=== PATIENT | female | born 1930 | race Caucasian/White ===

== ENCOUNTER → 2016-06-13 | Outpatient (CLI) | payer BC ==
[~2016-06-13] MED LIST: ABL10 PO; ACET-1311 PO; ALBUAER2 INH; ANSHCCR PR; ASCO10003 PO; ASCO500T16 PO; ASCO500T3 PO; ASPCH81X PO; ASPI81TA28 PO; BROM0.07 OPR; CALC600T9 PO; CLX/20 PO; CONJ0.453 PO; DARI15TA PO; DARI7.5T PO; DICL1GEL12 EXT; DICL1GEL28 TOP; DOCU100C PO; DOCU100C31 PO; DOXY-300 PO; DOXY100C2 PO; DOXY100C76 PO; FLUV100T12 PO; FLUV50TA2 PO; HYDR-389 PO; HYDR1CAP85 PO; HYDR25CA PO; LCTX PO; LEVO-17 PO; LEVO-366 PO; METO25TA3 PO; METO50TA7 PO; MULT-506 PO; ONDA4TAB65 PO; POLYSOL OPB; PRED1SUS17 OPR; PRED20TA2 PO; RISP0.258 PO; RISP0.5T10 PO; SENN-61 PO; SENN-65 PO; SERT-234 PO; SPRIN INH; TRAM-10 PO; TRMCR130WC TOP; TYLOTC500 PO; VNTHFA/IN INH
[2016-06-13 12:58] LABS: BASO % 0.4 %; BASO ABS # 0.01 K/uL (0-0.2); COMPLETE YES; EOS % 1.8 %; LYMPH % 40.9 %; LYMPH ABS # 1.14 K/uL (1.2-3.4); MEAN CELL VOLUME 92.5 fL (80-100); MEAN CORPUSCULAR HEMOGLOBIN 30.4 pg (25-34); MEAN CORPUSCULAR HGB CONC 32.9 g/dl (32-36); MEAN PLATELET VOLUME 10.6 fL (7.4-10.4); NEUT % 37.9 %; PLATELET COUNT 185 K/uL (130-400); RED BLOOD COUNT 4.11 M/uL (4.2-5.4); WHITE BLOOD COUNT 2.79 K/uL (4.8-10.8)
== END | disposition home or self-care (01) ==
LOC: C.LABSALHI 12:45
PROVIDERS: ATTEND Nurse Practitioner Family
DX: D70.9 Neutropenia, unspecified (principal)

== ENCOUNTER → 2016-07-16 | Day surgery (SDC) | payer BC ==
[2016-07-15 07:34] VITALS: Ht 160 cm; Wt 55.5 kg
[~2016-07-16] VITALS: Ht 160 cm; Wt 55.5 kg
[~2016-07-16] MED LIST changes: +500ML BSS 0.3ML EPI 1:1000PF IRRIG ONE; +ACETAMINOPHEN 325 MG TAB PO PRN; -ALBUAER2 INH; +AMVISC PLUS 0.8ML SYRINGE INT OCU ONE; -ASCO10003 PO; -ASPI81TA28 PO; +BSS FLUSH ONE; -DICL1GEL28 TOP; +EpINEphrine INJ 1MG/ML AMP 1 MG/ML AMP ONE; +LACTATED RINGER'S 1000ML 500 ML IV SCH; -LCTX PO; +LIDOCAINE 3.5% OPH GEL PER APPLICATION CHARGE ONE; +LIDOCAINE HCL 1% MPF 2 ML VIAL ONE; +MIDAZOLAM HCL 1 MG/ML 2ML VIAL ONE; +OCUCOAT 1 ML SOLN IO ONE; +PHENYLEPHRINE HCL 10% OP SOLN PER DROP CHARGE OPR SCH; +POVIDONE-IODINE OP SOLN 30 ML BTL ONE; +PROPARACAINE 0.5% OP SOLN PER DROP CHARGE OPR SCH; +TOBRAMYCIN/DEXAMETHASONE OPH OINT PER APPLN CHARGE ONE; -TRAM-10 PO
--- NOTE | 2016-07-16 08:18 | History & Physical Bridge - SC ---
H&P Re-Evaluation Bridge Note: I have examined the patient, reviewed the History & Physical and in the interval since the performance of the History & Physical I have noted the following changes of clinical significance: No changes noted
[2016-07-16] MEDS: PHENYLEPHRINE HCL 2.5% OP SOLN PER DROP CHARGE OPR SCH ×2 (08:21→08:26)
[2016-07-16] MEDS: TROPICAMIDE 1% OP SOLN PER DROP CHARGE OPR SCH ×2 (08:22→08:27)
[2016-07-16] MEDS: CYCLOPENTOLATE HCL 1% OP SOLN PER DROP CHARGE OPR SCH ×2 (08:23→08:28)
[2016-07-16] MEDS: KETOROLAC 0.5% OP SOLN PER DROP CHARGE OPR SCH ×2 (08:24→08:29)
[2016-07-16] MEDS: GATIFLOXACIN OP SOLN PER DROP CHARGE OPR SCH ×2 (08:25→08:35)
--- NOTE | 2016-07-16 09:02 | Discharge Instructions-SurgCtr ---
Discharge Instructions Visit Reason for Visit: Cataract Right Eye Discharge Discharge Diagnosis / Problem: cataract Discharge Goals Goal(s): Improve function Activity Recommendations Activity Limitations: per Instructions/Follow-up section Anesthesia . Post Anesthesia Instructions: If you have had General Anesthesia or IV Sedation: * Do not drive today. * Resume driving when surgeon permits. * Do not make important decisions or sign legal documents today. * Call surgeon for: 1. Temperature elevations greater than 101 degrees F. 2. Uncontrollable pain. 3. Excessive bleeding. 4. Persistent nausea and vomiting. 5. Medication intolerance (nausea, vomiting or rash). * For nausea and vomiting use only clear liquids such as: tea, soda, bouillon until nausea subsides, then gradually increase diet as tolerated. * If you have any concerns or questions, call your surgeon's office. If physician is unavailable and it is an emergency, call 911 or go to the nearest emergency room. . Instructions / Follow-Up Instructions / Follow-Up ACTIVITY RECOMMENDATIONS: * No strenuous lifting, jogging or running for 4 days * No swimming or yard work for 1 week. * Limited bending is permitted, such as putting on shoes. RETURN TO SCHOOL/WORK: No work until seen by physician in office. MEDICATIONS: Resume previous medications unless instructed otherwise by your surgeon. This includes eye drops for glaucoma. Zymaxid/Gatifloxacin (south cap) - one drop every 2 hours until bedtime Nevanac/Ilevro/Prolensa/Ketorolac (pryor cap) - one drop every 4 hours until bedtime Prednisolone (white/pink cap, SHAKE WELL) - one drop every 2 hours until bedtime Starting tomorrow - all 3 drops every 4 hours until seen in the office Optive drops - as needed for discomfort SPECIAL CARE INSTRUCTIONS: * Wear eyeshield when sleeping, for four nights. * You may wear your own glasses or sunglasses while awake. * You may read or watch TV * You may shower and wash your face, but be gentle around the eye and pat dry. * Blurry vision and mild irritation are normal. * Call office if pain is more severe or vision becomes dark at . FOLLOW UP VISIT: Follow-up with Dr Banuelos tomorrow. Diet Recommendations Home Diet: resume previous diet Procedures Procedures Performed: Right Cataract Phacoemulsification With Intraocular Lens Implant Pending Studies Studies pending at discharge: no Medical Emergencies . Who to Call and When: Medical Emergencies: If at any time you feel your situation is an emergency, please call 911 immediately. . Non-Emergent Contact Non-Emergency issues call your: Software Quality Assurance Specialist . . "Provider Documentation" section prepared by Khanh Banuelos.
--- NOTE | 2016-07-16 09:02 | [facility] Operative Report ---
Operative Report 1. PREOPERATIVE DIAGNOSIS: Cataract of the right eye. 2. POSTOPERATIVE DIAGNOSIS: Same. 3. PROCEDURE: Phacoemulsification with intraocular lens implantation of the right eye. SURGEON: Dr. Khanh Banuelos. ANESTHESIA: Topical Lidocaine gel, 1% Non- Preserved intracameral Lidocaine, and monitored intravenous sedation. INDICATIONS FOR THE PROCEDURE: The patient is a 86 - year-old female with a history of cataract of the right eye causing significant visual impairment. The details of the proposed procedure were explained to the patient who asked appropriate questions and following discussion of all risks, benefits and alternatives agreed to have the procedure done. 4. OPERATION AND FINDINGS: DESCRIPTION OF PROCEDURE: After informed consent was obtained, the patient was brought to the Operating Room at the [facility]. The patient was placed in a supine position and then the right eye was prepped and draped in the usual sterile fashion for intraocular surgery. A drop of topical Lidocaine gel was placed in the operative eye. A wire lid speculum was then placed in the fornices. A corneal paracentesis was then created temporally. The Non-Preserved Lidocaine was then instilled into the anterior chamber. The anterior chamber was then pressurized with viscoelastic. A 2.0 mm clear corneal incision was then created temporally. A cystotome was inserted into the anterior chamber and used to create a tear in the anterior lens capsule. This capsular tear was then used to create a small flap and the flap was dragged in a counterclockwise direction in order to create a continuous curvilinear capsulorrhexis. Hydrodissection was accomplished with balanced salt solution. Phacoemulsification of the lens nucleus was then performed in a standard [id number] technique. The phaco time was 33 seconds with an average power of 13 %. The remaining cortical material was removed using irrigation aspiration. The capsular bag was then filled with viscoelastic. A [employer] Lomb MI60L +20.5 diopters lens was then loaded into the injector and injected into the capsular bag. The remaining viscoelastic was removed with the irrigation aspiration handpiece. The wound was hydrated and then checked and found to be watertight. The intraocular pressure was checked and found to be adequate. The wire lid speculum was removed and the patient's face was cleaned and dried. TobraDex ointment was placed in the inferior fornix. The patient was discharged to the Recovery Room having tolerated the procedure well. There were no complications. The patient will be seen tomorrow in the office for follow-up. I attest to the content of the Intraoperative Record and any orders documented therein. Any exceptions are noted below.
--- NOTE | 2016-07-16 09:30 | Anesthesia Progress Nt - [facility] ---
Anesthesia Post Op Note Date & Time Jul 16, 2016 at 09:30 Vital Signs Pain Intensity: 0 Vital Signs Past 12 Hours Date Time Temp Pulse Resp B/P Pulse Ox O2 Delivery O2 Flow Rate FiO2 07/16/16 09:01 36.2 55 16 164/67 98 Room Air 07/16/16 08:23 36.4 60 16 172/69 96 Room Air Notes Mental Status: alert / awake / arousable, participated in evaluation Pt Amnestic to Procedure: No Nausea / Vomiting: adequately controlled Pain: adequately controlled Airway Patency, RR, SpO2: stable & adequate BP & HR: stable & adequate Hydration State: stable & adequate Anesthetic Complications: no major complications apparent Recall as expected.
[2016-07-16 09:34] VITALS: BP 176/63; PULSE 50; O2SAT 96
== END | disposition home or self-care (01) ==
LOC: X.SURG 07:49
PROVIDERS: ATTEND Ophthalmology
DX: H26.9 Unspecified cataract (principal); I10 Essential (primary) hypertension

== ENCOUNTER 2016-07-28 09:51 | Inpatient (IN) | payer OTHER, BC ==
[~2016-07-28] VITALS: Ht 160 cm; Wt 65.1 kg
[~2016-07-28 09:51] MED LIST changes: -500ML BSS 0.3ML EPI 1:1000PF IRRIG ONE; -ABL10 PO; -ACET-1311 PO; -ACETAMINOPHEN 325 MG TAB PO PRN; -AMVISC PLUS 0.8ML SYRINGE INT OCU ONE; -ANSHCCR PR; -ASCO500T16 PO; -BROM0.07 OPR; -BSS FLUSH ONE; -CLX/20 PO; -DARI15TA PO; -DOCU100C31 PO; -DOXY-300 PO; -DOXY100C2 PO; -EpINEphrine INJ 1MG/ML AMP 1 MG/ML AMP ONE; -FLUV100T12 PO; -FLUV50TA2 PO; -HYDR-389 PO; -HYDR1CAP85 PO; -HYDR25CA PO; -LACTATED RINGER'S 1000ML 500 ML IV SCH; -LEVO-17 PO; -LEVO-366 PO; -LIDOCAINE 3.5% OPH GEL PER APPLICATION CHARGE ONE; -LIDOCAINE HCL 1% MPF 2 ML VIAL ONE; -MIDAZOLAM HCL 1 MG/ML 2ML VIAL ONE; -OCUCOAT 1 ML SOLN IO ONE; -PHENYLEPHRINE HCL 10% OP SOLN PER DROP CHARGE OPR SCH; -POLYSOL OPB; -POVIDONE-IODINE OP SOLN 30 ML BTL ONE; -PRED1SUS17 OPR; -PRED20TA2 PO; -PROPARACAINE 0.5% OP SOLN PER DROP CHARGE OPR SCH; -RISP0.258 PO; -RISP0.5T10 PO; -SENN-65 PO; -SPRIN INH; -TOBRAMYCIN/DEXAMETHASONE OPH OINT PER APPLN CHARGE ONE; -TRMCR130WC TOP
[2016-07-28] MEDS ORDERED: SODIUM CHLORIDE 0.9% 500ML 500 ML IV STA (10:09)
--- NOTE | 2016-07-28 10:12 | EMERGENCY ROOM VISIT NOTE ---
History Report prepared by Tobi: Maria Esther Fox Under the Supervision of: Dr. Toro Diop M.D. First contact with patient: 10:03 Chief Complaint: ILLNESS Stated Complaint: ILLNESS History of Present Illness The patient is an 86 year old female who presents to the Emergency Room with complaints of persistent flu like symptoms. She was brought to the ED via AMS from [facility] where she resides. She complains of a cough, nausea, dry heaves, chills and shortness of breath. She vomited a small amount of bile upon arrival to the ED. She also reports her urine has been very dark in color recently. The patient denies any chest pain or swelling in her legs. 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 A total of 10 systems reviewed and were otherwise negative. 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 (7) UTI (urinary tract infection) Surgical Problems: (1) Status post arthroscopic knee surgery (2) Status post tubal ligation Family History Asthma FAM HX-ISCHEM HEART DIS MOTHER Social History Smoking Status: Unknown if Ever Smoked Drug Use: none Marital Status: Housing Status: lives alone Occupation Status: retired Current/Historical Medications Scheduled Acetaminophen (Tylenol), 1,000 MG PO BID Ascorbic Acid (Vitamin C), 2 TAB PO QAM Aspirin (Aspirin Chewable), 81 MG PO BID Calcium Carbonate-Vitamin D (Calcium + D), 1 TAB PO QAM Darifenacin Hydrobromide (Enablex), 7.5 MG PO QPM Doxycycline Monohydrate (Monodox), 100 MG PO QAM Estrog Conj/Medryoxyprog Acet (Prempro 0.45MG/1.5MG), 1 TAB PO Q2D Metoprolol Succ (Toprol Xl) (Toprol-Xl), 25 MG PO QAM Metoprolol Succ (Toprol Xl) (Toprol-Xl), 50 MG PO QAM Multivitamin (Multivitamin), 1 TAB PO QAM Senna (Senokot), 1 TAB PO DAILY AT NOON Sertraline (Zoloft), 100 MG PO QPM Scheduled PRN Albuterol Hfa (Ventolin Hfa), 2-4 PUFFS INH Q6H PRN for Shortness of Breath Diclofenac Sodium (Topical) (Voltaren 1% Top Gel), APPLN EXT DIRECTED PRN for Pain Docusate Sodium (Stool Softener), 1 CAP PO BID PRN for Constipation Ondansetron Hcl (Zofran), 4 MG PO PRN PRN for Nausea Allergies Coded Allergies: Penicillins (Verified Allergy, Intermediate, HIVES, 07/16/16) TOLERATED CEFEPIME 2014 Sulfamethoxazole w/Trimethoprim (Verified Allergy, Intermediate, HIVES, ) Tetanus Toxoid (Verified Allergy, Intermediate, RASH, 07/16/16) Latex1 -Allergic Contact Dermititis (Verified Allergy, Mild, RASH, 07/16/16 ) Codeine (Verified Adverse Reaction, Intermediate, HEADACHES, 07/16/16) Morphine and Related (Verified Adverse Reaction, Mild, SEVERE HEADACHES, ) Severe Headaches Physical Exam Vital Signs Date Time Temp Pulse Resp B/P Pulse Ox O2 Delivery O2 Flow Rate FiO2 07/28/16 11:28 79 22 169/72 97 Nasal Cannula 2.0 07/28/16 10:28 38.5 07/28/16 10:27 38.5 07/28/16 09:59 36.9 85 22 176/76 96 Nasal Cannula 2.0 07/28/16 09:59 90 07/28/16 09:58 95 Nasal Cannula 2.0 07/28/16 09:58 86 Room Air Physical Exam GENERAL: Patient is elderly and unwell appearing. She appears to be in minimal distress and is warm to touch. HEENT: No acute trauma, normocephalic atraumatic, mucous membranes moist, no nasal congestion, no scleral icterus. NECK: No stridor, no adenopathy, no meningismus, trachea is midline. LUNGS: No dyspnea. Junky breath sounds bilaterally. No wheeze, no rhonchi. HEART: Regular rate and rhythm. No murmurs, rubs, gallops appreciated. ABDOMEN: Soft, nontender, bowel sounds positive, no masses appreciated, no peritonitis. BACK: No midline tenderness, no CVA tenderness EXTREMITIES: Normal motion all extremities, no cyanosis, no edema. NEUROLOGIC: Alert and oriented, no acute motor or sensory deficits, no focal weakness, cranial nerves grossly intact. SKIN: No rash, no jaundice, no diaphoresis. Medical Decision & Procedures ER Provider Diagnostic Interpretation: This X-Ray was reviewed and interpreted by myself and the radiologist. CHEST ONE VIEW PORTABLE IMPRESSION: No acute process. Electronically signed by: Madi Guy M.D. 07/28/2016 10:50 AM Laboratory Results 07/28/16 10:00 Red Blood Count 4.27, Mean Corpuscular Volume 92.7, Mean Corpuscular Hemoglobin 31.4, Mean Corpuscular Hemoglobin Concent 33.8, Mean Platelet Volume 10.8, Neutrophils (%) (Auto) 68.5, Lymphocytes (%) (Auto) 14.3, Monocytes (%) (Auto) 16.4, Eosinophils (%) (Auto) 0.4, Basophils (%) (Auto) 0.0, Neutrophils # (Auto ) 3.60, Lymphocytes # (Auto) 0.75, Monocytes # (Auto) 0.86, Eosinophils # (Auto ) 0.02, Basophils # (Auto) 0.00 07/28/16 10:00 Test 07/28/16 10:00 07/28/16 10:25 07/28/16 10:55 07/28/16 11:22 White Blood Count 5.25 K/uL (4.8-10.8) Red Blood Count 4.27 M/uL (4.2-5.4) Hemoglobin 13.4 g/dL (12.0-16.0) Hematocrit 39.6 % (37-47) Mean Corpuscular Volume 92.7 fL (80-100) Mean Corpuscular Hemoglobin 31.4 pg (25-34) Mean Corpuscular Hemoglobin Concent 33.8 g/dl (32-36) Platelet Count 134 K/uL (130-400) Mean Platelet Volume 10.8 fL (7.4-10.4) Neutrophils (%) (Auto) 68.5 % Lymphocytes (%) (Auto) 14.3 % Monocytes (%) (Auto) 16.4 % Eosinophils (%) (Auto) 0.4 % Basophils (%) (Auto) 0.0 % Neutrophils # (Auto) 3.60 K/uL (1.4-6.5) Lymphocytes # (Auto) 0.75 K/uL (1.2-3.4) Monocytes # (Auto) 0.86 K/uL (0.11-0.59) Eosinophils # (Auto) 0.02 K/uL (0-0.5) Basophils # (Auto) 0.00 K/uL (0-0.2) RDW Standard Deviation 47.8 fL (36.4-46.3) RDW Coefficient of Variation 14.3 % (11.5-14.5) Immature Granulocyte % (Auto) 0.4 % Immature Granulocyte # (Auto) 0.02 K/uL (0.00-0.02) Prothrombin Time 11.0 SECONDS (9.0-12.0) Prothromb Time International Ratio 1.0 (0.9-1.1) Anion Gap 6.0 mmol/L (3-11) Est Creatinine Clear Calc Drug Dose 41.0 ml/min Estimated GFR () 66.7 Estimated GFR (Non- 57.5 BUN/Creatinine Ratio 19.1 (10-20) Calcium Level 8.9 mg/dl (8.5-10.1) Magnesium Level 2.1 mg/dl (1.8-2.4) Total Bilirubin 0.7 mg/dl (0.2-1) Direct Bilirubin mg/dl (0-0.2) Aspartate Amino Transf (AST/SGOT) 28 U/L (15-37) Alanine Aminotransferase (ALT/SGPT) 19 U/L (12-78) Alkaline Phosphatase 89 U/L (45-117) Total Protein 8.4 gm/dl (6.4-8.2) Albumin 4.1 gm/dl (3.4-5.0) Chemistry Specimen Hemolysis Urine Color YELLOW Urine Appearance CLEAR (CLEAR) Urine pH 8.0 (4.5-7.5) Urine Specific [place] 1.014 (1.000-1.030) Urine Protein 4+ (NEG) Urine Glucose (UA) NEG (NEG) Urine Ketones NEG (NEG) Urine Occult Blood 1+ (NEG) Urine Nitrite NEG (NEG) Urine Bilirubin NEG (NEG) Urine Urobilinogen NEG (NEG) Urine Leukocyte Esterase NEG (NEG) Urine WBC (Auto) 1-5 /hpf (0-5) Urine RBC (Auto) 5-10 /hpf (0-4) Urine Hyaline Casts (Auto) 1-5 /lpf (0-5) Urine Epithelial Cells (Auto) >30 /lpf (0-5) Urine Bacteria (Auto) NEG (NEG) Urine Renal Epithelial Cells 0-5 /lpf (0-5) Influenza Type A Antigen Neg for Influ A (NEG) Influenza Type B Antigen Neg for Influ B (NEG) Bedside Lactic Acid Venous 0.74 mmol/L (0.90-1.70) Laboratory results as reviewed by me. Medications Administered Medications (Trade) Dose Ordered Sig/Echo Route Start Time Stop Time Status Last Admin Dose Admin Sodium Chloride (Nss 500ml) 500 ml @ 999 mls/hr Q31M STAT IV 07/28/16 10:09 07/28/16 10:39 DC 07/28/16 10:09 999 MLS/HR Acetaminophen (Tylenol Supp) 975 mg NOW STAT IA 07/28/16 10:30 07/28/16 10:31 DC 07/28/16 11:09 975 MG Levofloxacin (Levaquin / D5W) 750 mg NOW STAT IV 07/28/16 11:07 07/28/16 11:09 DC 07/28/16 11:27 750 MG ECG Indication: weakness Rate (beats per minute): 81 Rhythm: normal sinus (normal sinus rhythm) Findings: no acute ischemic change, no ectopy, other (QTC is 460 milliseconds. Of note, there is less than [address] in V2 only) ED Course 1005: The patient was evaluated in room A3. A complete history and physical exam was performed. 1009: NSS 500 ml @ 999 mls/hr IV. 1030: Acetaminophen 975 mg IA. 1107: Levaquin 750 mg IV. 1117: I discussed the patient's case with Dr. Fine, [facility] Hospitalist. The patient will be further evaluated. Medical Decision Differential: Viral, Pharyngitis, Cellulitis, Pneumonia, Influenza, Meningitis, Sepsis, Bacteremia, UTI/Pyelonephritis, Endocrine, Toxicologic, amongst other pathologies entertained. Pleasant 86 yr old female arrives with cough, vomiting and hypoxia. No clear infiltrate on CXR but with fevers and hypoxia I suspect a lung source of her sepsis thus abx initiated. She is not hypotensive nor is lactic acid significantly elevated thus I will avoid overload with 30ml/kg NSS bolus. She will require being brought in to hospital for further work-up and evaluation. Flu negative though suspect underlying viral etiology with clear cxr. Patient and friend agree with this plan. Consults Time Called: 1111 Consulting Physician: Dr. Fine, [facility] Hospitalist Returned Call: [phone] I discussed the patient's case with Dr. Fine [facility] Hospitalist. The patient will be further evaluated. Impression Primary Impression: Sepsis Additional Impression: Hypoxia Scribe Attestation The scribe's documentation has been prepared under my direction and personally reviewed by me in its entirety. I confirm that the note above accurately reflects all work, treatment, procedures, and medical decision making performed by me. Departure Information Dispostion Being Evaluated By Hospitalist Referrals Gwendolyn Pina,C.R.N.P. (PCP) Patient Instructions My [facility] Problem Qualifiers Primary Impression: Sepsis Sepsis type: sepsis due to unspecified organism Qualified Codes: A41.9 - Sepsis, unspecified organism
[2016-07-28 10:16] LABS: COMPLETE YES; EOS % 0.4 %; HEMATOCRIT 39.6 % (37-47); IG% 0.4 %; LYMPH % 14.3 %; LYMPH ABS # 0.75 K/uL (1.2-3.4); MEAN CELL VOLUME 92.7 fL (80-100); MEAN CORPUSCULAR HEMOGLOBIN 31.4 pg (25-34); MEAN CORPUSCULAR HGB CONC 33.8 g/dl (32-36); MEAN PLATELET VOLUME 10.8 fL (7.4-10.4); MONO % 16.4 %; NEUT % 68.5 %; PLATELET COUNT 134 K/uL (130-400); RED BLOOD COUNT 4.27 M/uL (4.2-5.4); WHITE BLOOD COUNT 5.25 K/uL (4.8-10.8)
[2016-07-28] MEDS ORDERED: ACETAMINOPHEN 325 MG SUPP PR STA (10:30)
[2016-07-28 10:46] LABS: URINE APPEARANCE CLEAR (CLEAR); URINE BILIRUBIN NEG (NEG); URINE COLOR YELLOW; URINE EPITHELIAL CELL AUTO >30 /lpf (0-5); URINE NITRITE NEG (NEG); URINE SPECIFIC GRAVITY 1.014 (1.000-1.030); UROBILINOGEN NEG (NEG); ZZURINE CULT IF INDIC CATH NO
--- NOTE | 2016-07-28 10:51 | DIAGNOSTIC IMAGING REPORT ---
CHEST ONE VIEW PORTABLE HISTORY: fever COMPARISON: Chest 01/31/2016. FINDINGS: The lungs are clear. Cardiac silhouette is normal in size. No pleural effusions. No pneumothorax. IMPRESSION: No acute process. Electronically signed by: Madi Guy M.D. 07/28/2016 10:50 AM Dictated Date/Time: 07/28/2016 10:49 AM
[2016-07-28 10:53] LABS: ALKALINE PHOSPHATASE 89 U/L (45-117); ALT/SGPT 19 U/L (12-78); AST/SGOT 28 U/L (15-37); BLOOD UREA NITROGEN 17 mg/dl (7-18); BUN/CREATININE RATIO 19.1 (10-20); CALCIUM 8.9 mg/dl (8.5-10.1); CARBON DIOXIDE 28 mmol/L (21-32); CHLORIDE 100 mmol/L (98-107); CKMB/CK RATIO 1.1 (0-3.0); CREATININE 0.91 mg/dl (0.60-1.20); GLUCOSE 117 mg/dl (70-99); MAGNESIUM 2.1 mg/dl (1.8-2.4); SODIUM 134 mmol/L (136-145)
[2016-07-28 11:05] LABS: MANUAL MICROSCOPIC REQUIRED? NO; REVIEW REQ? YES; SULFASALICYLIC ACID POS (NEG)
[2016-07-28] MEDS ORDERED: LEVAQUIN 750MG / 150ML D5W IV STA (11:07)
[2016-07-28] MEDS ORDERED: ALUMINUM/MAGNESIUM/SIMETH (MAALOX MAX) 30 ML UDC PO PRN (12:30)
[2016-07-28] MEDS ORDERED: DICLOFENAC SOD 1% GEL 100 GM TUBE EXT PRN (12:30)
[2016-07-28] MEDS ORDERED: POLYETHYLENE (MIRALAX) 17 GM PACK PO PRN (12:30)
[2016-07-28] MEDS ORDERED: MAGNESIUM HYDROXIDE SUSP 30 ML UDC PO PRN (12:30)
[2016-07-28] MEDS ORDERED: ONDANSETRON INJ 2 MG/ML 2 ML VIAL IV PRN (12:30)
[2016-07-28] MEDS ORDERED: ACETAMINOPHEN 325 MG TAB PO PRN (12:30)
[2016-07-28] MEDS ORDERED: DOCUSATE SODIUM 100 MG CAP PO PRN (12:30)
[2016-07-28] MEDS ORDERED: ALBUTEROL HFA 8 GM INHALER INH PRN (12:30)
[2016-07-28 13:17] VITALS: Ht 160 cm; Wt 65.1 kg
--- NOTE | 2016-07-28 13:27 | History and Physical ---
History & Physical Date & Time of Service: Jul 28, 2016 at 13:04 Chief Complaint: Illness Primary Care Physician: Gwendolyn Pina,MishaRGirishNGirishPGirish History of Present Illness Source: patient, family Ms. Perez is an 86 y/o female with PMHx of HTN and RLE Cellulitis on Chronic Doxycycline who presents to the ED for persistent flu-like symptoms x 3 months. Patient is a resident of [facility] and states she began developing a productive cough of thick white sputum in May. These symptoms would wax and wane but never completely resolved. She does not report noticeable change in characteristic of this cough when it occurs. She denies chronic lung conditions. She initially reports generalized muscle aches but then states it is mostly limited to her heels. She has been recently nauseous and did vomit "yellow liquid" which is documented as bile-like. In addition she has had intermittent diarrhea that seem to come in 2-3 day increments with a recent occurrence earlier this week. She has been on Doxycycline for RLE cellulitis chronically. Reports multiple sick contacts and members of [facility] with similar complaints. Family reports that she drinks minimal fluids and patient reports dark colored urine over the past few days. Of note, patient reports a recent fall on Friday that was mechanical per family report as she stood too fast out of a wheelchair and tripped on the curb but denies precipitating events of lightheadedness. Does report hitting her head and associated headache but family says no changes in mentation or LOC. Patient does report a fall in the past that was recent and was associated with lightheadedness but could not give direct details but states she was on the floor for a bit of time (again unsure of when this occurred). In the ED, she is febrile without leukocytosis. CXR and U/A without evidence of infection. Initial flu negative. Initial trop 0.047. She was hydrated and started on Levaquin. She will be admitted to Med/Surg for further evaluation and care. Past Medical/Surgical History Medical Problems: (1) Essential hypertension Status: Chronic (2) Polymyalgia rheumatica Status: Chronic (3) Steroid-induced myopathy Status: Chronic (4) UTI (urinary tract infection) Status: Resolved Surgical Problems: (1) Status post arthroscopic knee surgery Status: Chronic (2) Status post tubal ligation Status: Chronic Family History Asthma FAM HX-ISCHEM HEART DIS MOTHER Social History Smoking Status: Never Smoker Smokeless Tobacco Use: No Alcohol Use: none Drug Use: none Marital Status: Housing status: lives alone Occupational Status: retired Immunizations History of Influenza Vaccine: N/A Influenza Vaccine Date: Mar 11, 2012 History of Tetanus Vaccine?: UTD History of Pneumococcal: Yes Pneumococcal Date: Jun 13, 2011 History of Hepatitis B Vaccine: No Multi-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 Allergies Coded Allergies: Penicillins (Verified Allergy, Intermediate, HIVES, 07/16/16) TOLERATED CEFEPIME 2013 Sulfamethoxazole w/Trimethoprim (Verified Allergy, Intermediate, HIVES, ) Tetanus Toxoid (Verified Allergy, Intermediate, RASH, 07/16/16) Latex1 -Allergic Contact Dermititis (Verified Allergy, Mild, RASH, 07/16/16 ) Codeine (Verified Adverse Reaction, Intermediate, HEADACHES, 07/16/16) Morphine and Related (Verified Adverse Reaction, Mild, SEVERE HEADACHES, ) Severe Headaches Home Medications Scheduled Acetaminophen (Tylenol), 1,000 MG PO BID Ascorbic Acid (Vitamin C), 2 TAB PO QAM Aspirin (Aspirin Chewable), 81 MG PO BID Calcium Carbonate-Vitamin D (Calcium + D), 1 TAB PO QAM Darifenacin Hydrobromide (Enablex), 7.5 MG PO QPM Doxycycline Monohydrate (Monodox), 100 MG PO QAM Estrog Conj/Medryoxyprog Acet (Prempro 0.45MG/1.5MG), 1 TAB PO Q2D Metoprolol Succ (Toprol Xl) (Toprol-Xl), 25 MG PO QAM Metoprolol Succ (Toprol Xl) (Toprol-Xl), 50 MG PO QAM Multivitamin (Multivitamin), 1 TAB PO QAM Senna (Senokot), 1 TAB PO DAILY AT NOON Sertraline (Zoloft), 100 MG PO QPM Scheduled PRN Albuterol Hfa (Ventolin Hfa), 2-4 PUFFS INH Q6H PRN for Shortness of Breath Diclofenac Sodium (Topical) (Voltaren 1% Top Gel), APPLN EXT DIRECTED PRN for Pain Docusate Sodium (Stool Softener), 1 CAP PO BID PRN for Constipation Ondansetron Hcl (Zofran), 4 MG PO PRN PRN for Nausea Review of Systems Constitutional: + fever Eyes: No worsening of vision ENT: + nasal symptoms, No sore throat, No trouble swallowing Respiratory: + cough, + dyspnea on exertion, + sputum, + wheezing, No dyspnea at rest Cardiovascular: No chest pain, No palpitations Abdomen: + diarrhea, + nausea, + vomiting, No constipation, No pain Musculoskeletal: No calf pain Genitourinary - Female: No dysuria Hematologic / Lymphatic: No abnormal bleeding/bruising, No clotting problems Integumentary: No rash Physical Exam Vital Signs Date Time Temp Pulse Resp B/P Pulse Ox O2 Delivery O2 Flow Rate FiO2 07/28/16 12:52 85 07/28/16 11:28 79 22 169/72 97 Nasal Cannula 2.0 07/28/16 10:28 38.5 07/28/16 10:27 38.5 07/28/16 09:59 36.9 85 22 176/76 96 Nasal Cannula 2.0 07/28/16 09:59 90 07/28/16 09:58 95 Nasal Cannula 2.0 07/28/16 09:58 86 Room Air General Appearance: WD/WN, no apparent distress Head: normocephalic, atraumatic Eyes: sclerae normal ENT: hearing grossly normal Neck: supple, no JVD, trachea midline Respiratory/Chest: no respiratory distress, no accessory muscle use, + pertinent finding (poor inspiratory effort; minimal course breath sounds appreciated) Cardiovascular: regular rate, rhythm, no gallop, no murmur Abdomen/GI: normal bowel sounds, non tender, soft Back: normal inspection, no CVA tenderness Extremities/Musculoskelatal: no pedal edema, + swelling (trace pitting edema of lower extremities b/l; no erythema appreciated; b/l chronic brown discolored skin) Neurologic/Psych: alert, oriented x 3 Skin: normal color, warm/dry Diagnostics Laboratory Results Results Past 24 Hours Test 07/28/16 10:00 07/28/16 10:25 07/28/16 10:55 07/28/16 11:22 Range/Units White Blood Count 5.25 4.8-10.8 K/uL Red Blood Count 4.27 4.2-5.4 M/uL Hemoglobin 13.4 12.0-16.0 g/dL Hematocrit 39.6 37-47 % Mean Corpuscular Volume 92.7 80-100 fL Mean Corpuscular Hemoglobin 31.4 25-34 pg Mean Corpuscular Hemoglobin Concent 33.8 32-36 g/dl Platelet Count 134 130-400 K/uL Mean Platelet Volume 10.8 7.4-10.4 fL Neutrophils (%) (Auto) 68.5 % Lymphocytes (%) (Auto) 14.3 % Monocytes (%) (Auto) 16.4 % Eosinophils (%) (Auto) 0.4 % Basophils (%) (Auto) 0.0 % Neutrophils # (Auto) 3.60 1.4-6.5 K/uL Lymphocytes # (Auto) 0.75 1.2-3.4 K/uL Monocytes # (Auto) 0.86 0.11-0.59 K/uL Eosinophils # (Auto) 0.02 0-0.5 K/uL Basophils # (Auto) 0.00 0-0.2 K/uL RDW Standard Deviation 47.8 36.4-46.3 fL RDW Coefficient of Variation 14.3 11.5-14.5 % Immature Granulocyte % (Auto) 0.4 % Immature Granulocyte # (Auto) 0.02 0.00-0.02 K/uL Prothrombin Time 11.0 9.0-12.0 SECONDS Prothromb Time International Ratio 1.0 0.9-1.1 Sodium Level 134 136-145 mmol/L Potassium Level 4.0 3.5-5.1 mmol/L Chloride Level 100 98-107 mmol/L Carbon Dioxide Level 28 21-32 mmol/L Anion Gap 6.0 3-11 mmol/L Blood Urea Nitrogen 17 7-18 mg/dl Creatinine 0.91 0.60-1.20 mg/dl Est Creatinine Clear Calc Drug Dose 41.0 ml/min Estimated GFR () 66.7 Estimated GFR (Non- 57.5 BUN/Creatinine Ratio 19.1 10-20 Random Glucose 117 70-99 mg/dl Calcium Level 8.9 8.5-10.1 mg/dl Magnesium Level 2.1 1.8-2.4 mg/dl Total Bilirubin 0.7 0.2-1 mg/dl Direct Bilirubin 0-0.2 mg/dl Aspartate Amino Transf (AST/SGOT) 28 15-37 U/L Alanine Aminotransferase (ALT/SGPT) 19 12-78 U/L Alkaline Phosphatase 89 45-117 U/L Total Creatine Kinase 110 26-192 U/L Creatine Kinase MB 1.2 0.5-3.6 ng/ml Creatine Kinase MB Ratio 1.1 0-3.0 Troponin I 0.047 0-0.045 ng/ml Total Protein 8.4 6.4-8.2 gm/dl Albumin 4.1 3.4-5.0 gm/dl Chemistry Specimen Hemolysis Urine Color YELLOW Urine Appearance CLEAR CLEAR Urine pH 8.0 4.5-7.5 Urine Specific [place] 1.014 1.000-1.030 Urine Protein 4+ NEG Urine Glucose (UA) NEG NEG Urine Ketones NEG NEG Urine Occult Blood 1+ NEG Urine Nitrite NEG NEG Urine Bilirubin NEG NEG Urine Urobilinogen NEG NEG Urine Leukocyte Esterase NEG NEG Urine WBC (Auto) 1-5 0-5 /hpf Urine RBC (Auto) 5-10 0-4 /hpf Urine Hyaline Casts (Auto) 1-5 0-5 /lpf Urine Epithelial Cells (Auto) >30 0-5 /lpf Urine Bacteria (Auto) NEG NEG Urine Renal Epithelial Cells 0-5 0-5 /lpf Influenza Type A Antigen Neg for Influ A NEG Influenza Type B Antigen Neg for Influ B NEG Bedside Lactic Acid Venous 0.74 0.90-1.70 mmol/L Test 07/28/16 12:53 Range/Units Microbiology Results 07/28/16 Blood Culture, Received Pending 07/28/16 Blood Culture, Received Pending Diagnostic Radiology CHEST ONE VIEW PORTABLE HISTORY: fever COMPARISON: Chest 01/31/2016. FINDINGS: The lungs are clear. Cardiac silhouette is normal in size. No pleural effusions. No pneumothorax. IMPRESSION: No acute process. Impression Assessment and Plan Ms. Perez is an 86 y/o female with PMHx of HTN and RLE Cellulitis on Chronic Doxycycline who presents to the ED for persistent flu-like symptoms x 3 months. Patient is a resident of [facility] and states she began developing a productive cough of thick white sputum in May. In the ED, she is febrile without leukocytosis. CXR and U/A without evidence of infection. Initial flu negative. Initial trop 0.047. She was hydrated and started on Levaquin. She will be admitted to Med/Surg for further evaluation and care. Fever and Productive Cough with Hypoxia: Probably Viral URI - Patient is febrile with rectal temp of 38.5 and without leukocytosis. Lactic acid 0.74. CXR reviewed without evidence of consolidation -- Given duration of symptoms and residence at [facility] will continue Abx in ED -- Hypoxic episode noted of 86% likely inaccurate but will monitor - Initial flu neg - run PCR - C. Diff toxin - in setting of diarrhea and R/O further infection - Duonebs QID and Q2H PRN and Ventolin 2 puffs PRN - Levofloxacin 750 mg IV daily - NSS at 80 mL/hr Mild Troponin Elevation: - Will trend serial enzymes however patient is CP free and does not report any symptoms or acute changes in presenting symptoms -- Likely demand ischemia but will adjust pending enzymes Dehydration: - Gentle hydration as patient with dry mucous membranes and dark urine RLE Cellulitis with Chronic Doxycycline Use: - Continue Doxycycline 100 mg daily HTN: - Metoprolol Succ 75 mg daily DVT Prophylaxis: - Heparin 5000 units SC Q12H Code Status: - FULL RESUSCITATION Disposition: - PT/OT evaluations Level of Care Med/Surg Resuscitation Status FULL RESUSCITATION VTE Prophylaxis VTE Risk Assessment Done? Y/N: Yes Risk Level: Moderate Given or contraindicated: Unfractionated heparin SQ Reviewed: Pt Seen/Exam by Me, RN Notes, HO Notes, Prior Records, Labs, RAD History I agree with PA H&P with some modifications below A 86 y/o female with PMHx of HTN and RLE Cellulitis on Chronic Doxycycline who presents to the ED for persistent flu-like symptoms x 3 months. Patient is a resident of [facility] and states she began developing a productive cough of thick white sputum in May. In the ED, she is febrile without leukocytosis. CXR and U/A without evidence of infection. Initial flu negative. Initial trop 0.047. She was hydrated and started on Levaquin. Constitutional: denies: chills, malaise EENTM: denies: tearing Respiratory: positive: cough Cardiovascular: denies chest pain Gastrointestinal/Abdominal: positive: diarrhea Genitourinary: negative discharge Musculoskeletal: negative: back pain Skin: positive: other (skin changes) Neurological/Psych: negative: anxiety, depressed General Appearance: WD/WN, no apparent distress Eye Exam: bilateral eye normal inspection Ears, Nose, Throat: hearing grossly normal, pharynx normal Neck: non-tender, supple Respiratory: chest non-tender, normal breath sounds Cardiovascular: normal peripheral pulses, no edema, no JVD Gastrointestinal: normal bowel sounds, soft Extremities: normal range of motion, other (chronic vascular dermatitis present b/l) Neurologic/Psychiatric: no motor/sensory deficits, alert, oriented x 3 Skin Characteristics: normal color, warm/dry Assessment/Plan A 86 y/o female with PMHx of HTN and RLE Cellulitis on Chronic Doxycycline who presents to the ED for persistent flu-like symptoms x 3 months. Patient is a resident of [facility] and states she began developing a productive cough of thick white sputum in May. In the ED, she is febrile without leukocytosis. CXR and U/A without evidence of infection. Initial flu negative. Initial trop 0.047. She was hydrated and started on iv Levaquin. Fever and Productive Cough with Hypoxia: Probably Viral URI/bronchitis Patient is febrile with rectal temp of 38.5 and without leukocytosis. Lactic acid 0.74. CXR reviewed without evidence of consolidation continue levaquin IV until sputum cultures ar back Initial rapid flu is neg, check PCR Duonebs QID and Q2H PRN and Ventolin 2 puffs PRN Dehydration cont IV NSS at 80 mL/hr diarrhea r/o C. Diff toxin Mild Troponin Elevation: demand ischemia but will adjust pending enzymes trend serial enzymes however patient is CP free and does not report any symptoms or acute changes in presenting symptoms chronic RLE Cellulitis with Chronic Doxycycline Use: Continue Doxycycline 100 mg daily HTN: cont Metoprolol Succ 75 mg daily DVT Prophylaxis: Heparin 5000 units SC Q12H FULL RESUSCITATION PT/OT evaluations case discussed with BRENDAN Bravo time spent 45 min
[2016-07-28 15:37] VITALS: BP 147/65; PULSE 74; TEMP 36.7; O2SAT 98
[2016-07-28] MEDS: SODIUM CHLORIDE 0.9% 1000ML 1,000 ML IV SCH (15:54)
[2016-07-28 16:41] LABS: CKMB/CK RATIO 1.6 (0-3.0)
[2016-07-28] MEDS ORDERED: NURSING VERBAL MED ORDER ONE (17:00)
[2016-07-28] MEDS: ALBUT/IPRATROP 3MG/0.5MG NEB 3 ML VIAL INH SCH (18:57)
[2016-07-28 19:03] VITALS: PULSE 72; O2SAT 98
[2016-07-28 19:04] LABS: INFLUENZA A PCR Neg for Influ A (NEG); INFLUENZA B PCR Neg for Influ B (NEG)
[2016-07-28] MEDS: ASPIRIN 81 MG ECTAB PO SCH (19:46)
[2016-07-28] MEDS: PrednisoLONE ACET 1% OP SUSP 5 ML BTL OPR SCH (19:46)
[2016-07-28] MEDS: SERTRALINE HCL 100 MG TAB PO SCH (19:47)
[2016-07-28] MEDS: ACETAMINOPHEN 500 MG TAB PO SCH (19:47)
--- NOTE | 2016-07-28 19:48 | Progress Note ---
Progress Note Date of Service Jul 28, 2016. Progress Note was called due to elevated troponin. asymptomatic. d/w dr huddleston who admitted - aware of elevation - no specific intervention - continue to trend
[2016-07-28 20:00] VITALS: O2SAT 98
[2016-07-28] MEDS: HEPARIN SOD 5000 UNIT/0.5 ML CARP SQ SCH (21:15)
[2016-07-29] VITALS (8 sets, daily range): BP systolic 138–172; BP diastolic 72–78; PULSE 65–75; TEMP 36.6–36.8; O2SAT 94–98
[2016-07-29] MEDS: SODIUM CHLORIDE 0.9% 1000ML 1,000 ML IV SCH ×2 (03:52→15:16)
[2016-07-29] MEDS: PrednisoLONE ACET 1% OP SUSP 5 ML BTL OPR SCH ×4 (07:34→20:46)
[2016-07-29] MEDS: MULTIVITAMIN TAB PO SCH (07:35)
[2016-07-29] MEDS: ASPIRIN 81 MG ECTAB PO SCH ×2 (07:35→20:46)
[2016-07-29] MEDS: METOPROLOL SUCC 25MG EXT REL TAB PO SCH (07:36)
[2016-07-29] MEDS: ASCORBIC ACID 500 MG TAB PO SCH (07:37)
[2016-07-29] MEDS: METOPROLOL SUCC 50MG EXT REL TAB PO SCH (07:37)
[2016-07-29] MEDS: DOXYCYCLINE HYCLATE 100 MG CAP PO SCH (07:38)
[2016-07-29] MEDS: ACETAMINOPHEN 500 MG TAB PO SCH ×2 (07:38→20:47)
[2016-07-29 07:44] LABS: HEMATOCRIT 33.9 % (37-47); MEAN CELL VOLUME 91.9 fL (80-100); MEAN CORPUSCULAR HEMOGLOBIN 30.9 pg (25-34); MEAN CORPUSCULAR HGB CONC 33.6 g/dl (32-36); MEAN PLATELET VOLUME 9.4 fL (7.4-10.4); PLATELET COUNT 110 K/uL (130-400); RED BLOOD COUNT 3.69 M/uL (4.2-5.4); WHITE BLOOD COUNT 2.41 K/uL (4.8-10.8)
[2016-07-29] MEDS: ALBUT/IPRATROP 3MG/0.5MG NEB 3 ML VIAL INH SCH ×4 (07:53→19:11)
[2016-07-29] MEDS: HEPARIN SOD 5000 UNIT/0.5 ML CARP SQ SCH ×2 (08:05→20:51)
[2016-07-29 08:23] LABS: BUN/CREATININE RATIO 18.7 (10-20); CALCIUM 8.4 mg/dl (8.5-10.1); CREATININE 0.92 mg/dl (0.60-1.20)
--- NOTE | 2016-07-29 12:44 | Progress Note ---
Subjective Date of Service: Jul 29, 2016. (Juliane Bravo PA-C) Subjective Pt evaluation today including: conversation w/ patient, physical exam, chart review, lab review, review of studies, review of inpatient medication list Patient seen and evaluated. Troponins peaked at 0.071 and now at 0.068. Repeat EKG with NSR without signs of elevations or depressions. States she was having pressure in the chest. Says this pressure started yesterday but initially denied discomfort yesterday. Still ACS unlikely. Afebrile for almost 24 hours. States her L shoulder feels stiff and sore which is reproducible with movements. Says she was having chills yesterday but that has resolved States the back of her head still hurts from her fall on Friday but doesn't need medication for it. 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), No dysuria Skin: No rash (Juliane Bravo PA-C) Medications Current Inpatient Medications Medications (Trade) Dose Ordered Sig/Echo Route Start Time Stop Time Status Last Admin Dose Admin Acetaminophen (Tylenol Tab) 650 mg Q4H PRN PO 07/28/16 12:30 08/27/16 12:29 Al Hydrox/Mg Hydrox/Simethicone (Maalox Max Susp) 15 ml Q4H PRN PO 07/28/16 12:30 08/27/16 12:29 Magnesium Hydroxide (Milk Of Magnesia Susp) 30 ml Q6H PRN PO 07/28/16 12:30 08/27/16 12:29 Polyethylene (Miralax Powder Packet) 17 gm DAILY PRN PO 07/28/16 12:30 08/27/16 12:29 Ondansetron HCl (Zofran Inj) 4 mg Q6H PRN IV 07/28/16 12:30 08/27/16 12:29 Heparin Sodium (Porcine) (Heparin Sq 5000 Unit/0.5ml) 5,000 unit Q12 SQ 07/28/16 21:00 08/27/16 20:59 07/29/16 08:05 5,000 UNIT Acetaminophen (Tylenol Tab) 1,000 mg BID PO 07/28/16 20:00 08/27/16 20:59 07/29/16 07:38 1,000 MG Albuterol (Ventolin Hfa Inhaler) 2 puffs Q6H PRN INH 07/28/16 12:30 08/27/16 12:29 Ascorbic Acid (Vitamin C Tab) 1,000 mg QAM PO 07/29/16 08:00 08/28/16 08:59 07/29/16 07:37 1,000 MG Aspirin (Ecotrin Tab) 81 mg BID PO 07/28/16 20:00 08/27/16 19:59 07/29/16 07:35 81 MG Diclofenac Sodium (Voltaren 1% Top Gel) 1 appln BID PRN EXT 07/28/16 12:30 08/27/16 12:29 Docusate Sodium (coLACE CAP) 100 mg BID PRN PO 07/28/16 12:30 08/27/16 12:29 Doxycycline Hyclate (Vibramycin Cap) 100 mg QAM PO 07/29/16 08:00 08/08/16 08:59 07/29/16 07:38 100 MG Metoprolol Succinate (Toprol Xl Tab) 25 mg QAM PO 07/29/16 08:00 08/28/16 08:59 07/29/16 07:36 25 MG Metoprolol Succinate (Toprol Xl Tab) 50 mg QAM PO 07/29/16 08:00 08/28/16 08:59 07/29/16 07:37 50 MG Multivitamins (Multivitamin Tab) 1 tab QAM PO 07/29/16 08:00 08/28/16 08:59 07/29/16 07:35 1 TAB Senna (Senokot Tab) 8.6 mg DAILY PO 07/29/16 12:00 08/28/16 11:59 Sertraline HCl 100 mg 100 mg QPM PO 07/28/16 21:00 08/27/16 20:59 07/28/16 19:47 100 MG Sodium Chloride (Nss 1000ml) 1,000 ml @ 80 mls/hr [id number] IV 07/28/16 15:36 08/27/16 15:35 07/29/16 03:52 80 MLS/HR Albuterol/ Ipratropium (Duoneb) 3 ml QIDR INH 07/28/16 16:00 08/27/16 15:59 07/29/16 11:11 3 ML Prednisolone Acetate (Pred Forte 1% Oph Susp) 1 drops QID OPR 07/28/16 20:00 08/27/16 19:59 07/29/16 07:34 1 DROPS Miscellaneous Information (Order Awaiting Action) 1 ea QS N/A 07/29/16 00:00 08/28/16 00:00 (Juliane Bravo, PA-C) Objective Vital Signs Date Time Temp Pulse Resp B/P Pulse Ox O2 Delivery O2 Flow Rate FiO2 07/29/16 11:11 69 18 96 Room Air 07/29/16 08:51 Room Air 07/29/16 07:53 71 18 96 Room Air 07/29/16 07:25 36.6 68 18 172/78 95 Room Air 07/29/16 06:37 98 Nasal Cannula 2.0 07/29/16 00:11 36.8 75 20 138/73 94 Room Air 07/28/16 20:00 98 Nasal Cannula 2.0 07/28/16 19:03 72 18 98 Nasal Cannula 2.0 07/28/16 16:00 Nasal Cannula 2.0 07/28/16 15:37 36.7 74 18 147/65 98 Nasal Cannula 2.0 07/28/16 14:59 70 22 133/89 97 07/28/16 13:30 79 132/67 97 Nasal Cannula 2.0 07/28/16 12:52 85 (Juliane Bravo, PA-C) Physical Exam General Appearance: no apparent distress, + thin Eyes: sclerae normal ENT: hearing grossly normal Neck: supple, no JVD, trachea midline Respiratory/Chest: lungs clear, no respiratory distress, no accessory muscle use, + decreased breath sounds Cardiovascular: regular rate, rhythm, no gallop, no murmur Abdomen: normal bowel sounds, non tender, soft Extremities: no pedal edema, no calf tenderness, + swelling (trace pitting edema bilateral lower extremities) Neurologic/Psychiatric: alert, oriented x 3 Skin: normal color, warm/dry (Juliane Bravo PA-C) Laboratory Results Last 24 Hours Test 07/28/16 13:32 07/28/16 16:03 07/28/16 17:05 07/28/16 22:12 Lactic Acid Level 0.9 mmol/L Total Creatine Kinase 115 U/L 102 U/L Creatine Kinase MB 1.8 ng/ml 2.0 ng/ml Creatine Kinase MB Ratio 1.6 2.0 Troponin I 0.071 ng/ml 0.068 ng/ml Influenza Type A (RT-PCR) Neg for Influ A Influenza Type B (RT-PCR) Neg for Influ B Test 07/29/16 07:33 White Blood Count 2.41 K/uL Red Blood Count 3.69 M/uL Hemoglobin 11.4 g/dL Hematocrit 33.9 % Mean Corpuscular Volume 91.9 fL Mean Corpuscular Hemoglobin 30.9 pg Mean Corpuscular Hemoglobin Concent 33.6 g/dl RDW Standard Deviation 48.4 fL RDW Coefficient of Variation 14.3 % Platelet Count 110 K/uL Mean Platelet Volume 9.4 fL Sodium Level 141 mmol/L Potassium Level 4.0 mmol/L Chloride Level 106 mmol/L Carbon Dioxide Level 29 mmol/L Anion Gap 6.0 mmol/L Blood Urea Nitrogen 17 mg/dl Creatinine 0.92 mg/dl Est Creatinine Clear Calc Drug Dose 40.6 ml/min Estimated GFR () 65.8 Estimated GFR (Non- 56.8 BUN/Creatinine Ratio 18.7 Random Glucose 84 mg/dl Calcium Level 8.4 mg/dl (Juliane Bravo PA-C) Assessment and Plan Ms. Perez is an 86 y/o female with PMHx of HTN and RLE Cellulitis on Chronic Doxycycline who presents to the ED for persistent flu-like symptoms x 3 months. Patient is a resident of [facility] and states she began developing a productive cough of thick white sputum in May. In the ED, she is febrile without leukocytosis. CXR and U/A without evidence of infection. Initial flu negative. Initial trop 0.047. She was hydrated and started on Levaquin x 1 dose in ED. She will be admitted to Med/Surg for further evaluation and care. Fever and Productive Cough with Hypoxia: Probably Viral URI - Afebrile for almost 24 hours; leukopenic on labs this AM; no further hypoxic episodes on RA - C. Diff toxin - in setting of diarrhea and R/O further infection - most recent stool formed - Duonebs QID and Q2H PRN and Ventolin 2 puffs PRN - Will hold further Abx at this time - NSS at 80 mL/hr Mild Troponin Elevation: - Trops of 0.047, 0.071, and 0.068; EKG this AM without elevations or depressions with NSR Dehydration: - Continue gentle hydration RLE Cellulitis with Chronic Doxycycline Use: - Continue Doxycycline 100 mg daily HTN: - Metoprolol Succ 75 mg daily DVT Prophylaxis: - Heparin 5000 units SC Q12H Code Status: - FULL RESUSCITATION Disposition: - PT/OT evaluations - possible D/C tomorrow (Juliane Bravo PA-C) ATTENDING ATTESTATION I have seen and examined patient this am. I have discussed plan of care in detail with ANN and agree with plan as stated above. Patient had no acute issue overnight. Denies any chest pain, SOB, afebrile Vitals-reviewed GEN- NAD CVS-RRR RESP-CTA ABD-CTA EXT- no edema Labs-reviewed Viral Enteritis?/sepsis -d/c antibiotics/monitor off antibiotics for 24 hours if asymptomatic d/c home in am (Juliane Chin MD)
[2016-07-29] MEDS: SENNA 8.6 MG TAB PO SCH (12:59)
[2016-07-29] MEDS: SERTRALINE HCL 100 MG TAB PO SCH (20:47)
[2016-07-30] VITALS: BP 155/77; PULSE 64; TEMP 36.4; O2SAT 94; O2SAT 97
[2016-07-30] MEDS: SODIUM CHLORIDE 0.9% 1000ML 1,000 ML IV SCH (03:43)
[2016-07-30] MEDS: ALBUT/IPRATROP 3MG/0.5MG NEB 3 ML VIAL INH SCH ×3 (07:05→15:03)
[2016-07-30 07:07] VITALS: PULSE 70; O2SAT 95
[2016-07-30 08:16] VITALS: BP 167/78; PULSE 68; TEMP 36.5; O2SAT 98
[2016-07-30] MEDS: PrednisoLONE ACET 1% OP SUSP 5 ML BTL OPR SCH ×2 (08:20→13:14)
[2016-07-30 08:41] LABS: BASO % 0.4 %; BASO ABS # 0.01 K/uL (0-0.2); COMPLETE YES; EOS % 1.6 %; IG% 0.8 %; LYMPH % 24.2 %; LYMPH ABS # 0.61 K/uL (1.2-3.4); MEAN CELL VOLUME 92.5 fL (80-100); MEAN CORPUSCULAR HEMOGLOBIN 30.8 pg (25-34); MEAN CORPUSCULAR HGB CONC 33.3 g/dl (32-36); MEAN PLATELET VOLUME 9.6 fL (7.4-10.4); MONO % 16.3 %; NEUT % 56.7 %; PLATELET COUNT 128 K/uL (130-400); RED BLOOD COUNT 3.89 M/uL (4.2-5.4); WHITE BLOOD COUNT 2.52 K/uL (4.8-10.8)
[2016-07-30 09:13] LABS: BUN/CREATININE RATIO 19.7 (10-20); CALCIUM 8.8 mg/dl (8.5-10.1); CREATININE 0.98 mg/dl (0.60-1.20)
[2016-07-30] MEDS: DOXYCYCLINE HYCLATE 100 MG CAP PO SCH (10:08)
[2016-07-30] MEDS: ASPIRIN 81 MG ECTAB PO SCH (10:08)
[2016-07-30] MEDS: MULTIVITAMIN TAB PO SCH (10:09)
[2016-07-30] MEDS: METOPROLOL SUCC 50MG EXT REL TAB PO SCH (10:09)
[2016-07-30] MEDS: ASCORBIC ACID 500 MG TAB PO SCH (10:10)
[2016-07-30] MEDS: METOPROLOL SUCC 25MG EXT REL TAB PO SCH (10:10)
[2016-07-30] MEDS: SENNA 8.6 MG TAB PO SCH (10:10)
[2016-07-30] MEDS: ACETAMINOPHEN 500 MG TAB PO SCH (10:12)
[2016-07-30] MEDS: HEPARIN SOD 5000 UNIT/0.5 ML CARP SQ SCH (10:14)
[2016-07-30] MEDS ORDERED: LEVOFLOXACIN / D5W 750 MG in PREMIXED IN D5W 150 ML IV SCH (11:00)
[2016-07-30 11:43] VITALS: PULSE 71; O2SAT 97
--- NOTE | 2016-07-30 12:48 | Discharge Instructions ---
Discharge Instructions Admission Admission Date: Jul 28, 2016 at 12:28 Admission Diagnosis: Hypoxia. Discharge Care Plan - Problem: Medical Problems: (1) Hypoxia (2) Sepsis Care Plan - Goal(s): Decrease discomfort, Improve function Care Plan - Instructions: Activity Recommendations: no limitations Recommended Home Diet: SCOUT 2GM Sodium Provider Instructions: Please follow up with your primary care provider VTE Core Measure Inpt VTE Proph given/why not?: Unfractionated heparin SQ [place] Recommendations: Call your doctor if: * Temperature above 101 degrees * Pain not relieved by pain medicine ordered * There is increased drainage or redness from any incision * You have any unanswered questions or concerns. Your Doctors Instructions noted above were prepared by provider Juliane Chin.
[2016-07-30 14:25] VITALS: BP 167/78; PULSE 71; TEMP 36.5; O2SAT 97
--- NOTE | 2016-07-31 07:53 | Discharge Summary ---
Discharge Summary Date of Service Jul 31, 2016. Discharge Summary Admission Date: Jul 28, 2016 at 12:28 Discharge Date: Jul 30, 2016 Discharge Disposition: Home Principal Diagnosis: Viral Enteritis Immunizations: Have You Had Influenza Vaccine: N/A Influenza Vaccine Date: Mar 11, 2012 History of Tetanus Vaccine?: UTD History of Pneumococcal: Yes Pneumococcal Date: Jun 13, 2011 History of Hepatitis B Vaccine: No Medication Reconciliation Continued Medications: Acetaminophen (Tylenol) 500 Mg Tab 1000 MG PO BID, TAB Albuterol Hfa (Ventolin Hfa) 200 Puffs/08404 Mcg Aers 2-4 PUFFS INH Q6H PRN for Shortness of Breath, #1 INHALER Ascorbic Acid (Vitamin C) 500 Mg Tab 2 TAB PO QAM Aspirin (Aspirin Chewable) 81 Mg Chew 81 MG PO BID Calcium Carbonate-Vitamin D (Calcium + D) 1 Tab Tab 1 TAB PO QAM Darifenacin Hydrobromide (Enablex) 7.5 Mg Tab 7.5 MG PO QPM, TAB Diclofenac Sodium (Topical) (Voltaren 1% Top Gel) 1 % Gel APPLN EXT DIRECTED PRN for Pain Docusate Sodium (Stool Softener) 100 Mg Cap 1 CAP PO BID PRN for Constipation Doxycycline Monohydrate (Monodox) 100 Mg Cap 100 MG PO QAM, CAP Estrog Conj/Medryoxyprog Acet (Prempro 0.45MG/1.5MG) Tab 1 TAB PO Q2D, TAB Metoprolol Succ (Toprol Xl) (Toprol-Xl) 25 Mg Tabcr 25 MG PO QAM, #30 TAB Metoprolol Succ (Toprol Xl) (Toprol-Xl) 50 Mg Tabcr 50 MG PO QAM, #30 TAB Multivitamin (Multivitamin) Tab 1 TAB PO QAM, TAB Ondansetron Hcl (Zofran) 4 Mg Tab 4 MG PO PRN PRN for Nausea, TAB Senna (Senokot) 8.6 Mg Tab 1 TAB PO DAILY AT NOON, TAB Sertraline (Zoloft) 100 Mg Tab 100 MG PO QPM, TAB Discharge Exam Review of Systems: Constitutional: No chills Eyes: No worsening of vision ENT: No hearing loss Respiratory: No cough, No shortness of breath Cardiovascular: No chest pain, No orthopnea Abdomen: No diarrhea, No pain Musculoskeletal: No joint pain Genitourinary - Female: No dysuria Neurologic: No memory loss Physical Exam: General Appearance: WD/WN, no apparent distress Eyes: normal inspection ENT: normal ENT inspection Neck: supple Respiratory/Chest: chest non-tender, lungs clear Cardiovascular: regular rate, rhythm, no edema Abdomen / GI: normal bowel sounds, non tender, soft Extremities: normal inspection 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 Perez is an 86 y/o female with PMHx of HTN and RLE Cellulitis on Chronic Doxycycline who presents to the ED for persistent flu-like symptoms x 3 months. Patient is a resident of [facility] and states she began developing a productive cough of thick white sputum in May. In the ED, she is febrile without leukocytosis. CXR and U/A without evidence of infection. Initial flu negative. Initial trop 0.047. She was hydrated and started on Levaquin x 1 dose in ED. She will be admitted to Med/Surg for further evaluation and care. Patient did oriana have a leukocytosis. It was thought patients symptoms were due to a viral URI/enteritis given presentation of diarrhea. Patient was monitored for 48 hours off antibiotics. Patients symptoms resolved with her being afebrile and not complaining or SOB or cough during hospital stay. She was discharged and instructed to f/u with PCP in 1 week. Fever and Productive Cough with Hypoxia: Probably Viral URI - Afebrile during hospital admission - C. Diff toxin - in setting of diarrhea and R/O further infection - most recent stool formed - Duonebs QID and Q2H PRN and Ventolin 2 puffs PRN - NSS at 80 mL/hr Mild Troponin Elevation: - Trops of 0.047, 0.071, and 0.068; EKG this without elevations or depressions with NSR Dehydration: - Continued gentle hydration RLE Cellulitis with Chronic Doxycycline Use: - Continued Doxycycline 100 mg daily HTN: - Metoprolol Succ 75 mg daily DVT Prophylaxis: - Heparin 5000 units SC Q12H Code Status: - FULL RESUSCITATION Total Time Spent: Greater than 30 minutes This includes examination of the patient, discharge planning, medication reconciliation, and communication with other providers. Discharge Instructions Please refer to the electronic Patient Visit Report (Discharge Instructions) for additional information.
[2016-08-02] MEDS ORDERED: POLYSOL OPB (12:14)
[2016-08-02] MEDS ORDERED: ANSHCCR PR (12:14)
[2016-08-02] MEDS ORDERED: PRED1SUS17 OPR (12:14)
[2016-08-02] MEDS ORDERED: BROM0.07 OPR (12:14)
[2017-01-03] MEDS ORDERED: HYDR-389 PO (14:00)
[2017-01-03] MEDS ORDERED: FLUV100T12 PO (14:00)
[2017-01-03] MEDS ORDERED: DOXY-300 PO (14:00)
[2017-01-03] MEDS ORDERED: DARI15TA PO (14:00)
[2017-01-03] MEDS ORDERED: LEVO-366 PO (14:00)
[2017-02-14] MEDS ORDERED: ABL10 PO (13:28)
[2017-02-14] MEDS ORDERED: CLX/20 PO (13:29)
== END 2016-07-30 15:40 | disposition home or self-care (01) | DRG 872 ==
LOC: ENRESERVDT → ENRESERVTM → C.EDA 09:51 → EDBD 09:51 → C.MS4W 12:28
PROVIDERS: ADMIT Hospitalist; ATTEND Hospitalist
DX: A41.9 Sepsis, unspecified organism (principal); L03.115 Cellulitis of right lower limb; A08.4 Viral intestinal infection, unspecified; J06.9 Acute upper respiratory infection, unspecified; E86.0 Dehydration; I10 Essential (primary) hypertension; R29.6 Repeated falls; Z86.14 Personal history of Methicillin resistant Staphylococcus aureus infection; Z79.1 Long term (current) use of non-steroidal anti-inflammatories (NSAID); Z79.2 Long term (current) use of antibiotics; Z79.82 Long term (current) use of aspirin; Z79.890 Hormone replacement therapy; Z91.040 Latex allergy status; Z88.0 Allergy status to penicillin; Z88.2 Allergy status to sulfonamides; Z88.5 Allergy status to narcotic agent; Z88.7 Allergy status to serum and vaccine; Z82.49 Family history of ischemic heart disease and other diseases of the circulatory system; Z82.5 Family history of asthma and other chronic lower respiratory diseases

== ENCOUNTER → 2016-08-20 | Day surgery (SDC) | payer BC ==
[2016-08-02 11:30] VITALS: Ht 160 cm; Wt 60.0 kg
[~2016-08-20] VITALS: Ht 160 cm; Wt 60.0 kg
[~2016-08-20] MED LIST changes: +500ML BSS 0.3ML EPI 1:1000PF IRRIG ONE; +ABL10 PO; +ACET-1311 PO; +ACETAMINOPHEN 325 MG TAB PO PRN; +AMVISC PLUS 0.8ML SYRINGE INT OCU ONE; +ANSHCCR PR; +ASCO500T16 PO; +ATROPINE SULFATE 0.1 MG/ML 5ML SYR IV PRN; +BROM0.07 OPR; +BSS FLUSH ONE; +CLX/20 PO; +DARI15TA PO; +DOCU100C31 PO; +DOXY-300 PO; +DOXY100C2 PO; +EpINEphrine INJ 1MG/ML AMP 1 MG/ML AMP ONE; +FLUV100T12 PO; +FLUV50TA2 PO; +HYDR-389 PO; +HYDR1CAP85 PO; +HYDR25CA PO; +LACTATED RINGER'S 1000ML 500 ML IV SCH; +LEVO-17 PO; +LEVO-366 PO; +LIDOCAINE 3.5% OPH GEL PER APPLICATION CHARGE ONE; +LIDOCAINE HCL 1% MPF 2 ML VIAL ONE; +MIDAZOLAM HCL 1 MG/ML 2ML VIAL ONE; +OCUCOAT 1 ML SOLN IO ONE; +PHENYLEPHRINE HCL 10% OP SOLN PER DROP CHARGE OPL SCH; +POLYSOL OPB; +POVIDONE-IODINE OP SOLN 30 ML BTL ONE; +PRED1SUS17 OPR; +PRED20TA2 PO; +PROPARACAINE 0.5% OP SOLN PER DROP CHARGE OPL SCH; +RISP0.258 PO; +RISP0.5T10 PO; +SENN-65 PO; +SPRIN INH; +TOBRAMYCIN/DEXAMETHASONE OPH OINT PER APPLN CHARGE ONE; +TRMCR130WC TOP
[2016-08-20] MEDS: PHENYLEPHRINE HCL 2.5% OP SOLN PER DROP CHARGE OPL SCH ×2 (11:15→11:20)
[2016-08-20] MEDS: TROPICAMIDE 1% OP SOLN PER DROP CHARGE OPL SCH ×2 (11:16→11:21)
[2016-08-20] MEDS: CYCLOPENTOLATE HCL 1% OP SOLN PER DROP CHARGE OPL SCH ×2 (11:17→11:22)
[2016-08-20] MEDS: KETOROLAC 0.5% OP SOLN PER DROP CHARGE OPL SCH ×2 (11:18→11:23)
[2016-08-20] MEDS: GATIFLOXACIN OP SOLN PER DROP CHARGE OPL SCH ×2 (11:19→11:29)
--- NOTE | 2016-08-20 11:46 | Discharge Instructions-SurgCtr ---
Discharge Instructions Date of Service Aug 20, 2016. Visit Reason for Visit: Cataract Left Eye Discharge Discharge Diagnosis / Problem: cataract Discharge Goals Goal(s): Improve function Activity Recommendations Activity Limitations: per Instructions/Follow-up section Anesthesia . Post Anesthesia Instructions: If you have had General Anesthesia or IV Sedation: * Do not drive today. * Resume driving when surgeon permits. * Do not make important decisions or sign legal documents today. * Call surgeon for: 1. Temperature elevations greater than 101 degrees F. 2. Uncontrollable pain. 3. Excessive bleeding. 4. Persistent nausea and vomiting. 5. Medication intolerance (nausea, vomiting or rash). * For nausea and vomiting use only clear liquids such as: tea, soda, bouillon until nausea subsides, then gradually increase diet as tolerated. * If you have any concerns or questions, call your surgeon's office. If physician is unavailable and it is an emergency, call 911 or go to the nearest emergency room. . Instructions / Follow-Up Instructions / Follow-Up ACTIVITY RECOMMENDATIONS: * No strenuous lifting, jogging or running for 4 days * No swimming or yard work for 1 week. * Limited bending is permitted, such as putting on shoes. RETURN TO SCHOOL/WORK: No work until seen by physician in office. MEDICATIONS: Resume previous medications unless instructed otherwise by your surgeon. This includes eye drops for glaucoma. Zymaxid/Gatifloxacin (south cap) - one drop every 2 hours until bedtime Nevanac/Ilevro/Prolensa/Ketorolac (pryor cap) - one drop every 4 hours until bedtime Prednisolone (white/pink cap, SHAKE WELL) - one drop every 2 hours until bedtime Starting tomorrow - all 3 drops every 4 hours until seen in the office Optive drops - as needed for discomfort SPECIAL CARE INSTRUCTIONS: * Wear eyeshield when sleeping, for four nights. * You may wear your own glasses or sunglasses while awake. * You may read or watch TV * You may shower and wash your face, but be gentle around the eye and pat dry. * Blurry vision and mild irritation are normal. * Call office if pain is more severe or vision becomes dark at . FOLLOW UP VISIT: Follow-up with Dr Banuelos tomorrow. Diet Recommendations Home Diet: resume previous diet Procedures Procedures Performed: Left Cataract Phacoemulsification With Intraocular Lens Implant Pending Studies Studies pending at discharge: no Medical Emergencies . Who to Call and When: Medical Emergencies: If at any time you feel your situation is an emergency, please call 911 immediately. . Non-Emergent Contact Non-Emergency issues call your: Labor Delivery Rn . . "Provider Documentation" section prepared by Khanh Banuelos.
--- NOTE | 2016-08-20 11:47 | [facility] Operative Report ---
Operative Report Date of Service Aug 20, 2016. Operative Report 1. PREOPERATIVE DIAGNOSIS: Cataract of the left eye. 2. POSTOPERATIVE DIAGNOSIS: Same. 3. PROCEDURE: Phacoemulsification with intraocular lens implantation of the left eye. SURGEON: Dr. Khanh Banuelos. ANESTHESIA: Topical Lidocaine gel, 1% Non- Preserved intracameral Lidocaine, and monitored intravenous sedation. INDICATIONS FOR THE PROCEDURE: The patient is a 86 - year-old female with a history of cataract of the left eye causing significant visual impairment. The details of the proposed procedure were explained to the patient who asked appropriate questions and following discussion of all risks, benefits and alternatives agreed to have the procedure done. 4. OPERATION AND FINDINGS: DESCRIPTION OF PROCEDURE: After informed consent was obtained, the patient was brought to the Operating Room at the [facility]. The patient was placed in a supine position and then the left eye was prepped and draped in the usual sterile fashion for intraocular surgery. A drop of topical Lidocaine gel was placed in the operative eye. A wire lid speculum was then placed in the fornices. A corneal paracentesis was then created temporally. The Non-Preserved Lidocaine was then instilled into the anterior chamber. The anterior chamber was then pressurized with viscoelastic. A 2.0 mm clear corneal incision was then created temporally. A cystotome was inserted into the anterior chamber and used to create a tear in the anterior lens capsule. This capsular tear was then used to create a small flap and the flap was dragged in a counterclockwise direction in order to create a continuous curvilinear capsulorrhexis. Hydrodissection was accomplished with balanced salt solution. Phacoemulsification of the lens nucleus was then performed in a standard [id number] technique. The phaco time was 31 seconds with an average power of 14 %. The remaining cortical material was removed using irrigation aspiration. The capsular bag was then filled with viscoelastic. A [employer]ch [employer] Lomb MI60L +20.5 diopters lens was then loaded into the injector and injected into the capsular bag. The remaining viscoelastic was removed with the irrigation aspiration handpiece. The wound was hydrated and then checked and found to be watertight. The intraocular pressure was checked and found to be adequate. The wire lid speculum was removed and the patient's face was cleaned and dried. TobraDex ointment was placed in the inferior fornix. The patient was discharged to the Recovery Room having tolerated the procedure well. There were no complications. The patient will be seen tomorrow in the office for follow-up. I attest to the content of the Intraoperative Record and any orders documented therein. Any exceptions are noted below.
[2016-08-20 11:48] VITALS: TEMP 36.5
--- NOTE | 2016-08-20 12:07 | Anesthesia Progress Nt - [facility] ---
Anesthesia Post Op Note Date & Time Aug 20, 2016 at 12:08 Vital Signs Pain Intensity: 0 Vital Signs Past 12 Hours Date Time Temp Pulse Resp B/P Pulse Ox O2 Delivery O2 Flow Rate FiO2 08/20/16 11:48 36.5 56 16 176/75 100 Room Air 08/20/16 11:04 36.5 69 188/81 96 Room Air Notes Mental Status: alert / awake / arousable, participated in evaluation Pt Amnestic to Procedure: Yes Nausea / Vomiting: adequately controlled Pain: adequately controlled Airway Patency, RR, SpO2: stable & adequate BP & HR: stable & adequate Hydration State: stable & adequate Anesthetic Complications: no major complications apparent
[2016-08-20 12:11] VITALS: BP 161/69; PULSE 59; O2SAT 100
== END | disposition home or self-care (01) ==
LOC: X.SURG 10:38
PROVIDERS: ATTEND Ophthalmology
DX: H26.9 Unspecified cataract (principal); I10 Essential (primary) hypertension; Z98.41 Cataract extraction status, right eye; F32.9 Major depressive disorder, single episode, unspecified; Z98.51 Tubal ligation status; Z88.0 Allergy status to penicillin; Z88.5 Allergy status to narcotic agent; Z96.653 Presence of artificial knee joint, bilateral; Z85.828 Personal history of other malignant neoplasm of skin; Z68.23 Body mass index [BMI] 23.0-23.9, adult

== ENCOUNTER → 2016-09-11 | Outpatient (CLI) | payer BC, OTHER ==
[~2016-09-11] MED LIST changes: -500ML BSS 0.3ML EPI 1:1000PF IRRIG ONE; -ACETAMINOPHEN 325 MG TAB PO PRN; -AMVISC PLUS 0.8ML SYRINGE INT OCU ONE; -ATROPINE SULFATE 0.1 MG/ML 5ML SYR IV PRN; -BSS FLUSH ONE; -EpINEphrine INJ 1MG/ML AMP 1 MG/ML AMP ONE; -LACTATED RINGER'S 1000ML 500 ML IV SCH; -LIDOCAINE 3.5% OPH GEL PER APPLICATION CHARGE ONE; -LIDOCAINE HCL 1% MPF 2 ML VIAL ONE; -MIDAZOLAM HCL 1 MG/ML 2ML VIAL ONE; -OCUCOAT 1 ML SOLN IO ONE; -PHENYLEPHRINE HCL 10% OP SOLN PER DROP CHARGE OPL SCH; -POVIDONE-IODINE OP SOLN 30 ML BTL ONE; -PROPARACAINE 0.5% OP SOLN PER DROP CHARGE OPL SCH; -TOBRAMYCIN/DEXAMETHASONE OPH OINT PER APPLN CHARGE ONE
[2016-09-11 17:55] LABS: URINE APPEARANCE CLEAR (CLEAR); URINE BILIRUBIN NEG (NEG); URINE COLOR YELLOW; URINE NITRITE NEG (NEG); URINE SPECIFIC GRAVITY 1.011 (1.000-1.030); UROBILINOGEN NEG (NEG)
[2016-09-11 17:57] LABS: MANUAL MICROSCOPIC REQUIRED? NO; REVIEW REQ? NO
== END | disposition home or self-care (01) ==
LOC: C.LABSALHI 08:00
PROVIDERS: ATTEND Nurse Practitioner Family
DX: R41.82 Altered mental status, unspecified (principal); R53.1 Weakness

== ENCOUNTER → 2016-09-24 | Outpatient (CLI) | payer BC ==
--- NOTE | 2016-09-24 14:37 | DIAGNOSTIC IMAGING REPORT ---
CHEST 2 VIEWS ROUTINE CLINICAL HISTORY: COUGHING/WHEEZING COMPARISON STUDY: 07/28/2016 FINDINGS: The heart is mildly enlarged. There is no failure. There is no focal pulmonary consolidation. There are no pleural effusions.[ IMPRESSION: No active disease in the chest. Electronically signed by: Alfie Buenrostro M.D. 09/24/2016 2:35 PM Dictated Date/Time: 09/24/2016 2:34 PM
== END | disposition home or self-care (01) ==
LOC: C.RADPV 13:48
PROVIDERS: ATTEND Nurse Practitioner Family
DX: R05 Cough (principal); R06.2 Wheezing

== ENCOUNTER 2016-10-03 10:33 | Inpatient (IN) | payer OTHER, BC ==
[~2016-10-03] VITALS: Ht 160 cm; Wt 62.7 kg
[~2016-10-03 10:33] MED LIST changes: -ABL10 PO; -ACET-1311 PO; -ASCO500T16 PO; -CLX/20 PO; -DARI15TA PO; -DOCU100C31 PO; -DOXY-300 PO; -DOXY100C2 PO; -FLUV100T12 PO; -FLUV50TA2 PO; -HYDR-389 PO; -HYDR1CAP85 PO; -HYDR25CA PO; -LEVO-17 PO; -LEVO-366 PO; -PRED20TA2 PO; -RISP0.258 PO; -RISP0.5T10 PO; -SENN-65 PO; -SPRIN INH; -TRMCR130WC TOP
[2016-10-03] MEDS ORDERED: RISP0.258 PO (11:13)
--- NOTE | 2016-10-03 11:40 | DIAGNOSTIC IMAGING REPORT ---
SINGLE VIEW CHEST CLINICAL HISTORY: Generalized weakness. FINDINGS: An AP, portable, upright chest radiograph is compared to study dated 09/24/2016. Correlation is made with chest CT dated 06/05/2012. The examination is significantly degraded by portable technique and patient rotation. The heart is top normal for projection and there is mild atherosclerotic calcification of the thoracic aorta. Chronic interstitial thickening is unchanged. No airspace consolidation or pleural effusion is identified. The lungs and pleural spaces are clear. No pneumothorax is seen. The skeletal structures are osteopenic. Degenerative change is noted in the shoulders and thoracic spine. IMPRESSION: No acute cardiopulmonary abnormality. Electronically signed by: Bishnu Chawla M.D. 10/03/2016 11:39 AM Dictated Date/Time: 10/03/2016 11:38 AM
[2016-10-03 11:58] LABS: COMPLETE YES; HEMATOCRIT 38.9 % (37-47); IG% 0.6 %; LYMPH % 21.5 %; LYMPH ABS # 0.75 K/uL (1.2-3.4); MEAN CELL VOLUME 95.3 fL (80-100); MEAN CORPUSCULAR HEMOGLOBIN 31.4 pg (25-34); MEAN CORPUSCULAR HGB CONC 32.9 g/dl (32-36); MEAN PLATELET VOLUME 9.9 fL (7.4-10.4); MONO % 18.1 %; NEUT % 57.8 %; PLATELET COUNT 183 K/uL (130-400); RED BLOOD COUNT 4.08 M/uL (4.2-5.4); WHITE BLOOD COUNT 3.49 K/uL (4.8-10.8)
[2016-10-03 12:17] LABS: BUN/CREATININE RATIO 23.8 (10-20); CALCIUM 9.5 mg/dl (8.5-10.1); CREATININE 1.1 mg/dl (0.60-1.20); MAGNESIUM 2.3 mg/dl (1.8-2.4); POTASSIUM 3.9 mmol/L (3.5-5.1)
[2016-10-03 12:23] LABS: INR 1.1 (0.9-1.1); PARTIAL THROMBOPLASTIN RATIO 1.1; PROTHROMBIN TIME (PATIENT) 11.4 SECONDS (9.0-12.0)
[2016-10-03 12:32] LABS: THYROID STIMULATING HORMONE 2.97 uIu/ml (0.300-4.500)
[2016-10-03] MEDS ORDERED: ASPIRIN 81 MG CHEW PO STA (12:37)
[2016-10-03 12:41] LABS: URINE APPEARANCE CLEAR (CLEAR); URINE BILIRUBIN NEG (NEG); URINE COLOR YELLOW; URINE NITRITE NEG (NEG); URINE PH 5.5 (4.5-7.5); URINE SPECIFIC GRAVITY 1.008 (1.000-1.030); UROBILINOGEN NEG (NEG)
[2016-10-03 12:52] LABS: MANUAL MICROSCOPIC REQUIRED? NO; REVIEW REQ? NO
[2016-10-03] MEDS ORDERED: DOCUSATE SODIUM 100 MG CAP PO PRN (13:00)
[2016-10-03] MEDS ORDERED: ACETAMINOPHEN 325 MG TAB PO PRN (13:00)
[2016-10-03] MEDS ORDERED: DICLOFENAC SOD 1% GEL 100 GM TUBE EXT PRN (13:00)
[2016-10-03] MEDS ORDERED: ALUMINUM/MAGNESIUM/SIMETH (MAALOX MAX) 30 ML UDC PO PRN (13:00)
[2016-10-03] MEDS ORDERED: ONDANSETRON INJ 2 MG/ML 2 ML VIAL IV PRN (13:00)
--- NOTE | 2016-10-03 14:07 | History and Physical ---
History & Physical Date & Time of Service: October 03, 2016 at 13:27 Chief Complaint: Other Complaint Primary Care Physician: Gwendolyn Pina,[email or web address] History of Present Illness Source: patient, family, hospital records This patient is a pleasant 86-year-old female that resides at [facility] that was transferred to the emergency department by ambulance today for reported cough and hypoxia. According to the son, the patient was hypoxic in the 70s on room air. She does not typically wear oxygen. She does not have a history of pulmonary disease. She was treated in the hospital in July of this year for what was thought to be bronchitis. She does not think that she ever really got back to baseline. She reports a productive cough with white/yellow sputum. She denies any fever or chills. She does feel some chest pressure that has been there for the last several months. It does not radiate anywhere. Her breathing is worse with exertion. She also notes fatigue. She does not have any GI symptoms such as nausea or vomiting. She does occasionally have diarrhea. This is been going on for many months. The patient is very pleasant, however she seems intermittently confused. She is complaining of seeing bugs on her clothing. According to halfway notes , this has been going on for quite some time. She refused a psych evaluation. Past Medical/Surgical History Medical Problems: (1) Bilateral cellulitis of lower leg Status: Resolved (2) Essential hypertension Status: Chronic Dementia Aortic valve stenosis Depression (3) Physical deconditioning Status: Chronic (4) PIC line (peripherally inserted central catheter) removal Status: Resolved (5) Polymyalgia rheumatica Status: Chronic (6) Severe sepsis Status: Resolved (7) Steroid-induced myopathy Status: Chronic (8) UTI (urinary tract infection) Status: Resolved Surgical Problems: (1) Status post arthroscopic knee surgery Status: Chronic Status post bilateral knee replacements with postoperative complications noted. Uterine prolapse (2) Status post tubal ligation Status: Chronic Family History Asthma FAM HX-ISCHEM HEART DIS MOTHER Social History Smoking Status: Never Smoker Drug Use: none Marital Status: Housing status: halfway ([facility]) Occupational Status: retired Immunizations History of Influenza Vaccine: N/A Influenza Vaccine Date: Mar 11, 2012 History of Tetanus Vaccine?: UTD History of Pneumococcal: Yes Pneumococcal Date: Jun 13, 2011 History of Hepatitis B Vaccine: No Multi-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 Allergies Coded Allergies: Penicillins (Verified Allergy, Intermediate, HIVES, 10/03/16) TOLERATED CEFEPIME 2013 Sulfamethoxazole w/Trimethoprim (Verified Allergy, Intermediate, HIVES, 10/03/16) Tetanus Toxoid (Verified Allergy, Intermediate, RASH, 10/03/16) Latex1 -Allergic Contact Dermititis (Verified Allergy, Mild, RASH, 10/03/16) Codeine (Verified Adverse Reaction, Intermediate, HEADACHES, 10/03/16) Morphine and Related (Verified Adverse Reaction, Mild, SEVERE HEADACHES, ) Severe Headaches Home Medications Scheduled Acetaminophen (Tylenol), 1,000 MG PO BID Ascorbic Acid (Vitamin C), 2 TAB PO QAM Aspirin (Aspirin Chewable), 81 MG PO BID Calcium Carbonate-Vitamin D (Calcium + D), 1 TAB PO QAM Doxycycline Monohydrate (Monodox), 100 MG PO QAM Estrog Conj/Medryoxyprog Acet (Prempro 0.45MG/1.5MG), 1 TAB PO Q2D Metoprolol Succ (Toprol Xl) (Toprol-Xl), 25 MG PO QAM Metoprolol Succ (Toprol Xl) (Toprol-Xl), 50 MG PO QAM Multivitamin (Multivitamin), 1 TAB PO QAM Risperidone (Risperdal), 0.125 MG PO HS Senna (Senokot), 1 TAB PO DAILY AT NOON Sertraline (Zoloft), 100 MG PO QPM Scheduled PRN Albuterol Hfa (Ventolin Hfa), 2-4 PUFFS INH Q6H PRN for Shortness of Breath Diclofenac Sodium (Topical) (Voltaren 1% Top Gel), APPLN EXT BID PRN for Pain Docusate Sodium (Stool Softener), 1 CAP PO BID PRN for Constipation Hydrocortisone (Proctosol Hc), 1 APPLN VA BID PRN for HEMORRHOIDS Ondansetron Hcl (Zofran), 4 MG PO PRN PRN for Nausea Polyvinyl Alcohol-Povidone (Op (Refresh), 1-2 DROPS OPB UD PRN for DRYNESS Review of Systems 10 system review performed and negative unless noted in HPI or below Physical Exam Vital Signs Date Time Temp Pulse Resp B/P Pulse Ox O2 Delivery O2 Flow Rate FiO2 10/03/16 13:00 137/57 10/03/16 12:46 65 22 164/62 10/03/16 12:16 66 18 96 10/03/16 12:11 194/83 10/03/16 12:08 89 10/03/16 12:03 73 21 10/03/16 11:33 65 18 99 10/03/16 11:08 99 Room Air 10/03/16 11:03 75 20 98 10/03/16 10:56 36.6 67 20 186/69 99 Room Air 10/03/16 10:49 99 Room Air 10/03/16 10:43 186/69 General Appearance: no apparent distress Head: normocephalic Eyes: EOMI ENT: + pertinent finding (oral mucosa slightly dry.) Neck: no JVD Respiratory/Chest: + pertinent finding (diffuse mild to moderate wheezing noted. No crackles or rhonchi. Good aeration at the bases.) Cardiovascular: regular rate, rhythm Abdomen/GI: normal bowel sounds, non tender, soft Extremities/Musculoskelatal: + pertinent finding (+2 pitting edema in the lower extremities right greater than left. Also significant erythema and warmth appreciated in the right lower extremity.) Neurologic/Psych: alert (alert and answers most questions appropriately. Does complain of seeing bugs on her clothing. (Lint noticed on her black pants)) Skin: warm/dry Diagnostics Laboratory Results Results Past 24 Hours Test 10/03/16 11:34 10/03/16 12:10 Range/Units White Blood Count 3.49 4.8-10.8 K/uL Red Blood Count 4.08 4.2-5.4 M/uL Hemoglobin 12.8 12.0-16.0 g/dL Hematocrit 38.9 37-47 % Mean Corpuscular Volume 95.3 80-100 fL Mean Corpuscular Hemoglobin 31.4 25-34 pg Mean Corpuscular Hemoglobin Concent 32.9 32-36 g/dl Platelet Count 183 130-400 K/uL Mean Platelet Volume 9.9 7.4-10.4 fL Neutrophils (%) (Auto) 57.8 % Lymphocytes (%) (Auto) 21.5 % Monocytes (%) (Auto) 18.1 % Eosinophils (%) (Auto) 2.0 % Basophils (%) (Auto) 0.0 % Neutrophils # (Auto) 2.02 1.4-6.5 K/uL Lymphocytes # (Auto) 0.75 1.2-3.4 K/uL Monocytes # (Auto) 0.63 0.11-0.59 K/uL Eosinophils # (Auto) 0.07 0-0.5 K/uL Basophils # (Auto) 0.00 0-0.2 K/uL RDW Standard Deviation 47.2 36.4-46.3 fL RDW Coefficient of Variation 13.6 11.5-14.5 % Immature Granulocyte % (Auto) 0.6 % Immature Granulocyte # (Auto) 0.02 0.00-0.02 K/uL Prothrombin Time 11.4 9.0-12.0 SECONDS Prothromb Time International Ratio 1.1 0.9-1.1 Activated Partial Thromboplast Time 29.6 21.0-31.0 SECONDS Partial Thromboplastin Ratio 1.1 Sodium Level 145 136-145 mmol/L Potassium Level 3.9 3.5-5.1 mmol/L Chloride Level 106 98-107 mmol/L Carbon Dioxide Level 33 21-32 mmol/L Anion Gap 6.0 3-11 mmol/L Blood Urea Nitrogen 26 7-18 mg/dl Creatinine 1.10 0.60-1.20 mg/dl Est Creatinine Clear Calc Drug Dose 34.4 ml/min Estimated GFR () 53.0 Estimated GFR (Non- 45.7 BUN/Creatinine Ratio 23.8 10-20 Random Glucose 83 70-99 mg/dl Calcium Level 9.5 8.5-10.1 mg/dl Magnesium Level 2.3 1.8-2.4 mg/dl Total Bilirubin 0.4 0.2-1 mg/dl Direct Bilirubin 0.1 0-0.2 mg/dl Aspartate Amino Transf (AST/SGOT) 24 15-37 U/L Alanine Aminotransferase (ALT/SGPT) 27 12-78 U/L Alkaline Phosphatase 86 45-117 U/L Troponin I 0.052 0-0.045 ng/ml Pro-B-Type Natriuretic Peptide 408 0-1800 pg/ml Total Protein 8.2 6.4-8.2 gm/dl Albumin 4.3 3.4-5.0 gm/dl Lipase 220 73-393 U/L Thyroid Stimulating Hormone (TSH) 2.970 0.300-4.500 uIu/ml Urine Color YELLOW Urine Appearance CLEAR CLEAR Urine pH 5.5 4.5-7.5 Urine Specific [place] 1.008 1.000-1.030 Urine Protein NEG NEG Urine Glucose (UA) NEG NEG Urine Ketones NEG NEG Urine Occult Blood NEG NEG Urine Nitrite NEG NEG Urine Bilirubin NEG NEG Urine Urobilinogen NEG NEG Urine Leukocyte Esterase NEG NEG Microbiology Results 10/03/16 Blood Culture, Received Pending 10/03/16 Blood Culture, Received Pending 10/03/16 Urine Culture, Received Pending Diagnostic Radiology SINGLE VIEW CHEST CLINICAL HISTORY: Generalized weakness. FINDINGS: An AP, portable, upright chest radiograph is compared to study dated 09/24/2016. Correlation is made with chest CT dated 06/05/2012. The examination is significantly degraded by portable technique and patient rotation. The heart is top normal for projection and there is mild atherosclerotic calcification of the thoracic aorta. Chronic interstitial thickening is unchanged. No airspace consolidation or pleural effusion is identified. The lungs and pleural spaces are clear. No pneumothorax is seen. The skeletal structures are osteopenic. Degenerative change is noted in the shoulders and thoracic spine. IMPRESSION: No acute cardiopulmonary abnormality. Electronically signed by: Bishnu Chawla M.D. 10/03/2016 11:39 AM Dictated Date/Time: 10/03/2016 11:38 AM The status of this report is Signed. Draft = Not yet reviewed or approved by Radiologist. Signed = Reviewed and approved by Radiologist. <AttendingPhy></AttendingPhy> <FamilyPhy>Gwendolyn Pina C.R.N.P.</FamilyPhy> <PrimaryPhy>Gwendolyn Pina C.R.N.P.</PrimaryPhy> <UnitNumber>[id number]</ UnitNumber> <VisitNumber>[id number]</VisitNumber> <PatientName>CATESMARIA EUGENIA</PatientName> <DateOfBirth>1930</DateOfBirth> <Location>[facility]< /Location> <ServiceDate>10/03/16</ServiceDate> <MNE>ESINDI</MNE> <OrderingPhy> Zeus Valenzuela MD</OrderingPhy> <OrderingPhyMNE>f rep ord dr reynaga</ OrderingPhyMNE> <DictatingPhyMNE>f rep dict dr reynaga</DictatingPhyMNE> <CCListMNE> f rep ct ronnell</CCListMNE> <AdmittingPhyMNE>f pt admit dr reynaga</AdmittingPhyMNE> < AttendingPhyMNE>f pt attend dr reynaga</AttendingPhyMNE> EKG Normal sinus rhythm 65 bpm Q waves noted in V1 and V2 Impression Assessment and Plan 86-year-old female transferred to the emergency department for reportedly productive cough and hypoxia. Found to have a mild elevation in her troponin that appears to be chronic. Troponin was elevated on her last admission. She also appears paranoid thinking that she has bugs on her clothing. She also reportedly was "seeing green men" at the halfway. She did not report this to me. Acute respiratory failure with hypoxia likely secondary to chronic bronchitis/ COPD. No signs of pneumonia on CXR. ? some of hypoxia d/t poor reading -Admit to telemetry (4 mild elevation in troponin and cardiac monitoring for 24 hours) -check ABG -Duonebs every 6 hrs scheduled, every 2 hrs prn -Start Spiriva daily -Prednisone 40 mg daily-->taper when appropriate -Consider adding symbicort or advair upon d/c -Should probably get repeat PFTs as an oupt LE cellulitis-on Doxycycline -Continue Doxycycline -Begin Levaquin 500 mg daily x 7 days -US lower ext bilaterally to r/o PE Elevated trop-was mildly elevated on last admission -trend enzymes -monitor on tele Paranoia vs metabolic encephalopathy -r/o sepsis -psych consult -continue Risperdal 0.125 mg HS HTN -continue Toprol XL 75 mg daily Depression -Continue Zoloft 100 mg daily DVT prophylaxis -Heparin 5000 u subQ BID -TEDS, SCDs CODE STATUS -LEVEL I FULL CODE DISPO -PT/OT/psych eval -hopeful for d/c back to [facility] i personally examined pt and verified all gaytan points w A [facility] PAC when i see her she notse she's breathing OK. offers little as far as HPI or ROS. essentially negative as best can be ascertained, but hx fairly limited vitals noted nad, breathing unlabored but b/l expiratory wheeze. b/l LE edema R >L tender equal b/l chronic venous stasis dermatitis more predominant than any erythema a/p bronchitis w hypoxia - pulmonary toilet. levaquin (appearing reasonably ill, CXR w fibrotic changes but no true infiltrate but changes could easily mask infiltrate, leukopenia) venous stasis changes - agree doppler given asymmetry. suspect skin changes all stasis dermatitis (follow, although of course levaquin would cover both) DVT proph - heparin SQ Level of Care Telemetry Resuscitation Status FULL RESUSCITATION VTE Prophylaxis VTE Risk Assessment Done? Y/N: Yes Risk Level: Moderate Given or contraindicated: Unfractionated heparin SQ
[2016-10-03 14:25] VITALS: Ht 160 cm; Wt 62.7 kg
[2016-10-03] MEDS ORDERED: ALBUT/IPRATROP 3MG/0.5MG NEB 3 ML VIAL INH PRN (14:30)
[2016-10-03 15:30] VITALS: BP 172/72; PULSE 73; TEMP 36.8; O2SAT 96
[2016-10-03] MEDS ORDERED: LEVOFLOXACIN / D5W 500 MG in PREMIXED IN D5W 100 ML IV ONE (16:00)
[2016-10-03] MEDS: ALBUT/IPRATROP 3MG/0.5MG NEB 3 ML VIAL INH SCH ×2 (16:00→20:18)
--- NOTE | 2016-10-03 16:22 | EMERGENCY ROOM VISIT NOTE ---
History Report prepared by Tobi: Tomasa Myers Under the Supervision of: Dr. Zeus Valenzuela M.D. First contact with patient: 11:05 Chief Complaint: RESPIRATORY PROBLEMS Stated Complaint: OTHER COMPLAINT Nursing Triage Summary: INCREASE SOB OVER FEW DAYS WITH GREEN SPUTUM History of Present Illness The patient is a 86 year old female who presents to the Emergency Room with complaints of persistent respiratory problems that started 2 weeks ago. The patient came to the ED via ambulance from [facility]. The patient states that the staff called the ambulance because they noticed some cyanotic discoloration in the patient's finger tips. She states that she also experienced shortness of breath while eating breakfast. The patient states that she also felt her right fingers go numb. Prior to eating breakfast, the patient began experiencing neck stiffness and chest tightness. The patient states that she occasionally experiences neck stiffness when she falls asleep sitting upright. She is also experiencing a productive cough with green sputum. The patient is also experiencing increased lower extremity edema. She adds that she experienced diarrhea 2 nights ago. Pt denies LOC, headache, fevers, chills, diaphoresis, visual changes, pain with breathing, nausea, vomiting, abdominal pain, back pain , melena, hematochezia, weakness, lymphadenopathy, rash, or other complaints. Source of History: patient Onset: 2 weeks ago Position: chest Quality: other (respiratory problems) Timing: other (persistent) Associated Symptoms: + cough (productive with green sputum), + diarrhea, + numbness (in fingers) Note: cyanosis of fingertips, neck stiffness, chest tightness, increased lower extremity edema Review of Systems See HPI for pertinent positives and negatives. A total of ten systems were reviewed and were otherwise negative. 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 (20) Right thigh pain (21) Severe sepsis (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 (23) UTI (urinary tract infection) Surgical Problems: (1) Status post arthroscopic knee surgery (2) Status post tubal ligation Family History Asthma FAM HX-ISCHEM HEART DIS MOTHER Social History Smoking Status: Never Smoker Drug Use: none Marital Status: Housing Status: lives alone Occupation Status: retired Current/Historical Medications Scheduled Acetaminophen (Tylenol), 1,000 MG PO BID Ascorbic Acid (Vitamin C), 2 TAB PO QAM Aspirin (Aspirin Chewable), 81 MG PO BID Calcium Carbonate-Vitamin D (Calcium + D), 1 TAB PO QAM Doxycycline Monohydrate (Monodox), 100 MG PO QAM Estrog Conj/Medryoxyprog Acet (Prempro 0.45MG/1.5MG), 1 TAB PO Q2D Metoprolol Succ (Toprol Xl) (Toprol-Xl), 25 MG PO QAM Metoprolol Succ (Toprol Xl) (Toprol-Xl), 50 MG PO QAM Multivitamin (Multivitamin), 1 TAB PO QAM Risperidone (Risperdal), 0.125 MG PO HS Senna (Senokot), 1 TAB PO DAILY AT NOON Sertraline (Zoloft), 100 MG PO QPM Scheduled PRN Albuterol Hfa (Ventolin Hfa), 2-4 PUFFS INH Q6H PRN for Shortness of Breath Diclofenac Sodium (Topical) (Voltaren 1% Top Gel), APPLN EXT BID PRN for Pain Docusate Sodium (Stool Softener), 1 CAP PO BID PRN for Constipation Hydrocortisone (Proctosol Hc), 1 APPLN MT BID PRN for HEMORRHOIDS Ondansetron Hcl (Zofran), 4 MG PO PRN PRN for Nausea Polyvinyl Alcohol-Povidone (Op (Refresh), 1-2 DROPS OPB UD PRN for DRYNESS Allergies Coded Allergies: Penicillins (Verified Allergy, Intermediate, HIVES, 10/03/16) TOLERATED CEFEPIME 2014 Sulfamethoxazole w/Trimethoprim (Verified Allergy, Intermediate, HIVES, 10/03/16) Tetanus Toxoid (Verified Allergy, Intermediate, RASH, 10/03/16) Latex1 -Allergic Contact Dermititis (Verified Allergy, Mild, RASH, 10/03/16) Codeine (Verified Adverse Reaction, Intermediate, HEADACHES, 10/03/16) Morphine and Related (Verified Adverse Reaction, Mild, SEVERE HEADACHES, ) Severe Headaches Physical Exam Vital Signs Date Time Temp Pulse Resp B/P Pulse Ox O2 Delivery O2 Flow Rate FiO2 10/03/16 14:00 164/67 10/03/16 13:40 64 19 10/03/16 13:35 67 22 97 10/03/16 13:30 143/78 10/03/16 13:05 68 20 98 10/03/16 13:00 137/57 10/03/16 12:46 65 22 164/62 10/03/16 12:16 66 18 96 10/03/16 12:11 194/83 10/03/16 12:08 89 10/03/16 12:03 73 21 10/03/16 11:33 65 18 99 10/03/16 11:08 99 Room Air 10/03/16 11:03 75 20 98 10/03/16 10:56 36.6 67 20 186/69 99 Room Air 10/03/16 10:49 99 Room Air 10/03/16 10:43 186/69 Physical Exam GENERAL: Awake, alert, well-appearing, in no distress HENT: Normocephalic, atraumatic. Oropharynx unremarkable. EYES: Normal conjunctiva. Sclera non-icteric. NECK: Supple. No nuchal rigidity. FROM. No JVD. RESPIRATORY: Clear to auscultation. CARDIAC: Regular rate, normal rhythm. Extremities warm with a little cyanotic appearance to finger tips. Capillary refill 3 seconds and pulse ox normal. Pulses equal. ABDOMEN: Soft, non-distended. No tenderness to palpation. No rebound or guarding. No masses. RECTAL: Deferred. MUSCULOSKELETAL: Chest examination reveals no tenderness. The back is symmetrical on inspection without obvious abnormality. There is no CVA tenderness to palpation. No joint edema. LOWER EXTREMITIES: Calves are equal size bilaterally and non-tender. 1+ edema. Chronic venous discoloration. Right leg more erythematous than left. NEURO: Normal sensorium. No sensory or motor deficits noted. SKIN: No rash or jaundice noted. Medical Decision & Procedures ER Provider Diagnostic Interpretation: X-ray: Per my interpretation, radiologist review. SINGLE VIEW CHEST FINDINGS: An AP, portable, upright chest radiograph is compared to study dated 09/24/2016. Correlation is made with chest CT dated 06/05/2012. The examination is significantly degraded by portable technique and patient rotation. The heart is top normal for projection and there is mild atherosclerotic calcification of the thoracic aorta. Chronic interstitial thickening is unchanged. No airspace consolidation or pleural effusion is identified. The lungs and pleural spaces are clear. No pneumothorax is seen. The skeletal structures are osteopenic. Degenerative change is noted in the shoulders and thoracic spine. IMPRESSION: No acute cardiopulmonary abnormality. Electronically signed by: Bishnu Chawla M.D. 10/03/2016 11:39 AM Dictated Date/Time: 10/03/2016 11:38 AM Laboratory Results 10/03/16 11:34 Red Blood Count 4.08, Mean Corpuscular Volume 95.3, Mean Corpuscular Hemoglobin 31.4, Mean Corpuscular Hemoglobin Concent 32.9, Mean Platelet Volume 9.9, Neutrophils (%) (Auto) 57.8, Lymphocytes (%) (Auto) 21.5, Monocytes (%) (Auto) 18.1, Eosinophils (%) (Auto) 2.0, Basophils (%) (Auto) 0.0, Neutrophils # (Auto ) 2.02, Lymphocytes # (Auto) 0.75, Monocytes # (Auto) 0.63, Eosinophils # (Auto ) 0.07, Basophils # (Auto) 0.00 10/03/16 11:34 Test 10/03/16 11:34 10/03/16 12:10 10/03/16 12:54 White Blood Count 3.49 K/uL (4.8-10.8) Red Blood Count 4.08 M/uL (4.2-5.4) Hemoglobin 12.8 g/dL (12.0-16.0) Hematocrit 38.9 % (37-47) Mean Corpuscular Volume 95.3 fL (80-100) Mean Corpuscular Hemoglobin 31.4 pg (25-34) Mean Corpuscular Hemoglobin Concent 32.9 g/dl (32-36) Platelet Count 183 K/uL (130-400) Mean Platelet Volume 9.9 fL (7.4-10.4) Neutrophils (%) (Auto) 57.8 % Lymphocytes (%) (Auto) 21.5 % Monocytes (%) (Auto) 18.1 % Eosinophils (%) (Auto) 2.0 % Basophils (%) (Auto) 0.0 % Neutrophils # (Auto) 2.02 K/uL (1.4-6.5) Lymphocytes # (Auto) 0.75 K/uL (1.2-3.4) Monocytes # (Auto) 0.63 K/uL (0.11-0.59) Eosinophils # (Auto) 0.07 K/uL (0-0.5) Basophils # (Auto) 0.00 K/uL (0-0.2) RDW Standard Deviation 47.2 fL (36.4-46.3) RDW Coefficient of Variation 13.6 % (11.5-14.5) Immature Granulocyte % (Auto) 0.6 % Immature Granulocyte # (Auto) 0.02 K/uL (0.00-0.02) Prothrombin Time 11.4 SECONDS (9.0-12.0) Prothromb Time International Ratio 1.1 (0.9-1.1) Activated Partial Thromboplast Time 29.6 SECONDS (21.0-31.0) Partial Thromboplastin Ratio 1.1 Anion Gap 6.0 mmol/L (3-11) Est Creatinine Clear Calc Drug Dose 34.4 ml/min Estimated GFR () 53.0 Estimated GFR (Non- 45.7 BUN/Creatinine Ratio 23.8 (10-20) Calcium Level 9.5 mg/dl (8.5-10.1) Magnesium Level 2.3 mg/dl (1.8-2.4) Total Bilirubin 0.4 mg/dl (0.2-1) Direct Bilirubin 0.1 mg/dl (0-0.2) Aspartate Amino Transf (AST/SGOT) 24 U/L (15-37) Alanine Aminotransferase (ALT/SGPT) 27 U/L (12-78) Alkaline Phosphatase 86 U/L (45-117) Troponin I 0.052 ng/ml (0-0.045) Pro-B-Type Natriuretic Peptide 408 pg/ml (0-1800) Total Protein 8.2 gm/dl (6.4-8.2) Albumin 4.3 gm/dl (3.4-5.0) Lipase 220 U/L (73-393) Thyroid Stimulating Hormone (TSH) 2.970 uIu/ml (0.300-4.500) Urine Color YELLOW Urine Appearance CLEAR (CLEAR) Urine pH 5.5 (4.5-7.5) Urine Specific [place] 1.008 (1.000-1.030) Urine Protein NEG (NEG) Urine Glucose (UA) NEG (NEG) Urine Ketones NEG (NEG) Urine Occult Blood NEG (NEG) Urine Nitrite NEG (NEG) Urine Bilirubin NEG (NEG) Urine Urobilinogen NEG (NEG) Urine Leukocyte Esterase NEG (NEG) Laboratory results reviewed by me Medications Administered Medications (Trade) Dose Ordered Sig/Echo Route Start Time Stop Time Status Last Admin Dose Admin Aspirin (Aspirin Chew) 324 mg NOW STAT PO 10/03/16 12:37 10/03/16 12:38 DC 10/03/16 12:46 324 MG ECG Indication: SOB/dyspnea Rate (beats per minute): 65 Rhythm: normal sinus Findings: no acute ischemic change, no ectopy ED Course 1112: The patient was evaluated in room A4. A complete history and physical exam was performed. 1228: The patient's nurse informed me that the patient's pulse ox dropped to 89 % when she got up to use the bathroom. 1237: Ordered Aspirin 324 mg PO 1240: Upon reexamination, the patient was resting comfortably. I discussed the test results and treatment plan with her. The patient will be evaluated for further management. 1242: Discussed the patient's case with Mere VANCE. The patient will be evaluated for further treatment and disposition. Medical Decision Triage Nursing notes reviewed. The patient's presentation and history were concerning for respiratory symptoms. Etiologies such as pneumonia, COPD, reactive airway disease, CHF, cardiac ischemia, pulmonary embolism, pneumothorax, musculoskeletal, infections, gastrointestinal, as well as others were entertained. The patient was evaluated. Clinically she was doing well. When she was ambulated to the bathroom she had developed hypoxia. This resolved with rest. The patient's ECG was nonischemic. Chest x-ray was unremarkable. Her CBC and chemistry panel were unremarkable as well. The patient found to have an elevated troponin. Given the respiratory symptoms hypoxia and elevated troponin further evaluation and management was consulted be appropriate in the hospital. The patient was given aspirin and consultation was made with internal medicine for further management. The chart was completed utilizing [employer] voice recognition software. Grammatical errors, random word insertions, pronoun errors, and incomplete sentences are an occasional consequence of this system due to software limitations, ambient noise, and hardware issues. Any formal questions or concerns about the content, text, or information contained within the body of this dictation should be directly addressed to the physician for clarification. Consults Time Called: 1236 Consulting Physician: Mere VANCE Returned Call: [phone] Discussed the patient's case with Mere VANCE. The patient will be evaluated for further treatment and disposition. Impression Primary Impression: Hypoxia Additional Impression: Elevated troponin Scribe Attestation The scribe's documentation has been prepared under my direction and personally reviewed by me in its entirety. I confirm that the note above accurately reflects all work, treatment, procedures, and medical decision making performed by me. Departure Information Dispostion Being Evaluated By Hospitalist Referrals Gwendolyn Pina C.R.N.P. (PCP) Patient Instructions [facility] Problem Qualifiers
[2016-10-03 16:43] LABS: ISTAT ALLEN TEST Pass; ISTAT ARTERIAL BLOOD GAS HCO3 30 meq/L (19-24); ISTAT ARTERIAL BLOOD GAS PCO2 44 mmHg (35-46); ISTAT ARTERIAL BLOOD GAS PO2 69 mmHg (80-95); ISTAT ARTERIAL BLOOD GAS pH 7.45 (7.35-7.45); ISTAT CARBON DIOXIDE 31 mEq/l (24-31); ISTAT DELIVERY SYSTEM Room Air; ISTAT SITE R Radial
[2016-10-03] MEDS: TIOTROPIUM BROMIDE 5 PUFF/90 MCG INH INH SCH (17:17)
--- NOTE | 2016-10-03 17:26 | DIAGNOSTIC IMAGING REPORT ---
BILATERAL LOWER EXTREMITY VENOUS DOPPLER HISTORY: Pain. Edema. swelling hypoxia r/o DVT COMPARISON STUDY: None. FINDINGS: There is normal compressibility, flow, and augmentation within the bilateral lower extremity deep venous systems. IMPRESSION: No DVT within the right or left lower extremity. Electronically signed by: Harvinder Barron M.D. 10/03/2016 5:24 PM Dictated Date/Time: 10/03/2016 5:24 PM
[2016-10-03 19:17] LABS: CKMB/CK RATIO 2.2 (0-3.0)
[2016-10-03 19:20] VITALS: BP 174/78; PULSE 72; TEMP 36.9; O2SAT 97
[2016-10-03 19:50] VITALS: PULSE 88; O2SAT 95
[2016-10-03] MEDS: ASPIRIN 81 MG ECTAB PO SCH (20:42)
[2016-10-03] MEDS: HEPARIN SOD 5000 UNIT/0.5 ML CARP SQ SCH (20:43)
[2016-10-03] MEDS ORDERED: RISPERIDONE 1 MG/ML SOLN PO SCH (21:00)
[2016-10-03] MEDS ORDERED: SERTRALINE HCL 100 MG TAB PO SCH (21:00)
[2016-10-04] VITALS (9 sets, daily range): BP systolic 109–169; BP diastolic 51–75; PULSE 67–92; TEMP 36.5–37; O2SAT 92–97
[2016-10-04 03:32] LABS: CKMB/CK RATIO 1.5 (0-3.0)
[2016-10-04] MEDS: ALBUT/IPRATROP 3MG/0.5MG NEB 3 ML VIAL INH SCH ×3 (06:54→15:21)
[2016-10-04 07:03] LABS: COMPLETE YES; HEMATOCRIT 34.8 % (37-47); IG% 1.3 %; LYMPH % 20.1 %; LYMPH ABS # 0.47 K/uL (1.2-3.4); MEAN CELL VOLUME 93.3 fL (80-100); MEAN CORPUSCULAR HEMOGLOBIN 30.6 pg (25-34); MEAN CORPUSCULAR HGB CONC 32.8 g/dl (32-36); MEAN PLATELET VOLUME 9.7 fL (7.4-10.4); MONO % 5.1 %; NEUT % 73.5 %; PLATELET COUNT 185 K/uL (130-400); RED BLOOD COUNT 3.73 M/uL (4.2-5.4); WHITE BLOOD COUNT 2.34 K/uL (4.8-10.8)
[2016-10-04 07:38] LABS: BUN/CREATININE RATIO 22.5 (10-20); CREATININE 1.1 mg/dl (0.60-1.20); POTASSIUM 4.6 mmol/L (3.5-5.1)
--- NOTE | 2016-10-04 08:00 | Clinical Documentation Query ---
Dr. SALAZAR [facility] : CLINICAL DOCUMENTATION QUERY Clinical documentation includes a diagnosis of: Acute respiratory failure with hypoxia. Documentation includes: "According to the son, the patient was hypoxic in the 70s on room air". No other provider documentation supports this diagnosis. Due to stringent requirements by our coding department, multiple clinical indicators associated with this diagnosis must be present in order for this to be coded/captured within the medical record. If appropriate, please document 2 or more of the following clinical indicators in daily progress notes and the discharge summary. If you feel the diagnosis of acute respiratory failure was made in error, or do not agree with it, simply discontinue documentation thereof. Acute Respiratory Failure indicators include: * Respirations >28 * Air hunger * Use of accessory muscles of respiration * Inability to speak in full sentences * Cyanosis * Pulse ox <90% RA or <95% on O2 *pH <7.35 or >7.45 * pO2 < 60 mm Hg (or 10mm below COPD patient's baseline) * pCO2 >50mm Hg (or 10mm above COPD patient's baseline) * mechanical ventilation * Increased work of breathing * Tachypnea Please clarify and document your clinical opinion in the progress notes and discharge summary. Terms such as "probable", "suspected", "likely", "questionable", "possible", or "still to be ruled out" are acceptable. IF IN AGREEMENT, YOU MUST DOCUMENT ABOVE DIAGNOSTIC STATEMENT IN DAILY PROGRESS NOTES AND DISCHARGE SUMMARY. This document is not part of the patient's record. Thank You, Milton Melendez, RN [phone]
--- NOTE | 2016-10-04 08:01 | Clinical Documentation Query ---
Dr. [facility] : CLINICAL DOCUMENTATION QUERY Clinical documentation includes a diagnosis of: Acute Respiratory Failure. Documentation includes: "According to the son, the patient was hypoxic in the 70s on room air". No other provider documentation supports this diagnosis. Due to stringent requirements by our coding department, multiple clinical indicators associated with this diagnosis must be present in order for this to be coded/captured within the medical record. If appropriate, please document 2 or more of the following clinical indicators in daily progress notes and the discharge summary. If you feel the diagnosis of acute respiratory failure was made in error, or do not agree with it, simply discontinue documentation thereof. Acute Respiratory Failure indicators include: * Respirations >28 * Air hunger * Use of accessory muscles of respiration * Inability to speak in full sentences * Cyanosis * Pulse ox <90% RA or <95% on O2 *pH <7.35 or >7.45 * pO2 < 60 mm Hg (or 10mm below COPD patient's baseline) * pCO2 >50mm Hg (or 10mm above COPD patient's baseline) * mechanical ventilation * Increased work of breathing * Tachypnea Please clarify and document your clinical opinion in the progress notes and discharge summary. Terms such as "probable", "suspected", "likely", "questionable", "possible", or "still to be ruled out" are acceptable. IF IN AGREEMENT, YOU MUST DOCUMENT ABOVE DIAGNOSTIC STATEMENT IN DAILY PROGRESS NOTES AND DISCHARGE SUMMARY. This document is not part of the patient's record. Thank You, Milton Melendez, TONY [phone]
[2016-10-04] MEDS: ASPIRIN 81 MG ECTAB PO SCH (08:20)
[2016-10-04] MEDS: TIOTROPIUM BROMIDE 5 PUFF/90 MCG INH INH SCH (08:22)
[2016-10-04] MEDS: HEPARIN SOD 5000 UNIT/0.5 ML CARP SQ SCH (08:23)
[2016-10-04] MEDS ORDERED: METOPROLOL SUCC 25MG EXT REL TAB PO SCH (09:00)
[2016-10-04] MEDS ORDERED: METOPROLOL SUCC 50MG EXT REL TAB PO SCH (09:00)
[2016-10-04] MEDS ORDERED: DOXYCYCLINE HYCLATE 100 MG CAP PO SCH (09:00)
[2016-10-04] MEDS ORDERED: LEVOFLOXACIN 250MG / D5W IV SCH (14:00)
--- NOTE | 2016-10-04 14:59 | Psychiatric Consultation ---
Consultation Date of Consultation October 04, 2016. Identifying Data Laurie Perez is a 86-year-old female who currently lives at [facility] in [place]. She was admitted with shortness of breath and hypoxia. We are consulted to evaluate depression and possible paranoia. Information is gathered from the electronic medical record, and the patient, and considered to be reliable. Chief Complaint "People think I'm crazy". History of Present Illness Laurie Peerz is an 86-year-old woman who is admitted to the hospital with hypoxemia and shortness of breath. Her pulse ox is return to normal 97% on room air. We are consulted because of concerns for her depression and possible paranoia. The patient has been reporting that she believes that there are bugs in her close that have been causing her to itch and that no one believes her. At the time of my interview, she believes that there are these bugs on her black pants and shows me. We look at them together, both with her glasses. There are multiple white specks on the pants, some of which look to be gr of salt or sugar and others look like skin cells. I see no evidence of insects. She insists that they are and does not believe it could be her imagination or due to vision impairment. She is distressed because people at the senior living do not believe her either and thus she has been isolating herself in her room, not wanting to expose herself to people she feels are "making fun of me". She denies that she has had any other odd experiences, denies auditory hallucinations, denies any other visual disturbances. I last saw Ms. Perez in 2016 when consulted for depression. She indicates that her mood is at times low, seeing herself as always having been active and successful, now having to live in a senior living. She still hopes to get back a level of function that will allow her to be active and possibly return to her home in [facility]. She denies that she is having any suicidal thinking. She indicates that her sleep is generally good. Her appetite has been okay but again has been avoiding eating with other people. Her energy has been somewhat low. She is concerned that her hormone replacement was recently discontinued and that this has played a part in her movements. She reported to the liaison nurse earlier that she had an elderly roommate who just recently . She also feels stressed because she has someone taking care of her multiple cats and dogs, and this woman had one of her dogs neutered without her permission. Past Psychiatric History Current OP Treatment: no current treatment Prior Psych Hospitalizations: none Access to a Gun: No Suicide Attempts: No Past Medical/Surgical History History of Concussion/Seizure: No (1) Acute respiratory failure with hypoxia (2) Polymyalgia rheumatica (3) Essential hypertension (4) ARF (acute renal failure) Allergies Allergies: Coded Allergies: Penicillins (Verified Allergy, Intermediate, HIVES, 10/03/16) TOLERATED CEFEPIME 2014 Sulfamethoxazole w/Trimethoprim (Verified Allergy, Intermediate, HIVES, 10/03/16) Tetanus Toxoid (Verified Allergy, Intermediate, RASH, 10/03/16) Latex1 -Allergic Contact Dermititis (Verified Allergy, Mild, RASH, 10/03/16) Codeine (Verified Adverse Reaction, Intermediate, HEADACHES, 10/03/16) Morphine and Related (Verified Adverse Reaction, Mild, SEVERE HEADACHES, ) Severe Headaches Home Medications Scheduled Acetaminophen (Tylenol), 1,000 MG PO BID Ascorbic Acid (Vitamin C), 2 TAB PO QAM Aspirin (Aspirin Chewable), 81 MG PO BID Calcium Carbonate-Vitamin D (Calcium + D), 1 TAB PO QAM Doxycycline Monohydrate (Monodox), 100 MG PO QAM Estrog Conj/Medryoxyprog Acet (Prempro 0.45MG/1.5MG), 1 TAB PO Q2D Metoprolol Succ (Toprol Xl) (Toprol-Xl), 25 MG PO QAM Metoprolol Succ (Toprol Xl) (Toprol-Xl), 50 MG PO QAM Multivitamin (Multivitamin), 1 TAB PO QAM Risperidone (Risperdal), 0.125 MG PO HS Senna (Senokot), 1 TAB PO DAILY AT NOON Sertraline (Zoloft), 100 MG PO QPM Scheduled PRN Albuterol Hfa (Ventolin Hfa), 2-4 PUFFS INH Q6H PRN for Shortness of Breath Diclofenac Sodium (Topical) (Voltaren 1% Top Gel), APPLN EXT BID PRN for Pain Docusate Sodium (Stool Softener), 1 CAP PO BID PRN for Constipation Hydrocortisone (Proctosol Hc), 1 APPLN [place] BID PRN for HEMORRHOIDS Ondansetron Hcl (Zofran), 4 MG PO PRN PRN for Nausea Polyvinyl Alcohol-Povidone (Op (Refresh), 1-2 DROPS OPB UD PRN for DRYNESS Family History Asthma FAM HX-ISCHEM HEART DIS MOTHER Alcohol Use Alcohol Use In Past 12 Months: Yes Smoking Use Smoking Status: Never Smoker Substance History Makes her own wine Personal History Lives in: [facility] Education: graduated from high school Relationship History: , Children: 2 sons Legal History: none Review of Systems Constitutional: malaise, weakness Eyes: reports: other (perceives a small white objects on clothing to be bugs) ENT: denies: dental pain, ear discharge, ear pain, epistaxis, gum swelling, loss of hearing, mouth pain, mouth swelling, nasal congestion, nasal pain, no symptoms reported, other, rhinorrhea, see HPI, sore throat, stidor, throat swelling, tinnitus Cardiovascular: reports: other (recent hypoxia) Respiratory: reports: other (recent shortness of breath with hypoxia) Gastrointestinal: denies no symptoms reported, denies see HPI, denies abdominal pain, denies constipation, denies diarrhea, denies nausea, denies vomiting, denies other Genitourinary - Female: denies: amenorrhea, dysmenorrhea, menorrhagia, metrorrhagia, no symptoms, other, , rash, see HPI, vaginal bleeding, vaginal discharge, vaginal itching, vulvadynia Musculoskeletal: denies no symptoms reported, denies see HPI, denies back pain , denies gout, denies joint pain, denies joint swelling, denies muscle pain, denies muscle stiffness, denies neck pain, denies other Integumentary: denies no symptoms reported, denies see HPI, denies change in color, denies change in hair/nails, denies dryness, denies lesions, denies lumps , denies rash, denies other Neurologic: denies: dizziness, focal weakness, general weakness, headache, lethargy, memory loss, no symptoms, numbness, other, paresthesias, pre-existing deficit, see HPI, seizure, tics, tingling, tremors, vertigo Endocrine: other (the patient reports recently being taken off hormone therapy) Hematologic / Lymphatic: denies: abnormal clotting, adenopathy, anemia, as stated in HPI, easy bleeding, easy bruising, gums bleeding, no symptoms, other, petechiae Examination Physical Examination As per Mere CARDONA Vital Signs Vital Signs Past 12 Hours Date Time Temp Pulse Resp B/P Pulse Ox O2 Delivery O2 Flow Rate FiO2 10/04/16 12:00 Room Air 10/04/16 11:43 67 18 97 Room Air 10/04/16 11:37 36.5 79 18 115/62 95 10/04/16 08:04 36.8 74 18 109/67 96 10/04/16 08:00 Room Air 10/04/16 06:54 67 18 95 Room Air 10/04/16 04:00 Room Air 10/04/16 02:45 36.5 75 18 136/69 92 Room Air Laboratory Results Last 24 Hours Test 10/03/16 16:31 10/03/16 18:47 10/04/16 02:37 10/04/16 06:42 Blood Gas Sample Site R Radial Bedside Blood Gas pH (LAB) 7.45 Bedside Blood Gas pCO2 (LAB) 44 mmHg Bedside Blood Gas pO2 (LAB) 69 mmHg Bedside Blood Gas HCO3 (LAB) 30 meq/L Bedside Blood Gas Total CO2 31 mEq/l Bedside Blood Gas Base Excess (LAB) 6.0 meq/L Bedside Blood Gas O2 Saturation 94.0 % Godwin Test Pass Oxygen Delivery Device Room Air Total Creatine Kinase 109 U/L 81 U/L Creatine Kinase MB 2.4 ng/ml 1.2 ng/ml Creatine Kinase MB Ratio 2.2 1.5 Troponin I 0.057 ng/ml 0.048 ng/ml White Blood Count 2.34 K/uL Red Blood Count 3.73 M/uL Hemoglobin 11.4 g/dL Hematocrit 34.8 % Mean Corpuscular Volume 93.3 fL Mean Corpuscular Hemoglobin 30.6 pg Mean Corpuscular Hemoglobin Concent 32.8 g/dl Platelet Count 185 K/uL Mean Platelet Volume 9.7 fL Neutrophils (%) (Auto) 73.5 % Lymphocytes (%) (Auto) 20.1 % Monocytes (%) (Auto) 5.1 % Eosinophils (%) (Auto) 0.0 % Basophils (%) (Auto) 0.0 % Neutrophils # (Auto) 1.72 K/uL Lymphocytes # (Auto) 0.47 K/uL Monocytes # (Auto) 0.12 K/uL Eosinophils # (Auto) 0.00 K/uL Basophils # (Auto) 0.00 K/uL RDW Standard Deviation 46.6 fL RDW Coefficient of Variation 13.7 % Immature Granulocyte % (Auto) 1.3 % Immature Granulocyte # (Auto) 0.03 K/uL Sodium Level 145 mmol/L Potassium Level 4.6 mmol/L Chloride Level 109 mmol/L Carbon Dioxide Level 30 mmol/L Anion Gap 6.0 mmol/L Blood Urea Nitrogen 25 mg/dl Creatinine 1.10 mg/dl Est Creatinine Clear Calc Drug Dose 30.9 ml/min Estimated GFR () 53.0 Estimated GFR (Non- 45.7 BUN/Creatinine Ratio 22.5 Random Glucose 117 mg/dl Calcium Level 9.0 mg/dl Mental Examination During interview pt is: alert and oriented, cooperative Appearance: appropriately dressed, appropriately groomed Eye contact is: good Motor behavior is: no abnormal motor movements Speech: normal in rate, rhythm & volume Affect: blunted Mood is: other (sad) Thought process: tangential (mildly) Thought content: paranoid (that others are making fun of her because she sees bugs) Suicidal thought are: denied Homicidal thoughts are: denied Hallucinations: visual (sees bugs on her clothes), denies auditory Cognition: memory grossly intact, attention grossly intact Intelligence estimated to be: average Insight: limited Judgement: limited Impression / Recommendations Impression He 86-year-old woman with multiple medical conditions including respiratory failure, hypoxia, chronic kidney disease stage III, cellulitis, recent falls, who is admitted with shortness of breath and hypoxia. We are consulted to evaluate possible paranoia and depression. The patient remains convinced that the suspects that she sees on her clothing are bugs despite multiple people check her on this reality. It is unclear to me when and why she was started on Risperdal but clearly this has not helped this persistent delusion. Although visual hallucinations speak to an organic cause, I cannot completely rule out senescent vision changes as contributing to this misperception. Nonetheless, she is tolerating a very small dose of Risperdal at bedtime and I will increase this to 0.25 mg at bedtime to see if this impacts her perceptions and hallucinations. She denies impairment in other areas, can talk reasonably about the changes in her life and her mood. I cannot rule out that this is a symptoms of an early dementing process, a may benefit from serioal MMSE's over time. I have tried to have a discussion with her about avoiding other people because of the disagreement. I have tried to emphasize that whether people believe her or not, she should continue with her life as usual which include socializing with the other residents of [facility] and eating her meals with others. She appeared to agree with this at the time of the discussion. I see no dramatic metabolic derangements in her labs and so I think that the safest thing to do would be to minimally increase her antipsychotic medication. Risk Factors Assessment : Yes /single/: Yes Higher / Fall in social status: Yes Access to guns: No Health problems: Yes Mental Health Diagnoses: Yes Substance use disorders: No Previous attempt: No Previous psychiatric stay: No Hopelessness: No Smoker: No Protective Factors Assessment Caodaism beliefs: Yes : No Responsible for young children: No Employed: No Stable relationships: Yes Supportive family: Yes Good rapport with provider: Yes Recommendations (1) Unspecified psychosis 5/5 - Increase Risperdal to 0.25 mg. HS for visual hallucinations of bugs - Cannot rule out an early dementing process. may benefit from serial MMSE's (2) Major depressive disorder, recurrent, moderate 5/5 - Continue Zoloft 100 mg. daily - I would attempt to de-emphasize the reports of bugs if possible and encourage her to resume her regular activities at the senior living as we cannot rule out a component of senescent vision changes contributing to her perceptions. Has been reviewed with Dr. Zeus Macias
[2016-10-04] MEDS ORDERED: LEVO-17 PO (15:38)
[2016-10-04] MEDS ORDERED: RISP0.258 PO (15:38)
--- NOTE | 2016-10-04 15:41 | Discharge Instructions ---
Discharge Instructions Date of Service October 04, 2016. Admission Reason for Admission: Acute Respiratory Failure With Hypoxia Discharge Discharge Diagnosis / Problem: pneumonia Discharge Goals Goal(s): Decrease discomfort, Improve function Activity Recommendations Activity Limitations: resume your previous activity . Instructions / Follow-Up Instructions / Follow-Up 86-year-old female transferred to the emergency department for reportedly productive cough and hypoxia. Found to have a mild elevation in her troponin that appears to be chronic. Troponin was elevated on her last admission. She also appears paranoid thinking that she has bugs on her clothing. She also reportedly was "seeing green men" at the senior care. She was admitted after she was noted to have cyanotic fingernails and was hypoxic to 68% on room air. Per EMS report, her saturation had increased to 92 % on warming her hands. ? Pneumonia: - Continue Levaquin 250 mg for 6 more days - Continue home inhalers, Spiriva added every morning - Speech eval was done with no issues - Continue prednisone 40 mg for 2 more days - Consider repeat PFTs as an outpatient Paranoia -Psychiatric was consulted who recommended increasing the dose of Risperdal to 0.25 mg at bedtime Hypertension -continue Toprol XL as scheduled Depression -Continue Zoloft 100 mg daily Current Hospital Diet Patient's current hospital diet: Regular Diet Discharge Diet Recommended Diet: Regular Diet Pending Studies Studies pending at discharge: no Medical Emergencies . Who to Call and When: Medical Emergencies: If at any time you feel your situation is an emergency, please call 911 immediately. . Non-Emergent Contact Non-Emergency issues call your: Primary Care Provider . . "Provider Documentation" section prepared by Mera Preston. . VTE Core Measure Inpt VTE Proph given/why not?: Unfractionated heparin SQ Resident Tracking Resident Involvement: Resident Care Provided Care Provided: Adult Hospital Medicine
[2016-10-04] MEDS ORDERED: SPRIN INH (15:51)
[2016-10-04] MEDS ORDERED: PRED20TA2 PO (15:51)
--- NOTE | 2016-10-04 16:35 | Discharge Summary ---
Discharge Summary Date of Service October 04, 2016. (Mera Preston MD) Discharge Summary Admission Date: October 03, 2016 at 14:04 Discharge Date: October 04, 2016 Discharge Disposition: Home Principal Diagnosis: acute hypoxic respiratory failure Immunizations: Have You Had Influenza Vaccine: N/A Influenza Vaccine Date: Mar 11, 2012 History of Tetanus Vaccine?: UTD History of Pneumococcal: Yes Pneumococcal Date: Jun 13, 2011 History of Hepatitis B Vaccine: No (Mera Preston MD) Principal Diagnosis: Hypoxia (No respiratory failure) (Marcela Baldwin M.D.) Medication Reconciliation New Medications: Levofloxacin (Levaquin) 250 Mg Tab 250 MG PO DAILY for 6 Days, #6 TAB Prednisone (Prednisone Tab) 20 Mg Tab 2 TAB PO DAILY for 2 Days, #4 TAB Tiotropium [place] (Spiriva Handihaler) 5 Puff/90 Mcg Aerp 1 PUFF INH QAM for 15 Days Changed Medications: Risperidone (Risperdal) 0.25 Mg Tab 0.25 MG PO HS for 30 Days, TAB (Changed from: 0.125 MG) Continued Medications: Acetaminophen (Tylenol) 500 Mg Tab 1000 MG PO BID, TAB Albuterol Hfa (Ventolin Hfa) 200 Puffs/51513 Mcg Aers 2-4 PUFFS INH Q6H PRN for Shortness of Breath Ascorbic Acid (Vitamin C) 500 Mg Tab 2 TAB PO QAM Aspirin (Aspirin Chewable) 81 Mg Chew 81 MG PO BID Calcium Carbonate-Vitamin D (Calcium + D) 1 Tab Tab 1 TAB PO QAM Diclofenac Sodium (Topical) (Voltaren 1% Top Gel) 1 % Gel APPLN EXT BID PRN for Pain Docusate Sodium (Stool Softener) 100 Mg Cap 1 CAP PO BID PRN for Constipation Estrog Conj/Medryoxyprog Acet (Prempro 0.45MG/1.5MG) Tab 1 TAB PO Q2D, TAB Hydrocortisone (Proctosol Hc) 90 Appln/30 Gm Cr 1 APPLN [place] BID PRN for HEMORRHOIDS Metoprolol Succ (Toprol Xl) (Toprol-Xl) 25 Mg Tabcr 25 MG PO QAM WITH 50MG TAB FOR DOSE OF 75MG Metoprolol Succ (Toprol Xl) (Toprol-Xl) 50 Mg Tabcr 50 MG PO QAM WITH 25MG TAB FOR DOSE OF 75MG Multivitamin (Multivitamin) Tab 1 TAB PO QAM, TAB Ondansetron Hcl (Zofran) 4 Mg Tab 4 MG PO PRN PRN for Nausea, TAB Polyvinyl Alcohol-Povidone (Op (Refresh) 1 Sarath Sarath 1-2 DROPS OPB UD PRN for DRYNESS Senna (Senokot) 8.6 Mg Tab 1 TAB PO DAILY AT NOON, TAB Sertraline (Zoloft) 100 Mg Tab 100 MG PO QPM, TAB Discontinued Medications: Doxycycline Monohydrate (Monodox) 100 Mg Cap 100 MG PO QAM, CAP Discharge Exam Doing a lot better today. Continues to have a cough but denies any fevers or chills Denies any shortness of breath, chest pain, palpitations, dizziness. States that everything that she is crazy because she sees bugs, she insists there are bugs on her clothes. Review of Systems: Constitutional: No chills, No fever ENT: No hearing loss Respiratory: + cough, + sputum, No dyspnea on exertion, No shortness of breath Cardiovascular: No chest pain, No edema, No orthopnea Abdomen: No nausea, No pain, No vomiting Musculoskeletal: No joint pain Genitourinary - Female: No dysuria, No urinary frequency, No urinary urgency Physical Exam: General Appearance: WD/WN, no apparent distress Eyes: normal inspection ENT: normal ENT inspection, hearing grossly normal Neck: supple Respiratory/Chest: chest non-tender, lungs clear, normal breath sounds, no respiratory distress, no accessory muscle use Cardiovascular: regular rate, rhythm Abdomen / GI: normal bowel sounds, non tender, soft Extremities: normal inspection, no calf tenderness Neurologic/Psychiatric: alert, normal mood/affect, oriented x 3 Skin: normal color (Mera Preston MD) focused on seeing bugs all over Review of Systems: Constitutional: No fever Respiratory: + cough (minimal), No shortness of breath Cardiovascular: No chest pain Physical Exam: General Appearance: no apparent distress Respiratory/Chest: no respiratory distress, + decreased breath sounds Cardiovascular: regular rate, rhythm Neurologic/Psychiatric: alert, oriented x 3 Skin: warm/dry (Marcela Baldwin M.D.) Hospital Course This patient is a pleasant 86-year-old female that resides at [facility] that was transferred to the emergency department by ambulance today for reported cough and hypoxia. According to the son, the patient was hypoxic in the 70s on room air. She does not typically wear oxygen. She does not have a history of pulmonary disease. She was treated in the hospital in July of this year for what was thought to be bronchitis. She does not think that she ever really got back to baseline. She reports a productive cough with white/yellow sputum. She denies any fever or chills. She does feel some chest pressure that has been there for the last several months. It does not radiate anywhere. Her breathing is worse with exertion. She also notes fatigue. She does not have any GI symptoms such as nausea or vomiting. She does occasionally have diarrhea. This is been going on for many months. She was admitted after she was noted to have cyanotic fingernails and was hypoxic to 68% on room air at long-term. Per EMS report, her saturation had increased to 92% on warming her hands. The patient is very pleasant, however she seems intermittently confused. She is complaining of seeing bugs on her clothing. According to long-term notes , this has been going on for quite some time. She refused a psych evaluation. ? Pneumonia: Cxr:IMPRESSION: No acute cardiopulmonary abnormality. She was treated with Levaquin for possible pneumonia. - Continue Levaquin 250 mg for 6 more days - Continue home inhalers, Spiriva added every morning - Speech eval was done for aspiration but she passed it without any issues - Continue prednisone 40 mg for 2 more days - Consider repeat PFTs as an outpatient LE cellulitis-on Doxycycline - She was on Doxy for lower extremity cellulitis. Ultrasound Dopplers was negative for DVT - Doxy was discontinued considering appearance more likely to be chronic venous stasis . Elevated trop-was mildly elevated on last admission - 0.052-->0.057-->0.048 Paranoia /visual hallucinations"seeing bugs" -Psychiatric was consulted who recommended increasing the dose of Risperdal to 0.25 mg at bedtime Hypertension -continue Toprol XL as scheduled Depression -Continue Zoloft 100 mg daily Follow-up with PCP in about a week Total Time Spent: Less than 30 minutes This includes examination of the patient, discharge planning, medication reconciliation, and communication with other providers. (Mera Preston MD) I have reviewed the medical record and performed a history and physical examination of this patient today. I have discussed the case with Dr Preston. The above note reflects my findings, conclusions, and recommendations Total Time Spent: Greater than 30 minutes (35) (Marcela Baldwin M.D.) Discharge Instructions Please refer to the electronic Patient Visit Report (Discharge Instructions) for additional information. (Mera Preston MD) Follow-Up With PCP in about a week (Mera Preston MD) Additional Copies To Gwendolyn Pina,C.R.N.P. Resident Tracking Resident Involvement: Resident Care Provided Care Provided: Adult Hospital Medicine (Mera Preston MD)
[2017-01-03] MEDS ORDERED: DOXY-300 PO (14:00)
[2017-01-03] MEDS ORDERED: HYDR-389 PO (14:00)
[2017-01-03] MEDS ORDERED: FLUV100T12 PO (14:00)
[2017-01-03] MEDS ORDERED: DARI15TA PO (14:00)
[2017-01-03] MEDS ORDERED: LEVO-366 PO (14:00)
[2017-02-14] MEDS ORDERED: ABL10 PO (13:28)
[2017-02-14] MEDS ORDERED: CLX/20 PO (13:29)
== END 2016-10-04 18:15 | disposition home or self-care (01) | DRG 189 ==
LOC: ENRESERVTM → ENRESERVDT → C.EDA 10:33 → EDBD 10:33 → C.2T 14:04
PROVIDERS: ADMIT Family Medicine; ATTEND Family Medicine
DX: J96.01 Acute respiratory failure with hypoxia (principal); J18.9 Pneumonia, unspecified organism; L03.119 Cellulitis of unspecified part of limb; R77.8 Other specified abnormalities of plasma proteins; F29 Unspecified psychosis not due to a substance or known physiological condition; I12.9 Hypertensive chronic kidney disease with stage 1 through stage 4 chronic kidney disease, or unspecified chronic kidney disease; N18.3 Chronic kidney disease, stage 3 (moderate); I87.8 Other specified disorders of veins; F32.9 Major depressive disorder, single episode, unspecified; Z86.14 Personal history of Methicillin resistant Staphylococcus aureus infection; Z79.82 Long term (current) use of aspirin; Z79.2 Long term (current) use of antibiotics; Z79.890 Hormone replacement therapy; Z79.899 Other long term (current) drug therapy

== ENCOUNTER → 2016-11-14 | Outpatient (CLI) | payer OTHER, BC ==
[~2016-11-14] MED LIST changes: +ABL10 PO; +ACET-1311 PO; +ASCO500T16 PO; -BROM0.07 OPR; +CLX/20 PO; +DARI15TA PO; +DOCU100C31 PO; +DOXY-300 PO; +DOXY100C2 PO; -DOXY100C76 PO; +FLUV100T12 PO; +FLUV50TA2 PO; +HYDR-389 PO; +HYDR1CAP85 PO; +HYDR25CA PO; +LEVO-366 PO; -PRED1SUS17 OPR; +RISP0.258 PO; +RISP0.5T10 PO; +SENN-65 PO; +SPRIN INH; +TRMCR130WC TOP
[2016-11-14 17:50] LABS: URINE APPEARANCE CLEAR (CLEAR); URINE BILIRUBIN NEG (NEG); URINE COLOR DK YELLOW; URINE NITRITE NEG (NEG); URINE SPECIFIC GRAVITY 1.024 (1.000-1.030); UROBILINOGEN NEG (NEG)
[2016-11-14 18:00] LABS: MANUAL MICROSCOPIC REQUIRED? NO; REVIEW REQ? NO
== END | disposition home or self-care (01) ==
LOC: C.LABSALHI 17:42
PROVIDERS: ATTEND Obstetrics & Gynecology
DX: R39.89 Other symptoms and signs involving the genitourinary system (principal)

== ENCOUNTER 2016-12-23 08:47 | Emergency (ER) | payer OTHER, BC ==
[~2016-12-23] VITALS: Ht 160 cm; Wt 68.8 kg
[~2016-12-23 08:47] MED LIST changes: -ABL10 PO; -ACET-1311 PO; -ASCO500T16 PO; -CLX/20 PO; -DARI15TA PO; -DARI7.5T PO; -DOCU100C31 PO; -DOXY-300 PO; -DOXY100C2 PO; -FLUV100T12 PO; -FLUV50TA2 PO; -HYDR-389 PO; -HYDR1CAP85 PO; -HYDR25CA PO; -LEVO-366 PO; -RISP0.5T10 PO; -SENN-65 PO; -TRMCR130WC TOP
[2016-12-23 08:48] VITALS: TEMP 36.9; Ht 160 cm; Wt 68.8 kg
[2016-12-23] MEDS ORDERED: MUPIROCIN 2% OINT 22 GM TUBE EXT ONE (09:15)
--- NOTE | 2016-12-23 09:22 | EMERGENCY ROOM VISIT NOTE ---
History Report prepared by Tobi: Tomasa Myers Under the Supervision of: Dr. Jonathan Segundo M.D. First contact with patient: 08:57 Chief Complaint: WOUND INFECTION Stated Complaint: 3 OPEN WOUNDS ON RIGHT LEG Nursing Triage Summary: Pt reports three wounds on right leg. Pt states, "I had toothache of the leg last night." Pt reports wounds are open and draining. Pt states, "I have been a patient at the wound clinic and of Dr. Og's. I have scars from where he saved my leg." Pt reports wounds started over 1 week ago. Denies hx of DM. History of Present Illness The patient is a 86 year old female who presents to the Emergency Room with complaints of a worsening wound infection on her right lower leg that started over 1 week ago. She states that the wound was very painful last night. The patient states that the wounds are open and draining. The patient has been following with Dr. Og - Infectious Disease for the infection. The patient's son states that the patient had an appointment at the Wound Clinic at 0730 this morning but they got stuck in traffic and missed the appointment. The patient denies fevers or chills. She states that she is not diabetic. The patient is on doxycycline twice a day which she states that she has been on for a long time. She does not have any antibiotic ointment to put on the wound. The patient did not specify whether she has any history of MRSA. The patient's son adds that she has a healing ulcer on her medial right ankle. The patient states that her tetanus shot is up to date. Source of History: patient, family (son) Onset: over 1 week ago Position: leg (right) Quality: other (wound infection) Timing: worsening Associated Symptoms: No fevers, No chills Review of Systems All systems have been listed, reviewed, and are negative other than those previously mentioned. Please see Additional Medical History Sheet. 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 (21) Right thigh pain (22) Severe sepsis (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 (24) UTI (urinary tract infection) Surgical Problems: (1) Status post arthroscopic knee surgery (2) Status post tubal ligation Family History Asthma FAM HX-ISCHEM HEART DIS MOTHER Social History Smoking Status: Never Smoker Drug Use: none Marital Status: Housing Status: lives alone Occupation Status: retired Current/Historical Medications Scheduled Acetaminophen (Tylenol), 1,000 MG PO BID Ascorbic Acid (Vitamin C), 2 TAB PO QAM Aspirin (Aspirin Chewable), 81 MG PO BID Calcium Carbonate-Vitamin D (Calcium + D), 1 TAB PO QAM Estrog Conj/Medryoxyprog Acet (Prempro 0.45MG/1.5MG), 1 TAB PO Q2D Metoprolol Succ (Toprol Xl) (Toprol-Xl), 25 MG PO QAM Metoprolol Succ (Toprol Xl) (Toprol-Xl), 50 MG PO QAM Multivitamin (Multivitamin), 1 TAB PO QAM Risperidone (Risperdal), 0.25 MG PO HS Senna (Senokot), 1 TAB PO DAILY AT NOON Sertraline (Zoloft), 100 MG PO QPM Tiotropium [place] (Spiriva Handihaler), 1 PUFF INH QAM Scheduled PRN Albuterol Hfa (Ventolin Hfa), 2-4 PUFFS INH Q6H PRN for Shortness of Breath Diclofenac Sodium (Topical) (Voltaren 1% Top Gel), APPLN EXT BID PRN for Pain Docusate Sodium (Stool Softener), 1 CAP PO BID PRN for Constipation Hydrocortisone (Proctosol Hc), 1 APPLN MO BID PRN for HEMORRHOIDS Ondansetron Hcl (Zofran), 4 MG PO PRN PRN for Nausea Polyvinyl Alcohol-Povidone (Op (Refresh), 1-2 DROPS OPB UD PRN for DRYNESS Allergies Coded Allergies: Penicillins (Verified Allergy, Intermediate, HIVES, 10/03/16) TOLERATED CEFEPIME 2014 Sulfamethoxazole w/Trimethoprim (Verified Allergy, Intermediate, HIVES, 10/03/16) Tetanus Toxoid (Verified Allergy, Intermediate, RASH, 10/03/16) Latex1 -Allergic Contact Dermititis (Verified Allergy, Mild, RASH, 10/03/16) Codeine (Verified Adverse Reaction, Intermediate, HEADACHES, 10/03/16) Morphine and Related (Verified Adverse Reaction, Mild, SEVERE HEADACHES, ) Severe Headaches Physical Exam Vital Signs Date Time Temp Pulse Resp B/P (MAP) Pulse Ox O2 Delivery O2 Flow Rate FiO2 12/23/16 10:06 65 16 163/72 97 12/23/16 08:48 36.9 68 18 183/70 97 Room Air Physical Exam GENERAL: Patient awake, alert, oriented x 3. Patient follows commands. Patient does not appear toxic. Patient is adequately hydrated and well- nourished. SKIN: No erythema, pallor, cyanosis or rash HEENT: Normal head, pupils equal, reactive to light and accommodation. LUNGS: Clear to auscultation. No wheezes, no rales, no rhonchi. HEART: No murmurs. No gallops. No rubs ABDOMEN: Soft, nontender. EXTREMITIES: 3 shallow ulcers on distal right lower leg which do not appear to be infected at this time, no surrounding erythema, no streaking, healed scar on medial aspect of right lower extremity, no signs of trauma. NEUROLOGIC: Cranial nerves II-XII within normal limits. No gross motor sensory function deficits. Medical Decision & Procedures Medications Administered Medications (Trade) Dose Ordered Sig/Echo Route Start Time Stop Time Status Last Admin Dose Admin Mupirocin (Bactroban 2% Oint) 1 appln ONE ONCE EXT 12/23/16 09:15 12/23/16 09:16 DC 12/23/16 09:28 1 APPLN ED Course 0857: Past medical records reviewed. The patient was evaluated in room A3. A complete history and physical examination was performed. 0910: After examination, I discussed today's findings with the patient and her son. They verbalized agreement of the treatment plan. The patient was discharged home. 0915: Ordered Mupirocin 1 appln EXT Medical Decision Nurses notes reviewed. Medical history sheet reviewed. Differential diagnosis includes but is not limited to: cellulitis, abscess, skin ulcers, decubiti. The patient has 3 small shallow ulcers on her lower leg. They do not appear infected at this time. The patient is currently on doxycycline. I've added mupirocin ointment. The patient will need to follow-up with wound care. I do not believe the patient requires any blood work at this time. Medication Reconcilliation Current Medication List: was personally reviewed by me Blood Pressure Screening Patient's blood pressure: Elevated blood pressure Blood pressure disposition: Referred to PCP Impression Primary Impression: Skin ulcer of ankle Scribe Attestation The scribe's documentation has been prepared under my direction and personally reviewed by me in its entirety. I confirm that the note above accurately reflects all work, treatment, procedures, and medical decision making performed by me. Departure Information Dispostion Home / Self-Care Referrals No Doctor, Assigned (PCP) Forms HOME CARE DOCUMENTATION FORM, IMPORTANT VISIT INFORMATION, WORK / SCHOOL INSTRUCTIONS Patient Instructions My [facility] Additional Instructions Clean the wounds gently twice a day and apply mupirocin ointment and bandage. Follow-up with wound care center within the next 7 days. Return sooner if you develop increasing redness or swelling of your leg or fever. 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
[2016-12-23 10:06] VITALS: BP 163/72; PULSE 65; O2SAT 97
[2017-01-03] MEDS ORDERED: LEVO-366 PO (14:00)
[2017-01-03] MEDS ORDERED: HYDR-389 PO (14:00)
[2017-01-03] MEDS ORDERED: DARI15TA PO (14:00)
[2017-01-03] MEDS ORDERED: DOXY-300 PO (14:00)
[2017-01-03] MEDS ORDERED: FLUV100T12 PO (14:00)
[2017-02-14] MEDS ORDERED: ABL10 PO (13:28)
[2017-02-14] MEDS ORDERED: CLX/20 PO (13:29)
== END 2016-12-23 10:09 | disposition home or self-care (01) ==
LOC: C.EDB 08:48 → C.EDA 10:09
DX: L97.309 Non-pressure chronic ulcer of unspecified ankle with unspecified severity (principal); L08.9 Local infection of the skin and subcutaneous tissue, unspecified; I10 Essential (primary) hypertension; F32.9 Major depressive disorder, single episode, unspecified; M35.3 Polymyalgia rheumatica; Z86.19 Personal history of other infectious and parasitic diseases; Z87.440 Personal history of urinary (tract) infections; Z87.828 Personal history of other (healed) physical injury and trauma; Z96.659 Presence of unspecified artificial knee joint; Z98.51 Tubal ligation status; Z79.82 Long term (current) use of aspirin; Z79.899 Other long term (current) drug therapy

== ENCOUNTER 2017-01-18 14:12 | Emergency (ER) | payer OTHER, BC ==
[~2017-01-18] VITALS: Ht 157.5 cm; Wt 64.0 kg
[~2017-01-18 14:12] MED LIST changes: -ASCO500T3 PO; -CONJ0.453 PO; +DARI15TA PO; -DOCU100C PO; +DOXY-300 PO; +FLUV100T12 PO; +HYDR-389 PO; +LEVO-366 PO; -SERT-234 PO
[2017-01-18 14:19] VITALS: TEMP 36.7; Ht 157.5 cm; Wt 64.0 kg
[2017-01-18 15:07] LABS: COMPLETE YES; EOS % 1.9 %; HEMATOCRIT 35.1 % (37-47); IG% 1.4 %; LYMPH % 23.8 %; LYMPH ABS # 0.88 K/uL (1.2-3.4); MEAN CELL VOLUME 93.1 fL (80-100); MEAN CORPUSCULAR HEMOGLOBIN 30.5 pg (25-34); MEAN CORPUSCULAR HGB CONC 32.8 g/dl (32-36); MEAN PLATELET VOLUME 9.4 fL (7.4-10.4); MONO % 23.8 %; NEUT % 49.1 %; PLATELET COUNT 117 K/uL (130-400); RED BLOOD COUNT 3.77 M/uL (4.2-5.4); WHITE BLOOD COUNT 3.69 K/uL (4.8-10.8)
[2017-01-18 15:29] LABS: BUN/CREATININE RATIO 20.9 (10-20); CALCIUM 9.3 mg/dl (8.5-10.1); CREATININE 1.3 mg/dl (0.60-1.20); MAGNESIUM 2.3 mg/dl (1.8-2.4); POTASSIUM 4.5 mmol/L (3.5-5.1)
[2017-01-18] MEDS ORDERED: DOCU100C31 PO (15:46)
[2017-01-18] MEDS ORDERED: SENN-65 PO (15:46)
[2017-01-18] MEDS ORDERED: DOXY100C2 PO (15:46)
[2017-01-18] MEDS ORDERED: HYDR25CA PO (15:46)
[2017-01-18] MEDS ORDERED: DARI7.5T PO (15:46)
[2017-01-18] MEDS ORDERED: ASCO500T16 PO (15:46)
[2017-01-18] MEDS ORDERED: HYDR1CAP85 PO (15:46)
[2017-01-18] MEDS ORDERED: RISP0.5T10 PO (15:46)
[2017-01-18] MEDS ORDERED: FLUV50TA2 PO (15:46)
--- NOTE | 2017-01-18 15:53 | DIAGNOSTIC IMAGING REPORT ---
CT OF THE HEAD WITHOUT CONTRAST CLINICAL HISTORY: Fall with head injury. COMPARISON STUDY: Head CT January 31, 2016. CT DOSE: 1289.96 mGy.cm TECHNIQUE: Helical axial images of the head were obtained without IV contrast. Automated exposure control was utilized for the study. A dose lowering technique was utilized adhering to the principles of ALARA. FINDINGS: No acute intracranial hemorrhage, midline shift or mass effect is present. Ventricular system is normal for age. Basilar cisterns are patent. There are no extra axial collections. White matter hypodensity suggests small vessel disease. There are no findings to suggest acute dural sinus thrombosis or acute territorial infarct. There is no calvarial fracture. Visualized portions of the sinuses and the mastoid air cells are clear. IMPRESSION: 1. No acute intracranial findings. 2. No calvarial fracture. Electronically signed by: Manjit Bettencourt M.D. 01/18/2017 3:52 PM Dictated Date/Time: 01/18/2017 3:49 PM
[2017-01-18] MEDS ORDERED: TRMCR130WC TOP (15:54)
[2017-01-18] MEDS ORDERED: ACET-1311 PO (15:54)
--- NOTE | 2017-01-18 16:57 | DIAGNOSTIC IMAGING REPORT ---
RIGHT HUMERUS MIN 2 VIEWS ROUTINE CLINICAL HISTORY: Right arm pain following fall. COMPARISON: Right shoulder radiographs December 20, 2011. FINDINGS: No acute fracture of the right humerus is identified. There may be elevation of the right humerus which suggests a chronic rotator cuff tear. There is moderate arthritis of the right glenohumeral joint. Alignment of the right elbow is anatomic and there is no evidence for right elbow joint effusion. IMPRESSION: No acute fracture of the right humerus. Electronically signed by: Manjit Bettencourt M.D. 01/18/2017 4:56 PM Dictated Date/Time: 01/18/2017 4:54 PM
--- NOTE | 2017-01-18 17:01 | DIAGNOSTIC IMAGING REPORT ---
RIGHT FOREARM 2 VIEWS ROUTINE CLINICAL HISTORY: fall, right arm pain, large hematoma. COMPARISON: None FINDINGS: Alignment of the right elbow is anatomic. There is no evidence for right elbow joint effusion. There is no acute fracture of the right radius or ulna. There is a possible fracture within the base of the right fourth metacarpal. IMPRESSION: 1. Possible fracture within the base of the right fourth metacarpal. This may be artifactual however right hand radiographs could be obtained to exclude an acute fracture. 2. No acute fracture of the right radius or ulna. Electronically signed by: Manjit Bettencourt M.D. 01/18/2017 4:59 PM Dictated Date/Time: 01/18/2017 4:50 PM
--- NOTE | 2017-01-18 17:06 | EMERGENCY ROOM VISIT NOTE ---
ED Visit Note First contact with patient: 14:23 This Patient was discussed with the physician orthotics assistant, Dannie Oakley PA-C. The pertinent historical and physical exam findings were confirmed. I agree with the studies ordered and with the interpretations of these studies. I agree with the disposition and care plan.
--- NOTE | 2017-01-18 17:18 | EMERGENCY ROOM VISIT NOTE ---
History First contact with patient: 14:23 Chief Complaint: FALL Stated Complaint: LACERATION/FELL AND HIT HEAD, KNEE-SWELLING TO ARM History of Present Illness The patient is a 86 year old female who presents to the Emergency Room from [facility] for evaluation of a fall. The patient reports that she was bent over in her closet trying to slate picker a pair of shoes. She reports that when she stood up, she became lightheaded. She grabbed for her dresser and fell, striking her right arm. She hit her head on the arm of a chair. She denies any pain in the head at this time. She reports pain in her arm which she rates a 5/10. She denies loss consciousness. She states that she does occasionally become lightheaded when standing up. She denies any chest pain or shortness of breath. She denies any recent illnesses or fevers/chills. Her tetanus is up-to -date. She denies any other injuries. Review of Systems A complete 10 point review of systems was reviewed with the patient with pertinent positives and negatives as per history of present illness. All else were negative. 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 (15) Left knee pain (16) Major depressive disorder, recurrent, moderate (17) Physical deconditioning (18) PIC line (peripherally inserted central catheter) removal (19) Polymyalgia rheumatica (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 (21) Right thigh pain (22) Severe sepsis (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 (24) UTI (urinary tract infection) Surgical Problems: (1) Status post arthroscopic knee surgery (2) Status post tubal ligation Family History Asthma FAM HX-ISCHEM HEART DIS MOTHER Social History Smoking Status: Never Smoker Drug Use: none Marital Status: Housing Status: lives alone Occupation Status: retired Current/Historical Medications Scheduled Acetaminophen (Tylenol), 1,000 MG PO BID Ascorbic Acid (Ascorbic Acid), 1,000 MG PO DAILY Aspirin (Aspirin Chewable), 81 MG PO BID Calcium Carbonate-Vitamin D (Calcium + D), 1 TAB PO QAM Darifenacin Hydrobromide (Enablex), 7.5 MG PO DAILY Diclofenac Sodium (Topical) (Voltaren 1% Top Gel), 1 APPLN EXT BID Doxycycline Hyclate (Vibramycin), 100 MG PO BID Fluvoxamine Maleate (Luvox), 50 MG PO UD Hydroxyzine Pamoate (Vistaril), 1 CAP PO HS Levofloxacin (Levaquin), 500 MG PO DAILY Metoprolol Succ (Toprol Xl) (Toprol-Xl), 25 MG PO QAM Metoprolol Succ (Toprol Xl) (Toprol-Xl), 50 MG PO QAM Multivitamin (Multivitamin), 1 TAB PO QAM Senna/Docusate Sod (Senokot S), 1 TAB PO QDL Tiotropium [place] (Spiriva Handihaler), 1 PUFF INH QAM Triamcinolone Acet (Aristocort 0.1%), 1 APPLN TOP BID Scheduled PRN Acetaminophen (Tylenol), 650 MG PO Q4 PRN for Mild Pain Albuterol Hfa (Ventolin Hfa), 2-4 PUFFS INH QID PRN for SOB/Wheezing Docusate Sodium (Docusate Sodium), 1 CAP PO BID PRN for Constipation Hydrocortisone (Proctosol Hc), 1 APPLN MD BID PRN for HEMORRHOIDS Hydroxyzine Pamoate (Vistaril), 25 MG PO for Itching Ondansetron Hcl (Zofran), 4 MG PO Q4 PRN for Nausea Polyvinyl Alcohol-Povidone (Op (Refresh), 1-2 DROPS OPB UD PRN for DRYNESS Miscellaneous Medications Risperidone (Risperdal), 0.5 MG PO Physical Exam Vital Signs Date Time Temp Pulse Resp B/P (MAP) Pulse Ox O2 Delivery O2 Flow Rate FiO2 01/18/17 17:25 74 20 172/81 96 01/18/17 16:15 84 20 184/86 96 Room Air 01/18/17 14:47 62 01/18/17 14:46 60 20 158/68 62 183/76 82 183/76 01/18/17 14:19 36.7 63 18 158/69 96 Room Air Physical Exam VITALS: Vitals are noted on the nurse's note and reviewed by myself. Vital signs stable. GENERAL: This is an 86-year-old female, in no acute distress, nondiaphoretic, well-developed well-nourished. SKIN: There is a 4 cm skin tear to the right forearm overlying a large hematoma. There is no active bleeding. HEAD: Normocephalic atraumatic. EARS: External auditory canals clear, tympanic membranes pearly pryor without erythema or effusion bilaterally. No hemotympanum. EYES: Pupils equal round and reactive to light and accommodation. Conjunctivae without injection, sclerae without icterus. Extraocular movements intact. MOUTH: Mucous membranes moist. NECK: Supple without nuchal rigidity. No tenderness of the cervical spine. HEART: Regular rate and rhythm without murmurs gallops or rubs. LUNGS: Clear to auscultation bilaterally without wheezes, rales or rhonchi. MUSCULOSKELETAL: There is a large hematoma to the dorsal aspect of the right forearm with overlying skin tear. Full range of motion of the elbow and wrist. Radial pulses 2+. There is mild tenderness of the right humerus. NEURO: Patient was alert and oriented to person place and time. Normal sensation to light and sharp touch. Medical Decision & Procedures ER Provider Diagnostic Interpretation: CT OF THE HEAD WITHOUT CONTRAST IMPRESSION: 1. No acute intracranial findings. 2. No calvarial fracture. RIGHT FOREARM 2 VIEWS ROUTINE IMPRESSION: 1. Possible fracture within the base of the right fourth metacarpal. This may be artifactual however right hand radiographs could be obtained to exclude an acute fracture. 2. No acute fracture of the right radius or ulna. RIGHT HUMERUS MIN 2 VIEWS ROUTINE IMPRESSION: No acute fracture of the right humerus. Laboratory Results 01/18/17 14:56 Red Blood Count 3.77, Mean Corpuscular Volume 93.1, Mean Corpuscular Hemoglobin 30.5, Mean Corpuscular Hemoglobin Concent 32.8, Mean Platelet Volume 9.4, Neutrophils (%) (Auto) 49.1, Lymphocytes (%) (Auto) 23.8, Monocytes (%) (Auto) 23.8, Eosinophils (%) (Auto) 1.9, Basophils (%) (Auto) 0.0, Neutrophils # (Auto ) 1.81, Lymphocytes # (Auto) 0.88, Monocytes # (Auto) 0.88, Eosinophils # (Auto ) 0.07, Basophils # (Auto) 0.00 01/18/17 14:56 Test 01/18/17 14:56 White Blood Count 3.69 K/uL (4.8-10.8) Red Blood Count 3.77 M/uL (4.2-5.4) Hemoglobin 11.5 g/dL (12.0-16.0) Hematocrit 35.1 % (37-47) Mean Corpuscular Volume 93.1 fL (80-100) Mean Corpuscular Hemoglobin 30.5 pg (25-34) Mean Corpuscular Hemoglobin Concent 32.8 g/dl (32-36) Platelet Count 117 K/uL (130-400) Mean Platelet Volume 9.4 fL (7.4-10.4) Neutrophils (%) (Auto) 49.1 % Lymphocytes (%) (Auto) 23.8 % Monocytes (%) (Auto) 23.8 % Eosinophils (%) (Auto) 1.9 % Basophils (%) (Auto) 0.0 % Neutrophils # (Auto) 1.81 K/uL (1.4-6.5) Lymphocytes # (Auto) 0.88 K/uL (1.2-3.4) Monocytes # (Auto) 0.88 K/uL (0.11-0.59) Eosinophils # (Auto) 0.07 K/uL (0-0.5) Basophils # (Auto) 0.00 K/uL (0-0.2) RDW Standard Deviation 47.7 fL (36.4-46.3) RDW Coefficient of Variation 13.9 % (11.5-14.5) Immature Granulocyte % (Auto) 1.4 % Immature Granulocyte # (Auto) 0.05 K/uL (0.00-0.02) Anion Gap 5.0 mmol/L (3-11) Est Creatinine Clear Calc Drug Dose 27.8 ml/min Estimated GFR () 43.3 Estimated GFR (Non- 37.4 BUN/Creatinine Ratio 20.9 (10-20) Calcium Level 9.3 mg/dl (8.5-10.1) Magnesium Level 2.3 mg/dl (1.8-2.4) Total Bilirubin 0.4 mg/dl (0.2-1) Aspartate Amino Transf (AST/SGOT) 26 U/L (15-37) Alanine Aminotransferase (ALT/SGPT) 22 U/L (12-78) Alkaline Phosphatase 81 U/L (45-117) Total Protein 7.2 gm/dl (6.4-8.2) Albumin 3.6 gm/dl (3.4-5.0) Globulin 3.6 gm/dl (2.5-4.0) Albumin/Globulin Ratio 1.0 (0.9-2) ED Course The patient was evaluated as above. Labs were drawn and IV access was obtained. Multiple imaging studies were performed and read by radiology as above. Patient was reevaluated and findings were discussed. A dressing was applied to her right forearm. Discharge instructions were reviewed with the patient. The patient verbalized understanding of my assessment and treatment plan and was discharged home in good condition. Medical Decision Differential diagnosis includes fracture, contusion, sprain, orthostatic hypotension, among others. The patient is an 86-year-old female who presents today complaining of a fall. CT of the head was unremarkable. X-ray of the right forearm showed no obvious fracture. There was a questionable abnormality of the base of the fourth metacarpal, but this is not the location of the patient's discomfort and I do not feel this represents a fracture. Labs revealed no leukocytosis or concerning anemia. Creatinine was mildly elevated and I do feel the patient is likely dehydrated, causing her fall today. She was encouraged to increase fluid intake and follow-up with her primary care provider for a recheck. A dressing was placed on the skin tear and a compression dressing was placed over the hematoma. Conservative measures were discussed with the patient and her son. Based on the patient's presentation and work up, I feel the patient is stable for outpatient treatment. The patient was educated to return to the emergency department for any worsening of their current condition or new/concerning symptoms. She will follow up with her PCP. The patient was independently evaluated by Dr. Diaz, ED attending physician, who agreed with my assessment and treatment plan. Head Trauma GCS Score: 15 Medication Reconcilliation Current Medication List: was personally reviewed by me Blood Pressure Screening Patient's blood pressure: Elevated blood pressure Blood pressure disposition: Elevated BP felt to be situational Impression Primary Impression: Fall Additional Impression: Traumatic hematoma of right forearm Departure Information Dispostion Home / Self-Care Condition GOOD Referrals Corky, Dennys O.,M.D. (PCP) Patient Instructions My [facility] Additional Instructions For pain control, you can use the following [id number] medicines (if >12 yo): - Regular strength (325mg/tab) Tylenol (acetaminophen) 2 tabs every 4-6 hours as needed. Do not exceed 12 tablets in a 24 hour period. Avoid taking more than 4 grams (4000 mg) of Tylenol per day. This includes any other sources of acetaminophen you may take on a regular basis. - Regular strength (200 mg/tab) Advil (ibuprofen) 1-2 tabs every 4-6 hours as needed. Do not exceed a dose of 3200 mg per day. You should keep a compression dressing over the right arm swelling to help control the swelling. Change the dressing daily. An antibiotic ointment should be applied to the skin tear. Your blood work showed evidence of dehydration. You should increase fluid intake. You should have your blood work rechecked by your primary care provider in 1-2 weeks. Return here for any signs of infection in the right arm. These would include increased redness, increased swelling, fevers, or puslike drainage. Problem Qualifiers Primary Impression: Fall Encounter type: initial encounter Qualified Codes: W19.XXXA - Unspecified fall, initial encounter Additional Impression: Traumatic hematoma of right forearm Encounter type: initial encounter Qualified Codes: S50.11XA - Contusion of right forearm, initial encounter
[2017-01-18 17:25] VITALS: BP 172/81; PULSE 74; O2SAT 96
[2017-02-14] MEDS ORDERED: ABL10 PO (13:28)
[2017-02-14] MEDS ORDERED: CLX/20 PO (13:29)
== END 2017-01-18 17:32 | disposition home or self-care (01) ==
LOC: C.EDB 14:14
DX: S50.11XA Contusion of right forearm, initial encounter (principal); S51.811A Laceration without foreign body of right forearm, initial encounter; W18.00XA Striking against unspecified object with subsequent fall, initial encounter; Y92.019 Unspecified place in single-family (private) house as the place of occurrence of the external cause; I10 Essential (primary) hypertension; F32.9 Major depressive disorder, single episode, unspecified; M17.9 Osteoarthritis of knee, unspecified; Z87.440 Personal history of urinary (tract) infections; R26.9 Unspecified abnormalities of gait and mobility; Z83.6 Family history of other diseases of the respiratory system; Z82.49 Family history of ischemic heart disease and other diseases of the circulatory system; Z79.82 Long term (current) use of aspirin; Z79.899 Other long term (current) drug therapy

== ENCOUNTER → 2017-02-19 | Outpatient (CLI) | payer BC, OTHER ==
[~2017-02-19] MED LIST changes: +ABL10 PO; +ACET-1311 PO; +ASCO500T16 PO; +CLX/20 PO; -DARI15TA PO; +DARI7.5T PO; +DOCU100C31 PO; -DOXY-300 PO; +DOXY100C2 PO; -FLUV100T12 PO; -HYDR-389 PO; +HYDR1CAP85 PO; +HYDR25CA PO; -LEVO-366 PO; -RISP0.258 PO; -SENN-61 PO; +SENN-65 PO; +TRMCR130WC TOP
--- NOTE | 2017-02-19 15:43 | DIAGNOSTIC IMAGING REPORT ---
RIGHT FINGER(S) MIN 2 VIEWS ROUTINE CLINICAL HISTORY: Finger deformity Right trauma. Pain. COMPARISON: None. 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 Clavicle linear lucency distal aspect proximal phalanx medially adjacent to the proximal interphalangeal joint. Moderate soft tissue edema. IMPRESSION: 1. Severe degenerative change. 2. Moderate soft tissue edema. 3. Small short segment nondisplaced cortical fracture distal aspect proximal phalanx The above report was generated using voice recognition software. It may contain grammatical, syntax or spelling errors. Electronically signed by: Harvinder Barron M.D. 02/19/2017 3:41 PM Dictated Date/Time: 02/19/2017 3:39 PM
== END | disposition home or self-care (01) ==
LOC: C.LABPVFM 15:18
PROVIDERS: ATTEND Family Medicine
DX: M20.009 Unspecified deformity of unspecified finger(s) (principal)

== ENCOUNTER → 2017-04-18 | Outpatient (CLI) | payer BC, OTHER | END | disposition home or self-care (01) | LOC: C.LABPVFM 17:57 | PROVIDERS: ATTEND Nurse Practitioner Family | DX: R30.0 Dysuria (principal) ==

== ENCOUNTER 2017-08-12 16:10 | Inpatient (IN) | payer OTHER, BC ==
[~2017-08-12] VITALS: Ht 158.8 cm; Wt 65.0 kg
[~2017-08-12 16:10] MED LIST changes: -METO50TA7 PO; +METO50TA8 PO
[2017-08-12] MEDS ORDERED: ALBUT/IPRATROP 3MG/0.5MG NEB 3 ML VIAL INH STA (16:41)
[2017-08-12] MEDS ORDERED: SODIUM CHLORIDE 0.9% 250ML 250 ML IV STA (16:41)
[2017-08-12 17:13] LABS: EOS % 1.7 %; EOS ABS # 0.04 K/uL (0-0.5); IG# 0.02 K/uL (0.00-0.02); LYMPH % 31.3 %; LYMPH ABS # 0.75 K/uL (1.2-3.4); MEAN CELL VOLUME 90.7 fL (80-100); MEAN CORPUSCULAR HEMOGLOBIN 29.5 pg (25-34); MEAN CORPUSCULAR HGB CONC 32.5 g/dl (32-36); MEAN PLATELET VOLUME 10.1 fL (7.4-10.4); MONO % 19.6 %; MONO ABS # 0.47 K/uL (0.11-0.59); NEUT % 46.6 %; NEUT ABS # 1.12 K/uL (1.4-6.5); PLATELET COUNT 144 K/uL (130-400); RED CELL DISTRIBUTION WIDTH CV 14.1 % (11.5-14.5); RED CELL DISTRIBUTION WIDTH SD 46.8 fL (36.4-46.3)
--- NOTE | 2017-08-12 17:15 | DIAGNOSTIC IMAGING REPORT ---
CHEST ONE VIEW PORTABLE CLINICAL HISTORY: Chest pain. Near-syncope. COMPARISON STUDY: Chest radiograph October 03, 2016. FINDINGS: There is no pneumothorax or pleural effusion. There is no evidence for pulmonary edema. A double density along the right heart border is noted. There is no evidence for pulmonary edema. IMPRESSION: 1. Double density along the right heart border. This may reflect epicardial fat pad or a hiatal hernia however is nonspecific and follow-up PA and lateral chest radiographs are recommended. 2. No acute cardiopulmonary findings. Electronically signed by: Manjit Bettencourt M.D. 08/12/2017 5:14 PM Dictated Date/Time: 08/12/2017 5:11 PM
[2017-08-12 17:31] LABS: ALBUMIN 4.2 gm/dl (3.4-5.0); CALCIUM 9.5 mg/dl (8.5-10.1); CREATININE 1.15 mg/dl (0.60-1.20); POTASSIUM 4.2 mmol/L (3.5-5.1)
[2017-08-12 17:41] LABS: TOTAL PROTEIN 7.8 gm/dl (6.4-8.2)
[2017-08-12] MEDS ORDERED: SKINCRE34 (17:51)
[2017-08-12] MEDS ORDERED: PRLSR20 PO (17:56)
[2017-08-12] MEDS ORDERED: TRAZ50TA35 PO (17:58)
--- NOTE | 2017-08-12 19:05 | EMERGENCY ROOM VISIT NOTE ---
History Report prepared by Tobi: Anh Longo Under the Supervision of: Dr. Marcus Gil M.D. 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 The patient had a follow up appointment with Dr. 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 She is currently not being treated and was going to Dr. Og just for a check up. She was walking around the building to the door when she became SOB. She did not see Dr. Og and was sent to the ED. She currently feels back to normal. She is concerned that she will feel SOB again if she tries to walk. She has had some right sided abdominal pain for a couple weeks. She denies any fever, chills, cough, congestion, nausea, vomiting, diarrhea, or pain with urination. She has had bruising on her arm since a fall. She has had bruising on her legs for the past year. She denies any history of asthma. She denies any history of smoking. She has had knee replacements. She is concerned that a new medication is making her sleepy during the day. Of note, patient is a poor historian and does not know what most of her medications are for. 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 A total of ten systems were reviewed and were otherwise negative. 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 (15) Left knee pain (16) Major depressive disorder, recurrent, moderate (17) NSTEMI (non-ST elevated myocardial infarction) (18) Physical deconditioning (19) PIC line (peripherally inserted central catheter) removal (20) Polymyalgia rheumatica (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 (22) Right thigh pain (23) Severe sepsis (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 (25) UTI (urinary tract infection) Surgical Problems: (1) Status post arthroscopic knee surgery (2) Status post tubal ligation Family History Asthma FAM HX-ISCHEM HEART DIS MOTHER Social History Smoking Status: Never Smoker Drug Use: none Marital Status: Housing Status: assisted living Occupation Status: retired Current/Historical Medications Scheduled Acetaminophen (Tylenol), 1,000 MG PO BID Ascorbic Acid (Ascorbic Acid), 1,000 MG PO DAILY Aspirin (Aspirin Chewable), 81 MG PO DAILY Calcium Carbonate-Vitamin D (Calcium + D), 1 TAB PO QAM Citalopram (Citalopram Hydrobromide), 20 MG PO HS Darifenacin Hydrobromide (Enablex), 7.5 MG PO DAILY Diclofenac Sodium (Topical) (Voltaren 1% Top Gel), 1 APPLN EXT BID Doxycycline Hyclate (Vibramycin), 100 MG PO BID Eucerin (Eucerin), DAILY Metoprolol Succ (Toprol Xl) (Toprol-Xl), 25 MG PO QAM Metoprolol Succ (Toprol Xl) (Toprol-Xl), 50 MG PO QAM Multivitamin (Multivitamin), 1 TAB PO QAM Omeprazole (Prilosec), 20 MG PO BID Senna/Docusate Sod (Senokot S), 1 TAB PO QDL Trazodone Hcl (Trazodone), 25 MG PO HS Triamcinolone Acet (Aristocort 0.1%), 1 APPLN TOP BID Scheduled PRN Acetaminophen (Tylenol), 650 MG PO Q4 PRN for Mild Pain Albuterol Hfa (Ventolin Hfa), 1-2 PUFFS INH QID PRN for SOB/Wheezing Docusate Sodium (Docusate Sodium), 100 CAP PO BID PRN for Constipation Hydroxyzine Pamoate (Vistaril), 25 MG PO for Itching Ondansetron Hcl (Zofran), 4 MG PO Q4 PRN for Nausea Polyvinyl Alcohol-Povidone (Op (Refresh), 1-2 DROPS OPB UD PRN for DRYNESS Allergies Coded Allergies: Penicillins (Verified Allergy, Intermediate, HIVES, 08/12/17) TOLERATED CEFEPIME 2013 Sulfamethoxazole w/Trimethoprim (Verified Allergy, Intermediate, HIVES, ) Tetanus Toxoid (Verified Allergy, Intermediate, RASH, 08/12/17) Latex1 -Allergic Contact Dermititis (Verified Allergy, Mild, RASH, 08/12/17 ) Codeine (Verified Adverse Reaction, Intermediate, HEADACHES, 08/12/17) Morphine and Related (Verified Adverse Reaction, Mild, SEVERE HEADACHES, ) Severe Headaches Physical Exam Vital Signs Date Time Temp Pulse Resp B/P (MAP) Pulse Ox O2 Delivery O2 Flow Rate FiO2 08/12/17 19:47 86 22 196/79 94 Room Air 08/12/17 18:55 83 20 94 Room Air 08/12/17 18:50 85 18 95 Room Air 08/12/17 18:46 139/115 08/12/17 18:45 87 23 96 Room Air 08/12/17 18:40 87 20 95 Room Air 08/12/17 18:35 87 21 97 08/12/17 18:32 166/102 08/12/17 18:30 88 19 97 08/12/17 18:25 85 16 97 08/12/17 18:20 84 21 97 08/12/17 18:16 191/72 08/12/17 18:15 85 15 95 08/12/17 18:10 83 15 96 08/12/17 18:05 90 25 96 08/12/17 18:02 205/71 08/12/17 18:00 83 12 97 08/12/17 17:55 94 20 221/96 97 Room Air 08/12/17 17:55 93 18 221/96 97 08/12/17 17:45 95 08/12/17 17:40 89 16 08/12/17 17:35 86 16 08/12/17 17:31 201/94 08/12/17 17:30 84 17 08/12/17 17:25 85 17 08/12/17 17:20 84 17 08/12/17 17:16 189/86 08/12/17 17:15 82 18 08/12/17 17:10 85 21 08/12/17 17:05 84 15 3/13/18 17:01 198/85 08/12/17 17:00 87 23 08/12/17 16:55 90 21 100 08/12/17 16:50 111 31 98 08/12/17 16:46 132/107 08/12/17 16:45 101 23 96 08/12/17 16:42 97 Room Air 08/12/17 16:40 86 19 96 08/12/17 16:35 88 19 98 08/12/17 16:32 88 08/12/17 16:31 179/94 08/12/17 16:30 87 22 97 08/12/17 16:26 97 Room Air 08/12/17 16:26 37.3 89 20 179/94 97 Room Air 08/12/17 16:25 87 27 97 08/12/17 16:21 168/87 Physical Exam GENERAL: Awake, alert, relatively well-appearing, in no distress HENT: Normocephalic, atraumatic. Dry mucous membranes. EYES: Normal conjunctiva. Sclera non-icteric. NECK: Supple. No nuchal rigidity. FROM. No JVD. RESPIRATORY: Scant intermittent wheezes, otherwise clear to auscultation. CARDIAC: Regular rate, normal rhythm. Extremities warm and well perfused. Pulses equal. ABDOMEN: Soft, non-distended. No tenderness to palpation. No rebound or guarding. No masses. RECTAL: Deferred. MUSCULOSKELETAL: Chest examination reveals no tenderness. The back is symmetrical on inspection without obvious abnormality. There is no CVA tenderness to palpation. No joint edema. LOWER EXTREMITIES: Calves are equal size bilaterally and non-tender. No edema. NEURO: Normal sensorium. No sensory or motor deficits noted. SKIN: No rash or jaundice noted. Ecchymosis to the right forearm and bilateral lower legs. Medical Decision & Procedures ER Provider Diagnostic Interpretation: Xray results as stated below per my and radiologist interpretation: CHEST ONE VIEW PORTABLE CLINICAL HISTORY: Chest pain. Near-syncope. COMPARISON STUDY: Chest radiograph October 03, 2016. FINDINGS: There is no pneumothorax or pleural effusion. There is no evidence for pulmonary edema. A double density along the right heart border is noted. There is no evidence for pulmonary edema. IMPRESSION: 1. Double density along the right heart border. This may reflect epicardial fat pad or a hiatal hernia however is nonspecific and follow-up PA and lateral chest radiographs are recommended. 2. No acute cardiopulmonary findings. Electronically signed by: Manjit Bettencourt M.D. 08/12/2017 5:14 PM Dictated Date/Time: 08/12/2017 5:11 PM Laboratory Results Test 08/12/17 17:00 08/12/17 18:00 08/12/17 20:49 Prothrombin Time 10.7 SECONDS (9.0-12.0) Prothromb Time International Ratio 1.0 (0.9-1.1) Activated Partial Thromboplast Time 29.2 SECONDS (21.0-31.0) Partial Thromboplastin Ratio 1.1 Est Creatinine Clear Calc Drug Dose 33.7 ml/min Direct Bilirubin 0.1 mg/dl (0-0.2) Pro-B-Type Natriuretic Peptide 280 pg/ml (0-1800) Lipase 231 U/L (73-393) Urine Color YELLOW Urine Appearance CLEAR (CLEAR) Urine pH 6.5 (4.5-7.5) Urine Specific [place] 1.006 (1.000-1.030) Urine Protein TRACE (NEG) Urine Glucose (UA) NEG (NEG) Urine Ketones NEG (NEG) Urine Occult Blood NEG (NEG) Urine Nitrite NEG (NEG) Urine Bilirubin NEG (NEG) Urine Urobilinogen NEG (NEG) Urine Leukocyte Esterase NEG (NEG) Urine WBC (Auto) 1-5 /hpf (0-5) Urine RBC (Auto) 0-4 /hpf (0-4) Urine Hyaline Casts (Auto) 0 /lpf (0-5) Urine Epithelial Cells (Auto) 0-5 /lpf (0-5) Urine Bacteria (Auto) NEG (NEG) Triglycerides Level 97 mg/dl (0-150) Cholesterol Level 198 mg/dl (0-200) HDL Cholesterol 62 mg/dl LDL Cholesterol, Calculated 117 mg/dl VLDL Cholesterol, Calculated 19 mg/dl Cholesterol/HDL Ratio 3.2 Laboratory results reviewed by me Medications Administered Medications (Trade) Dose Ordered Sig/Echo Route Start Time Stop Time Status Last Admin Dose Admin Albuterol/ Ipratropium (Duoneb) 3 ml NOW STAT INH 08/12/17 16:41 08/12/17 16:45 DC 08/12/17 16:51 3 ML Prednisone (PredniSONE TAB) 60 mg NOW STAT PO 08/12/17 16:41 08/12/17 16:45 DC 08/12/17 16:51 60 MG Sodium Chloride 250 ml @ 999 mls/hr Q16M STAT IV 08/12/17 16:41 08/12/17 16:56 DC 08/12/17 17:16 999 MLS/HR Aspirin (Aspirin Chew) 324 mg NOW STAT PO 08/12/17 19:09 08/12/17 19:11 DC 08/12/17 19:46 324 MG Acetaminophen (Tylenol Tab) 650 mg Q4 PRN PO 08/12/17 21:00 09/11/17 20:59 08/13/17 02:58 650 MG Diclofenac Sodium (Voltaren 1% Top Gel) 1 appln BID EXT 08/12/17 21:00 09/11/17 20:59 08/13/17 00:02 1 APPLN Doxycycline Hyclate (Vibramycin Cap) 100 mg BID PO 08/12/17 21:00 09/11/17 20:59 08/12/17 23:59 100 MG Triamcinolone Acetonide (Kenalog 0.1% Cream) 1 appln BID EXT 08/12/17 21:00 09/11/17 20:59 08/13/17 00:03 1 APPLN Pantoprazole Sodium (Protonix Tab) 40 mg BID PO 08/12/17 21:00 09/11/17 20:59 08/13/17 00:00 40 MG Hydralazine HCl (HydrALAZINE INJ) 10 mg Q6H PRN IV. 08/12/17 21:00 09/11/17 20:59 08/13/17 01:30 10 MG ECG Per My Interpretation Indication: SOB/dyspnea Rate (beats per minute): 86 Rhythm: sinus rhythm Findings: no acute ischemic change, other (normal axis, poor baseline) ED Course 1631: The patient was evaluated in room A10. A complete history and physical exam was performed. 1641: Sodium Chloride 250 ml @ 999 mls/hr IV, Prednisone 60 mg PO, Duoneb 3 ml INH. 1840: Upon reexamination, the patient was resting comfortably. I discussed the test results and treatment plan with her. The patient will be evaluated for further management. 1851: I discussed the patient with Dr. Deborah Gaitan, [facility] [place] - He will evaluate the patient for further treatment. Medical Decision I reviewed the patient's past medical history, medications, and the nursing notes as described above. Differential diagnosis: Etiologies such as infections, reactive airway disease, pneumonia, pneumothorax , COPD, CHF, cardiac ischemia, pulmonary embolism, musculoskeletal, gastrointestinal, as well as others were entertained. The patient is 87-year-old woman with a past medical history of PMR, hypertension, diastolic heart failure who presents emergency department with episode of shortness of breath when walking to her ID clinic appointment with Dr. Og per hpi. On arrival, the patient is well-appearing, no acute distress , afebrile stable vital signs. She denies any sx at this time but feels as soon as she exerts herself she will become sob. Of note, upon further discussion she has been having sob with exertion for the past week. She has scant intermittent wheeze on exam. Patient denies h/o asthma/COPD but her med list includes albuterol inhaler. Thus, patient was given DuoNeb and prednisone. EKG negative for acute ischemia. However patient's initial troponin elevated to 0.123 which is increased from her prior chronic elevations of 0.05. Given the patient's dyspnea on exertion concern for possible anginal equivalent. Will admit the patient for further cardiac rule out. Patient given ASA. Will continue to trend troponin at this time. Case was discussed with Dr. Dahl [facility] [place] to admit the patient for further management. Medication Reconcilliation Current Medication List: was personally reviewed by me Blood Pressure Screening Patient's blood pressure: Elevated blood pressure Referred to hospitalist. Consults Time Called: [phone] Consulting Physician: Dr. Deborah Gaitan [facility] hospitalist Returned Call: [phone] I discussed the patient with him - He will evaluate the patient for further treatment. Impression Primary Impression: Elevated troponin Additional Impressions: STEWART (dyspnea on exertion) Mild asthma Scribe Attestation The scribe's documentation has been prepared under my direction and personally reviewed by me in its entirety. I confirm that the note above accurately reflects all work, treatment, procedures, and medical decision making performed by me. Departure Information Dispostion Being Evaluated By Hospitalist Referrals Dennys Fried M.D. (PCP) Patient Instructions My [facility] Problem Qualifiers
[2017-08-12] MEDS ORDERED: ASPIRIN 324 MG CHEW PO STA (19:09)
[2017-08-12] MEDS ORDERED: MAGNESIUM HYDROXIDE SUSP 30 ML UDC PO PRN (21:00)
[2017-08-12] MEDS ORDERED: HydrALAZINE HCL 20 MG/ML VIAL IV. PRN (21:00)
[2017-08-12] MEDS ORDERED: NITROGLYCERIN 0.4 MG SL PER TAB CHARGE SL PRN (21:00)
[2017-08-12] MEDS ORDERED: ZOLPIDEM TARTRATE 5 MG TAB PO PRN ×2 (21:00)
[2017-08-12] MEDS ORDERED: ONDANSETRON INJ 2 MG/ML 2 ML VIAL IV PRN (21:00)
[2017-08-12] MEDS ORDERED: POLYETHYLENE (MIRALAX) 17 GM PACK PO PRN (21:00)
[2017-08-12] MEDS ORDERED: ONDANSETRON 4 MG TAB PO PRN (21:00)
[2017-08-12] MEDS ORDERED: ALBUTEROL HFA 8 GM INHALER INH PRN (21:00)
[2017-08-12] MEDS ORDERED: ALUMINUM/MAGNESIUM/SIMETH (MAALOX MAX) 30 ML UDC PO PRN (21:00)
[2017-08-12] MEDS ORDERED: ACETAMINOPHEN 325 MG TAB PO PRN (21:00)
[2017-08-12] MEDS ORDERED: ASPIRIN 325 MG ECTAB PO SCH (21:46)
--- NOTE | 2017-08-12 22:37 | History and Physical ---
History & Physical Date & Time of Service: Aug 12, 2017 at 22:23 Chief Complaint: Near Syncope Primary Care Physician: No Doctor, Assigned History of Present Illness Source: patient, family 87 years old female on chronic suppression with doxycyclin due to recurrent lower extremity cellulitis. Also has history of hypertension. she was in her weight to Dr. Og office for follow-up when she felt extremely short of breath walking from her car to his building. Although her car is very close, parked in the handicapped area patient was not able to continue the distance. Also complained of chest tightness and was brought to the ED for further evaluation and management. Patient was diagnosed in the past with chronically elevated troponin. Last troponin was in the range of 0.05, today her troponin was found to be 0.12. She had nonspecific ST-T wave changes but on arrival in ED her shortness of breath had improved. Currently denies any chest pain tightness or shortness of breath. Her son said that her shortness of breath have been getting progressively worse over the past few months. Patient had minimal wheezing on exam and received bronchodilators which also led to improvement in her breathing. She was also found to have extremely elevated blood pressure about 190/100 Family History Asthma FAM HX-ISCHEM HEART DIS MOTHER Social History Smoking Status: Never Smoker Drug Use: none Marital Status: Housing status: shelter Occupational Status: retired Immunizations History of Influenza Vaccine: N/A Influenza Vaccine Date: Mar 11, 2012 History of Tetanus Vaccine?: UTD History of Pneumococcal: Yes Pneumococcal Date: Jun 13, 2011 History of Hepatitis B Vaccine: No Allergies Coded Allergies: Penicillins (Verified Allergy, Intermediate, HIVES, 08/12/17) TOLERATED CEFEPIME 2013 Sulfamethoxazole w/Trimethoprim (Verified Allergy, Intermediate, HIVES, ) Tetanus Toxoid (Verified Allergy, Intermediate, RASH, 08/12/17) Latex1 -Allergic Contact Dermititis (Verified Allergy, Mild, RASH, 08/12/17 ) Codeine (Verified Adverse Reaction, Intermediate, HEADACHES, 08/12/17) Morphine and Related (Verified Adverse Reaction, Mild, SEVERE HEADACHES, ) Severe Headaches Home Medications Scheduled Acetaminophen (Tylenol), 1,000 MG PO BID Ascorbic Acid (Ascorbic Acid), 1,000 MG PO DAILY Aspirin (Aspirin Chewable), 81 MG PO DAILY Calcium Carbonate-Vitamin D (Calcium + D), 1 TAB PO QAM Citalopram (Citalopram Hydrobromide), 20 MG PO HS Darifenacin Hydrobromide (Enablex), 7.5 MG PO DAILY Diclofenac Sodium (Topical) (Voltaren 1% Top Gel), 1 APPLN EXT BID Doxycycline Hyclate (Vibramycin), 100 MG PO BID Eucerin (Eucerin), DAILY Metoprolol Succ (Toprol Xl) (Toprol-Xl), 25 MG PO QAM Metoprolol Succ (Toprol Xl) (Toprol-Xl), 50 MG PO QAM Multivitamin (Multivitamin), 1 TAB PO QAM Omeprazole (Prilosec), 20 MG PO BID Senna/Docusate Sod (Senokot S), 1 TAB PO QDL Trazodone Hcl (Trazodone), 25 MG PO HS Triamcinolone Acet (Aristocort 0.1%), 1 APPLN TOP BID Scheduled PRN Acetaminophen (Tylenol), 650 MG PO Q4 PRN for Mild Pain Albuterol Hfa (Ventolin Hfa), 1-2 PUFFS INH QID PRN for SOB/Wheezing Docusate Sodium (Docusate Sodium), 100 CAP PO BID PRN for Constipation Hydroxyzine Pamoate (Vistaril), 25 MG PO for Itching Ondansetron Hcl (Zofran), 4 MG PO Q4 PRN for Nausea Polyvinyl Alcohol-Povidone (Op (Refresh), 1-2 DROPS OPB UD PRN for DRYNESS Review of Systems Review of system Constitutional: No fever / no chills / no sweats / no weakness / no fatigue Eyes: no blurring of vision / no eye pain / no discharge / no redness ENT: no hearing loss / no epistaxis /no swallowing problems Respiratory: Positive shortness of breath and wheezing/ no hemoptysis Cardiovascular: Severe chest tightness/ no lower extremity edema / no palpitation Abdomen: no pain / no nausea / no vomiting / no constipation Musculoskeletal: no joint pain / no muscle pain / no joint swelling Genitourinary: no dysuria / no incontinence / no urinary retention Neurologic: no focal weakness / no numbness/tingling / no ataxia Psychiatric: no depression symptoms / no anxiety / no insomnia Endocrine: no excessive thirst / no excessive urination Hematologic: no abnormal bleeding / no bruising / no LN swelling Skin: No rash / no pallor Physical Exam Vital Signs Date Time Temp Pulse Resp B/P (MAP) Pulse Ox O2 Delivery O2 Flow Rate FiO2 08/12/17 21:38 91 22 181/106 95 Room Air 08/12/17 19:47 86 22 196/79 94 Room Air 08/12/17 18:55 83 20 94 Room Air 08/12/17 18:50 85 18 95 Room Air 08/12/17 18:46 139/115 08/12/17 18:45 87 23 96 Room Air 08/12/17 18:40 87 20 95 Room Air 08/12/17 18:35 87 21 97 08/12/17 18:32 166/102 08/12/17 18:30 88 19 97 08/12/17 18:25 85 16 97 08/12/17 18:20 84 21 97 08/12/17 18:16 191/72 08/12/17 18:15 85 15 95 08/12/17 18:10 83 15 96 08/12/17 18:05 90 25 96 08/12/17 18:02 205/71 08/12/17 18:00 83 12 97 08/12/17 17:55 94 20 221/96 97 Room Air 08/12/17 17:55 93 18 221/96 97 08/12/17 17:45 95 08/12/17 17:40 89 16 08/12/17 17:35 86 16 08/12/17 17:31 201/94 08/12/17 17:30 84 17 08/12/17 17:25 85 17 08/12/17 17:20 84 17 08/12/17 17:16 189/86 08/12/17 17:15 82 18 08/12/17 17:10 85 21 08/12/17 17:05 84 15 08/12/17 17:01 198/85 08/12/17 17:00 87 23 08/12/17 16:55 90 21 100 08/12/17 16:50 111 31 98 08/12/17 16:46 132/107 08/12/17 16:45 101 23 96 08/12/17 16:42 97 Room Air 08/12/17 16:40 86 19 96 08/12/17 16:35 88 19 98 08/12/17 16:32 88 08/12/17 16:31 179/94 08/12/17 16:30 87 22 97 08/12/17 16:26 97 Room Air 08/12/17 16:26 37.3 89 20 179/94 97 Room Air 08/12/17 16:25 87 27 97 08/12/17 16:21 168/87 Physical examination General patient appears to be comfortable, not in acute distress HEENT: Atraumatic , normocephalic /no jaundice /no pallor /anicteric /no dry mucous membrane /normal external ear inspection Neck: Supple /no swelling /central trach Heart: S1/S2 normal/regular rate and rhythm/no gallop /no rub /no murmur Lungs: Bilateral decreased air entry, subtle wheezing Abdomen: Soft/nontender/no guarding/no rebound/no organomegaly/no pulsatile mass Musculoskeletal: No swelling/no edema/no tenderness/normal range of motion Neuro exam: Awake alert oriented 3/cranial nerves II through XII appear to be intact/sensation intact/moves all extremities/no abnormal movements Psychiatric evaluation: No depressed mood/normal affect Skin: No rash on exposed skin area/no erythema Extremity: Normal pulse/no pitting edema/no clubbing or cyanosis Endocrine/lymphatic: No obvious lymphadenopathy /no lymphedema Diagnostics Laboratory Results Results Past 24 Hours Test 08/12/17 17:00 08/12/17 18:00 08/12/17 20:49 Range/Units White Blood Count 2.40 4.8-10.8 K/uL Red Blood Count 4.41 4.2-5.4 M/uL Hemoglobin 13.0 12.0-16.0 g/dL Hematocrit 40.0 37-47 % Mean Corpuscular Volume 90.7 80-100 fL Mean Corpuscular Hemoglobin 29.5 25-34 pg Mean Corpuscular Hemoglobin Concent 32.5 32-36 g/dl Platelet Count 144 130-400 K/uL Mean Platelet Volume 10.1 7.4-10.4 fL Neutrophils (%) (Auto) 46.6 % Lymphocytes (%) (Auto) 31.3 % Monocytes (%) (Auto) 19.6 % Eosinophils (%) (Auto) 1.7 % Basophils (%) (Auto) 0.0 % Neutrophils # (Auto) 1.12 1.4-6.5 K/uL Lymphocytes # (Auto) 0.75 1.2-3.4 K/uL Monocytes # (Auto) 0.47 0.11-0.59 K/uL Eosinophils # (Auto) 0.04 0-0.5 K/uL Basophils # (Auto) 0.00 0-0.2 K/uL RDW Standard Deviation 46.8 36.4-46.3 fL RDW Coefficient of Variation 14.1 11.5-14.5 % Immature Granulocyte % (Auto) 0.8 % Immature Granulocyte # (Auto) 0.02 0.00-0.02 K/uL Sodium Level 141 136-145 mmol/L Potassium Level 4.2 3.5-5.1 mmol/L Chloride Level 105 98-107 mmol/L Carbon Dioxide Level 29 21-32 mmol/L Anion Gap 7.0 3-11 mmol/L Blood Urea Nitrogen 22 7-18 mg/dl Creatinine 1.15 0.60-1.20 mg/dl Est Creatinine Clear Calc Drug Dose 33.7 ml/min Estimated GFR () 49.9 Estimated GFR (Non- 43.0 BUN/Creatinine Ratio 19.5 10-20 Random Glucose 98 70-99 mg/dl Calcium Level 9.5 8.5-10.1 mg/dl Magnesium Level 2.3 1.8-2.4 mg/dl Total Bilirubin 0.4 0.2-1 mg/dl Direct Bilirubin 0.1 0-0.2 mg/dl Aspartate Amino Transf (AST/SGOT) 29 15-37 U/L Alanine Aminotransferase (ALT/SGPT) 22 12-78 U/L Alkaline Phosphatase 79 45-117 U/L Troponin I 0.123 0.252 0-0.045 ng/ml Pro-B-Type Natriuretic Peptide 280 0-1800 pg/ml Total Protein 7.8 6.4-8.2 gm/dl Albumin 4.2 3.4-5.0 gm/dl Lipase 231 73-393 U/L Urine Color YELLOW Urine Appearance CLEAR CLEAR Urine pH 6.5 4.5-7.5 Urine Specific [place] 1.006 1.000-1.030 Urine Protein TRACE NEG Urine Glucose (UA) NEG NEG Urine Ketones NEG NEG Urine Occult Blood NEG NEG Urine Nitrite NEG NEG Urine Bilirubin NEG NEG Urine Urobilinogen NEG NEG Urine Leukocyte Esterase NEG NEG Urine WBC (Auto) 1-5 0-5 /hpf Urine RBC (Auto) 0-4 0-4 /hpf Urine Hyaline Casts (Auto) 0 0-5 /lpf Urine Epithelial Cells (Auto) 0-5 0-5 /lpf Urine Bacteria (Auto) NEG NEG Triglycerides Level 97 0-150 mg/dl Cholesterol Level 198 0-200 mg/dl HDL Cholesterol 62 mg/dl LDL Cholesterol, Calculated 117 mg/dl VLDL Cholesterol, Calculated 19 mg/dl Cholesterol/HDL Ratio 3.2 Impression Assessment and Plan 87 years old female on chronic suppression with doxycyclin due to recurrent lower extremity cellulitis. Also has history of hypertension. 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
[2017-08-12 22:40] VITALS: BP 218/117; PULSE 83; TEMP 36.7; O2SAT 94; Ht 158.8 cm; Wt 65.0 kg
[2017-08-12 23:21] LABS: PTT PATIENT 29.2 SECONDS (21.0-31.0)
[2017-08-12] MEDS: AMLODIPINE BESYLATE 5 MG TAB PO SCH (23:58)
[2017-08-12] MEDS: TRAZODONE HCL 50 MG TAB PO SCH (23:59)
[2017-08-12] MEDS: DOXYCYCLINE HYCLATE 100 MG CAP PO SCH (23:59)
[2017-08-13] VITALS (11 sets, daily range): BP systolic 120–200; BP diastolic 57–92; PULSE 65–84; TEMP 36.5–37; O2SAT 91–98
[2017-08-13] MEDS: DICLOFENAC SOD 1% GEL 100 GM TUBE EXT SCH ×3 (00:02→20:01)
[2017-08-13] MEDS: TRIAMCINOLONE ACET 0.1% CR 15 GM TUBE EXT SCH ×3 (00:03→20:01)
[2017-08-13] MEDS: TRAZODONE HCL 50 MG TAB PO SCH ×2 (00:13→20:04)
[2017-08-13] MEDS: CITALOPRAM 20 MG TAB PO SCH ×3 (00:13→20:04)
[2017-08-13] MEDS: HEPARIN SOD 5000 UNIT/0.5 ML CARP SQ SCH ×3 (01:20→20:09)
[2017-08-13] MEDS: IPRATROPIUM BROMIDE NEB SOLN 0.02% 2.5 ML VIAL INH SCH ×4 (01:56→19:20)
[2017-08-13] MEDS: LEVALBUTEROL 0.63MG/3 ML NEB INH SCH ×4 (01:56→19:19)
[2017-08-13] MEDS: ACETAMINOPHEN 325 MG TAB PO PRN (02:58)
[2017-08-13] MEDS ORDERED: LEVALBUTEROL/IPRATROPIUM NEB INH SCH (03:00)
[2017-08-13 03:10] LABS: HEMATOCRIT 39.4 % (37-47); HEMOGLOBIN 13.4 g/dL (12.0-16.0); IG# 0.02 K/uL (0.00-0.02); LYMPH % 25.1 %; LYMPH ABS # 0.57 K/uL (1.2-3.4); MEAN CELL VOLUME 88.9 fL (80-100); MEAN CORPUSCULAR HEMOGLOBIN 30.2 pg (25-34); MEAN PLATELET VOLUME 10.6 fL (7.4-10.4); MONO % 1.8 %; MONO ABS # 0.04 K/uL (0.11-0.59); NEUT % 72.2 %; NEUT ABS # 1.64 K/uL (1.4-6.5); PLATELET COUNT 137 K/uL (130-400); RED CELL DISTRIBUTION WIDTH CV 13.8 % (11.5-14.5); RED CELL DISTRIBUTION WIDTH SD 45.3 fL (36.4-46.3); WHITE BLOOD COUNT 2.27 K/uL (4.8-10.8)
[2017-08-13 03:29] LABS: CALCIUM 9.3 mg/dl (8.5-10.1); CREATININE 1.02 mg/dl (0.60-1.20); POTASSIUM 3.9 mmol/L (3.5-5.1)
[2017-08-13 03:53] LABS: TOTAL PROTEIN 7.9 gm/dl (6.4-8.2)
[2017-08-13 08:31] LABS: HEMOGLOBIN A1C 5.2 % (4.5-5.6)
[2017-08-13] MEDS: DOXYCYCLINE HYCLATE 100 MG CAP PO SCH ×3 (08:37→20:03)
[2017-08-13] MEDS: PANTOprazole SOD 40 MG TAB PO SCH ×3 (08:37→20:03)
[2017-08-13] MEDS: LACTOBACILLUS ACIDOPHILUS (FLORANEX) TAB PO SCH ×3 (08:38→16:44)
[2017-08-13] MEDS: METOPROLOL SUCC 50MG EXT REL TAB PO SCH (08:38)
[2017-08-13] MEDS: METOPROLOL SUCC 25MG EXT REL TAB PO SCH (08:38)
[2017-08-13] MEDS: ASCORBIC ACID 500 MG TAB PO SCH (08:39)
[2017-08-13] MEDS: EUCERIN CR 120 GM JAR EXT SCH (08:39)
[2017-08-13] MEDS: ASPIRIN 81 MG ECTAB PO SCH (08:39)
[2017-08-13] MEDS: AMLODIPINE BESYLATE 5 MG TAB PO SCH (08:39)
[2017-08-13] MEDS ORDERED: CLONIDINE HCL 0.1 MG TAB PO ONE (09:56)
--- NOTE | 2017-08-13 11:30 | CARDIOLOGY CONSULTATION REPORT ---
DATE OF CONSULTATION: 08/13/2017 REASON FOR CONSULTATION: 1. Shortness of breath. 2. Elevated troponin I level. HISTORY OF PRESENT ILLNESS: Mrs. 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 Og in infectious diseases yesterday. She parked in the handicapped area at the [facility] and as she was walking into the building, became profoundly short of breath, so she could not continue on. She did admit to some right lower chest and right upper abdomen discomfort at that time, but did not have any associated nausea, vomiting, or diaphoresis. She was in the lobby of the building and evaluated by one of the nursing staff. Her blood pressure was markedly elevated at 190/100. EMS was summoned and she was brought into the Emergency Room for further evaluation. She is uncertain how long her symptoms lasted in total, but they did not appear to last all that long. In the Emergency Room, she was noted to have a normal EKG tracing (although, there was a lot of artifact on her EKG) and she was noted to have an elevated troponin I level of 0.123 ng/mL. Therefore, the patient was admitted with hypertensive urgency and possible NSTEMI. She does have a history of an elevated troponin I level, but her current troponin I levels are higher than what they normally are for her. She felt mildly short of breath with walking to the restroom since being here, but has not had a shortness of breath at rest. The patient further denies any substernal chest pain, heaviness, tightness, pressure or discomfort. She denies any neck, jaw, back, or arm pain. She denies any orthopnea or PND. No palpitations, syncope, or near syncope (although, she admits that she is frequently dizzy and describes the room spinning). The patient does not have any prior history of CAD, although based on her advanced age, postmenopausal state, hypertension, and dyslipidemia as well as a prior history of chronic steroid use, she is certainly at risk for CAD. The patient offers no other complaints or concerns. MEDICATIONS: 1. Senokot-S 1 tablet daily at lunch time. 2. Ascorbic acid 1000 mg daily. 3. Aspirin 81 mg daily. 4. Eucerin cream apply to affected areas daily. 5. Toprol-XL 75 mg q.a.m. 6. Floranex 4 tablets t.i.d. 7. Atrovent nebulizers q. 6 hours. 8. Xopenex nebulizers q. 6 hours. 9. Heparin 5000 units subcutaneous injection q. 12 hours. 10. Norvasc 5 mg q.a.m. 11. Tylenol 650 mg p.o. q. 4 hours p.r.n. for pain. 12. Ventolin HFA 1 puff q.i.d. p.r.n. 13. Celexa 20 mg daily. 14. Voltaren topical gel apply b.i.d. 15. Doxycycline 100 mg b.i.d. (on chronically for suppression of cellulitis). 16. Zofran 4 mg p.o. q. 4 hours p.r.n. for nausea. 17. Trazodone 25 mg at bedtime. 18. Kenalog cream 0.1% apply to the affected areas b.i.d. 19. Protonix 40 mg p.o. b.i.d. 20. Maalox Max p.r.n. 21. Milk of magnesia p.r.n. 22. Ambien 5 mg at bedtime p.r.n. for sleep. 23. Zofran 4 mg IV q. 6 hours p.r.n. 24. Sublingual nitroglycerin 0.4 mg p.r.n. 25. MiraLax 17 g daily as needed. 26. Hydralazine 10 mg IV q. 6 hours p.r.n. for elevated blood pressure. ALLERGIES: 1. CODEINE. 2. MORPHINE. 3. PENICILLIN. 4. SULFA DRUGS. 5. TETANUS TOXOID. 6. LATEX CAUSES CONTACT DERMATITIS. PAST MEDICAL HISTORY: 1. Polymyalgia rheumatica. 2. Raynaud's phenomenon. 3. Hypertension. 4. Hypercholesterolemia. 5. Aortic valve sclerosis without stenosis. 6. Mild concentric LVH. 7. Depression. 8. DJD. 9. History of hypoxia. 10. Chronic venous insufficiency. 11. History of cellulitis. 12. History of MRSA. 13. Decondition. 14. History of steroid induced myopathy. 15. History of UTI. 16. History of arthroscopic surgery of the knee. 17. Status post tubal ligation. SOCIAL HISTORY: She lives in a personal long term. Does not use tobacco or tobacco products. Does not drink alcohol. Lifelong nonsmoker. FAMILY HISTORY: Significant for heart disease in her mother and COPD in her father. PHYSICAL EXAMINATION: VITAL SIGNS: Temperature is 36.6 degrees Celsius, pulse is 84 and regular, respiratory rate is 16 and unlabored, blood pressure is 140/72 and SpO2 is 94%. Her blood pressure has ranged between 138/72 and 221/96 since being hospitalized. I&O's -700 mL total. GENERAL: The patient is in no acute distress. HEENT: Head is atraumatic and normocephalic. EOMs intact. Sclerae are anicteric. Face is symmetric. No perioral cyanosis. Mucous membranes are moist. Area of ecchymosis under her chin. NECK: Carotid upstrokes area +2 bilaterally without bruits. CHEST AND LUNGS: With occasional late expiratory wheezes, more so on the right side than the left. CARDIOVASCULAR SYSTEM: S1 and S2 are regular with a grade 2/6 basal systolic murmur, radiates to the suprasternal notch. There is also a grade 2/6 apical holosystolic murmur, radiates to the axilla. No gallops. No obvious rubs. PMI is nondisplaced. No lifts, heaves, or thrills. ABDOMEN: Bowel sounds present. No masses, organomegaly, or tenderness. EXTREMITIES: +1 pitting edema bilaterally. Legs are discolored. Large ecchymotic area on the right forearm secondary to a fall. Intact radial pulses bilaterally. Intact posterior tibial pulses bilaterally. NEUROLOGIC: The patient is awake, alert and oriented. Pleasant and cooperative. Answers questions appropriately. Speech is clear. Normal movement in bilateral upper and lower extremities. EKG on admission shows a normal sinus rhythm at a rate of 86 beats per minute. There is significant baseline artifact, which affects the interpretation of the this EKG. No obvious acute changes noted. LABORATORY DATA: White blood cell count is 2.27, hemoglobin 13.4 g/dL, hematocrit 39.4%, and platelet count 137,000. Sodium is 140 mmol/L, potassium 3.9 mmol/L, BUN is 23 mg/dL, creatinine 1.02 mg/dL, and random glucose is 160 mg/dL. Magnesium is 2.1 mg/dL. Troponin I levels are 0.205, 0.252, and 0.123 ng/mL. CK and CK-MB levels were not checked. ProBNP on admission was 280 pg/mL. Total cholesterol is 198 mg/dL with an HDL of 62 mg/dL and an LDL of 117 mg/dL. Urine showed trace protein, otherwise unremarkable. Chest x-ray on admission shows no acute cardiopulmonary findings. Echocardiogram was performed, which shows hyperdynamic LV systolic function, LVEF greater than 65%, no regional wall motion abnormalities. Mild concentric LVH. Minor valvular abnormalities. Tents Assembler's interpretation is pending. ASSESSMENT: 1. Sudden onset SOB -- Doubt primary coronary event. 2. Elevated troponin I levels in the presence of Hypertensive Urgency-- likely Myocardial O2 supply demand mismatch related to left ventricular hypertrophy and marked hypertension. 3. Hypertensive Urgency. 4. History of polymyalgia rheumatica. 5. Hypertension, not adequately controlled. 6. Dyslipidemia. 7. Chronic venous insufficiency. 8. History of recurrent cellulitis. 9. History of methicillin-resistant Staphylococcus aureus. 10. Multiple cardiac risk factors. PLAN: 1. The patient is currently asymptomatic with exception of some mild exertional dyspnea. 2. Primary goal of treatment is to better control hypertension. 3. Continue Amlodipine 5 mg daily. 4. Continue Toprol-XL 75 mg daily. 5. Add Clonidine 0.1 mg b.i.d. 6. Consider adding an ACEI or an ARB if BP's remain elevated. 7. Continue p.r.n. IV Hydralazine. 8. The patient's echocardiogram looks good, no regional wall motion abnormalities. 9. Check Renal Arterial Duplex Doppler to r/o SIERRA. 10. Continue inhalers and nebulizers as directed. 11. Continue Protonix 40 mg b.i.d. 12. Continue to closely monitor laboratories and blood pressures. 13. Could consider stress testing, although in her situation, I think it may appropriate to ambulate with her in the hallway and see if she has any recurrent symptoms. 14. We will continue to follow along while hospitalized. Attending: Agree with above. Guy STANTON
[2017-08-13] MEDS: DOCUSATE SODIUM/SENNA 50/8.6MG TAB PO SCH (11:45)
--- NOTE | 2017-08-13 14:19 | DIAGNOSTIC IMAGING REPORT ---
DOPPLER ULTRASOUND OF THE RENAL ARTERIES CLINICAL HISTORY: Hypertensive urgency. COMPARISON STUDY: Abdominal ultrasound and CT of the abdomen and pelvis June 02, 2012. TECHNIQUE: Grayscale and color and duplex Doppler sonography of the kidneys and renal arteries was performed. FINDINGS: The peak systolic velocity within the abdominal aorta was 123 cm/s. The peak systolic velocity within the right renal artery was 101 cm/s. The peak systolic velocity within the left renal artery was 155 cm/s. Segmental waveforms within both kidneys within normal limits. The right kidney measured 9 cm and the left measured 9.6 cm in maximal dimension. Incidental note was made of gallstones within the gallbladder. IMPRESSION: 1. No sonographic evidence of renal artery stenosis. 2. Cholelithiasis. Electronically signed by: Manjit Bettencourt M.D. 08/13/2017 2:18 PM Dictated Date/Time: 08/13/2017 2:09 PM
--- NOTE | 2017-08-13 14:28 | ECHOCARDIOGRAM REPORT ---
*NOTICE TO RECEIVING [employer] AGENCY This information is strictly Confidential and protected under [place] law. [place] law prohibits you from making any further disclosure of this information unless further disclosure is expressly permitted by the written consent of the person to whom it pertains or is authorized by law. A general authorization for the release of medical or other information is not sufficient for this purpose. Hospital accepts no responsibility if the information is made available to any other person, INCLUDING THE PATIENT. Interpretation Summary * Name: MARIA EUGENIA CATES Study Date: 08/13/2017 06:35 AM BP: 141/73 mmHg * Patient Location: .2E\S\E204\S\1 HR: 84 * : 1930 (M/d/yyyy) Gender: Female Height: 63 in * Age: 87 yrs Ethnicity: CA Weight: 161 lb * Ordering Physician: Amy Gomez * Referring Physician: Self, Referred * Performed By: Whitley Shah RDCS * * Reason For Study: CHEST PAIN * BSA: 1.8 m2 * -- Conclusions -- * There is mild concentric left ventricular hypertrophy. * Left ventricular systolic function is normal. * Grade I diastolic dysfunction, (abnormal relaxation pattern). * There is mild to moderate tricuspid regurgitation. * Right ventricular systolic pressure is elevated at 30-40mmHg. * Compared to an echocardiogram from 03/2014, there is no significant change Procedure Details * A complete two-dimensional transthoracic echocardiogram was performed (2D, M-mode, Doppler and color flow Doppler). Left Ventricle * The left ventricle is normal in size. * There is mild concentric left ventricular hypertrophy. * Ejection Fraction = 65-70%. * Left ventricular systolic function is normal. * Grade I diastolic dysfunction, (abnormal relaxation pattern). * The left ventricular wall motion is normal. Right Ventricle * The right ventricle is normal in size and function. * The right ventricular systolic function is normal as assessed by tricuspid annular plane systolic excursion (TAPSE) (normal >1.5 cm). Atria * The left atrial size is normal. * Right atrial size is normal. Mitral Valve * The mitral valve anatomy is normal. * Significant mitral regurgitation is absent. Tricuspid Valve * The tricuspid valve is not well visualized, but is grossly normal. * There is mild to moderate tricuspid regurgitation. * Right ventricular systolic pressure is elevated at 30-40mmHg. Aortic Valve * The aortic valve is normal in structure and function. * The aortic valve is trileaflet. * No hemodynamically significant valvular aortic stenosis. * There is no significant aortic regurgitation. Great Vessels * The aortic root is normal size. Pericardium/Pleural * There is no pericardial effusion. MMode 2D Measurements and Calculations IVSd 1.5 cm IVSs 2.0 cm LVIDd 3.5 cm LVIDs 2.2 cm LVPWd 1.5 cm LVPWs 1.9 cm IVS/LVPW 1.0 FS 37.5 % EDV(Teich) 51.0 ml ESV(Teich) 16.1 ml EF(Teich) 68.5 % EDV(cubed) 43.0 ml ESV(cubed) 10.5 ml EF(cubed) 75.5 % % IVS thick 33.8 % % LVPW thick 27.8 % LV mass(C)d 192.2 grams LV mass(C)dI 109.0 grams/m\S\2 LV mass(C)s 180.6 grams LV mass(C)sI 102.4 grams/m\S\2 SV(Teich) 35.0 ml SI(Teich) 19.8 ml/m\S\2 SV(cubed) 32.5 ml SI(cubed) 18.4 ml/m\S\2 Ao root diam 2.6 cm Ao root area 5.4 cm\S\2 LA dimension 3.8 cm LA/Ao 1.4 LVAd ap4 16.4 cm\S\2 LVLd ap4 6.2 cm EDV(MOD-sp4) 35.9 ml EDV(sp4-el) 37.1 ml LVAs ap4 9.1 cm\S\2 LVLs ap4 5.4 cm ESV(MOD-sp4) 14.0 ml ESV(sp4-el) 13.0 ml EF(MOD-sp4) 61.0 % EF(sp4-el) 65.0 % LVAd ap2 20.4 cm\S\2 LVLd ap2 7.0 cm EDV(MOD-sp2) 50.2 ml EDV(sp2-el) 50.9 ml LVAs ap2 10.5 cm\S\2 LVLs ap2 5.7 cm ESV(MOD-sp2) 18.0 ml ESV(sp2-el) 16.3 ml EF(MOD-sp2) 64.1 % EF(sp2-el) 67.9 % LVLd %diff 11.2 % EDV(MOD-bp) 44.9 ml LVLs %diff 5.4 % ESV(MOD-bp) 16.3 ml EF(MOD-bp) 63.7 % SV(MOD-sp4) 21.9 ml SI(MOD-sp4) 12.4 ml/m\S\2 SV(MOD-sp2) 32.2 ml SI(MOD-sp2) 18.2 ml/m\S\2 SV(MOD-bp) 28.6 ml SI(MOD-bp) 16.2 ml/m\S\2 SV(sp4-el) 24.1 ml SI(sp4-el) 13.7 ml/m\S\2 SV(sp2-el) 34.6 ml SI(sp2-el) 19.6 ml/m\S\2 Doppler Measurements and Calculations MV E max jim 107.1 cm/sec MV A max jim 157.3 cm/sec MV E/A 0.68 MV dec time 0.35 sec Ao V2 max 188.5 cm/sec Ao max PG 14.2 mmHg Ao max PG (full) 5.2 mmHg LV V1 max PG 9.0 mmHg LV V1 max 150.0 cm/sec TR max jim 278.5 cm/sec
--- NOTE | 2017-08-13 14:35 | Hospitalist Progress Note ---
Hospitalist Progress Note Date of Service Aug 13, 2017. (Radha Jones ., BRENDAN-C) Subjective Pt evaluation today including: conversation w/ patient, conversation w/ family (at bedside), physical exam, chart review, lab review, review of inpatient medication list Pain: Intermittent headache PO Intake: Tolerating PO Diet Voiding: no voiding problems The patient reports feeling well. She does have an intermittent right sided headache, unclear if this is related to BP. She denies any chest pain or shortness of breath at rest. She did walk in the hallway a bit with some minimal STEWART. This activity also raised her BP. She also complains of a productive cough with yellow sputum and intermittent wheezing. The patient denies fevers, chills, sweats, chest pain, palpitations, claudication, shortness of breath at rest, nausea, vomiting, abdominal pain, dysuria, hematuria, urinary retention, paralysis, weakness, numbness and tingling. Additional Comments: See HPI for pertinent positives and negatives. All other systems reviewed and negative. (Radha Jones ., PA-C) Objective Vital Signs Date Time Temp Pulse Resp B/P (MAP) Pulse Ox O2 Delivery O2 Flow Rate FiO2 08/13/17 14:11 67 16 97 Room Air 08/13/17 12:00 Room Air 08/13/17 11:09 134/64 (87) 08/13/17 11:00 37.0 73 19 187/89 (121) 97 08/13/17 08:00 Room Air 08/13/17 07:19 84 16 94 Room Air 08/13/17 07:18 36.6 84 21 141/73 (95) 98 Room Air 08/13/17 04:00 Room Air 08/13/17 03:33 36.5 84 18 138/72 (94) 95 Room Air 08/13/17 01:56 74 16 97 Room Air 08/13/17 01:32 70 200/92 (128) 08/12/17 23:59 Room Air 08/12/17 22:40 36.7 83 22 218/117 94 Room Air 08/12/17 22:32 37.3 91 22 181/106 95 08/12/17 21:38 91 22 181/106 95 Room Air 08/12/17 19:47 86 22 196/79 94 Room Air 08/12/17 18:55 83 20 94 Room Air 08/12/17 18:50 85 18 95 Room Air 08/12/17 18:46 139/115 08/12/17 18:45 87 23 96 Room Air 08/12/17 18:40 87 20 95 Room Air 08/12/17 18:35 87 21 97 08/12/17 18:32 166/102 08/12/17 18:30 88 19 97 08/12/17 18:25 85 16 97 08/12/17 18:20 84 21 97 08/12/17 18:16 191/72 08/12/17 18:15 85 15 95 08/12/17 18:10 83 15 96 08/12/17 18:05 90 25 96 08/12/17 18:02 205/71 08/12/17 18:00 83 12 97 08/12/17 17:55 94 20 221/96 97 Room Air 08/12/17 17:55 93 18 221/96 97 08/12/17 17:45 95 08/12/17 17:40 89 16 08/12/17 17:35 86 16 08/12/17 17:31 201/94 08/12/17 17:30 84 17 08/12/17 17:25 85 17 08/12/17 17:20 84 17 08/12/17 17:16 189/86 08/12/17 17:15 82 18 08/12/17 17:10 85 21 08/12/17 17:05 84 15 08/12/17 17:01 198/85 08/12/17 17:00 87 23 08/12/17 16:55 90 21 100 08/12/17 16:50 111 31 98 08/12/17 16:46 132/107 08/12/17 16:45 101 23 96 08/12/17 16:42 97 Room Air 08/12/17 16:40 86 19 96 08/12/17 16:35 88 19 98 08/12/17 16:32 88 08/12/17 16:31 179/94 08/12/17 16:30 87 22 97 08/12/17 16:26 97 Room Air 08/12/17 16:26 37.3 89 20 179/94 97 Room Air 08/12/17 16:25 87 27 97 08/12/17 16:21 168/87 (Jones, Radha ., PA-C) Physical Exam Notes: General appearance: Well-developed, well-nourished, no apparent distress Head: Normocephalic, atraumatic Eyes: Normal inspection, PERRL, EOMI ENT: Normal ENT inspection, hearing grossly normal, pharynx normal Neck: Supple, no JVD, trachea midline Respiratory/Chest: +Wheezing throughout, tight. Normal breath sounds, no respiratory distress Cardiovascular: Regular rate & rhythm, no gallop, no murmur Abdomen/GI: Normal bowel sounds, non-tender, soft Extremities/Musculoskeletal: +Dark discoloration right forearm and bilateral lower legs, chronic--hemosiderin staining? No calf tenderness, no pedal edema Neurological/Psych: Alert, normal mood/affect, oriented x 3 Skin: +Discoloration of extremities as above, also on neck. Warm/dry, no rash (Radha Jones ., PA-C) Laboratory Results Last 24 Hours Test 08/12/17 17:00 08/12/17 18:00 08/12/17 20:49 08/13/17 02:49 White Blood Count 2.40 K/uL 2.27 K/uL Red Blood Count 4.41 M/uL 4.43 M/uL Hemoglobin 13.0 g/dL 13.4 g/dL Hematocrit 40.0 % 39.4 % Mean Corpuscular Volume 90.7 fL 88.9 fL Mean Corpuscular Hemoglobin 29.5 pg 30.2 pg Mean Corpuscular Hemoglobin Concent 32.5 g/dl 34.0 g/dl Platelet Count 144 K/uL 137 K/uL Mean Platelet Volume 10.1 fL 10.6 fL Neutrophils (%) (Auto) 46.6 % 72.2 % Lymphocytes (%) (Auto) 31.3 % 25.1 % Monocytes (%) (Auto) 19.6 % 1.8 % Eosinophils (%) (Auto) 1.7 % 0.0 % Basophils (%) (Auto) 0.0 % 0.0 % Neutrophils # (Auto) 1.12 K/uL 1.64 K/uL Lymphocytes # (Auto) 0.75 K/uL 0.57 K/uL Monocytes # (Auto) 0.47 K/uL 0.04 K/uL Eosinophils # (Auto) 0.04 K/uL 0.00 K/uL Basophils # (Auto) 0.00 K/uL 0.00 K/uL RDW Standard Deviation 46.8 fL 45.3 fL RDW Coefficient of Variation 14.1 % 13.8 % Immature Granulocyte % (Auto) 0.8 % 0.9 % Immature Granulocyte # (Auto) 0.02 K/uL 0.02 K/uL Prothrombin Time 10.7 SECONDS Prothromb Time International Ratio 1.0 Activated Partial Thromboplast Time 29.2 SECONDS Partial Thromboplastin Ratio 1.1 Sodium Level 141 mmol/L 140 mmol/L Potassium Level 4.2 mmol/L 3.9 mmol/L Chloride Level 105 mmol/L 107 mmol/L Carbon Dioxide Level 29 mmol/L 26 mmol/L Anion Gap 7.0 mmol/L 7.0 mmol/L Blood Urea Nitrogen 22 mg/dl 23 mg/dl Creatinine 1.15 mg/dl 1.02 mg/dl Est Creatinine Clear Calc Drug Dose 33.7 ml/min 35.6 ml/min Estimated GFR () 49.9 57.7 Estimated GFR (Non- 43.0 49.8 BUN/Creatinine Ratio 19.5 22.9 Random Glucose 98 mg/dl 160 mg/dl Calcium Level 9.5 mg/dl 9.3 mg/dl Magnesium Level 2.3 mg/dl 2.1 mg/dl Total Bilirubin 0.4 mg/dl 0.6 mg/dl Direct Bilirubin 0.1 mg/dl Aspartate Amino Transf (AST/SGOT) 29 U/L 28 U/L Alanine Aminotransferase (ALT/SGPT) 22 U/L 22 U/L Alkaline Phosphatase 79 U/L 75 U/L Troponin I 0.123 ng/ml 0.252 ng/ml 0.205 ng/ml Pro-B-Type Natriuretic Peptide 280 pg/ml Total Protein 7.8 gm/dl 7.9 gm/dl Albumin 4.2 gm/dl 4.0 gm/dl Lipase 231 U/L Urine Color YELLOW Urine Appearance CLEAR Urine pH 6.5 Urine Specific [place] 1.006 Urine Protein TRACE Urine Glucose (UA) NEG Urine Ketones NEG Urine Occult Blood NEG Urine Nitrite NEG Urine Bilirubin NEG Urine Urobilinogen NEG Urine Leukocyte Esterase NEG Urine WBC (Auto) 1-5 /hpf Urine RBC (Auto) 0-4 /hpf Urine Hyaline Casts (Auto) 0 /lpf Urine Epithelial Cells (Auto) 0-5 /lpf Urine Bacteria (Auto) NEG Triglycerides Level 97 mg/dl Cholesterol Level 198 mg/dl HDL Cholesterol 62 mg/dl LDL Cholesterol, Calculated 117 mg/dl VLDL Cholesterol, Calculated 19 mg/dl Cholesterol/HDL Ratio 3.2 Estimated Average Glucose 103 mg/dl Hemoglobin A1c 5.2 % Globulin 3.9 gm/dl Albumin/Globulin Ratio 1.0 Test 08/13/17 09:29 Troponin I 0.177 ng/ml (Radha Jones ., ANN) Assessment and Plan 87 y/o female with a history of 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 Hypertensive emergency--chest tightness and SOB at rest resolved, BP improving -Admit to telemetry. No acute events overnight. Pt in Sr with HR 70s-80s -Troponin trending down, peaked at 0.252. Likely demand ischemia due to elevated BP -Echo pending -Cardiology consulted, appreciate recs: Will add clonidine 0.1 mg PO BID -Continue Norvasc 5 mg PO qd, clonidine 0.1 mg PO BID -Continue home Toprol XL 75 mg PO qd -Cover with hydralazine 10 mg IV q6h prn SBP >180 -Lipid panel, HgbA1c WNL -EKG prn chest pain Acute bronchitis -Continue Atrovent/Xopenex nebs q6h scheduled -Tessalon Perles 100 mg PO TID -Check PFTs for underlying disease Chronic lower extremity cellulitis on chronic abx--stable -Follows with Dr. Og -Continue chronic doxy Anxiety, depression, h/o hallucinations--stable -Continue citalopram 20 mg PO qd and Vistaril 25 mg PO prn DVT prophylaxis -Heparin 5000 units SC q12h Code Status -Level I, FULL RESUSCITATION STATUS Dispo -From [facility] -PT/OT evaluate and treat (Radha Jones ., ANILC) Attending Attestation: Pt seen/examined, chart reviewed, care plan d/w BRENDAN Jones. I agree w/ the gaytan components of her documentation. Pt with cough since "early winter" according to her son. This has been associated with wheezing. In June her PCP prescribed albuterol for the wheezing. She does not carry a dx of COPD, asthma, or other chronic lung disease. Of late she has had mild-mod dyspnea with exertion. VSS no fever o2 sats wnl in room air gen - nad neck - no JVD heart - RRR lungs - exp wheeze b/l abd - soft, NT, ND, BS+ ext - no edema, significant stasis changes b/l legs (hemosiderin deposition - very dark pigmented skin) A/P: 1. hypertensive emergency - improved 2. positive troponin - suspect myocardial demand ischemia / type 2 MA in setting of #1; agree with cardiology no ACS at present 3. chronic cough/wheeze since at least June, possibly longer - by definition this is chronic bronchitis 4. pulmonary HTN - mild - on echo; could contribute to chronic STEWART 5. chronic mild leukopenia with thrombocytopenia - at least going back to 2016 6. chronic venous stasis changes b/l legs 7. recurrent cellulitis of b/l legs, on chronic antibiotic prophylaxis followed by Dr. Og appreciate cardiology consult echo w/o wall motion abnormalities with respect to wheeze/cough - I do not think this is pulmonary edema wheezing - suspect primary lung based plan for PFTs and consider noncontrast chest CT to r/o ILD, other atypical process nebs in meantime adjust BP meds as needed Jensen Rojas MD (Jensen Rojas MD)
[2017-08-13] MEDS: BENZONATATE 100MG CAP PO SCH (20:02)
[2017-08-13] MEDS: CLONIDINE HCL 0.1 MG TAB PO SCH (20:02)
[2017-08-14] VITALS (10 sets, daily range): BP systolic 98–126; BP diastolic 47–64; PULSE 58–85; TEMP 36.4–37; O2SAT 93–99
[2017-08-14] MEDS: LEVALBUTEROL 0.63MG/3 ML NEB INH SCH ×4 (01:47→19:35)
[2017-08-14] MEDS: IPRATROPIUM BROMIDE NEB SOLN 0.02% 2.5 ML VIAL INH SCH ×4 (01:47→19:35)
[2017-08-14 06:15] LABS: HEMATOCRIT 33.6 % (37-47); HEMOGLOBIN 11.1 g/dL (12.0-16.0); MEAN CELL VOLUME 91.1 fL (80-100); MEAN CORPUSCULAR HEMOGLOBIN 30.1 pg (25-34); MEAN PLATELET VOLUME 9.6 fL (7.4-10.4); PLATELET COUNT 125 K/uL (130-400); RED CELL DISTRIBUTION WIDTH CV 14.5 % (11.5-14.5); RED CELL DISTRIBUTION WIDTH SD 48.4 fL (36.4-46.3); WHITE BLOOD COUNT 3.23 K/uL (4.8-10.8)
[2017-08-14 06:42] LABS: CALCIUM 9.1 mg/dl (8.5-10.1); CREATININE 1.3 mg/dl (0.60-1.20); POTASSIUM 4.3 mmol/L (3.5-5.1)
[2017-08-14] MEDS: ASPIRIN 81 MG ECTAB PO SCH (08:14)
[2017-08-14] MEDS: AMLODIPINE BESYLATE 5 MG TAB PO SCH (08:14)
[2017-08-14] MEDS: PANTOprazole SOD 40 MG TAB PO SCH ×2 (08:15→20:45)
[2017-08-14] MEDS: CLONIDINE HCL 0.1 MG TAB PO SCH (08:15)
[2017-08-14] MEDS: LACTOBACILLUS ACIDOPHILUS (FLORANEX) TAB PO SCH ×3 (08:15→16:05)
[2017-08-14] MEDS: ASCORBIC ACID 500 MG TAB PO SCH (08:15)
[2017-08-14] MEDS: BENZONATATE 100MG CAP PO SCH ×3 (08:15→20:45)
[2017-08-14] MEDS: DOXYCYCLINE HYCLATE 100 MG CAP PO SCH ×2 (08:16→20:39)
[2017-08-14] MEDS: EUCERIN CR 120 GM JAR EXT SCH (08:16)
[2017-08-14] MEDS: TRIAMCINOLONE ACET 0.1% CR 15 GM TUBE EXT SCH ×2 (08:16→20:44)
[2017-08-14] MEDS: DICLOFENAC SOD 1% GEL 100 GM TUBE EXT SCH ×2 (08:16→20:44)
[2017-08-14] MEDS: HEPARIN SOD 5000 UNIT/0.5 ML CARP SQ SCH ×2 (08:18→20:46)
[2017-08-14] MEDS: METOPROLOL SUCC 25MG EXT REL TAB PO SCH (11:59)
[2017-08-14] MEDS: METOPROLOL SUCC 50MG EXT REL TAB PO SCH (12:00)
[2017-08-14] MEDS: DOCUSATE SODIUM/SENNA 50/8.6MG TAB PO SCH (12:02)
--- NOTE | 2017-08-14 14:14 | Hospitalist Progress Note ---
Hospitalist Progress Note Date of Service Aug 14, 2017. (Radha oJnes .ANN) Subjective Pt evaluation today including: conversation w/ patient, conversation w/ family (son at bedside), physical exam, chart review, lab review, review of inpatient medication list Patient reports feeling well. She states her headache is improved. She reports a non-productive cough today and intermittent wheezing. She denies shortness of breath. The patient denies fevers, chills, sweats, chest pain, palpitations, claudication, shortness of breath, nausea, vomiting, abdominal pain, dysuria, hematuria, urinary retention, paralysis, weakness, numbness and tingling. Additional Comments: See HPI for pertinent positives and negatives. All other systems reviewed and negative. (Radha Jones PA-C) Objective Vital Signs Date Time Temp Pulse Resp B/P (MAP) Pulse Ox O2 Delivery O2 Flow Rate FiO2 08/14/17 12:14 36.8 60 18 98/47 (64) 96 Room Air 08/14/17 12:00 Room Air 08/14/17 08:00 Room Air 08/14/17 07:39 36.5 58 17 126/61 (82) 99 Room Air 08/14/17 06:54 63 16 95 Room Air 08/14/17 05:49 36.4 63 19 120/54 (76) 93 Room Air 08/14/17 04:00 Room Air 08/14/17 00:06 36.9 67 15 109/56 (73) 95 Room Air 08/14/17 00:00 Room Air 08/13/17 20:00 Room Air 08/13/17 19:21 65 16 97 Room Air 08/13/17 19:02 36.9 67 17 120/57 (78) 98 Room Air 08/13/17 16:00 Room Air 08/13/17 15:10 36.8 72 25 121/63 (82) 91 Room Air 08/13/17 14:11 67 16 97 Room Air (Radha Jones PA-C) Physical Exam Notes: General appearance: Well-developed, well-nourished, no apparent distress Head: Normocephalic, atraumatic Eyes: Normal inspection, PERRL, EOMI ENT: Normal ENT inspection, hearing grossly normal, pharynx normal Neck: Supple, no JVD, trachea midline Respiratory/Chest: +Wheezing throughout but improved from yesterday. Normal breath sounds, no respiratory distress Cardiovascular: Regular rate & rhythm, no gallop, no murmur Abdomen/GI: Normal bowel sounds, non-tender, soft Extremities/Musculoskeletal: +Dark discoloration right forearm and bilateral lower legs, chronic--hemosiderin staining? No calf tenderness, no pedal edema Neurological/Psych: Alert, normal mood/affect, oriented x 3 Skin: +Discoloration of extremities as above, also on neck. Warm/dry, no rash (Radha Jones ., PA-C) Laboratory Results Last 24 Hours Test 08/14/17 06:01 White Blood Count 3.23 K/uL Red Blood Count 3.69 M/uL Hemoglobin 11.1 g/dL Hematocrit 33.6 % Mean Corpuscular Volume 91.1 fL Mean Corpuscular Hemoglobin 30.1 pg Mean Corpuscular Hemoglobin Concent 33.0 g/dl RDW Standard Deviation 48.4 fL RDW Coefficient of Variation 14.5 % Platelet Count 125 K/uL Mean Platelet Volume 9.6 fL Sodium Level 141 mmol/L Potassium Level 4.3 mmol/L Chloride Level 109 mmol/L Carbon Dioxide Level 26 mmol/L Anion Gap 6.0 mmol/L Blood Urea Nitrogen 36 mg/dl Creatinine 1.30 mg/dl Est Creatinine Clear Calc Drug Dose 27.9 ml/min Estimated GFR () 43.0 Estimated GFR (Non- 37.1 BUN/Creatinine Ratio 27.5 Random Glucose 88 mg/dl Calcium Level 9.1 mg/dl (Radha Jones ., PA-C) Assessment and Plan 87 y/o female with a history of 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 Hypertensive emergency--chest tightness and SOB at rest resolved, BP improving -Admit to telemetry. No acute events overnight. Pt in sinus bradycardia/sinus rhythm with HR 50s-60s -Troponin trending down, peaked at 0.252. Likely demand ischemia due to elevated BP -Echo shows mild LVH. EF 65-70%. Grade I diastolic dysfunction. Mild to moderate mitral regurg. Right ventricular systolic pressure elevated at 30-40 mmHg. No significant change from previous study. -Cardiology consulted, appreciate recs: Will add clonidine 0.1 mg PO BID -Hypotensive on my exam BP 98/47, will hold clonidine -Continue Norvasc 5 mg PO qd -Continue home Toprol XL 75 mg PO qd with hold parameters -Cover with hydralazine 10 mg IV q6h prn SBP >180 -Lipid panel, HgbA1c WNL -EKG prn chest pain Acute bronchitis--improving -Continue Atrovent/Xopenex nebs q6h scheduled -Tessalon Perles 100 mg PO TID -PFTs pending, consider steroids MONET -Creatinine 1.30 on 08/14, up from 1.03. Could be related to significant change in BP? -Continue to monitor Chronic lower extremity cellulitis on chronic abx--stable -Follows with Dr. Og -Continue chronic doxy Anxiety, depression, h/o hallucinations--stable -Continue citalopram 20 mg PO qd and Vistaril 25 mg PO prn H/o leukopenia -Check SPEP, UPEP DVT prophylaxis -Heparin 5000 units SC q12h Code Status -Level I, FULL RESUSCITATION STATUS Dispo -From [facility] -PT/OT evaluate and treat (Radha Jones ., PAIsraelC) Attending Attestation: Pt seen/examined, chart reviewed, care plan d/w BRENDAN Jones. I agree w/ the gaytan components of her documentation. Pt feels better today. high bps resolved. Now with relatively low BP. tele stable overnight. no chest pain. still w/ mild nonproductive cough but no dyspnea. VSS no fever o2 sats normal gen - nad neck - no JVD heart - RRR lungs - exp wheeze b/l - no change abd - soft, NT, ND, BS+ ext - stasis changes b/l legs (hemosiderin deposition - very dark pigmented skin ); no edema A/P: 1. hypertensive emergency - resolved; agree with holding clonidine 2. positive troponin - suspect myocardial demand ischemia / type 2 NV in setting of #1 3. chronic cough/wheeze since at least June, possibly longer - by definition this is chronic bronchitis; awaiting PFTs; cont bronchodilators 4. pulmonary HTN - mild - on echo; could contribute to chronic STEWART 5. chronic mild leukopenia with thrombocytopenia - at least going back to 2016 - check SPEP, UPEP; r/o multiple myeloma 6. chronic venous stasis changes b/l legs 7. recurrent cellulitis of b/l legs, on chronic antibiotic prophylaxis followed by Dr. gO 8. mild acute kidney injury - repeat BMP am PT, OT ken completed - ok to return to personal care Jensen Rojas MD (Jensen Rojas MD)
[2017-08-14] MEDS: TRAZODONE HCL 50 MG TAB PO SCH (20:39)
[2017-08-14] MEDS: CITALOPRAM 20 MG TAB PO SCH (20:39)
[2017-08-14] MEDS: ACETAMINOPHEN 325 MG TAB PO PRN (20:43)
[2017-08-15] VITALS (8 sets, daily range): BP systolic 130–149; BP diastolic 69–92; PULSE 64–74; TEMP 36.4–36.6; O2SAT 92–97
[2017-08-15] MEDS: IPRATROPIUM BROMIDE NEB SOLN 0.02% 2.5 ML VIAL INH SCH ×3 (02:25→14:13)
[2017-08-15] MEDS: LEVALBUTEROL 0.63MG/3 ML NEB INH SCH ×3 (02:26→14:13)
[2017-08-15 06:42] LABS: HEMATOCRIT 35.9 % (37-47); HEMOGLOBIN 11.4 g/dL (12.0-16.0); MEAN CELL VOLUME 90.9 fL (80-100); MEAN CORPUSCULAR HEMOGLOBIN 28.9 pg (25-34); MEAN CORPUSCULAR HGB CONC 31.8 g/dl (32-36); MEAN PLATELET VOLUME 10.2 fL (7.4-10.4); PLATELET COUNT 132 K/uL (130-400); RED CELL DISTRIBUTION WIDTH CV 14.6 % (11.5-14.5); RED CELL DISTRIBUTION WIDTH SD 48.7 fL (36.4-46.3); WHITE BLOOD COUNT 2.64 K/uL (4.8-10.8)
[2017-08-15 07:13] LABS: CALCIUM 8.9 mg/dl (8.5-10.1); CREATININE 1.19 mg/dl (0.60-1.20)
[2017-08-15] MEDS: LACTOBACILLUS ACIDOPHILUS (FLORANEX) TAB PO SCH ×2 (08:00→12:08)
[2017-08-15] MEDS: TRIAMCINOLONE ACET 0.1% CR 15 GM TUBE EXT SCH (08:00)
[2017-08-15] MEDS: EUCERIN CR 120 GM JAR EXT SCH (08:00)
[2017-08-15] MEDS: AMLODIPINE BESYLATE 5 MG TAB PO SCH (08:01)
[2017-08-15] MEDS: DICLOFENAC SOD 1% GEL 100 GM TUBE EXT SCH (08:01)
[2017-08-15] MEDS: ASPIRIN 81 MG ECTAB PO SCH (08:01)
[2017-08-15] MEDS: PANTOprazole SOD 40 MG TAB PO SCH (08:02)
[2017-08-15] MEDS: BENZONATATE 100MG CAP PO SCH ×2 (08:03→14:00)
[2017-08-15] MEDS: METOPROLOL SUCC 50MG EXT REL TAB PO SCH (08:04)
[2017-08-15] MEDS: METOPROLOL SUCC 25MG EXT REL TAB PO SCH (08:04)
[2017-08-15] MEDS: ASCORBIC ACID 500 MG TAB PO SCH (08:05)
[2017-08-15] MEDS: HEPARIN SOD 5000 UNIT/0.5 ML CARP SQ SCH (08:08)
[2017-08-15] MEDS: DOXYCYCLINE HYCLATE 100 MG CAP PO SCH (08:13)
[2017-08-15] MEDS: DOCUSATE SODIUM/SENNA 50/8.6MG TAB PO SCH (12:09)
[2017-08-15] MEDS: ACETAMINOPHEN 325 MG TAB PO PRN (12:13)
[2017-08-15] MEDS ORDERED: NRV5 PO (15:33)
[2017-08-15] MEDS ORDERED: PRED10TA PO (15:33)
[2017-08-15] MEDS ORDERED: HYDCR1CL EXT (15:33)
[2017-08-15] MEDS ORDERED: BENZ100C7 PO (15:33)
[2017-08-15] MEDS ORDERED: VNTHFA/IN INH (15:33)
--- NOTE | 2017-08-15 16:14 | Discharge Instructions ---
Discharge Instructions Date of Service Aug 15, 2017. Admission Reason for Admission: Nstemi Discharge Discharge Diagnosis / Problem: Hypertensive emergency, bronchitis Discharge Goals Goal(s): Decrease discomfort, Improve function, Diagnostic testing, Therapeutic intervention Activity Recommendations Activity Limitations: resume your previous activity (as tolerated) . Instructions / Follow-Up Instructions / Follow-Up You were admitted to the hospital with severely elevated blood pressure that was causing you symptoms (hypertensive emergency). Your blood pressure was lowered by adding new agents to your home regimen, and your blood pressure is now well controlled. As you have been having a cough for last few months and have some shortness of breath, you were started on breathing treatments and a cough suppressant. This is likely due to bronchitis, and you will be discharge with an inhaler and some medications to help treat this. You are now medically stable for discharge. Medications: *Please take amlodipine (Norvasc) 5 mg daily. This is a new medication to help lower your blood pressure. *Please take the following prednisone taper (oral steroid) as directed: -Take 4 tablets by mouth daily for 2 days, then -Take 3 tablets by mouth daily for 2 days, then -Take 2 tablets by mouth daily for 2 days, then -Take 1 tablet by mouth daily for 2 days, then stop. *Your albuterol inhaler has been renewed. Please take this every 6 hours for the first 4-5 days, and then when your breathing is feeling better you can decrease to just using it as needed. *You may take Tessalon Perles (benzonatate) 200 mg three times a day to help with your cough. *A prescription for a hemorrhoid steroid cream has been provided. Please only use externally daily as needed for hemorrhoids. *Your trazodone has been stopped as you are not tolerating this medication. *Continue your other home medications as prescribed. Follow up: *You will be scheduled to follow up with your primary care provider. Please seek medical attention if you experience fevers, chills, sweats, dizziness/lightheadedness, loss of consciousness, chest pain, shortness of breath, nausea, vomiting, numbness or tingling. Current Hospital Diet Patient's current hospital diet: AHA Diet (Heart Healthy) Discharge Diet Recommended Diet: AHA Diet (Heart Healthy) Procedures Procedures Performed: Pulmonary function test Pending Studies Studies pending at discharge: yes List of pending studies: SPEP, UPEP Laboratory Results Hemoglobin A1c Test 08/13/17 02:49 Range/Units Estimated Average Glucose 103 mg/dl Hemoglobin A1c 5.2 4.5-5.6 % Lipid Panel Test 08/12/17 20:49 Range/Units Triglycerides Level 97 0-150 mg/dl Cholesterol Level 198 0-200 mg/dl HDL Cholesterol 62 mg/dl Cholesterol/HDL Ratio 3.2 LDL Cholesterol, Calculated 117 mg/dl Medical Emergencies . Who to Call and When: Medical Emergencies: If at any time you feel your situation is an emergency, please call 911 immediately. . Non-Emergent Contact Non-Emergency issues call your: Primary Care Provider Call Non-Emergent contact if: you have a fever, you have any medication questions . Past History Medical & Surgical History: (1) Bronchitis (2) Hypertensive emergency . "Provider Documentation" section prepared by Radha Jones. .
--- NOTE | 2017-08-15 16:14 | Discharge Summary ---
Discharge Summary Date of Service Aug 15, 2017. Discharge Summary Admission Date: Aug 12, 2017 at 21:01 Discharge Date: Aug 15, 2017 Discharge Disposition: Personal care Principal Diagnosis: Hypertensive emergency, bronchitis Problems/Secondary Diagnoses: Chronic lower extremity cellulitis on chronic antibiotics, anxiety and depression CKD stage 3 chronic leukopenia with thrombocytopenia - etiology uncertain positive troponin - myocardial demand ischemia/type 2 NJ due to hypertensive emergency history of Polymyalgia rheumatica history of Raynaud's phenomenon Hypercholesterolemia mild pulmonary HTN Immunizations: Have You Had Influenza Vaccine: N/A Influenza Vaccine Date: Mar 11, 2012 History of Tetanus Vaccine?: UTD History of Pneumococcal: Yes Pneumococcal Date: Jun 13, 2011 History of Hepatitis B Vaccine: No Procedures: Echocardiogram: Interpretation Summary * Name: MARIA EUGENIA CATES Study Date: 08/13/2017 06:35 AM BP: 141/73 mmHg * Patient Location: .2E\S\E204\S\1 HR: 84 * : 1930 (M/d/yyyy) Gender: Female Height: 63 in * Age: 87 yrs Ethnicity: CA Weight: 161 lb * Ordering Physician: Amy Gomez * Referring Physician: Self, Referred * Performed By: Whitley Shah RDCS * * Reason For Study: CHEST PAIN * BSA: 1.8 m2 * -- Conclusions -- * There is mild concentric left ventricular hypertrophy. * Left ventricular systolic function is normal. * Grade I diastolic dysfunction, (abnormal relaxation pattern). * There is mild to moderate tricuspid regurgitation. * Right ventricular systolic pressure is elevated at 30-40mmHg. * Compared to an echocardiogram from 03/2014, there is no significant change Procedure Details * A complete two-dimensional transthoracic echocardiogram was performed (2D, M-mode, Doppler and color flow Doppler). Left Ventricle * The left ventricle is normal in size. * There is mild concentric left ventricular hypertrophy. * Ejection Fraction = 65-70%. * Left ventricular systolic function is normal. * Grade I diastolic dysfunction, (abnormal relaxation pattern). * The left ventricular wall motion is normal. Right Ventricle * The right ventricle is normal in size and function. * The right ventricular systolic function is normal as assessed by tricuspid annular plane systolic excursion (TAPSE) (normal >1.5 cm). Atria * The left atrial size is normal. * Right atrial size is normal. Mitral Valve * The mitral valve anatomy is normal. * Significant mitral regurgitation is absent. Tricuspid Valve * The tricuspid valve is not well visualized, but is grossly normal. * There is mild to moderate tricuspid regurgitation. * Right ventricular systolic pressure is elevated at 30-40mmHg. Aortic Valve * The aortic valve is normal in structure and function. * The aortic valve is trileaflet. * No hemodynamically significant valvular aortic stenosis. * There is no significant aortic regurgitation. Great Vessels * The aortic root is normal size. Pericardium/Pleural * There is no pericardial effusion. renal artery doppler negative for renal artery stenosis PFTs Consultations: Cardiology PT, OT Medication Reconciliation New Medications: Hydrocortisone 1% (Hydrocortisone 1%) 90 Appln/30 Gm Cr 1 APPLN EXT DAILY PRN for hemorrhoids for 30 Days, #1 TUBE Apply externally to bottom daily as needed for hemorrhoids Prednisone Tab (Prednisone) 10 Mg Tab 10 MG PO UD for 8 Days, #20 TAB 4 tabs for 2 days, then 3 tabs for 2 days, then 2 tabs for 2 days, then 1 tab for 2 days Amlodipine Besylate (Amlodipine Besylate) 5 Mg Tab 5 MG PO QAM for 30 Days, #30 TAB Benzonatate (Benzonatate) 100 Mg Cap 200 MG PO TID for 7 Days, #42 CAP Changed Medications: Albuterol Hfa (Ventolin Hfa) 200 Puffs/35635 Mcg Aers 1-2 PUFFS INH QID PRN for SOB/Wheezing for 30 Days, #120 DOSE (Medication details modified) Please use inhaler scheudled every 6 hours for the next 4-5 days, then just use as needed. Continued Medications: Acetaminophen (Tylenol) 500 Mg Tab 1000 MG PO BID, TAB max 3 gms daily Acetaminophen (Tylenol) 325 Mg Tab 650 MG PO Q4 PRN for Mild Pain, TAB max 3gm apap/24hr Ascorbic Acid (Ascorbic Acid) 500 Mg Tab 1000 MG PO DAILY, TAB Aspirin (Aspirin Chewable) 81 Mg Chew 81 MG PO DAILY Calcium Carbonate-Vitamin D (Calcium + D) 1 Tab Tab 1 TAB PO QAM Citalopram (Citalopram Hydrobromide) 20 Mg Tab 20 MG PO HS Darifenacin Hydrobromide (Enablex) 7.5 Mg Tab 7.5 MG PO DAILY, TAB Diclofenac Sodium (Topical) (Voltaren 1% Top Gel) 1 % Gel 1 APPLN EXT BID Docusate Sodium (Docusate Sodium) 100 Mg Cap 100 CAP PO BID PRN for Constipation for 7 Days, #1400 CAP Doxycycline Hyclate (Vibramycin) 100 Mg Cap 100 MG PO BID for 10 Days, CAP Eucerin (Eucerin) Cre DAILY Hydroxyzine Pamoate (Vistaril) 25 Mg Cap 25 MG PO PRN for Itching, CAP 1 tablet-3-4 times daily Metoprolol Succ (Toprol Xl) (Toprol-Xl) 25 Mg Tabcr 25 MG PO QAM WITH 50MG TAB FOR DOSE OF 75MG Metoprolol Succ (Toprol Xl) (Toprol-Xl) 50 Mg Tabcr 50 MG PO QAM WITH 25MG TAB FOR DOSE OF 75MG Multivitamin (Multivitamin) Tab 1 TAB PO QAM, TAB Omeprazole (Prilosec) 20 Mg Capcr 20 MG PO BID, CAP Ondansetron Hcl (Zofran) 4 Mg Tab 4 MG PO Q4 PRN for Nausea, TAB Polyvinyl Alcohol-Povidone (Op (Refresh) 1 Sarath Sarath 1-2 DROPS OPB UD PRN for DRYNESS Senna/Docusate Sod (Senokot S) 1 Tab Tab 1 TAB PO QDL, TAB Triamcinolone Acet (Aristocort 0.1%) 90 Appln/30 Gm Cr 1 APPLN TOP BID to back,shouldes, and arms Discontinued Medications: Trazodone Hcl (Trazodone) 50 Mg Tab 25 MG PO HS, TAB Discharge Exam The patient reports feeling well. She still has a cough that is sometimes productive. She notes intermittent wheezing and shortness of breath but denies any SOB at rest currently. The patient denies fevers, chills, sweats, chest pain, palpitations, claudication, nausea, vomiting, abdominal pain, dysuria, hematuria, urinary retention, paralysis, weakness, numbness and tingling. Constitutional: No fever, No chills, No sweats Eyes: No worsening of vision, No eye pain, No diplopia ENT: No hearing loss, No nasal symptoms, No trouble swallowing Respiratory: +Cough, intermittent wheezing and SOB. Cardiovascular: No chest pain, No claudication, No palpitations Abdomen: No pain, No nausea, No vomiting Musculoskeletal: No joint pain, No muscle pain, No swelling Genitourinary - Female: No dysuria, No urinary retention, No hematuria Neurologic: No paralysis, No weakness, No numbness/tingling Integumentary: No rash, No itch, No color change General appearance: Well-developed, well-nourished, no apparent distress Head: Normocephalic, atraumatic Eyes: Normal inspection, PERRL, EOMI ENT: Normal ENT inspection, hearing grossly normal, pharynx normal Neck: Supple, no JVD, trachea midline Respiratory/Chest: Lungs clear to auscultation, normal breath sounds, no respiratory distress Cardiovascular: Regular rate & rhythm, no gallop, no murmur Abdomen/GI: Normal bowel sounds, non-tender, soft Extremities/Musculoskeletal: +Dark discoloration right forearm and bilateral lower legs, chronic--hemosiderin staining? No calf tenderness, no pedal edema Neurological/Psych: Alert, normal mood/affect, oriented x 3 Skin: +Discoloration of extremities as above, also on neck. 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 Hypertensive emergency--chest tightness and SOB at rest resolved, BP improving -Admit to telemetry. No acute events overnight. Pt in sinus rhythm with HR 60s -70s -Troponin trending down, peaked at 0.252. Likely demand ischemia/type 2 NJ due to elevated BP -Echo shows mild LVH. EF 65-70%. Grade I diastolic dysfunction. Mild to moderate mitral regurg. Right ventricular systolic pressure elevated at 30-40 mmHg. No significant change from previous study. -Cardiology consulted, appreciate recs - added norvasc 5mg daily in addition to toprol xl 75mg qam -Lipid panel, HgbA1c WNL Acute bronchitis--improving -Continue Atrovent/Xopenex nebs q6h scheduled -Tessalon Perles 100 mg PO TID -PFTs with elements of restrictive and obstructive disease. Borderline improvement with bronchodilators -Will d/c with Tessalon Perles, albuterol inhaler to use scheduled for first few days and prednisone taper: 40 mg PO qd x 2 days, then decrease by 10 mg q2d MONET--improving -Creatinine 1.19 on 08/15, down from 1.30 Chronic lower extremity cellulitis on chronic abx--stable -Follows with Dr. Og -Continue chronic doxy Anxiety, depression, h/o hallucinations--stable -Continue citalopram 20 mg PO qd and Vistaril 25 mg PO prn H/o leukopenia -SPEP and UPEP pending to rule out multiple myeloma DVT prophylaxis -Heparin 5000 units SC q12h Code Status -Level I, FULL RESUSCITATION STATUS Dispo -From [facility], PT/OT cleared to return to [facility] Attending Discharge Note & Attestation - Pt seen/examined, chart reviewed, discharge care plan d/w BRENDAN Jones. I agree w/ the gaytan components of her discharge summary. 87yo female with CKD stage 3, HTN, chronic LE cellulitis on chronic antibiotics - presented with the acute onset of shortness of breath. She reported a cough along with very mild dyspnea since June 2017 and had been prescribed an albuterol inhaler for such. At time of admission her BP was markedly elevated. She also had wheezing on lung exam. With addition of norvasc her BP gradually improved. Pulmonary symptoms improved with use of albuterol nebs and treatment of her HTN. It is suspected that her acute dyspnea may have been due to her severely elevated BP. PFTs were completed showing borderline obstructive lung disease with borderline response to bronchodilators (11% change in FVC). It was suspected that her chronic cough/dyspnea since June was due to mild obstructive lung disease (by definition chronic bronchitis). Therefore she was discharged home with albuterol and prednisone taper. Lastly, SPEP/UPEP were sent due to chronic leukopenia/thrombocytopenia and prior peripheral smear showing rouleaux. Discharge exam - gen - NAD neck - no JVD heart - RRR, s1, s2 lungs - minimal end-exp wheeze b/l abd - soft, NT ext - no edema, severe hemosiderin deposition both legs and mildly on the arms Jensen Rojas MD Total Time Spent: Greater than 30 minutes This includes examination of the patient, discharge planning, medication reconciliation, and communication with other providers. Discharge Instructions Please refer to the electronic Patient Visit Report (Discharge Instructions) for additional information. Additional Copies To Rebeca Landon M.D.
--- NOTE | 2017-08-15 16:15 | Cardiology Follow-Up ---
Subjective Date of Service: Aug 15, 2017. Pt evaluation today including: conversation w/ patient, physical exam, lab review, review of studies, review of inpatient medication list History of Present Illness She is feeling much better today, no shortness of breath or chest discomfort. Social History Smoking Status: Never Smoker History of Alcohol Use: Yes (WINE OCCASIONALLY) Review of Systems Respiratory: No cough, No dyspnea on exertion Cardiac: No chest pain Medications Cardiovascular: Item Value Date Time Aspirin 81 mg 08/13/17 0900 (Ecotrin Tab) QAM/PO 08/15/17 0801 Metoprolol 25 mg 08/13/17 0900 Succinate QAM/PO 08/15/17 0804 (Toprol Xl Tab) Metoprolol 50 mg 08/13/17 0900 Succinate QAM/PO 08/15/17 0804 (Toprol Xl Tab) Amlodipine 5 mg 08/12/17 2300 Besylate QAM/PO 08/15/17 0801 (Norvasc Tab) Objective Vital Signs Past 12 Hours Date Time Temp Pulse Resp B/P (MAP) Pulse Ox O2 Delivery O2 Flow Rate FiO2 08/15/17 15:24 36.5 66 18 149/92 (111) 92 Room Air 08/15/17 14:14 68 18 97 Room Air 08/15/17 12:00 Room Air 08/15/17 11:26 36.6 74 19 130/80 (97) 96 Room Air 08/15/17 08:00 Room Air 08/15/17 07:50 36.6 68 17 132/77 (95) 96 Room Air 08/15/17 07:14 64 16 96 Room Air 08/15/17 04:00 Room Air Last Recorded Weight-Kilograms: 65.000 Intake & Output 8-Hour Column 08/15/17 08/16/17 08/16/17 16:00 00:00 08:00 Intake Total 755 ml Output Total 1000 ml Balance -245 ml 24-Hour Column 08/16/17 08:00 Intake Total 755 ml Output Total 1000 ml Balance -245 ml Physical Exam Constitutional: Level of Distress: NAD Lungs: Auscultation: breath sounds normal Cardiovascular: Heart Auscultation: RRR, II/ GISELL Extremities: no edema Data Laboratory Results: Last 24 Hours Test 08/15/17 04:10 08/15/17 06:17 White Blood Count 2.64 K/uL Red Blood Count 3.95 M/uL Hemoglobin 11.4 g/dL Hematocrit 35.9 % Mean Corpuscular Volume 90.9 fL Mean Corpuscular Hemoglobin 28.9 pg Mean Corpuscular Hemoglobin Concent 31.8 g/dl RDW Standard Deviation 48.7 fL RDW Coefficient of Variation 14.6 % Platelet Count 132 K/uL Mean Platelet Volume 10.2 fL Sodium Level 143 mmol/L Potassium Level 4.0 mmol/L Chloride Level 111 mmol/L Carbon Dioxide Level 25 mmol/L Anion Gap 7.0 mmol/L Blood Urea Nitrogen 40 mg/dl Creatinine 1.19 mg/dl Est Creatinine Clear Calc Drug Dose 30.4 ml/min Estimated GFR () 47.9 Estimated GFR (Non- 41.3 BUN/Creatinine Ratio 33.8 Random Glucose 86 mg/dl Calcium Level 8.9 mg/dl Assessment and Plan 1. Hypertension: Her blood pressure is under better control now. Agree with current management. 2. Elevated cardiac enzymes: Consistent with demand ischemia, possibly in the presence of coronary artery disease however I would not consider invasive evaluation at this time. If exertional symptoms continue we can consider stress testing as an outpatient. She has an appointment with Dr. Rust in our office from October 28, 2017, I have asked her to keep that appointment. Thank you for allowing me to participate in her care.
--- NOTE | 2017-08-18 09:24 | EDITING REQUIRED CODING QUERY ---
CODING QUERY To promote full compliance with coding requirements relating to patient care, provider participation is requested in all cases of certified medical coder uncertainty. Please assist us with the question(s) below: Coding Question(s): Progress Notes on 08/13 and 08/14 document positive troponin - suspect myocardial demand ischemia/ type 2 MD. The Discharge Summary documents likely demand ischemia with no documentation of type 2 MD. Please clarify below, in your clinical opinion. (x ) Type 2 MD with Demand Ischemia ( ) Demand Ischemia only with No Type 2 MD Physician's Response(s): Thank you Stephani Elliott Principal Diagnosis: "_that condition established after study, to be chiefly responsible for occasioning the admission of the patient to the hospital for care." Co-Existing Principal Diagnosis: "_when two or more diagnoses equally meet the criteria for principal diagnosis as determined by the circumstances of admission, diagnostic work up, and/or therapy provided, and the Alphabetic Index, Tabular List, or another coding guideline does not provide sequencing direction, any one of the diagnoses may be sequenced first." "When the physician has documented what appears to be a current diagnosis in the body of the record, but has not included the diagnosis in the final diagnostic statement, the physician should be asked whether the diagnosis should be added." ([facility] QTR90. p3-4)
--- NOTE | 2017-08-22 07:50 | EDITING REQUIRED CODING QUERY ---
CODING QUERY To promote full compliance with coding requirements relating to patient care, provider participation is requested in all cases of furniture finisher uncertainty. Please assist us with the question(s) below: Coding Question(s): The H&P documents possible flash pulmonary edema that resolved and PN 08/13 documents with respect to wheeze/cough - I do not think this is pulmonary edema wheezing. There is no further documentation of possible pulmonary edema or that it was ruled out. Please clarify below, in your clinical opinion. ( ) Possible flash pulmonary edema that resolved ( ) Possible Acute Pulmonary Edema ( ) Possible Chronic Pulmonary Edema ( ) Possible Pulmonary Edema meaning CHF - Please specify type of CHF: ( x ) Pulmonary Edema is ruled out Physician's Response(s): Thank you Stephani Elliott Principal Diagnosis: "_that condition established after study, to be chiefly responsible for occasioning the admission of the patient to the hospital for care." Co-Existing Principal Diagnosis: "_when two or more diagnoses equally meet the criteria for principal diagnosis as determined by the circumstances of admission, diagnostic work up, and/or therapy provided, and the Alphabetic Index, Tabular List, or another coding guideline does not provide sequencing direction, any one of the diagnoses may be sequenced first." "When the physician has documented what appears to be a current diagnosis in the body of the record, but has not included the diagnosis in the final diagnostic statement, the physician should be asked whether the diagnosis should be added." ([facility] QTR90. p3-4)
--- NOTE | 2017-08-22 23:40 | PULMONARY FUNCTION TEST ---
Spirometry suggests a mild obstructive pattern. Repeat study done following bronchodilator showed a mild improvement in function. The forced vital capacity improved by 11% and the FEV1 improved 9%. Cannot entirely exclude coexistent restriction.
== END 2017-08-15 17:52 | disposition home health service (06) | DRG 281 ==
LOC: EDBD 16:10 → C.EDA 16:17 → C.2E 21:01 → ENRESERV 22:08
PROVIDERS: ADMIT Internal Medicine; ATTEND Internal Medicine
DX: I16.1 Hypertensive emergency (principal); I21.A1 Myocardial infarction type 2; N17.9 Acute kidney failure, unspecified; L03.115 Cellulitis of right lower limb; L03.116 Cellulitis of left lower limb; F33.1 Major depressive disorder, recurrent, moderate; J20.9 Acute bronchitis, unspecified; D72.819 Decreased white blood cell count, unspecified; D69.6 Thrombocytopenia, unspecified; F41.9 Anxiety disorder, unspecified; I12.9 Hypertensive chronic kidney disease with stage 1 through stage 4 chronic kidney disease, or unspecified chronic kidney disease; I27.20 Pulmonary hypertension, unspecified; N18.3 Chronic kidney disease, stage 3 (moderate); E78.5 Hyperlipidemia, unspecified; E78.00 Pure hypercholesterolemia, unspecified; M35.3 Polymyalgia rheumatica; I73.00 Raynaud's syndrome without gangrene; F32.9 Major depressive disorder, single episode, unspecified; Z51.81 Encounter for therapeutic drug level monitoring; Z79.899 Other long term (current) drug therapy; Z79.2 Long term (current) use of antibiotics; Z79.82 Long term (current) use of aspirin; Z86.14 Personal history of Methicillin resistant Staphylococcus aureus infection; Z88.0 Allergy status to penicillin; Z88.2 Allergy status to sulfonamides; Z88.5 Allergy status to narcotic agent; Z88.7 Allergy status to serum and vaccine; Z91.040 Latex allergy status; Z82.49 Family history of ischemic heart disease and other diseases of the circulatory system; Z82.5 Family history of asthma and other chronic lower respiratory diseases

== ENCOUNTER → 2017-10-02 | Outpatient (CLI) | payer OTHER, BC ==
[~2017-10-02] MED LIST changes: -ABL10 PO; -ANSHCCR PR; +BENZ100C7 PO; +HYDCR1CL EXT; -HYDR25CA PO; +NRV5 PO; +PRLSR20 PO; +SKINCRE34; -SPRIN INH
== END | disposition home or self-care (01) ==
LOC: C.LAB1850 14:52
PROVIDERS: ATTEND Internal Medicine Infectious Disease
DX: R19.5 Other fecal abnormalities (principal)

== ENCOUNTER → 2017-12-18 | Outpatient (CLI) | payer BC ==
[2017-12-18 17:27] LABS: BASO % 0.2 %; BASO ABS # 0.01 K/uL (0-0.2); EOS ABS # 0.05 K/uL (0-0.5); HEMATOCRIT 36.8 % (37-47); HEMOGLOBIN 11.8 g/dL (12.0-16.0); IG# 0.07 K/uL (0.00-0.02); LYMPH % 25.1 %; LYMPH ABS # 1.22 K/uL (1.2-3.4); MEAN CELL VOLUME 93.6 fL (80-100); MEAN CORPUSCULAR HGB CONC 32.1 g/dl (32-36); MONO % 15.4 %; MONO ABS # 0.75 K/uL (0.11-0.59); NEUT % 56.9 %; NEUT ABS # 2.77 K/uL (1.4-6.5); PLATELET COUNT 246 K/uL (130-400); RED CELL DISTRIBUTION WIDTH SD 47.9 fL (36.4-46.3); WHITE BLOOD COUNT 4.87 K/uL (4.8-10.8)
[2017-12-18 17:40] LABS: ALBUMIN 3.9 gm/dl (3.4-5.0); ALKALINE PHOSPHATASE 119 U/L (45-117); ALT/SGPT 33 U/L (12-78); AST/SGOT 26 U/L (15-37); BLOOD UREA NITROGEN 20 mg/dl (7-18); CALCIUM 9.2 mg/dl (8.5-10.1); CARBON DIOXIDE 29 mmol/L (21-32); CREATININE 1.01 mg/dl (0.60-1.20); GLUCOSE 124 mg/dl (70-99); POTASSIUM 4.1 mmol/L (3.5-5.1); SODIUM 140 mmol/L (136-145); TOTAL PROTEIN 8.3 gm/dl (6.4-8.2)
== END | disposition home or self-care (01) ==
LOC: C.LABPVFM 15:17
PROVIDERS: ATTEND Family Medicine
DX: R06.00 Dyspnea, unspecified (principal)

== ENCOUNTER → 2017-12-19 | Outpatient (CLI) | payer BC | END | disposition home or self-care (01) | LOC: C.LABPVFM 11:17 | PROVIDERS: ATTEND Family Medicine | DX: R06.00 Dyspnea, unspecified (principal) ==

== ENCOUNTER → 2017-12-23 | Outpatient (CLI) | payer BC | END | disposition home or self-care (01) | LOC: C.LABPVFM 15:27 | PROVIDERS: ATTEND Internal Medicine Infectious Disease | DX: A04.72 Enterocolitis due to Clostridium difficile, not specified as recurrent (principal) ==

== ENCOUNTER 2018-11-25 10:22 | Inpatient (IN) ==
[2018-11-25 11:19] LABS: Hematocrit (blood only) 33.9 % (37-47); Hemoglobin 11.4 g/dL (12.0-16.0); Mean Corpuscular Hgb Conc 33.6 g/dL (32-36); Mean Corpuscular Volume 90.6 fL (80-100); Mean Platelet Volume 9.7 fL (7.4-10.4); Platelet Count 137 K/uL (130-400); RDW Coefficient of Variation 14.3 % (11.5-14.5); RDW Standard Deviation 47.4 fL (36.4-46.3); Red Blood Count 3.74 M/uL (4.2-5.4); White Blood Count 13.01 K/uL (4.8-10.8)
[2018-11-25 11:28] LABS: iSTAT Creatinine 1.4 mg/dl (0.6-1.3); iSTAT Hemoglobin 11.2 g/dl (12.0-16.0); iSTAT Ionized Calcium 1.15 mmol/l (1.12-1.32); iSTAT Potassium 3.7 mEq/L (3.3-5.0)
[2018-11-25 11:29] LABS: INR 1.1 (0.9-1.1); Prothrombin Time 11.3 Seconds (9.0-12.0)
[2018-11-25 11:36] LABS: Basophils # (auto) 0.01 K/uL (0-0.2); Basophils % (auto) 0.1 %; Immature Granulocytes % (auto) 0.8 %; Lymphocytes # (auto) 0.38 K/uL (1.2-3.4); Lymphocytes % (auto) 2.9 %; Monocytes # (auto) 1.91 K/uL (0.11-0.59); Monocytes % (auto) 14.7 %; Neutrophils # (auto) 10.61 K/uL (1.4-6.5); Neutrophils % (auto) 81.5 %
[2018-11-25 11:38] LABS: Alanine Aminotransferase 25 U/L (12-78); Albumin Level 3.6 gm/dl (3.4-5.0); Aspartate Aminotransferase 25 U/L (15-37); BUN Creatinine Ratio 17.6 (10-20); Blood Urea Nitrogen 26 mg/dl (7-18); Calcium 9.3 mg/dl (8.5-10.1); Carbon Dioxide 28 mmol/L (21-32); Chloride 101 mmol/L (98-107); Est GFR (African American) 36.5; Est GFR (Non-African American) 31.5; Glucose 160 mg/dl (70-99); Potassium 3.7 mmol/L (3.5-5.1); Sodium 136 mmol/L (136-145)
[2018-11-25 11:39] LABS: Appearance Urine Clear (Clear); Bacteria Urine Automated 2+ (Negative); Bilirubin Urine Negative (Negative); Blood Urine Trace (Negative); Color Urine Yellow; Glucose Urine UA Negative (Negative); Ketones Urine Negative (Negative); Leukocyte Esterase Urine 2+ (Negative); Nitrite Urine Negative (Negative); Protein Urine 2+ (Negative); RBC Urine Automated 0-4 /hpf (0-4); Specific Gravity Urine 1.019 (1.000-1.030); Urobilinogen Urine Negative (Negative); WBC Urine Automated >30 /hpf (0-5); pH Urine 6.5 (4.5-7.5)
[2018-11-25 11:40] LABS: Albumin Globulin Ratio 0.8 (0.9-2); Alkaline Phosphatase 91 U/L (45-117); Bilirubin,Total 0.6 mg/dl (0.2-1); Globulin 4.5 gm/dl (2.5-4.0); Total Protein 8.1 gm/dl (6.4-8.2)
[2018-11-25] MEDS ORDERED: IOVERSOL 100ml IV PRN (11:41)
[2018-11-25] MEDS ORDERED: ONDANSETRON INJ 2 MG/ML 2 ML VIAL IV STA (11:53)
[2018-11-25] MEDS ORDERED: MoRPHine SULFATE 4 MG/ML 1 ML CARP\\VIAL IV STA (11:53)
--- NOTE | 2018-11-25 11:57 | CT Scan Report ---
CT abd pelvis IV con only CLINICAL HISTORY: Generalized abdominal pain COMPARISON STUDY: 06/02/2012 TECHNIQUE: The patient was scanned in a dynamic helical fashion during the intravenous administration of 93 cc of Optiray 320. A dose lowering technique was utilized adhering to the principles of ALARA . CT DOSE: 912.58 mGycm FINDINGS: Lower chest: There is a moderate to large hiatal hernia. There is a focal 5 cm pleural-based airspace opacity within the left lower lobe consistent with a pneumonia. There is trace left pleural fluid pr esent. Liver: The contrast-enhanced liver is normal in size, contour, and attenuation. There is no intrahepa tic biliary ductal dilatation. The hepatic veins and portal veins are patent. Gallbladder: Cholelithiasis Spleen: Normal in size and attenuation. Pancreas: There is borderline pancreatic ductal dilatation. No focal pancreatic masses are visualized . There is no specific common bile duct dilatation. Adrenal glands: Unremarkable. Kidneys: There is symmetric renal cortical enhancement. The kidneys are normal in size without hydron ephrosis. Bowel: There are no transition zone to indicate bowel obstruction. There is moderate fecal retention. Clinical correlation and regards to constipation is recommended. There is colonic and ileal divertic ulosis. There is no evidence of acute diverticulitis. There is no evidence of acute appendicitis.. Peritoneum: There is no intraperitoneal free air or abdominal ascites. Vasculature: The abdominal aorta is normal in course and caliber. Adenopathy: Inguinal lymph nodes are the upper limits of normal in size. Pelvic viscera: The bladder, and pelvic viscera are unremarkable. Skeletal structures: No destructive osseous lesions are seen. IMPRESSION: 1. No evidence of bowel structure. No evidence of free air 2. No evidence of acute appendicitis 3. Colonic and ileal diverticulosis. No evidence of acute diverticulitis 4. Cholelithiasis 5. Moderate hiatal hernia 6. Moderate fecal retention 7. 5 cm pleural-based opacity within the left lower lobe, consistent with pneumonia. A pulmonary infa rct could appear similar. Clinical and radiographic follow-up is recommended. Electronically signed by: Alfie Buenrostro M.D. 11/25/2018 11:56 AM
[2018-11-25] MEDS ORDERED: SODIUM CHLORIDE 0.9% 1000ML 1,000 ML IV ONE (12:18)
[2018-11-25] MEDS ORDERED: OPTIRAY 320 125ml IV PRN (13:29)
--- NOTE | 2018-11-25 13:46 | CT Scan Report ---
CT ANGIOGRAM OF THE CHEST CLINICAL HISTORY: Left lower lobe consolidation seen by CT. COMPARISON STUDY: Chest x-ray dated 06/17/2018. Chest CT dated 06/05/2012. Abdominal CT dated 11/25/2018 . TECHNIQUE: Following the IV administration of 120 cc of Optiray 320, CT angiogram of the chest was pe rformed from the upper abdomen to the thoracic inlet utilizing the pulmonary embolus protocol. Images are reviewed in the axial, sagittal, and coronal planes. 3-D MIPS images are created and assessed. I V contrast was administered without complication. A dose lowering technique was utilized adhering to the principles of ALARA. The examination is degraded by motion artifact, as well as by streak artifa ct from the arms which could not be elevated above the chest. CT DOSE: 476.37 mGycm FINDINGS: Thyroid: Imaged portions of the thyroid gland are normal in size and attenuation. Thoracic aorta: There is atherosclerotic calcification of the thoracic aorta, which is normal in malathi torres and demonstrates standard 3-vessel arch anatomy. No dissection is seen. Pulmonary vasculature: The pulmonary trunk is normal in caliber. There are no filling defects identif ied in main, lobar, or segmental pulmonary branches to suggest pulmonary embolus. Heart: The heart is mildly enlarged and without pericardial effusion. Lungs and pleural spaces: There is masslike consolidation identified in the left upper lobe. Dense co nsolidation is also seen in the left lower lobe and lingula. There is a trace left pleural effusion. No consolidation is seen in the right lung. A linear branching nodular density in the right lower lob e seen on image #95 measures up to 11 mm and is unchanged from 2013. This is of doubtful significance . The trachea and central airways are clear. Mediastinum: There are mildly enlarged mediastinal lymph nodes which measure up to 12 mm in short axi s. Beba: Prominent left hilar nodes measure up to 8 mm short axis. Axillae: There is no axillary lymphadenopathy. Upper abdomen: There is a large hiatal hernia, with the majority of the stomach located in the thorac ic cavity. Partially visualized upper abdominal viscera is otherwise grossly unremarkable. Skeletal structures: The skeletal structures are osteopenic. Arthritic change is seen in the shoulder s. Degenerative change and hyperkyphosis are noted in the thoracic spine. No lytic or blastic bony le sions are seen. IMPRESSION: 1. Streak and motion compromised examination. 2. There is no evidence of pulmonary embolus in the main, lobar, or segmental pulmonary arteries. 3. There is dense airspace consolidation throughout the left lung as detailed above with a trace left pleural effusion. This is new from the 06/17/2018 chest x-ray and typical in appearance for multifoca l pneumonia. Clinical correlation will be required and radiographic follow-up to resolution is recomm ended. 4. The right lung appears clear. 5. Large hiatal hernia. 6. Mildly enlarged mediastinal and left hilar lymph nodes are likely on a reactive basis. 7. Cardiomegaly. Electronically signed by: Bishnu Chawla M.D. 11/25/2018 1:45 PM
[2018-11-25] MEDS ORDERED: ALBUT/IPRATROP 3MG/0.5MG NEB 3 ML VIAL NEB STA (13:58)
[2018-11-25] MEDS ORDERED: cefTRIAXone SODIUM 1,000 MG/50 ML BAG IV STA (13:58)
[2018-11-25] MEDS ORDERED: AZITHROMYCIN 250 MG TAB PO ONE (13:58)
[2018-11-25] MEDS ORDERED: ACETAMINOPHEN 325 MG TAB PO STA (14:01)
[2018-11-25] MEDS: fentaNYL citrate 100 MCG/2 ML VIAL IV ONE ×2 (14:06→14:16)
--- NOTE | 2018-11-25 14:45 | History & Physical Report ---
Date of Service November 25, 2018 Assessment & Plan (1) Focal pneumonia: 88 y/o F Hx PMR, HTN, chronic LE cellulitis, chronic UTIs, steroid-induce myopathy. Presents from an assisted living facility with R subcostal pain, cough and fever. The pt was hypoxic on arrival to the ER. A CTA demonstrated L multifocal pneumonia. Labs were notable for mild MONET. Of note, the pt has been complaining of indigestion/reflux and upper abdominal pain. This is being worked up by her primary MD and there were no acute findings on a CT abdomen. The nurse did mention that she was having a hard time swallowing her meds. A large hiatal hernia was an incidental finding on CT chest so that aspiration should be considered. 1) PNM with mild hypoxia, weakness, fevers - placed on Cef/Zithro by ER. I would likely have preferred Levaquin/Flagyl considering aspiration risk. The coverage should then be expanded if there is no short-term improvement. 02 protocol and nebs PRN provided. Swallow eval requested. PT/OT due to weakness. 2) PMR is not currently treated - this may be due to her steroid myopathy and can be followed in the outpt setting 3) Recurrent C - diff - cont daily vanc 4) Mild MONET - IVF provided - diuretics held - trend BMP AM 5) HTN - cont metoprolol, amlodipine 6) Large hiatal hernia - as mentioned, a swallow eval is scheduled. As this may have been an incidental finding, it may be worth assessing as the cause of her reflux and abdominal discomfort. This can be followed in the outpt setting. Full code - Heparin prophylaxis Total time for this admit including review of labs, meds, imaging, records - discussion with pt, family and ER attending - 38 min History of Present Illness Chief Complaint: Cough, fever Primary Care Provider: Rebeca Landon MD 88 y/o F Hx PMR, HTN, chronic LE cellulitis, chronic UTIs, steroid-induce myopathy. Presents from an assisted living facility with R subcostal pain, cough and fever. The pt was hypoxic on arrival to the ER. A CTA demonstrated L multifocal pneumonia. Labs were notable for mild MONET. Of note, the pt has been complaining of indigestion/reflux and upper abdominal pain. This is being worked up by her primary MD and there were no acute findings on a CT abdomen. The nurse did mention that she was having a hard time swallowing her meds. A large hiatal hernia was an incidental finding on CT chest so that aspiration should be considered. PMH: 1) Polymyalgia rheumatica 2) Steroid-induced myopathy 3) HTN 4) Large hiatal hernia 5) Chronic UTIs - previously on suppression therapy 6) Chronic LE cellulitis and venous, stasis ulcers 7) Previous trop elevation during an episode of PNM - echo was normal 07/2017 8) Mild dementia 9) Extended bout of C-diff - she takes 125mg PO vanc as prophylaxis as it was apparently recurrent Surgical: 1) BL arthroscopic knee surgery 2) Uterine prolapse 3) Tubal ligation Social: Assisted living. No smoking or drinking Family: Mother with history of CAD Allergies Allergy/AdvReac Type Severity Reaction Status Date / Time Bactrim Allergy Intermediate HIVES Verified 08/12/17 17:09 Penicillins Allergy Intermediate HIVES Verified 11/25/18 15:27 sulfamethoxazole Allergy Intermediate HIVES Verified 11/25/18 15:27 tetanus toxoid, adsorbed Allergy Intermediate RASH Verified 11/25/18 15:27 trimethoprim Allergy Intermediate HIVES Verified 11/25/18 15:27 latex Allergy Mild RASH Verified 11/25/18 15:27 codeine AdvReac Intermediate HEADACHES Verified 11/25/18 15:27 morphine AdvReac Mild SEVERE Verified 11/25/18 15:27 HEADACHES Home Medications Home Medications Medication Instructions Recorded Confirmed Type aspirin 81 mg tablet,delayed 81 mg PO DAILY #30 tab 11/03/18 11/25/18 Rx release biotin 1 mg capsule 1 mg PO DAILY #30 cap 11/03/18 11/25/18 Rx darifenacin ER 7.5 mg 7.5 mg PO DAILY #30 tab 11/03/18 11/25/18 Rx tablet,extended release 24 hr diclofenac 1 % topical gel See Rx Instructions TOP QID #100 gm 11/03/18 11/25/18 Rx docusate sodium 100 mg capsule 100 mg PO BID PRN #60 cap 11/03/18 11/25/18 Rx hydrocortisone 2.5 % topical cream 1 appln W[place] BID PRN #30 gm 11/03/18 11/25/18 Rx with perineal applicator inhalational spacing device #1 ea 11/03/18 11/25/18 Rx loratadine 10 mg tablet 10 mg PO DAILY #30 tab 11/03/18 11/25/18 Rx multivitamin capsule 1 cap PO DAILY #30 cap 11/03/18 11/25/18 Rx ondansetron 4 mg disintegrating 4 mg PO Q4H tab 11/03/18 11/25/18 History tablet phenylephrine 0.25 %-mineral oil 1 appln W[place] BID #28 gm 11/03/18 11/25/18 Rx 14 %-petrolatm 74.9 % rectal ointment ranitidine 75 mg tablet 75 mg PO Q12H #30 tab 11/03/18 11/25/18 Rx sennosides 8.6 mg tablet 8.6 mg PO DAILY #30 tab 11/03/18 11/25/18 Rx tiotropium bromide 1.25 2 puffs INH DAILY #4 gm 11/03/18 11/25/18 Rx mcg/actuation mist for inhalation calcium carbonate-vitamin D3 600 1 tab PO DAILY 11/18/18 11/25/18 History mg (1,500 mg)-800 unit tablet metoprolol succinate ER 25 mg 25 mg PO DAILY #30 tab 11/18/18 11/25/18 History tablet,extended release 24 hr metoprolol succinate ER 50 mg 50 mg PO DAILY tab 11/18/18 11/25/18 History tablet,extended release 24 hr acetaminophen 650 mg PO Q4 PRN 11/25/18 11/25/18 History acetaminophen [Pain Relief Extra 1,000 mg PO BID PRN 11/25/18 11/25/18 History Strength] albuterol sulfate [Ventolin HFA] 1 - 2 puff INH QID PRN 11/25/18 11/25/18 History amlodipine 5 mg PO QAM 11/25/18 11/25/18 History ascorbic acid (vitamin C) [Vitamin 500 mg PO DAILY 11/25/18 11/25/18 History C] emollient combination no.73 1 applic TOP DAILY PRN 11/25/18 11/25/18 History [Eucerin Intensive Repair Cream] fluticasone furoate-vilanterol 1 inh INH DAILY 11/25/18 11/25/18 History [Breo Ellipta] hydroxyzine HCl 25 mg PO QID PRN 11/25/18 11/25/18 History omeprazole 20 mg PO DAILYBB 11/25/18 11/25/18 History phenazopyridine [Pyridium] 200 mg PO TIDM 11/25/18 11/25/18 History psyllium seed (sugar) [Reguloid] 1 tbs PO DAILY PRN 11/25/18 11/25/18 History triamcinolone acetonide [Triderm] 1 appln TOP BID 11/25/18 11/25/18 History triamterene-hydrochlorothiazid 1 cap PO Q2D 11/25/18 11/25/18 History vancomycin 125 mg PO DAILY 11/25/18 11/25/18 History Past Med/Surg History Medical History Chronic venous insufficiency (Chronic) Venous stasis ulcer of right lower leg with edema of right lower leg (Acute) S/P tubal ligation (Chronic) Steroid-induced myopathy (Chronic Unknown) Polymyalgia rheumatica (Chronic Unknown) Severe sepsis (Resolved 01/02/14) ARF (acute renal failure) (Acute) Sepsis (Acute) Cellulitis of right leg (Resolved) Cellulitis of lower leg (Resolved) Renal insufficiency (Acute) Confusion (Acute) Cellulitis of right leg (Acute) Confusion (Acute) PIC line (peripherally inserted central catheter) removal (Resolved) PIC line (peripherally inserted central catheter) removal (Acute) Cellulitis Fracture of left clavicle (Acute) Head injury Contusion of left hip Contusion of left leg Failure of outpatient treatment Cellulitis (09/18/13) Bilateral leg edema (Acute) Bilateral cellulitis of lower leg (Resolved) Ambulatory dysfunction Physical deconditioning (Chronic) Left knee pain Right thigh pain UTI (urinary tract infection) (Resolved) Acute right hip pain (Acute) Trochanteric bursitis of right hip (Acute) Left knee DJD Right knee DJD Fever Acute respiratory failure with hypoxia Bronchitis Fall (Acute) Hypertensive emergency Major depressive disorder, recurrent, moderate (Chronic) NSTEMI (non-ST elevated myocardial infarction) Traumatic hematoma of right forearm (Acute) Unspecified psychosis (Acute) Acute respiratory failure (Chronic) Ambulatory dysfunction (Chronic) Benign essential HTN (Chronic) Bilateral cellulitis of lower leg (Chronic) Contusion of left hip (Chronic) Degenerative joint disease of knee (Chronic) Fever (Chronic) Head injury (Chronic) Hypoxia (Chronic) Knee pain, right (Chronic) Left knee pain (Chronic) Major depressive disorder (Chronic) NSTEMI (non-ST elevated myocardial infarction) (Chronic) PIC line (peripherally inserted central catheter) removal (Chronic) Physical deconditioning (Chronic) Polymyalgia rheumatica (Chronic) Right knee DJD (Chronic) Right thigh pain (Chronic) Severe sepsis (Chronic) Steroid-induced myopathy (Chronic) Surgical History Status post tubal ligation (Chronic) Status post arthroscopic knee surgery (Chronic) S/P arthroscopic knee surgery (Chronic) Social History Preferred Language: Ukrainian Communication Ability: Effective Visual Impairment: No Limitations Hearing Ability: Normal Cook Jelly Required: No Beliefs That Will Affect Care: None Current Living Situation: Personal Care Facility Current Living Situation Comment: [facility] Other Information That Helps Us Care for You: No Feels Safe at Home: Yes Safety Concerns: Feels Safe At This Time Smoking Status: Never smoker Do You Dip or Chew Tobacco: No Hx Alcohol Use: Yes Alcohol type: wine Review of Systems Review of Systems: Gen: Generalized weakness and fevers. ENT: Denies congestion, throat pain, hearing loss Eyes: Denies acute visual changes CV: Denies CP, palpitations Pulmonary: Describes a cough - did not c/o SOB despite hypoxia on arrival GI: Denies N/V, diarrhea, constipation Neuro: Denies acute or unilateral weakness, acute gait impairment, headache or acute visual changes Musculoskeletal: Denies any acute muscle or joint pain. Endocrine: Denies polydipsia, polyuria Skin: Denies acute rashes or ulcers Physical Exam Physical Exam: General: Pleasant elderly F, AAO x 2.5, no distress ENT: No erythema or exudates, no thrush Eyes: AYAN, EOMI Head and neck: Normocephalic, atraumatic, No JVD, neck is supple. Chest/heart: Nontender, S1,2, RRR, no murmurs, no gallops Lungs: Crackles at L base - effort is poor Abdomen: Nontender, nondistended, BS+ Neuro: Speech is clear, no unilateral weakness or loss of sensation, coordination intact Musculoskeletal: Scars on knees BL - minimal edema - no current ulcers on LE Skin: No acute rashes or ulcers Extremities: No clubbing, cyanosis Results & Data Vital Signs (Past 12 Hours) Vital Signs Temp Pulse Pulse Resp BP BP Pulse Ox 11/25/18 14:23 100 H 24 93 11/25/18 13:57 100.4 F H 11/25/18 13:54 95 H 39 H 167/104 H 11/25/18 12:30 92 11/25/18 12:28 91 H 26 H 141/55 H 88 L 11/25/18 11:24 92 H 27 H 141/62 H 93 11/25/18 10:27 99.0 F 107 H 22 161/72 H 96 Diagnostic Findings CTA: 1. Streak and motion compromised examination. 2. There is no evidence of pulmonary embolus in the main, lobar, or segmental pulmonary arteries. 3. There is dense airspace consolidation throughout the left lung as detailed above with a trace left pleural effusion. This is new from the 06/17/2018 chest x-ray and typical in appearance for multifocal pneumonia. Clinical correlation will be required and radiographic follow-up to resolution is recommended. 4. The right lung appears clear. 5. Large hiatal hernia. 6. Mildly enlarged mediastinal and left hilar lymph nodes are likely on a reactive basis. 7. Cardiomegaly. PG Care Time/CCT Total # of Minutes Spent Total Time Spent with Patient: Total time spent is greater than 50% in coordination of care (as documented) at patient's floor/unit and/or counseling patient:
--- NOTE | 2018-11-25 18:02 | Emergency Department Note ---
Entered by Mary Gary acting as a scribe for History of Present Illness General Chief complaint: Abdominal Pain Stated complaint: ABD PAIN,FEVER,VOMITING Time Seen by Provider: 11/25/18 10:58 Source: patient Mode of arrival: ambulatory Limitations: no limitations History of Present Illness Onset (ago): week(s) 2 Location: abdomen Radiation: back (The patient complains of abdominal pain that radiates from the front right to the front left abdomen behind her back. ) and abdomen (The patient complains of abdominal pain that radiates from the front right to the front left abdomen behind her back. ) Pain Consistency: + constant Maximum Pain Intensity: 10 Exacerbated By: + movement (The patient notes that the pain is exacerbated with exertion) Associated symptoms: + fever/chills (The patient complains of fever. ), + nausea/vomiting (The patient complains of vomiting. The patient denies nausea. ) and + other (The patient denies leg swelling.) The patient is an 88 white female w/ PMHx polymyalgia rheumatic, acid reflux di sease, acute UTI, anxiety, depression, aortic valve sclerosis, asthma, c. difficile colitis, carotid artery stenosis, chronic bronchitis, chronic reflux esophagitis, midline cystocele, detrusor instability, dyslipidemia, Ekboms delusional parasitosis, essential hypertension, external hemorrhoids, finger deformity, acquired kyphosis, moderate tricuspid regurgitation, myalgia and myositis, ARF, tubal ligation, sepsis, and NSTEMI who presents to the ED w/ CC of constant abdominal pain beginning 2 weeks ago. The patient presents with her family. She states that the patient presents from her PCP. Per family, the patient was diagnosed with gallstones. The patient complains of abdominal pain that radiates from the front right to the front left abdomen from around her back. She complains of fever and vomiting. The patient denies nausea and leg swelling. The patient notes that the pain is exacerbated with exertion. She states that her last bowel movement was this morning and it was loose. She denies recent changes in diet, travel, and antibiotic use. Per family, the patient lives at [facility], where someone is always sick. Home Medications Home Medications Medication Instructions Recorded Confirmed Type aspirin 81 mg tablet,delayed 81 mg PO DAILY #30 tab 11/03/18 11/25/18 Rx release biotin 1 mg capsule 1 mg PO DAILY #30 cap 11/03/18 11/25/18 Rx darifenacin ER 7.5 mg 7.5 mg PO DAILY #30 tab 11/03/18 11/25/18 Rx tablet,extended release 24 hr diclofenac 1 % topical gel See Rx Instructions TOP QID #100 gm 11/03/18 11/25/18 Rx docusate sodium 100 mg capsule 100 mg PO BID PRN #60 cap 11/03/18 11/25/18 Rx hydrocortisone 2.5 % topical cream 1 appln VA BID PRN #30 gm 11/03/18 11/25/18 Rx with perineal applicator inhalational spacing device #1 ea 11/03/18 11/25/18 Rx loratadine 10 mg tablet 10 mg PO DAILY #30 tab 11/03/18 11/25/18 Rx multivitamin capsule 1 cap PO DAILY #30 cap 11/03/18 11/25/18 Rx ondansetron 4 mg disintegrating 4 mg PO Q4H tab 11/03/18 11/25/18 History tablet phenylephrine 0.25 %-mineral oil 1 appln VA BID #28 gm 11/03/18 11/25/18 Rx 14 %-petrolatm 74.9 % rectal ointment ranitidine 75 mg tablet 75 mg PO Q12H #30 tab 11/03/18 11/25/18 Rx sennosides 8.6 mg tablet 8.6 mg PO DAILY #30 tab 11/03/18 11/25/18 Rx tiotropium bromide 1.25 2 puffs INH DAILY #4 gm 11/03/18 11/25/18 Rx mcg/actuation mist for inhalation calcium carbonate-vitamin D3 600 1 tab PO DAILY 11/18/18 11/25/18 History mg (1,500 mg)-800 unit tablet metoprolol succinate ER 25 mg 25 mg PO DAILY #30 tab 11/18/18 11/25/18 History tablet,extended release 24 hr metoprolol succinate ER 50 mg 50 mg PO DAILY tab 11/18/18 11/25/18 History tablet,extended release 24 hr acetaminophen 650 mg PO Q4 PRN 11/25/18 11/25/18 History acetaminophen [Pain Relief Extra 1,000 mg PO BID PRN 11/25/18 11/25/18 History Strength] albuterol sulfate [Ventolin HFA] 1 - 2 puff INH QID PRN 11/25/18 11/25/18 History amlodipine 5 mg PO QAM 11/25/18 11/25/18 History ascorbic acid (vitamin C) [Vitamin 500 mg PO DAILY 11/25/18 11/25/18 History C] emollient combination no.73 1 applic TOP DAILY PRN 11/25/18 11/25/18 History [Eucerin Intensive Repair Cream] fluticasone furoate-vilanterol 1 inh INH DAILY 11/25/18 11/25/18 History [Breo Ellipta] hydroxyzine HCl 25 mg PO QID PRN 11/25/18 11/25/18 History omeprazole 20 mg PO DAILYBB 11/25/18 11/25/18 History phenazopyridine [Pyridium] 200 mg PO TIDM 11/25/18 11/25/18 History psyllium seed (sugar) [Reguloid] 1 tbs PO DAILY PRN 11/25/18 11/25/18 History triamcinolone acetonide [Triderm] 1 appln TOP BID 11/25/18 11/25/18 History triamterene-hydrochlorothiazid 1 cap PO Q2D 11/25/18 11/25/18 History vancomycin 125 mg PO DAILY 11/25/18 11/25/18 History Allergies Allergy/AdvReac Type Severity Reaction Status Date / Time Bactrim Allergy Intermediate HIVES Verified 08/12/17 17:09 Penicillins Allergy Intermediate HIVES Verified 11/25/18 15:27 sulfamethoxazole Allergy Intermediate HIVES Verified 11/25/18 15:27 tetanus toxoid, adsorbed Allergy Intermediate RASH Verified 11/25/18 15:27 trimethoprim Allergy Intermediate HIVES Verified 11/25/18 15:27 latex Allergy Mild RASH Verified 11/25/18 15:27 codeine AdvReac Intermediate HEADACHES Verified 11/25/18 15:27 morphine AdvReac Mild SEVERE Verified 11/25/18 15:27 HEADACHES Past Med/Surg History Medical History Chronic venous insufficiency (Chronic) Venous stasis ulcer of right lower leg with edema of right lower leg (Acute) S/P tubal ligation (Chronic) Steroid-induced myopathy (Chronic Unknown) Polymyalgia rheumatica (Chronic Unknown) Severe sepsis (Resolved 01/02/14) ARF (acute renal failure) (Acute) Sepsis (Acute) Cellulitis of right leg (Resolved) Cellulitis of lower leg (Resolved) Renal insufficiency (Acute) Confusion (Acute) Cellulitis of right leg (Acute) Confusion (Acute) PIC line (peripherally inserted central catheter) removal (Resolved) PIC line (peripherally inserted central catheter) removal (Acute) Cellulitis Fracture of left clavicle (Acute) Head injury Contusion of left hip Contusion of left leg Failure of outpatient treatment Cellulitis (09/18/13) Bilateral leg edema (Acute) Bilateral cellulitis of lower leg (Resolved) Ambulatory dysfunction Physical deconditioning (Chronic) Left knee pain Right thigh pain UTI (urinary tract infection) (Resolved) Acute right hip pain (Acute) Trochanteric bursitis of right hip (Acute) Left knee DJD Right knee DJD Fever Acute respiratory failure with hypoxia Bronchitis Fall (Acute) Hypertensive emergency Major depressive disorder, recurrent, moderate (Chronic) NSTEMI (non-ST elevated myocardial infarction) Traumatic hematoma of right forearm (Acute) Unspecified psychosis (Acute) Acute respiratory failure (Chronic) Ambulatory dysfunction (Chronic) Benign essential HTN (Chronic) Bilateral cellulitis of lower leg (Chronic) Contusion of left hip (Chronic) Degenerative joint disease of knee (Chronic) Fever (Chronic) Head injury (Chronic) Hypoxia (Chronic) Knee pain, right (Chronic) Left knee pain (Chronic) Major depressive disorder (Chronic) NSTEMI (non-ST elevated myocardial infarction) (Chronic) PIC line (peripherally inserted central catheter) removal (Chronic) Physical deconditioning (Chronic) Polymyalgia rheumatica (Chronic) Right knee DJD (Chronic) Right thigh pain (Chronic) Severe sepsis (Chronic) Steroid-induced myopathy (Chronic) Surgical History Status post tubal ligation (Chronic) Status post arthroscopic knee surgery (Chronic) S/P arthroscopic knee surgery (Chronic) Social History Preferred Language: Tajik Communication Ability: Effective Visual Impairment: No Limitations Hearing Ability: Normal Usability Specialist Required: No Beliefs That Will Affect Care: None Current Living Situation: Personal Care Facility Current Living Situation Comment: [facility] Other Information That Helps Us Care for You: No Feels Safe at Home: Yes Safety Concerns: Feels Safe At This Time Smoking Status: Never smoker Do You Dip or Chew Tobacco: No Hx Alcohol Use: Yes Alcohol type: wine Review of Systems See HPI for pertinent positives & negatives. and A total of 10 systems reviewed and were otherwise negative Physical Exam Vital Signs Vital Signs - 24 hr 11/25/18 10:27 11/25/18 11:20 11/25/18 11:23 Temperature 37.2 C Temperature Source Oral Sepsis Recent Fever Within 48 Hours Yes Sepsis Action Taken by Nursing No Action Required Pulse Rate 107 H 94 H 92 H Pulse Rate [Finger] Pulse Rate from SpO2 Sensor Respiratory Rate 22 22 26 H Respiratory Effort / Characteristics Non-Labored Spontaneous Respiratory Depth Normal Respiratory Pattern Blood Pressure 161/72 H 141/62 H Blood Pressure [Right Arm] Blood Pressure Mean 101 88 Blood Pressure Mean [Right Arm] Blood Pressure Position Sitting Pulse Oximetry 96 Oxygen Delivery Method Room Air Nasal Cannula Nasal Cannula Oxygen Flow Rate 3 3 11/25/18 11:24 11/25/18 11:42 11/25/18 11:43 Temperature Temperature Source Sepsis Recent Fever Within 48 Hours Sepsis Action Taken by Nursing Pulse Rate 94 H 93 H Pulse Rate [Finger] 92 H Pulse Rate from SpO2 Sensor Respiratory Rate 27 H 24 23 Respiratory Effort / Characteristics Respiratory Depth Respiratory Pattern Blood Pressure 147/62 H Blood Pressure [Right Arm] 141/62 H Blood Pressure Mean 90 Blood Pressure Mean [Right Arm] 88 Blood Pressure Position Pulse Oximetry 93 Oxygen Delivery Method Room Air Nasal Cannula Nasal Cannula Oxygen Flow Rate 3 3 11/25/18 11:50 11/25/18 12:00 11/25/18 12:01 Temperature Temperature Source Sepsis Recent Fever Within 48 Hours Sepsis Action Taken by Nursing Pulse Rate 91 H 89 87 Pulse Rate [Finger] Pulse Rate from SpO2 Sensor Respiratory Rate 26 H 26 H 25 H Respiratory Effort / Characteristics Respiratory Depth Respiratory Pattern Blood Pressure 141/55 H Blood Pressure [Right Arm] Blood Pressure Mean 83 Blood Pressure Mean [Right Arm] Blood Pressure Position Pulse Oximetry Oxygen Delivery Method Nasal Cannula Nasal Cannula Nasal Cannula Oxygen Flow Rate 3 3 3 11/25/18 12:10 11/25/18 12:20 11/25/18 12:28 Temperature Temperature Source Sepsis Recent Fever Within 48 Hours Sepsis Action Taken by Nursing Pulse Rate 90 83 Pulse Rate [Finger] 91 H Pulse Rate from SpO2 Sensor Respiratory Rate 25 H 24 26 H Respiratory Effort / Characteristics Respiratory Depth Respiratory Pattern Blood Pressure Blood Pressure [Right Arm] 141/55 H Blood Pressure Mean Blood Pressure Mean [Right Arm] 83 Blood Pressure Position Pulse Oximetry 88 L Oxygen Delivery Method Nasal Cannula Nasal Cannula Room Air Oxygen Flow Rate 3 3 11/25/18 12:30 11/25/18 12:31 11/25/18 12:40 Temperature Temperature Source Sepsis Recent Fever Within 48 Hours Sepsis Action Taken by Nursing Pulse Rate 90 89 88 Pulse Rate [Finger] Pulse Rate from SpO2 Sensor 90 90 87 Respiratory Rate 23 21 26 H Respiratory Effort / Characteristics Respiratory Depth Respiratory Pattern Blood Pressure 149/60 H Blood Pressure [Right Arm] Blood Pressure Mean 89 Blood Pressure Mean [Right Arm] Blood Pressure Position Pulse Oximetry 94 96 98 Oxygen Delivery Method Nasal Cannula Nasal Cannula Nasal Cannula Oxygen Flow Rate 3 3 3 11/25/18 12:50 11/25/18 13:00 11/25/18 13:01 Temperature Temperature Source Sepsis Recent Fever Within 48 Hours Sepsis Action Taken by Nursing Pulse Rate 88 88 88 Pulse Rate [Finger] Pulse Rate from SpO2 Sensor 89 88 88 Respiratory Rate 22 28 H 22 Respiratory Effort / Characteristics Respiratory Depth Respiratory Pattern Blood Pressure 154/60 H Blood Pressure [Right Arm] Blood Pressure Mean 91 Blood Pressure Mean [Right Arm] Blood Pressure Position Pulse Oximetry 98 98 98 Oxygen Delivery Method Nasal Cannula Nasal Cannula Nasal Cannula Oxygen Flow Rate 3 3 3 11/25/18 13:10 11/25/18 13:36 11/25/18 13:40 Temperature Temperature Source Sepsis Recent Fever Within 48 Hours Sepsis Action Taken by Nursing Pulse Rate 88 95 H 92 H Pulse Rate [Finger] Pulse Rate from SpO2 Sensor 87 Respiratory Rate 24 32 H 25 H Respiratory Effort / Characteristics Respiratory Depth Respiratory Pattern Blood Pressure Blood Pressure [Right Arm] Blood Pressure Mean Blood Pressure Mean [Right Arm] Blood Pressure Position Pulse Oximetry 97 Oxygen Delivery Method Nasal Cannula Nasal Cannula Nasal Cannula Oxygen Flow Rate 3 3 3 11/25/18 13:50 11/25/18 13:54 11/25/18 13:57 Temperature 38.0 C H Temperature Source Oral Sepsis Recent Fever Within 48 Hours Sepsis Action Taken by Nursing Pulse Rate 93 H 97 H Pulse Rate [Finger] 95 H Pulse Rate from SpO2 Sensor Respiratory Rate 29 H 26 H Respiratory Effort / Characteristics Respiratory Depth Respiratory Pattern Blood Pressure 167/104 H Blood Pressure [Right Arm] 167/104 H Blood Pressure Mean 125 Blood Pressure Mean [Right Arm] 125 Blood Pressure Position Pulse Oximetry Oxygen Delivery Method Nasal Cannula Nasal Cannula Oxygen Flow Rate 3 3 11/25/18 14:00 11/25/18 14:01 11/25/18 14:10 Temperature Temperature Source Sepsis Recent Fever Within 48 Hours Sepsis Action Taken by Nursing Pulse Rate 96 H 96 H 105 H Pulse Rate [Finger] Pulse Rate from SpO2 Sensor 96 H 93 H 102 H Respiratory Rate 27 H 27 H 21 Respiratory Effort / Characteristics Respiratory Depth Respiratory Pattern Blood Pressure 180/79 H Blood Pressure [Right Arm] Blood Pressure Mean 112 Blood Pressure Mean [Right Arm] Blood Pressure Position Pulse Oximetry 97 94 Oxygen Delivery Method Nasal Cannula Nasal Cannula Nasal Cannula Oxygen Flow Rate 3 3 3 11/25/18 14:20 11/25/18 14:23 11/25/18 14:30 Temperature Temperature Source Sepsis Recent Fever Within 48 Hours Sepsis Action Taken by Nursing Pulse Rate 102 H 98 H Pulse Rate [Finger] 100 H Pulse Rate from SpO2 Sensor 95 H Respiratory Rate 23 24 23 Respiratory Effort / Characteristics Spontaneous Short of Breath Respiratory Depth Respiratory Pattern Blood Pressure Blood Pressure [Right Arm] Blood Pressure Mean Blood Pressure Mean [Right Arm] Blood Pressure Position Pulse Oximetry 93 98 Oxygen Delivery Method Nasal Cannula Nasal Cannula Nasal Cannula Oxygen Flow Rate 3 2 3 11/25/18 14:40 11/25/18 14:50 11/25/18 15:00 Temperature Temperature Source Sepsis Recent Fever Within 48 Hours Sepsis Action Taken by Nursing Pulse Rate 103 H 101 H 99 H Pulse Rate [Finger] Pulse Rate from SpO2 Sensor 104 H 101 H 100 H Respiratory Rate 23 33 H 26 H Respiratory Effort / Characteristics Respiratory Depth Respiratory Pattern Blood Pressure 125/51 L Blood Pressure [Right Arm] Blood Pressure Mean 75 Blood Pressure Mean [Right Arm] Blood Pressure Position Pulse Oximetry 97 96 94 Oxygen Delivery Method Nasal Cannula Nasal Cannula Nasal Cannula Oxygen Flow Rate 3 3 3 11/25/18 15:01 11/25/18 15:10 11/25/18 15:20 Temperature Temperature Source Sepsis Recent Fever Within 48 Hours Sepsis Action Taken by Nursing Pulse Rate 99 H 100 H 97 H Pulse Rate [Finger] Pulse Rate from SpO2 Sensor 98 H 100 H 98 H Respiratory Rate 25 H 29 H 25 H Respiratory Effort / Characteristics Respiratory Depth Respiratory Pattern Blood Pressure Blood Pressure [Right Arm] Blood Pressure Mean Blood Pressure Mean [Right Arm] Blood Pressure Position Pulse Oximetry 95 95 95 Oxygen Delivery Method Nasal Cannula Nasal Cannula Nasal Cannula Oxygen Flow Rate 3 3 3 11/25/18 15:30 11/25/18 15:31 11/25/18 15:40 Temperature Temperature Source Sepsis Recent Fever Within 48 Hours Sepsis Action Taken by Nursing Pulse Rate 97 H 98 H 99 H Pulse Rate [Finger] Pulse Rate from SpO2 Sensor 98 H 97 H 100 H Respiratory Rate 29 H 32 H 20 Respiratory Effort / Characteristics Respiratory Depth Respiratory Pattern Blood Pressure 114/51 L Blood Pressure [Right Arm] Blood Pressure Mean 72 Blood Pressure Mean [Right Arm] Blood Pressure Position Pulse Oximetry 95 94 94 Oxygen Delivery Method Nasal Cannula Nasal Cannula Nasal Cannula Oxygen Flow Rate 3 3 3 11/25/18 15:50 11/25/18 16:00 11/25/18 16:01 Temperature Temperature Source Sepsis Recent Fever Within 48 Hours Sepsis Action Taken by Nursing Pulse Rate 96 H 94 H 94 H Pulse Rate [Finger] Pulse Rate from SpO2 Sensor 99 H 93 H 93 H Respiratory Rate 26 H 22 27 H Respiratory Effort / Characteristics Respiratory Depth Respiratory Pattern Blood Pressure 115/47 L Blood Pressure [Right Arm] Blood Pressure Mean 69 Blood Pressure Mean [Right Arm] Blood Pressure Position Pulse Oximetry 94 94 95 Oxygen Delivery Method Nasal Cannula Nasal Cannula Nasal Cannula Oxygen Flow Rate 3 3 3 11/25/18 16:07 11/25/18 16:10 11/25/18 16:17 Temperature 38 C H Temperature Source Oral Sepsis Recent Fever Within 48 Hours Sepsis Action Taken by Nursing Pulse Rate 92 H Pulse Rate [Finger] Pulse Rate from SpO2 Sensor 91 H Respiratory Rate 30 H Respiratory Effort / Characteristics Non-Labored Spontaneous Respiratory Depth Normal Respiratory Pattern Regular Blood Pressure Blood Pressure [Right Arm] Blood Pressure Mean Blood Pressure Mean [Right Arm] Blood Pressure Position Pulse Oximetry 94 Oxygen Delivery Method Nasal Cannula Nasal Cannula Oxygen Flow Rate 3 3 11/25/18 16:20 11/25/18 16:30 11/25/18 16:31 Temperature Temperature Source Sepsis Recent Fever Within 48 Hours Sepsis Action Taken by Nursing Pulse Rate 90 90 91 H Pulse Rate [Finger] Pulse Rate from SpO2 Sensor 89 90 91 H Respiratory Rate 25 H 26 H 26 H Respiratory Effort / Characteristics Respiratory Depth Respiratory Pattern Blood Pressure 108/58 L Blood Pressure [Right Arm] Blood Pressure Mean 74 Blood Pressure Mean [Right Arm] Blood Pressure Position Pulse Oximetry 95 96 95 Oxygen Delivery Method Nasal Cannula Nasal Cannula Nasal Cannula Oxygen Flow Rate 3 3 3 11/25/18 16:40 11/25/18 17:18 11/25/18 17:51 Temperature Temperature Source Sepsis Recent Fever Within 48 Hours Sepsis Action Taken by Nursing Pulse Rate 92 H Pulse Rate [Finger] 88 Pulse Rate from SpO2 Sensor 89 Respiratory Rate 24 24 24 Respiratory Effort / Characteristics Respiratory Depth Respiratory Pattern Blood Pressure Blood Pressure [Right Arm] 118/50 L Blood Pressure Mean Blood Pressure Mean [Right Arm] 72 Blood Pressure Position Pulse Oximetry 96 95 95 Oxygen Delivery Method Nasal Cannula Nasal Cannula Room Air Oxygen Flow Rate 3 3 GENERAL: Well appearing, well nourished, NAD, non-toxic. EYE EXAM: Normal conjunctiva. PERRL, no anisocoria and EOM's grossly intact w/o pain. OROPHARYNX: Moist mucus membranes. Grossly normal dentition. NECK: Supple, no nuchal rigidity, no adenopathy, non-tender. no signs of meningismus. LUNGS: Clear to auscultation. Normal chest wall mechanics. HEART: NSR, no MRG. ABDOMEN: Abdomen soft, upper abdominal discomfort, not peritonitic, normo-active bowel sounds, no masses, no rebound or guarding. BACK: No CVA TTP. SKIN: No rashes and no bruising. UPPER EXTREMITIES: Upper extremities are grossly normal. LOWER EXTREMITIES: No pitting edema. No calf pain. NEURO EXAM: A&O x3, cranial nerves II-XII grossly intact, normal speech, moves all 4 extremities on command w/o issue. Course 1111: Past medical records reviewed. The patient was evaluated in room C7. A complete history and physical examination was performed. 1321: I have re-evaluated the patient. 1423: I reviewed the patient's case with [facility]. He will evaluate the patient for further management. Consultations Consultation #1: 1423: I reviewed the patient's case with [facility]. He will evaluate the patient for further management. Time: 14:23 Administered Medications Ioversol (Optiray 320 100ml) 93 ml IV ONCE PRN PRN Reason: Interaction Checking Stop: 11/29/18 11:40 Last Admin: 11/25/18 11:42 Dose: 93 ml Documented by: [id number] Ioversol (Optiray 320 125ml) 120 ml IV ONCE PRN PRN Reason: Interaction Checking Stop: 11/29/18 13:28 Last Admin: 11/25/18 13:30 Dose: 120 ml Documented by: [id number] Discontinued Medications Acetaminophen (Tylenol) 650 mg PO NOW STA Stop: 11/25/18 14:02 Last Admin: 11/25/18 14:10 Dose: 650 mg Documented by: [id number] Albuterol (Duoneb) 6 ml NEB NOW STA Stop: 11/25/18 13:59 Last Admin: 11/25/18 14:23 Dose: 6 ml Documented by: [id number] Azithromycin (Zithromax) 500 mg PO NOW ONE Stop: 11/25/18 13:59 Last Admin: 11/25/18 14:41 Dose: 500 mg Documented by: [id number] Fentanyl Citrate (Fentanyl Citrate) 25 mcg IV NOW ONE Stop: 11/25/18 12:19 Last Admin: 11/25/18 14:16 Dose: 25 mcg Documented by: [id number] Sodium Chloride (Nss 1000ml) 1,000 mls @ 999 mls/hr IV .Q1H1M ONE Stop: 11/25/18 13:18 Last Infusion: 11/25/18 13:37 Dose: 0 mls/hr Documented by: [id number] Admin: 11/25/18 12:27 Dose: 999 mls/hr Documented by: [id number] Ceftriaxone Sodium (Rocephin) 1,000 mg in 50 mls @ 100 mls/hr IV NOW STA Stop: 11/25/18 14:27 Last Infusion: 11/25/18 15:13 Dose: 0 mls/hr Documented by: [id number] Admin: 11/25/18 14:41 Dose: 100 mls/hr Documented by: [id number] Morphine Sulfate (Morphine Sulfate) 4 mg IV NOW STA Stop: 11/25/18 11:54 Last Admin: 11/25/18 12:25 Dose: Not Given Documented by: [id number] Ondansetron HCl (Zofran) 4 mg IV NOW STA Stop: 11/25/18 11:54 Last Admin: 11/25/18 12:25 Dose: 4 mg Documented by: [id number] Medical Decision Making Differential Diagnosis Differential diagnoses: Appendicitis, diverticulitis, PUD, biliary pathology, UTI, pancreatitis, obstruction, mesenteric ischemia, aortic pathology, infections, inflammatory bowel disease, renal colic, as well as others were entertained. Medical Records Attestation: I reviewed the patient's medical records. Home Medications Current Medication List: was personally reviewed by me Laboratory Data Attestation: I reviewed the patient's lab results. Result diagrams: 11/25/18 11:05 11/25/18 11:05 Lab Results 11/25/18 11/25/18 11/25/18 Range/Units 11:05 11:05 11:05 WBC 13.01 H (4.8-10.8) K/uL RBC 3.74 L (4.2-5.4) M/uL Hgb 11.4 L (12.0-16.0) g/dL POC Hgb (12.0-16.0) g/dl Hct 33.9 L (37-47) % POC Hct (37-47) % MCV 90.6 (80-100) fL MCH 30.5 (25-34) pg MCHC 33.6 (32-36) g/dL RDW Std Deviation 47.4 H (36.4-46.3) fL RDW Coeff of Luis Eduardo 14.3 (11.5-14.5) % Plt Count 137 (130-400) K/uL MPV 9.7 (7.4-10.4) fL Immature Gran % (Auto) 0.8 % Neut % (Auto) 81.5 % Lymph % (Auto) 2.9 % Jay % (Auto) 14.7 % Eos % (Auto) 0.0 % Baso % (Auto) 0.1 % Immature Gran # (Auto) 0.10 H (0.00-0.02) K/uL Neut # (Auto) 10.61 H (1.4-6.5) K/uL Lymph # (Auto) 0.38 L (1.2-3.4) K/uL Jay # (Auto) 1.91 H (0.11-0.59) K/uL Eos # (Auto) 0.00 (0-0.5) K/uL Baso # (Auto) 0.01 (0-0.2) K/uL PT 11.3 (9.0-12.0) Seconds INR 1.1 (0.9-1.1) POC Sodium (135-144) mEq/L Sodium 136 (136-145) mmol/L POC Potassium (3.3-5.0) mEq/L Potassium 3.7 (3.5-5.1) mmol/L POC Chloride (101-112) mEq/L Chloride 101 (98-107) mmol/L Carbon Dioxide 28 (21-32) mmol/L POC Total CO2 (24-31) mEq/l Anion Gap 7.0 (3-11) POC Anion Gap (16-25) mmol/L POC BUN (7-18) mg/dl BUN 26 H (7-18) mg/dl Creatinine 1.48 H (0.6-1.2) mg/dl POC Creatinine (0.6-1.3) mg/dl Est Cr Clr Drug Dosing Not Reportable Est GFR ( Amer) 36.5 Est GFR (Non-Af Amer) 31.5 BUN/Creatinine Ratio 17.6 (10-20) Glucose 160 H (70-99) mg/dl POC Glucose (other) (70-99) mg/dl Calcium 9.3 (8.5-10.1) mg/dl POC Ioniz Calcium Rocky (1.12-1.32) mmol/l Total Bilirubin 0.6 (0.2-1) mg/dl AST 25 (15-37) U/L ALT 25 (12-78) U/L Alkaline Phosphatase 91 (45-117) U/L Troponin I (0-0.045) ng/ml Total Protein 8.1 (6.4-8.2) gm/dl Albumin 3.6 (3.4-5.0) gm/dl Globulin 4.5 H (2.5-4.0) gm/dl Albumin/Globulin Ratio 0.8 L (0.9-2) Lipase 103 (73-393) U/L Urine Color Urine Appearance (Clear) Urine pH (4.5-7.5) Ur Specific [place] (1.000-1.030) Urine Protein (Negative) Urine Glucose (UA) (Negative) Urine Ketones (Negative) Urine Blood (Negative) Urine Nitrite (Negative) Urine Bilirubin (Negative) Urine Urobilinogen (Negative) Ur Leukocyte Esterase (Negative) Urine WBC (Auto) (0-5) /hpf Urine RBC (Auto) (0-4) /hpf U Hyaline Cast (Auto) (0-5) /lpf U Epithel Cells (Auto) (0-5) /lpf Urine Bacteria (Auto) (Negative) 11/25/18 11/25/18 11/25/18 Range/Units 11:05 11:05 11:15 WBC (4.8-10.8) K/uL RBC (4.2-5.4) M/uL Hgb (12.0-16.0) g/dL POC Hgb 11.2 L (12.0-16.0) g/dl Hct (37-47) % POC Hct 33 L (37-47) % MCV (80-100) fL MCH (25-34) pg MCHC (32-36) g/dL RDW Std Deviation (36.4-46.3) fL RDW Coeff of Luis Eduardo (11.5-14.5) % Plt Count (130-400) K/uL MPV (7.4-10.4) fL Immature Gran % (Auto) % Neut % (Auto) % Lymph % (Auto) % Jay % (Auto) % Eos % (Auto) % Baso % (Auto) % Immature Gran # (Auto) (0.00-0.02) K/uL Neut # (Auto) (1.4-6.5) K/uL Lymph # (Auto) (1.2-3.4) K/uL Jay # (Auto) (0.11-0.59) K/uL Eos # (Auto) (0-0.5) K/uL Baso # (Auto) (0-0.2) K/uL PT (9.0-12.0) Seconds INR (0.9-1.1) POC Sodium 138 (135-144) mEq/L Sodium (136-145) mmol/L POC Potassium 3.7 (3.3-5.0) mEq/L Potassium (3.5-5.1) mmol/L POC Chloride 97 L (101-112) mEq/L Chloride (98-107) mmol/L Carbon Dioxide (21-32) mmol/L POC Total CO2 26 (24-31) mEq/l Anion Gap (3-11) POC Anion Gap 19.0 (16-25) mmol/L POC BUN 28 H (7-18) mg/dl BUN (7-18) mg/dl Creatinine (0.6-1.2) mg/dl POC Creatinine 1.4 H (0.6-1.3) mg/dl Est Cr Clr Drug Dosing Est GFR ( Amer) Est GFR (Non-Af Amer) BUN/Creatinine Ratio (10-20) Glucose (70-99) mg/dl POC Glucose (other) 170 H (70-99) mg/dl Calcium (8.5-10.1) mg/dl POC Ioniz Calcium Rocky 1.15 (1.12-1.32) mmol/l Total Bilirubin (0.2-1) mg/dl AST (15-37) U/L ALT (12-78) U/L Alkaline Phosphatase (45-117) U/L Troponin I 0.017 (0-0.045) ng/ml Total Protein (6.4-8.2) gm/dl Albumin (3.4-5.0) gm/dl Globulin (2.5-4.0) gm/dl Albumin/Globulin Ratio (0.9-2) Lipase (73-393) U/L Urine Color Yellow Urine Appearance Clear (Clear) Urine pH 6.5 (4.5-7.5) Ur Specific [place] 1.019 (1.000-1.030) Urine Protein 2+ H (Negative) Urine Glucose (UA) Negative (Negative) Urine Ketones Negative (Negative) Urine Blood Trace H (Negative) Urine Nitrite Negative (Negative) Urine Bilirubin Negative (Negative) Urine Urobilinogen Negative (Negative) Ur Leukocyte Esterase 2+ H (Negative) Urine WBC (Auto) >30 H (0-5) /hpf Urine RBC (Auto) 0-4 (0-4) /hpf U Hyaline Cast (Auto) 1-5 (0-5) /lpf U Epithel Cells (Auto) 5-10 H (0-5) /lpf Urine Bacteria (Auto) 2+ H (Negative) Imaging Data Radiologist's Impression: Radiology results as stated below per my review and the radiologist's interpretation: CT ANGIOGRAM OF THE CHEST CLINICAL HISTORY: Left lower lobe consolidation seen by CT. COMPARISON STUDY: Chest x-ray dated 06/17/2018. Chest CT dated 06/05/2012. Abdominal CT dated 11/25/2018. TECHNIQUE: Following the IV administration of 120 cc of Optiray 320, CT angiogram of the chest was performed from the upper abdomen to the thoracic inlet utilizing the pulmonary embolus protocol. Images are reviewed in the axial, sagittal, and coronal planes. 3-D MIPS images are created and assessed. IV contrast was administered without complication. A dose lowering technique was utilized adhering to the principles of ALARA. The examination is degraded by motion artifact, as well as by streak artifact from the arms which could not be elevated above the chest. CT DOSE: 476.37 mGycm FINDINGS: Thyroid: Imaged portions of the thyroid gland are normal in size and attenuation. Thoracic aorta: There is atherosclerotic calcification of the thoracic aorta, which is normal in caliber and demonstrates standard 3-vessel arch anatomy. No dissection is seen. Pulmonary vasculature: The pulmonary trunk is normal in caliber. There are no filling defects identified in main, lobar, or segmental pulmonary branches to suggest pulmonary embolus. Heart: The heart is mildly enlarged and without pericardial effusion. Lungs and pleural spaces: There is masslike consolidation identified in the left upper lobe. Dense consolidation is also seen in the left lower lobe and lingula. There is a trace left pleural effusion. No consolidation is seen in the right lung. A linear branching nodular density in the right lower lobe seen on image #95 measures up to 11 mm and is unchanged from 2013. This is of doubtful signifi cance. The trachea and central airways are clear. Mediastinum: There are mildly enlarged mediastinal lymph nodes which measure up to 12 mm in short axis. Beba: Prominent left hilar nodes measure up to 8 mm short axis. Axillae: There is no axillary lymphadenopathy. Upper abdomen: There is a large hiatal hernia, with the majority of the stomach located in the thoracic cavity. Partially visualized upper abdominal viscera is otherwise grossly unremarkable. Skeletal structures: The skeletal structures are osteopenic. Arthritic change is seen in the shoulders. Degenerative change and hyperkyphosis are noted in the thoracic spine. No lytic or blastic bony lesions are seen. IMPRESSION: 1. Streak and motion compromised examination. 2. There is no evidence of pulmonary embolus in the main, lobar, or segmental pulmonary arteries. 3. There is dense airspace consolidation throughout the left lung as detailed above with a trace left pleural effusion. This is new from the 06/17/2018 chest x-ray and typical in appearance for multifocal pneumonia. Clinical correlation will be required and radiographic follow-up to resolution is recommended. 4. The right lung appears clear. 5. Large hiatal hernia. 6. Mildly enlarged mediastinal and left hilar lymph nodes are likely on a reactive basis. 7. Cardiomegaly. Electronically signed by: Bishnu Chawla M.D. 11/25/2018 1:45 PM Dictated: 11/25/18 1337 Transcribed: 11/25/[address] abd pelvis IV con only CLINICAL HISTORY: Generalized abdominal pain COMPARISON STUDY: 06/02/2012 TECHNIQUE: The patient was scanned in a dynamic helical fashion during the intravenous administration of 93 cc of Optiray 320. A dose lowering technique was utilized adhering to the principles of ALARA. CT DOSE: 912.58 mGycm FINDINGS: Lower chest: There is a moderate to large hiatal hernia. There is a focal 5 cm pleural-based airspace opacity within the left lower lobe consistent with a pneumonia. There is trace left pleural fluid present. Liver: The contrast-enhanced liver is normal in size, contour, and attenuation. There is no intrahepatic biliary ductal dilatation. The hepatic veins and portal veins are patent. Gallbladder: Cholelithiasis Spleen: Normal in size and attenuation. Pancreas: There is borderline pancreatic ductal dilatation. No focal pancreatic masses are visualized. There is no specific common bile duct dilatation. Adrenal glands: Unremarkable. Kidneys: There is symmetric renal cortical enhancement. The kidneys are normal in size without hydronephrosis. Bowel: There are no transition zone to indicate bowel obstruction. There is moderate fecal retention. Clinical correlation and regards to constipation is recommended. There is colonic and ileal diverticulosis. There is no evidence of acute diverticulitis. There is no evidence of acute appendicitis.. Peritoneum: There is no intraperitoneal free air or abdominal ascites. Vasculature: The abdominal aorta is normal in course and caliber. Adenopathy: Inguinal lymph nodes are the upper limits of normal in size. Pelvic viscera: The bladder, and pelvic viscera are unremarkable. Skeletal structures: No destructive osseous lesions are seen. IMPRESSION: 1. No evidence of bowel structure. No evidence of free air 2. No evidence of acute appendicitis 3. Colonic and ileal diverticulosis. No evidence of acute diverticulitis 4. Cholelithiasis 5. Moderate hiatal hernia 6. Moderate fecal retention 7. 5 cm pleural-based opacity within the left lower lobe, consistent with pneumonia. A pulmonary infarct could appear similar. Clinical and radiographic follow-up is recommended. Electronically signed by: Alfie Buenrostro M.D. 11/25/2018 11:56 AM Dictated: 11/25/18 1148 Transcribed: 11/25/18 1148 ECG Data Attestation: I personally reviewed and interpreted this ECG as follows: Indication: abdominal pain Rate (beats per minute): 92 Rhythm: normal sinus Findings: + other (Normal intervals, normal axis) and + Q waves (Inferior) Comparison ECG Date: from (08/13/2017 ) Change: the following changes noted (Q wave is new) Blood Pressure Blood Pressure Findings: Elevated blood pressure Blood Pressure Disposition: further management by hospitalist ZEINAB Jerome The patient is an 88 white female w/ PMHx polymyalgia rheumatic, acid reflux disease, acute UTI, anxiety, depression, aortic valve sclerosis, asthma, c. difficile colitis, carotid artery stenosis, chronic bronchitis, chronic reflux esophagitis, midline cystocele, detrusor instability, dyslipidemia, Ekboms delusional parasitosis, essential hypertension, external hemorrhoids, finger deformity, acquired kyphosis, moderate tricuspid regurgitation, myalgia and myositis, ARF, tubal ligation, sepsis, and NSTEMI who presents to the ED w/ CC of constant abdominal pain beginning 2 weeks ago. Patient was seen and evaluated the bedside. The patient was referred from surgery clinic as the patient was having some abdominal pain. The patient did describe it is kind of a band across the upper which radiated to the opposite side of the left upper back. The patient does have mild diffuse upper abdominal discomfort. The patient did have blood work completed which did show a mild white count. The patient was also noted to have a possible consolidation in the left lower lobe which could also be consistent with a pulmonary infarct. Given this concern I did discuss the family which they were in agreement with this I explained that the treatment for pulmonary infarct would be different than just a pneumonia. Patient did develop fever. The patient was given antipyretics. The patient CT angios showed no evidence of infarct or PE although somewhat motion degraded. Patient was started on Rocephin and azithromycin. The patient was requiring some supplemental oxygen. The patient has been in pain then and was initially refusing medications. I did suggest that she take the pain medication as some of the hypoxia may be effort related given that she is somewhat splinting with shallower breaths. The patient was admitted to the medicine service. Impression & Plan Multifocal pneumonia, Respiratory failure with hypoxia, Sepsis Critical Care Time Critical Care Time: Yes (52) Total Critical Care Time: 52 I have personally spent 52 minutes of critical care time in the direct management of this patient. This includes bedside care, interpretation of diagnostic studies, and testing, discussion with consultants, patient, and family members, and other required patient management activities. This 52 minutes is in excess of all separately billable procedures. Discharge Plan Visit Data Chief Complaint: Abdominal Pain Stated Complaint: ABD PAIN,FEVER,VOMITING ED Provider: Gilbert Mendoza Discharge Problem: Multifocal pneumonia, Respiratory failure with hypoxia, Sepsis Patient Disposition: Being Evaluated by Hospitalist Discharge Instructions Interventions: ED Discharge Assessment Last Done: 11/25/18 17:51 Forms Stand Alone Forms: [facility] Prescriptions Prescriptions: No Action aspirin [Enteric Coated Aspirin] 81 mg tablet,delayed release (DR/EC) 81 mg PO DAILY Qty: 30 RF: 0 darifenacin 7.5 mg tablet extended release 24 hr 7.5 mg PO DAILY Qty: 30 RF: 0 hydrocortisone [Proctozone-HC] 2.5 % cream with perineal applicator 1 appln VA BID PRN (Reason: hemorrhoids) Qty: 30 RF: 0 loratadine [Claritin] 10 mg tablet 10 mg PO DAILY Qty: 30 RF: 0 multivitamin capsule 1 cap PO DAILY Qty: 30 RF: 0 sennosides [Senna Lax] 8.6 mg tablet 8.6 mg PO DAILY Qty: 30 RF: 0 biotin 1 mg capsule 1 mg PO DAILY Qty: 30 RF: 2 diclofenac sodium 1 % gel See Rx Instructions TOP QID Qty: 100 RF: 2 Preparation H 0.25-14-74.9 % ointment 1 appln VA BID Qty: 28 RF: 0 ranitidine HCl 75 mg tablet 75 mg PO Q12H Qty: 30 RF: 2 Spiriva Respimat 1.25 mcg/actuation mist 2 puffs INH DAILY Qty: 4 RF: 2 docusate sodium [Stool Softener] 100 mg capsule 100 mg PO BID PRN (Reason: constipation) Qty: 60 RF: 0 Vortex Holding Chamber spacer .ROUTE .MEDSUPPLY Qty: 1 RF: 0 ondansetron 4 mg tablet,disintegrating 4 mg PO Q4H RF: 0 metoprolol succinate 25 mg tablet extended release 24 hr 25 mg PO DAILY Qty: 30 RF: 0 metoprolol succinate 50 mg tablet extended release 24 hr 50 mg PO DAILY RF: 0 calcium carbonate-vitamin D3 [Caltrate with Vitamin D3] 600 mg(1,500mg) -800 unit tablet 1 tab PO DAILY RF: 0 acetaminophen 325 mg Capsule 650 mg PO Q4 PRN (Reason: FEVER/PAIN) RF: 0 phenazopyridine [Pyridium] 200 mg tablet 200 mg PO TIDM RF: 0 amlodipine 5 mg tablet 5 mg PO QAM RF: 0 acetaminophen [Pain Relief Extra Strength] 500 mg tablet 1,000 mg PO BID PRN (Reason: PAIN/FEVER) RF: 0 triamterene-hydrochlorothiazid 37.5-25 mg capsule 1 cap PO Q2D RF: 0 triamcinolone acetonide [Triderm] 0.1 % cream 1 appln TOP BID RF: 0 vancomycin 125 mg capsule 125 mg PO DAILY RF: 0 ascorbic acid (vitamin C) [Vitamin C] 500 mg tablet 500 mg PO DAILY RF: 0 omeprazole 20 mg capsule,delayed release(DR/EC) 20 mg PO DAILYBB RF: 0 hydroxyzine HCl 25 mg tablet 25 mg PO QID PRN (Reason: itching) RF: 0 albuterol sulfate [Ventolin HFA] 90 mcg/actuation HFA aerosol inhaler 1 - 2 puff INH QID PRN (Reason: shortness of breath or wheezing) RF: 0 Reguloid powder 1 tbs PO DAILY PRN (Reason: constipation) RF: 0 Eucerin Intensive Repair Cream cream 1 applic TOP DAILY PRN (Reason: Dry Skin) RF: 0 Breo Ellipta 100-25 mcg/dose blister with device 1 inh INH DAILY RF: 0 Referrals Referrals: Rebeca Landon MD [Primary Care Provider] - The scribe's documentation has been prepared under my direction and personally reviewed by me in its entirety. I confirm that the note above accurately reflects all work, treatment, procedures, and medical decision making performed by me.
[2018-11-25] MEDS ORDERED: DOCUSATE SODIUM 100 MG CAP PO PRN (18:26)
[2018-11-25] MEDS ORDERED: ALBUTEROL HFA 8 GM INHALER INH PRN (18:26)
[2018-11-25] MEDS: ACETAMINOPHEN 325 MG TAB PO PRN (19:21)
[2018-11-25] MEDS: NSS + 20MEQ KCL 20 MEQ/1,000 ML BAG IV SCH (20:16)
[2018-11-25] MEDS: DICLOFENAC SOD 1% GEL 100 GM TUBE EXT SCH (20:19)
[2018-11-25] MEDS: HEPARIN SOD 5,000 UNIT/0.5 ML VIAL SQ SCH (20:19)
[2018-11-25] MEDS: TIOTROPIUM BROMIDE 5 PUFF/90 MCG INH INH SCH (20:30)
[2018-11-25] MEDS: PANTOprazole 40 MG TAB PO SCH (20:30)
[2018-11-26] MEDS: ACETAMINOPHEN 325 MG TAB PO PRN (04:19)
[2018-11-26 06:03] LABS: Basophils # (auto) 0.01 K/uL (0-0.2); Basophils % (auto) 0.1 %; Hematocrit (blood only) 29.6 % (37-47); Hemoglobin 9.7 g/dL (12.0-16.0); Immature Granulocytes # (auto) 0.12 K/uL (0.00-0.02); Lymphocytes % (auto) 7.7 %; Mean Corpuscular Hgb Conc 32.8 g/dL (32-36); Mean Corpuscular Volume 90.8 fL (80-100); Mean Platelet Volume 9.9 fL (7.4-10.4); Monocytes # (auto) 1.65 K/uL (0.11-0.59); Monocytes % (auto) 14.1 %; Neutrophils # (auto) 9.01 K/uL (1.4-6.5); Neutrophils % (auto) 77.1 %; Platelet Count 113 K/uL (130-400); RDW Coefficient of Variation 14.8 % (11.5-14.5); RDW Standard Deviation 49.1 fL (36.4-46.3); Red Blood Count 3.26 M/uL (4.2-5.4); White Blood Count 11.69 K/uL (4.8-10.8)
[2018-11-26 06:41] LABS: BUN Creatinine Ratio 17.1 (10-20); Calcium 8.5 mg/dl (8.5-10.1); Creatinine Clr Calc Pharmacy 25.6 ml/min; Est GFR (African American) 43.5; Est GFR (Non-African American) 37.6; Magnesium 2.3 mg/dl (1.8-2.4); Potassium 4.1 mmol/L (3.5-5.1)
[2018-11-26] MEDS: NSS + 20MEQ KCL 20 MEQ/1,000 ML BAG IV SCH (06:41)
[2018-11-26] MEDS: PANTOprazole 40 MG TAB PO SCH (06:42)
--- NOTE | 2018-11-26 07:41 | Hospitalist Progress Note ---
Date of Service November 26, 2018 Assessment & Plan (1) Focal pneumonia: 88 y/o F Hx PMR, HTN, chronic LE cellulitis, chronic UTIs, steroid-induce myopathy. Presents from an assisted living facility with R subcostal pain, cough and fever. The pt was hypoxic on arrival to the ER. A CTA demonstrated L multifocal pneumonia. Labs were notable for mild MONET. Of note, the pt has been complaining of indigestion/reflux and upper abdominal pain. This is being worked up by her primary MD and there were no acute findings on a CT abdomen. The nurse did mention that she was having a hard time swallowing her meds. A large hiatal hernia was an incidental finding on CT chest so that aspiration should be considered. Pneumonia with mild hypoxia, weakness, fevers - placed on Cef/Zithro 02 protocol and nebs PRN provided. Swallow eval requested. PT/OT due to weakness. 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 As this may have been an incidental finding, it may be worth assessing as the cause of her reflux and abdominal discomfort. Full code - Heparin prophylaxis Subjective pt states she is with some left flank pain, does have left sided pneumonia, she has no other issues Review of Systems Review of Systems: ROS: well nourished well developed. No double vision blurry vision No problems with speech or swallowing No palpitations or pressure, c/o some left rib cage pain No Wheezing continues with non productive cough No abdominal pain nausea vomiting diarrhea No burning urine urine frequency or changes in color No focal joint pain or muscle pain No skin rashes or oral lesions No unusual bruising or bleeding No focused back pain or numbness or loss of strength seems to have some baseline changes in memory Physical Exam Physical Exam: The patient appeared well nourished and normally developed. Vital signs as documented. Head exam is unremarkable. normocephalic, atraumatic Neck is without jugular venous distension, thyromegaly, or lymphademopathy Lungs are decreased on the left , no egophony or increased tactile phremitus Cardiac exam reveals Rhythm is regular. Abdominal exam reveals normal bowel sounds, no masses, no organomegaly Extremities are nonedematous and both pedal pulses are present Neurologic exam is A&Ox2, no focal deficits, strength is equal bilateral Psychologically seems neither anxious or depressed Skin is warm Dry Results & Data Vital Signs (Past 12 Hours) Vital Signs Temp Pulse Resp BP Pulse Ox 11/26/18 07:13 37 C 70 16 116/58 L 97 11/25/18 23:19 37.2 C 73 16 114/64 96 11/25/18 20:25 38.2 C H CTA on admission 1. Streak and motion compromised examination. 2. There is no evidence of pulmonary embolus in the main, lobar, or segmental pulmonary arteries. 3. There is dense airspace consolidation throughout the left lung as detailed above with a trace left pleural effusion. This is new from the 06/17/2018 chest x-ray and typical in appearance for multifocal pneumonia. Clinical correlation will be required and radiographic follow-up to resolution is recommended. 4. The right lung appears clear. 5. Large hiatal hernia. 6. Mildly enlarged mediastinal and left hilar lymph nodes are likely on a reactive basis. 7. Cardiomegaly. PG Care Time/CCT Total # of Minutes Spent Total Time Spent with Patient: Total time spent is greater than 50% in coordin ation of care (as documented) at patient's floor/unit and/or counseling patient:
[2018-11-26] MEDS: TRIAMTERENE/HCTZ 37.5/25MG CAP PO SCH (08:09)
[2018-11-26] MEDS: RASPBERRY SYRUP 5 ML UDP PO SCH (08:09)
[2018-11-26] MEDS: ASPIRIN 81 MG ECTAB PO SCH (08:09)
[2018-11-26] MEDS: VANCOMYCIN HCL 125 MG/2.5ML SOLN PO SCH (08:09)
[2018-11-26] MEDS: ASCORBIC ACID 500 MG TAB PO SCH (08:09)
[2018-11-26] MEDS: LORATADINE 10 MG TAB PO SCH (08:09)
[2018-11-26] MEDS: TIOTROPIUM BROMIDE 5 PUFF/90 MCG INH INH SCH (08:09)
[2018-11-26] MEDS: SENNA 8.6 MG TAB PO SCH (08:09)
[2018-11-26] MEDS: METOPROLOL SUCC 50MG EXT REL TAB PO SCH (08:09)
[2018-11-26] MEDS: METOPROLOL SUCC 25MG EXT REL TAB PO SCH (08:09)
[2018-11-26] MEDS: AMLODIPINE BESYLATE 5 MG TAB PO SCH (08:09)
[2018-11-26] MEDS: HEPARIN SOD 5,000 UNIT/0.5 ML VIAL SQ SCH ×2 (08:10→20:34)
[2018-11-26] MEDS: DICLOFENAC SOD 1% GEL 100 GM TUBE EXT SCH ×2 (08:10→20:29)
[2018-11-26] MEDS ORDERED: cefTRIAXone SODIUM 1,000 MG in DEXTROSE 5% 50 ML IV SCH (13:00)
[2018-11-26] MEDS ORDERED: AZITHROMYCIN 500 MG in DEXTROSE 5% 250 ML IV SCH (14:00)
[2018-11-26] MEDS: ALBUTEROL 0.083% NEBU SOLN 3 ML VIAL NEB PRN (17:02)
[2018-11-27] MEDS: PANTOprazole 40 MG TAB PO SCH (05:55)
[2018-11-27] MEDS: ASPIRIN 81 MG ECTAB PO SCH (08:58)
[2018-11-27] MEDS: LORATADINE 10 MG TAB PO SCH (08:58)
[2018-11-27] MEDS: METOPROLOL SUCC 25MG EXT REL TAB PO SCH (08:59)
[2018-11-27] MEDS: SENNA 8.6 MG TAB PO SCH (08:59)
[2018-11-27] MEDS: AMLODIPINE BESYLATE 5 MG TAB PO SCH (08:59)
[2018-11-27] MEDS: ASCORBIC ACID 500 MG TAB PO SCH (09:00)
[2018-11-27] MEDS: METOPROLOL SUCC 50MG EXT REL TAB PO SCH (09:00)
[2018-11-27] MEDS: ACETAMINOPHEN 325 MG TAB PO PRN (09:01)
[2018-11-27] MEDS: HEPARIN SOD 5,000 UNIT/0.5 ML VIAL SQ SCH ×2 (09:07→20:29)
[2018-11-27] MEDS: TIOTROPIUM BROMIDE 5 PUFF/90 MCG INH INH SCH (09:11)
[2018-11-27] MEDS: DICLOFENAC SOD 1% GEL 100 GM TUBE EXT SCH ×2 (09:13→20:01)
[2018-11-27] MEDS: ALBUTEROL 0.083% NEBU SOLN 3 ML VIAL NEB PRN (09:20)
[2018-11-27] MEDS: VANCOMYCIN HCL 125 MG/2.5ML SOLN PO SCH (09:55)
[2018-11-27] MEDS: RASPBERRY SYRUP 5 ML UDP PO SCH (09:55)
[2018-11-27] MEDS: AZITHROMYCIN 250 MG TAB PO SCH (12:17)
[2018-11-27] MEDS: AMOXICILLIN 500 MG CAP PO SCH ×2 (13:46→20:00)
--- NOTE | 2018-11-27 17:21 | Hospitalist Progress Note ---
Date of Service November 27, 2018 Assessment & Plan (1) Focal pneumonia: 88 y/o F Hx PMR, HTN, chronic LE cellulitis, chronic UTIs, steroid-induce myopathy. Presents from an assisted living facility with R subcostal pain, cough and fever. The pt was hypoxic on arrival to the ER. A CTA demonstrated L multifocal pneumonia. Labs were notable for mild MONET. Of note, the pt has been complaining of indigestion/reflux and upper abdominal pain. This is being worked up by her primary MD and there were no acute findings on a CT abdomen. The nurse did mention that she was having a hard time swallowing her meds. A large hiatal hernia was an incidental finding on CT chest Pneumonia with mild hypoxia, weakness, fevers - placed on Cef/Zithro, de- escalate to p.o. azithromycin on 11/27 02 protocol and nebs PRN provided. PT/OT due to weakness. patient is with enterococcal UTI present on admission initially felt to be colonization but with fevers while on antibiotics for pneumonia we will broaden the coverage to include penicillin-based medicines to treat her enterococcus. 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 As this may have been an incidental finding, it may be worth assessing as the cause of her reflux and abdominal discomfort. Full code - Heparin prophylaxis Subjective this pt was seen in the company of her family , she continues to have some positional pain to her right side consistent with musculoskeletal component Review of Systems Review of Systems: ROS: well nourished well developed. Slightly kyphotic No double vision blurry vision No problems with speech or swallowing No palpitations, chest pain or pressure No Wheezing nonproductive cough Left-sided abdominal pain near where her ribs are, no nausea vomiting diarrhea No burning urine urine frequency or changes in color No focal joint pain or muscle pain No skin rashes or oral lesions No unusual bruising or bleeding No focused back pain or numbness or loss of strength No new changes in memory or confusion Physical Exam Physical Exam: The patient appeared well nourished and normally developed. Vital signs as documented. Head exam is unremarkable. normocephalic, atraumatic Neck is without jugular venous distension, thyromegaly, or lymphademopathy Lungs are clear to auscultation and percussion. There are no rubs reproducible pain is from palpation of the left rib cage inferior margin Cardiac exam reveals Rhythm is regular. First and second heart sounds normal. Abdominal exam reveals normal bowel sounds, no masses, no organomegaly she feels slightly full and does complain of feeling constipated with decreased frequency of bowel movements while in hospital Extremities are nonedematous and both pedal pulses are present Neurologic exam is A&Ox3, no focal deficits, strength is equal bilateral Psychologically seems neither anxious or depressed Skin is warm Dry without bruises or lesions Results & Data Vital Signs (Past 12 Hours) Vital Signs Temp Pulse Resp BP BP Pulse Ox 11/27/18 15:32 37.2 C 78 18 121/71 98 11/27/18 09:53 37.4 C 95 11/27/18 09:20 85 18 98 11/27/18 07:21 37.9 C H 86 16 131/66 97 PG Care Time/CCT Total # of Minutes Spent Total Time Spent with Patient: Total time spent is greater than 50% in coordination of care (as documented) at patient's floor/unit and/or counseling patient:
[2018-11-27] MEDS: POLYETHYLENE (MIRALAX) 17 GM PACK PO SCH (17:51)
[2018-11-27] MEDS ORDERED: LORazepam 0.5 MG TAB PO STA (18:49)
[2018-11-27] MEDS ORDERED: LORazepam 0.5 MG/1 ML VIAL IV PRN (19:01)
[2018-11-27] MEDS ORDERED: OLANZAPINE ZYDIS 5 MG ORALLY DIS. TAB PO ONE (19:02)
[2018-11-27] MEDS: LIDOCAINE 5% 1 PATCH TD SCH (19:57)
[2018-11-28] MEDS: ACETAMINOPHEN 325 MG TAB PO PRN ×2 (02:37→10:41)
[2018-11-28] MEDS: PANTOprazole 40 MG TAB PO SCH (06:33)
[2018-11-28] MEDS: AMOXICILLIN 500 MG CAP PO SCH ×2 (09:27→20:26)
[2018-11-28] MEDS: LORATADINE 10 MG TAB PO SCH (09:28)
[2018-11-28] MEDS: TRIAMTERENE/HCTZ 37.5/25MG CAP PO SCH (09:29)
[2018-11-28] MEDS: ASPIRIN 81 MG ECTAB PO SCH (09:29)
[2018-11-28] MEDS: [UNRECOGNIZED DRUG - OTHER] PO SCH (09:29)
[2018-11-28] MEDS: AMLODIPINE BESYLATE 5 MG TAB PO SCH (09:30)
[2018-11-28] MEDS: METOPROLOL SUCC 25MG EXT REL TAB PO SCH (09:31)
[2018-11-28] MEDS: SENNA 8.6 MG TAB PO SCH (09:31)
[2018-11-28] MEDS: METOPROLOL SUCC 50MG EXT REL TAB PO SCH (09:31)
[2018-11-28] MEDS: ASCORBIC ACID 500 MG TAB PO SCH (09:32)
[2018-11-28] MEDS: AZITHROMYCIN 250 MG TAB PO SCH (09:33)
[2018-11-28] MEDS: FLUTICASONE INH SCH (09:35)
[2018-11-28] MEDS: VILANTEROL INH SCH (09:35)
[2018-11-28] MEDS: VANCOMYCIN HCL 125 MG/2.5ML SOLN PO SCH (09:38)
[2018-11-28] MEDS: RASPBERRY SYRUP 5 ML UDP PO SCH (09:38)
[2018-11-28] MEDS: POLYETHYLENE (MIRALAX) 17 GM PACK PO SCH (09:38)
[2018-11-28] MEDS: TIOTROPIUM BROMIDE 5 PUFF/90 MCG INH INH SCH (09:43)
[2018-11-28] MEDS: DICLOFENAC SOD 1% GEL 100 GM TUBE EXT SCH ×2 (09:44→20:25)
[2018-11-28] MEDS: LIDOCAINE 5% 1 PATCH TD SCH (09:47)
[2018-11-28] MEDS ORDERED: SODIUM CHLORIDE 0.65% NA SOLN 45 ML (OCEAN) ONE (10:39)
[2018-11-28] MEDS: HEPARIN SOD 5,000 UNIT/0.5 ML VIAL SQ SCH ×2 (10:42→20:25)
[2018-11-28] MEDS ORDERED: TRIAMCINOLONE ACET 40 MG/ML VIAL IA ONE (12:22)
[2018-11-28] MEDS ORDERED: LIDOCAINE HCL 2% (LOCAL) INJ 50 ML VIAL INFIL ONE (12:28)
--- NOTE | 2018-11-28 12:31 | Hospitalist Progress Note ---
Date of Service November 28, 2018 Assessment & Plan (1) Focal pneumonia: 88 y/o F Hx PMR, HTN, chronic LE cellulitis, chronic UTIs, steroid-induce myopathy. Presents from an assisted living facility with R subcostal pain, cough and fever. The pt was hypoxic on arrival to the ER. A CTA demonstrated L multifocal pneumonia. Labs were notable for mild MONET. Of note, the pt has been complaining of indigestion/reflux and upper abdominal pain. This is being worked up by her primary MD and there were no acute findings on a CT abdomen. The nurse did mention that she was having a hard time swallowing her meds. A large hiatal hernia was an incidental finding on CT chest Pneumonia with mild hypoxia, weakness, fevers - placed on Cef/Zithro, de- escalate to p.o. azithromycin on 11/27 02 protocol and nebs PRN provided. PT/OT due to weakness. patient is with enterococcal UTI present on admission initially felt to be colonization but with fevers while on antibiotics for pneumonia we will broaden the coverage to include penicillin-based medicines to treat her enterococcus. PMR is not currently treated - this may be due to her steroid myopathy and can be followed in the outpt setting Left lateral hip pain is consistent with greater trochanteric bursitis after verbal consent and explanation of the procedure and he intrabursal injection was done with triamcinolone and 2% lidocaine on 11/28, patient tolerated the procedure well and patient had good results of the procedure with no complications Recurrent C - diff - cont daily vanc Mild MONET - IVF provided - diuretics held - she remains clinically euvolemic and no diuretics are begun at this time HTN -remains controlled with metoprolol, amlodipine Large hiatal hernia - as mentioned, speech therapy is following Full code - Heparin prophylaxis Subjective this pt is having some in hospital delerium, maybe from sleep issues, has left lateral hip pain, we are treating pneumonia and just started treating enterococcal uti. Her left hip pain is limiting her ambulation Review of Systems Review of Systems: ROS: well nourished well developed. No double vision blurry vision No problems with speech or swallowing No palpitations, chest pain or pressure Symptoms with increased pain feels short of breath and has wheezing sounds very little coughing No abdominal pain nausea vomiting diarrhea changes in appetite or weight No burning urine urine frequency or changes in color No focal joint pain or muscle pain No skin rashes or oral lesions No unusual bruising or bleeding No focused back pain or numbness or loss of strength Confusion and bewilderment at times Physical Exam Physical Exam: The patient appeared well nourished but feels uncomfortable and agitated at times Vital signs as documented. Head exam is unremarkable. normocephalic, atraumatic Neck is without jugular venous distension, thyromegaly, or lymphademopathy Lungs are clear to auscultation her wheezing is consistent with upper airway sounds Cardiac exam reveals Rhythm is regular. First and second heart sounds normal. Abdominal exam reveals her normal active bowel sounds soft and nontender Extremities are nonedematous her left hip is tender over the greater trochanteric area suggesting her pain is greater trochanteric bursitis she is no pain with internal/external rotation Neurologic exam is A&Ox3, no focal deficits, strength is equal bilateral Psychologically seems anxious Skin is warm Dry without bruises or lesions Results & Data Vital Signs (Past 12 Hours) Vital Signs Temp Pulse Resp BP Pulse Ox 11/28/18 11:21 93 11/28/18 08:00 96 11/28/18 07:23 36.9 C 73 16 123/67 97 PG Care Time/CCT Total # of Minutes Spent Total Time Spent with Patient: Total time spent is greater than 50% in coordination of care (as documented) at patient's floor/unit and/or counseling patient:
[2018-11-28] MEDS ORDERED: LIDOCAINE HCL 2% INFIL ONE (12:45)
[2018-11-28] MEDS: ALBUT/IPRATROP 3MG/0.5MG NEB 3 ML VIAL NEB SCH ×2 (15:42→19:05)
[2018-11-29] MEDS: PANTOprazole 40 MG TAB PO SCH (06:16)
[2018-11-29] MEDS: ALBUT/IPRATROP 3MG/0.5MG NEB 3 ML VIAL NEB SCH ×4 (07:16→19:19)
[2018-11-29] MEDS: VILANTEROL INH SCH (08:31)
[2018-11-29] MEDS: FLUTICASONE INH SCH (08:31)
[2018-11-29] MEDS: AMOXICILLIN 500 MG CAP PO SCH ×2 (08:31→20:30)
[2018-11-29] MEDS: ASPIRIN 81 MG ECTAB PO SCH (08:32)
[2018-11-29] MEDS: LORATADINE 10 MG TAB PO SCH (08:32)
[2018-11-29] MEDS: [UNRECOGNIZED DRUG - OTHER] PO SCH (08:33)
[2018-11-29] MEDS: SENNA 8.6 MG TAB PO SCH (08:34)
[2018-11-29] MEDS: AMLODIPINE BESYLATE 5 MG TAB PO SCH (08:34)
[2018-11-29] MEDS: TIOTROPIUM BROMIDE 5 PUFF/90 MCG INH INH SCH (08:35)
[2018-11-29] MEDS: METOPROLOL SUCC 50MG EXT REL TAB PO SCH (08:36)
[2018-11-29] MEDS: METOPROLOL SUCC 25MG EXT REL TAB PO SCH (08:36)
[2018-11-29] MEDS: ASCORBIC ACID 500 MG TAB PO SCH (08:36)
[2018-11-29] MEDS: AZITHROMYCIN 250 MG TAB PO SCH (08:37)
[2018-11-29] MEDS: RASPBERRY SYRUP 5 ML UDP PO SCH (08:39)
[2018-11-29] MEDS: VANCOMYCIN HCL 125 MG/2.5ML SOLN PO SCH (08:40)
[2018-11-29] MEDS: HEPARIN SOD 5,000 UNIT/0.5 ML VIAL SQ SCH (08:41)
[2018-11-29] MEDS: LIDOCAINE 5% 1 PATCH TD SCH (08:41)
[2018-11-29] MEDS: DICLOFENAC SOD 1% GEL 100 GM TUBE EXT SCH ×2 (08:42→20:33)
[2018-11-29] MEDS: POLYETHYLENE (MIRALAX) 17 GM PACK PO SCH (08:42)
[2018-11-29] MEDS ORDERED: METOPROLOL TARTRATE 1 MG/ML VIAL IV PRN (09:51)
[2018-11-29] MEDS ORDERED: METOPROLOL SUCC 50MG EXT REL TAB PO STA (09:51)
[2018-11-29] MEDS ORDERED: NITROGLYCERIN SL 0.4 MG/TAB TAB SL PRN (09:51)
--- NOTE | 2018-11-29 12:39 | Hospitalist Progress Note ---
Date of Service November 29, 2018 Assessment & Plan (1) Focal pneumonia: 88 y/o F Hx PMR, HTN, chronic LE cellulitis, chronic UTIs, steroid-induce myopathy. Presents from an assisted living facility with R subcostal pain, cough and fever. The pt was hypoxic on arrival to the ER. A CTA demonstrated L multifocal pneumonia. Labs were notable for mild MONET. Of note, the pt has been complaining of indigestion/reflux and upper abdominal pain. This is being worked up by her primary MD and there were no acute findings on a CT abdomen. The nurse did mention that she was having a hard time swallowing her meds. A large hiatal hernia was an incidental finding on CT chest A. fib RVR, patient has no history of atrial fibrillation although she takes metoprolol. She was confirmed of A. fib on the monitor transferred urgently to telemetry her metoprolol was increased to 100 mg with PRN metoprolol offered. Her heart rate has been controlled while on telemetry in the 80s cardiology consult is undertaken. Consideration for age reduction of Eliquis therapy to be initiated for her atrial fibrillation once cardiology evaluates patient Pneumonia with mild hypoxia, weakness, fevers - placed on Cef/Zithro, de- escalated to p.o. azithromycin on 11/27 02 protocol and nebs PRN provided. PT/OT due to weakness. patient is with enterococcal UTI present on admission initially felt to be colonization but with fevers while on antibiotics for pneumonia we will broaden the coverage to include penicillin-based medicines to treat her enterococcus. PMR is not currently treated - this may be due to her steroid myopathy and can be followed in the outpt setting Her left lateral hip is improved for greater trochanteric bursitis has been treated Recurrent C - diff - cont daily vanc Mild MONET - IVF provided - diuretics held - she remains clinically euvolemic and no diuretics are begun at this time HTN -remains controlled with metoprolol, amlodipine Large hiatal hernia - as mentioned, speech therapy is following Full code - Heparin prophylaxis will be transitioned to Eliquis therapy Subjective Upon review of chart this morning notes the patient have tachycardia this is confirmed by nurse at the bedside. A stat EKG was ordered and I am present at the bedside promptly. The patient had no chest pain or subjective experience of palpitations however EKG and interpreted by myself reveals her to be in atrial fibrillation rapid ventricular response without any changes consistent with ischemia. Attempts at vagal maneuvers such as carotid massage were with unremitting reduction in her heart rate subsequently she was transferred to telemetry for further monitoring and the ability to administer intravenous medications if needed. I did personally contact and speak with her bandsaw operator, Dr. Porter, who will see the patient today. Review of Systems Review of Systems: ROS: well nourished well developed. No double vision blurry vision No problems with speech or swallowing No palpitations, chest pain or pressure No Wheezing or breathing issues still with some cough No abdominal pain nausea vomiting diarrhea changes in appetite or weight No burning urine urine frequency or changes in color Her left hip pain is greatly improved No skin rashes or oral lesions No unusual bruising or bleeding No focused back pain or numbness or loss of strength No changes in memory or confusion Physical Exam Physical Exam: The patient appeared well nourished and normally developed. Vital signs as documented. Head exam is unremarkable. normocephalic, atraumatic Neck is without jugular venous distension, thyromegaly, or lymphademopathy Lungs are clear to auscultation and no wheezes or focal air loss Cardiac exam reveals tachycardic rhythm Abdominal exam reveals normal bowel sounds, no masses, no organomegaly Extremities are nonedematous and both pedal pulses are present her left hip is much less tender she claims of having good improvement in pain Neurologic exam is A&Ox3, no focal deficits, strength is equal bilateral Psychologically seems anxious Skin is warm Dry Results & Data Vital Signs (Past 12 Hours) Vital Signs Temp Pulse Pulse Resp BP BP Pulse Ox 11/29/18 11:44 36.8 C 87 18 121/65 95 11/29/18 11:11 82 18 93 11/29/18 09:50 36.9 C 92 H 20 140/70 94 11/29/18 08:26 37.0 C 141 H 24 146/79 H 92 11/29/18 07:45 135 H 11/29/18 07:21 37 C 115 H 18 138/86 92 11/29/18 07:17 115 H 18 92 PG Care Time/CCT Total # of Minutes Spent Total Time Spent with Patient: Total time spent is greater than 50% in coordination of care (as documented) at patient's floor/unit and/or counseling patient:
[2018-11-29] MEDS: APIXABAN 2.5 MG TAB PO SCH (20:30)
--- NOTE | 2018-11-29 22:41 | Cardiology Consultation ---
Date of Consultation November 29, 2018 Assessment & Plan (1) New onset a-fib: Patient with new onset atrial fibrillation with rapid ventricular response which is extremely well tolerated. Although she had demand ischemia during an earlier hospitalization, lack of symptoms and normal troponins despite tachycardia currently suggests absence of occlusive coronary artery disease. Although there is an association between steroid injections and subsequent atrial fibrillation and her general medical condition with hyperadrenergic state would predispose her to atrial fibrillation, no obvious, readily reversible cause for her current episode of atrial fibrillation is identified, therefore would recommend long-term anticoagulation. Agree with IV metoprolol and increasing her oral dose of metoprolol to 50 mg b.i.d. with further titration as necessary to achieve rate control. Given age greater than 80 and creatinine near 1.5/weight near 60 kg/multiple comorbidities, feel that apixaban 2.5 mg b.i.d. is adequate dosing to balance her risk/benefit ratio in regards to bleeding/antithrombotic effect. Present on Admission?: No History of Present Illness Attending Physician: Babatunde Cha MD History of Present Illness 88-year-old woman with no significant prior cardiac history who was admitted 11/25/2018 with pneumonia. She was noted to be tachycardic today, ECG showed atrial fibrillation with rapid ventricular response at 135 bpm. She denies any chest pain, palpitations, lightheadedness, or other symptoms associated with the new onset atrial fibrillation. She did receive a steroid injection for left trochanteric bursitis yesterday. His at the time my evaluation, the patient was comfortable with no complaints. Allergies Allergy/AdvReac Type Severity Reaction Status Date / Time Bactrim Allergy Intermediate HIVES Verified 08/12/17 17:09 Penicillins Allergy Intermediate HIVES Verified 11/25/18 15:27 sulfamethoxazole Allergy Intermediate HIVES Verified 11/25/18 15:27 tetanus toxoid, adsorbed Allergy Intermediate RASH Verified 11/25/18 15:27 trimethoprim Allergy Intermediate HIVES Verified 11/25/18 15:27 latex Allergy Mild RASH Verified 11/25/18 15:27 codeine AdvReac Intermediate HEADACHES Verified 11/25/18 15:27 morphine AdvReac Mild SEVERE Verified 11/25/18 15:27 HEADACHES Home Medications Home Medications Medication Instructions Recorded Confirmed Type aspirin 81 mg tablet,delayed 81 mg PO DAILY #30 tab 11/03/18 11/25/18 Rx release biotin 1 mg capsule 1 mg PO DAILY #30 cap 11/03/18 11/25/18 Rx darifenacin ER 7.5 mg 7.5 mg PO DAILY #30 tab 11/03/18 11/25/18 Rx tablet,extended release 24 hr diclofenac 1 % topical gel See Rx Instructions TOP QID #100 gm 11/03/18 11/25/18 Rx docusate sodium 100 mg capsule 100 mg PO BID PRN #60 cap 11/03/18 11/25/18 Rx hydrocortisone 2.5 % topical cream 1 appln NM BID PRN #30 gm 11/03/18 11/25/18 Rx with perineal applicator inhalational spacing device #1 ea 11/03/18 11/25/18 Rx loratadine 10 mg tablet 10 mg PO DAILY #30 tab 11/03/18 11/25/18 Rx multivitamin capsule 1 cap PO DAILY #30 cap 11/03/18 11/25/18 Rx ondansetron 4 mg disintegrating 4 mg PO Q4H tab 11/03/18 11/25/18 History tablet phenylephrine 0.25 %-mineral oil 1 appln NM BID #28 gm 11/03/18 11/25/18 Rx 14 %-petrolatm 74.9 % rectal ointment ranitidine 75 mg tablet 75 mg PO Q12H #30 tab 11/03/18 11/25/18 Rx sennosides 8.6 mg tablet 8.6 mg PO DAILY #30 tab 11/03/18 11/25/18 Rx tiotropium bromide 1.25 2 puffs INH DAILY #4 gm 11/03/18 11/25/18 Rx mcg/actuation mist for inhalation calcium carbonate-vitamin D3 600 1 tab PO DAILY 11/18/18 11/25/18 History mg (1,500 mg)-800 unit tablet metoprolol succinate ER 25 mg 25 mg PO DAILY #30 tab 11/18/18 11/25/18 History tablet,extended release 24 hr metoprolol succinate ER 50 mg 50 mg PO DAILY tab 11/18/18 11/25/18 History tablet,extended release 24 hr acetaminophen 650 mg PO Q4 PRN 11/25/18 11/25/18 History acetaminophen [Pain Relief Extra 1,000 mg PO BID PRN 11/25/18 11/25/18 History Strength] albuterol sulfate [Ventolin HFA] 1 - 2 puff INH QID PRN 11/25/18 11/25/18 History amlodipine 5 mg PO QAM 11/25/18 11/25/18 History ascorbic acid (vitamin C) [Vitamin 500 mg PO DAILY 11/25/18 11/25/18 History C] emollient combination no.73 1 applic TOP DAILY PRN 11/25/18 11/25/18 History [Eucerin Intensive Repair Cream] fluticasone furoate-vilanterol 1 inh INH DAILY 11/25/18 11/25/18 History [Breo Ellipta] hydroxyzine HCl 25 mg PO QID PRN 11/25/18 11/25/18 History omeprazole 20 mg PO DAILYBB 11/25/18 11/25/18 History phenazopyridine [Pyridium] 200 mg PO TIDM 11/25/18 11/25/18 History psyllium seed (sugar) [Reguloid] 1 tbs PO DAILY PRN 11/25/18 11/25/18 History triamcinolone acetonide [Triderm] 1 appln TOP BID 11/25/18 11/25/18 History triamterene-hydrochlorothiazid 1 cap PO Q2D 11/25/18 11/25/18 History vancomycin 125 mg PO DAILY 11/25/18 11/25/18 History Patient History Medical History Chronic venous insufficiency (Chronic) Venous stasis ulcer of right lower leg with edema of right lower leg (Acute) S/P tubal ligation (Chronic) Steroid-induced myopathy (Chronic Unknown) Polymyalgia rheumatica (Chronic Unknown) Severe sepsis (Resolved 01/02/14) ARF (acute renal failure) (Acute) Sepsis (Acute) Cellulitis of right leg (Resolved) Cellulitis of lower leg (Resolved) Renal insufficiency (Acute) Confusion (Acute) Cellulitis of right leg (Acute) Confusion (Acute) PIC line (peripherally inserted central catheter) removal (Resolved) PIC line (peripherally inserted central catheter) removal (Acute) Cellulitis Fracture of left clavicle (Acute) Head injury Contusion of left hip Contusion of left leg Failure of outpatient treatment Cellulitis (09/18/13) Bilateral leg edema (Acute) Bilateral cellulitis of lower leg (Resolved) Ambulatory dysfunction Physical deconditioning (Chronic) Left knee pain Right thigh pain UTI (urinary tract infection) (Resolved) Acute right hip pain (Acute) Trochanteric bursitis of right hip (Acute) Left knee DJD Right knee DJD Fever Acute respiratory failure with hypoxia Bronchitis Fall (Acute) Hypertensive emergency Major depressive disorder, recurrent, moderate (Chronic) NSTEMI (non-ST elevated myocardial infarction) Traumatic hematoma of right forearm (Acute) Unspecified psychosis (Acute) Acute respiratory failure (Chronic) Ambulatory dysfunction (Chronic) Benign essential HTN (Chronic) Bilateral cellulitis of lower leg (Chronic) Contusion of left hip (Chronic) Degenerative joint disease of knee (Chronic) Fever (Chronic) Head injury (Chronic) Hypoxia (Chronic) Knee pain, right (Chronic) Left knee pain (Chronic) Major depressive disorder (Chronic) NSTEMI (non-ST elevated myocardial infarction) (Chronic) PIC line (peripherally inserted central catheter) removal (Chronic) Physical deconditioning (Chronic) Polymyalgia rheumatica (Chronic) Right knee DJD (Chronic) Right thigh pain (Chronic) Severe sepsis (Chronic) Steroid-induced myopathy (Chronic) Surgical History Status post tubal ligation (Chronic) Status post arthroscopic knee surgery (Chronic) S/P arthroscopic knee surgery (Chronic) Social History Preferred Language: Indonesian Communication Ability: Effective Visual Impairment: No Limitations Hearing Ability: Normal Warp Hauler Required: No Beliefs That Will Affect Care: None Current Living Situation: Personal Care Facility Current Living Situation Comment: [facility] Other Information That Helps Us Care for You: No Feels Safe at Home: Yes Safety Concerns: Feels Safe At This Time Smoking Status: Never smoker Do You Dip or Chew Tobacco: No Hx Alcohol Use: Yes Alcohol type: wine Review of Systems Review of Systems: All systems reviewed & are unremarkable except as noted in HPI & below Constitutional: + fatigue; no fever and no chills Eyes: no problem reported Ear, Nose, Mouth, Throat: no problem reported Respiratory: + cough, + dyspnea and + dyspnea on exertion Cardiovascular: no chest pain, no orthopnea, no syncope and no edema Gastrointestinal: no problem reported Genitourinary: no difficulty urinating and no problem reported Musculoskeletal: no joint pain and no muscle weakness Integumentary: no rash and no new lesions Neurologic: no localized weakness and no behavioral changes Psychiatric: no depression Hematologic / Lymphatic: no easy bleeding and no easy bruising Physical Exam Physical Exam: No distress. Resting comfortably Skin: No unusual lesions or ecchymosis. HEENT: Unremarkable. Neck: Jugular venous pulse at the clavicle at 90, no carotid bruits. Lungs: Moderately reduced air flow with scattered bilateral wheezing, no crackles. No intercostal retraction, abdominal paradox, or nasal flaring. Cardiac: Irregular/tachycardia without obvious murmur or gallop. Abdomen: Benign. Extremities: Chronic stasis changes both lower extremities with only trace pretibial edema. Intact peripheral pulses. Neurologic: Normal affect, nonfocal Results & Data Vital Signs (Past 12 Hours) Vital Signs Temp Pulse Pulse Pulse Resp BP BP 11/29/18 19:49 98.1 F 88 18 143/67 H 11/29/18 19:20 88 16 11/29/18 16:27 79 11/29/18 16:07 98.4 F 65 18 124/66 11/29/18 15:21 77 14 11/29/18 11:44 98.2 F 87 18 121/65 11/29/18 11:11 82 18 Pulse Ox 11/29/18 19:49 92 11/29/18 19:20 93 11/29/18 16:27 11/29/18 16:07 93 11/29/18 15:21 96 11/29/18 11:44 95 11/29/18 11:11 93 Laboratory Results 11/26/18 05:25 Potassium 4.1 11/29/18 11/29/18 10:01 15:12 Troponin I < 0.015 < 0.015 11/26/18 11/26/18 05:25 05:25 WBC 11.69 H Hgb 9.7 L Plt Count 113 L BUN 22 H Creatinine 1.28 H Diagnostic Findings ECG from 11/25/2018 showed sinus rhythm at 92 bpm with possible old septal infarct. ECG from 11/29/2018 showed atrial fibrillation with rapid ventricular response at 135 ppm, possible old septal infarct, no ST deviation. Echocardiogram July 2017 showed normal LV size and systolic function with grade 1 diastolic dysfunction, [id number] tricuspid regurgitation with mild pulmonary hypertension. Compared to 2013 study, no significant change.
[2018-11-30] MEDS: PANTOprazole 40 MG TAB PO SCH (06:06)
[2018-11-30] MEDS: ALBUT/IPRATROP 3MG/0.5MG NEB 3 ML VIAL NEB SCH ×4 (07:05→19:00)
[2018-11-30] MEDS: [UNRECOGNIZED DRUG - OTHER] PO SCH (08:12)
[2018-11-30] MEDS: AMOXICILLIN 500 MG CAP PO SCH (08:17)
[2018-11-30] MEDS: APIXABAN 2.5 MG TAB PO SCH ×2 (08:17→20:21)
[2018-11-30] MEDS: TRIAMTERENE/HCTZ 37.5/25MG CAP PO SCH (08:18)
[2018-11-30] MEDS: LORATADINE 10 MG TAB PO SCH (08:18)
[2018-11-30] MEDS: METOPROLOL SUCC 50MG EXT REL TAB PO SCH (08:19)
[2018-11-30] MEDS: SENNA 8.6 MG TAB PO SCH (08:20)
[2018-11-30] MEDS: AZITHROMYCIN 250 MG TAB PO SCH (08:20)
[2018-11-30] MEDS: ASPIRIN 81 MG ECTAB PO SCH (08:21)
[2018-11-30] MEDS: POLYETHYLENE (MIRALAX) 17 GM PACK PO SCH (08:23)
[2018-11-30] MEDS: FLUTICASONE INH SCH (08:24)
[2018-11-30] MEDS: VILANTEROL INH SCH (08:24)
[2018-11-30] MEDS: ASCORBIC ACID 500 MG TAB PO SCH (08:24)
[2018-11-30] MEDS: TIOTROPIUM BROMIDE 5 PUFF/90 MCG INH INH SCH (08:24)
[2018-11-30] MEDS: LIDOCAINE 5% 1 PATCH TD SCH (08:41)
[2018-11-30] MEDS: DICLOFENAC SOD 1% GEL 100 GM TUBE EXT SCH ×2 (08:43→20:23)
[2018-11-30] MEDS: VANCOMYCIN HCL 125 MG/2.5ML SOLN PO SCH (09:06)
[2018-11-30] MEDS: RASPBERRY SYRUP 5 ML UDP PO SCH (09:06)
--- NOTE | 2018-11-30 12:40 | Cardiology Progress Note ---
Date of Service November 30, 2018 Assessment & Plan (1) New onset a-fib: She had well-documented atrial fibrillation but the duration is not clear. It evidently was quite brief, possibly about 3 hours hours from when her heart rate was noted to be increased to when she was put on telemetry at which time she was in sinus rhythm. It could have been somewhat longer as her heart rate had not been checked between 10 PM the night before and 7:15 AM when the elevated heart rate was noted. she may have longer episodes, since this is probably asymptomatic she may well have other episodes. I think she should be on an anticoagulant. Technically she should be on Eliquis 5 mg twice a day not 2.5, although she is borderline on the dose and if she only has very brief episodes perhaps anticoagulation is not so critical. I would probably keep her on telemetry while she is in the hospital but would probably not keep her here for this rhythm. At home I believe she is on metoprolol succinate 75 mg daily, here she was on metoprolol succinate 50 mg daily when she had the episode. She has a history of rainouts and bronchospasm and I probably would not go higher than her outpatient dose, but I think would be a good idea to go back to her outpatient dose of metoprolol and it looks as though her blood pressure could support it. Another consideration would be replacing amlodipine with diltiazem which would give her additional rate control as well. I have not made those changes. Subjective I was able to talk to her subsequently and she stated that she may have been aware of the arrhythmia, as a odd sensation in her chest. It is not very descriptive and I am not sure she was really aware of it. This is an 88-year-old woman admitted November 25, 2018 with pneumonia. She was noted to be tachycardic on November 29, 2018, electrocardiography on that day at 8:15 AM showed atrial fibrillation with a heart rate of 135 bpm. A prior electrocardiogram done November 25, 2018 on admission showed sinus rhythm. She was not aware of the rhythm, therefore may have had paroxysmal atrial fibrillation in the past as this episode spontaneously converted back to normal. By the time she was placed on telemetry at about 10 AM she was back in sinus rhythm and has had no further significant episodes. Today she appears comfortable and is talking on the phone, she wanted to complete her phone call when I came into the room. Physical Exam Physical Exam: Constitutional: Alert, cooperative and in no distress. Pulmonary: Clear to auscultation bilaterally. Cardiac: Regular rhythm with no murmur, gallop or rub. Abdomen: Soft, nontender with normal bowel sounds. Extremities: No edema. Skin: No rash, ecchymoses or petechiae. Results & Data Vital Signs (Past 12 Hours) Vital Signs Temp Pulse Pulse Pulse Resp BP Pulse Ox 11/30/18 11:12 36.7 C 79 18 129/62 94 11/30/18 11:05 73 18 94 11/30/18 07:38 36.5 C 90 22 173/72 H 95 11/30/18 07:30 71 11/30/18 07:05 69 18 96 11/30/18 04:32 36.7 C 76 19 152/77 H 94 Diagnostic Findings Telemetry: No further atrial fibrillation of any significance, only brief episodes of PAT Electrocardiogram: November 29, 2018 at 8:16 AM atrial fibrillation and rate of 135 bpm. This morning at 6:30 AM sinus rhythm, rate 71 bpm, normal electrocardiogram.
--- NOTE | 2018-11-30 16:09 | XRay Report ---
XR KUB/Abdomen 1 view CLINICAL HISTORY: right-sided abd pain COMPARISON STUDY: No previous studies for comparison. FINDINGS: There is no pathologic bowel dilatation. There is no conventional radiographic evidence of organomegaly. There are a few scattered calcifications likely vascular. There are presumed tendinous calcifications in the left hip region. IMPRESSION: No evidence of pathologic bowel dilatation. Electronically signed by: Alfie Buenrostro M.D. 11/30/2018 4:08 PM
--- NOTE | 2018-11-30 19:20 | Hospitalist Progress Note ---
Date of Service November 30, 2018 Assessment & Plan (1) Multifocal pneumonia: left sided. radiographically improved based on cxr today. was on prolonged course of IV abx; now on orals. for better lung coverage change amox to augmentin. stop zithromax after 7/2 dose (tomorrow is day #5 of zithromax). quite dyspneic with walking; O2 sats dropped to 70s per staff. formal 2-step needed. Present on Admission?: Yes (2) New onset a-fib: resolved. seen by cardiology - consult appreciated. eliquis 2.5mg BID recommended for anticoagulation. cont BB for rate control if she flips back to a.fib. echo 2018 with preserved EF. needs TSH. (3) Respiratory failure with hypoxia: 2nd to extensive left-sided pneumonia. resolved, but needs 2-step due to desaturation w/ walking. no evidence of decompensated CHF. (4) Sepsis: 2nd to UTI and pneumonia - resolved. (5) Acute UTI (urinary tract infection): enterococcal. PCN agent will cover. reported h/o allergy to PCNs but has tolerated amoxicillin for several days now w/o rash or other allergic symptoms. (6) Polymyalgia rheumatica: no longer on treatment no symptoms of such (7) C. difficile colitis: history of takes daily vancomycin for prophylaxis soft stools but not having diarrhea (8) Abdominal pain: etiology? recent CT abd/pelvis without acute findings. obtained KUB x-ray today - no fecal impaction or constipation. musculoskeletal from coughing? but patient states the pain started BEFORE her cough. monitor. (9) Essential hypertension: controlled (10) Rectal prolapse: staff report she simply reduces it when it occurs poor candidate for surgical correction will d/w patient (11) Trochanteric bursitis of left hip: s/p corticosteroid injection by Dr Cha this weekend slowly improving has very abnormal gait due to foot deformity and odd foot placement with walking -- this likely led to bursitis (12) DVT prophylaxis: eliquis BID monitor overnight 2-step tomorrow AM attempted to call son today - no answer, left message Subjective patient converted back to NSR as confirmed by tele and EKG this am overall feels better than at admission she is still quite dyspneic with minimal amount of walking also with ongoing right mid-abdominal pain NOT worsened by eating having soft but not liquid bowel movements anxious to go home to personal care (Esthela Multani) Review of Systems Constitutional: no fever and no chills Respiratory: + hemoptysis (occasional); no wheezing Cardiovascular: no chest pain Gastrointestinal: as per Subjective / HPI and + abdominal pain; no nausea and no vomiting Physical Exam Constitutional: no acute distress dyspneic with exertion in the room ENMT: external ear and nose normal, oropharynx normal Respiratory: no respiratory distress Auscultation: + diminished lung sounds (left base); no crackles and no wheezes Cardiovascular: Rate/Rhythm: regular rate and regular rhythm Heart Sounds: normal S1 and normal S2; no murmur Vessels: posterior tibial pulses present and dorsalis pedis pulses present; no JVD Gastrointestinal (Abdomen): Inspection/Auscultation: abdomen normal to inspection; abdomen not distended Percussion/Palpation: + abdomen tender (junction of RUQ/RLQ) and abdomen soft; no guarding and no hepatosplenomegaly Musculoskeletal: gait - waddles with walking; foot deformity noted during her gait Psychiatric: A+Ox3, euthymic affect Results & Data Vital Signs (Past 12 Hours) Vital Signs Temp Pulse Pulse Pulse Resp BP Pulse Ox 11/30/18 19:01 114 H 16 90 11/30/18 18:46 74 L 11/30/18 16:00 92 H 11/30/18 15:39 72 20 94 11/30/18 11:12 36.7 C 79 18 129/62 94 11/30/18 11:05 73 18 94 11/30/18 07:38 36.5 C 90 22 173/72 H 95 11/30/18 07:30 71 PG Care Time/CCT Total # of Minutes Spent Total Time Spent with Patient: Total time spent is greater than 50% in coordination of care (as documented) at patient's floor/unit and/or counseling patient: (1) Respiratory failure with hypoxia Chronicity: unspecified Qualified Code(s): J96.91 - Respiratory failure, unspecified with hypoxia (2) Sepsis Sepsis type: sepsis due to unspecified organism Qualified Code(s): A41.9 - Sepsis, unspecified organism (3) Abdominal pain Abdominal location: upper abdomen, unspecified Qualified Code(s): R10.10 - Upper abdominal pain, unspecified
[2018-11-30] MEDS: AMOXICILLIN/CLAVULANATE 500 MG TAB PO SCH (20:21)
--- NOTE | 2018-11-30 20:26 | XRay Report ---
XR chest 2V routine CLINICAL HISTORY: left-sided pneumonia COMPARISON STUDY: Chest CT November 25, 2018. FINDINGS: A large hiatal hernia is again noted. There is no pneumothorax. Trace left pleural effusion is noted. Left upper lobe airspace opacity is similar to prior exam. Left lower lobe airspace opacit y is slightly improved. There is pulmonary vascular congestion without overt pulmonary edema. Cardiom egaly is noted. IMPRESSION: 1. No significant change in left upper lobe airspace opacities consistent with pneumonia. Slight impr ovement in left lower lobe pneumonia. Trace left pleural effusion. 2. Pulmonary vascular congestion. Electronically signed by: Manjit Bettencourt M.D. 11/30/2018 8:24 PM
[2018-11-30] MEDS: ACETAMINOPHEN 325 MG TAB PO PRN (23:40)
[2018-12-01] MEDS: PANTOprazole 40 MG TAB PO SCH (05:52)
[2018-12-01 05:59] LABS: Hematocrit (blood only) 33.7 % (37-47); Hemoglobin 10.9 g/dL (12.0-16.0); Mean Corpuscular Hgb Conc 32.3 g/dL (32-36); Mean Corpuscular Volume 91.1 fL (80-100); Mean Platelet Volume 9.1 fL (7.4-10.4); Platelet Count 236 K/uL (130-400); RDW Coefficient of Variation 15.2 % (11.5-14.5); RDW Standard Deviation 50.4 fL (36.4-46.3); White Blood Count 5.87 K/uL (4.8-10.8)
[2018-12-01 06:30] LABS: BUN Creatinine Ratio 28.4 (10-20); Calcium 9.6 mg/dl (8.5-10.1); Creatinine Clr Calc Pharmacy 31.9 ml/min; Est GFR (African American) 50.1; Est GFR (Non-African American) 43.2; Potassium 4.7 mmol/L (3.5-5.1)
[2018-12-01] MEDS: SENNA 8.6 MG TAB PO SCH (07:33)
[2018-12-01] MEDS: POLYETHYLENE (MIRALAX) 17 GM PACK PO SCH (07:33)
[2018-12-01] MEDS: ASCORBIC ACID 500 MG TAB PO SCH (07:34)
[2018-12-01] MEDS: APIXABAN 2.5 MG TAB PO SCH ×2 (07:34→16:54)
[2018-12-01] MEDS: LORATADINE 10 MG TAB PO SCH (07:35)
[2018-12-01] MEDS: LIDOCAINE 5% 1 PATCH TD SCH (07:36)
[2018-12-01] MEDS: [UNRECOGNIZED DRUG - OTHER] PO SCH (07:36)
[2018-12-01] MEDS: AMOXICILLIN/CLAVULANATE 500 MG TAB PO SCH (07:37)
[2018-12-01] MEDS: AZITHROMYCIN 250 MG TAB PO SCH (07:39)
[2018-12-01] MEDS: METOPROLOL SUCC 50MG EXT REL TAB PO SCH (07:45)
[2018-12-01] MEDS: VILANTEROL INH SCH (07:46)
[2018-12-01] MEDS: TIOTROPIUM BROMIDE 5 PUFF/90 MCG INH INH SCH (07:46)
[2018-12-01] MEDS: DICLOFENAC SOD 1% GEL 100 GM TUBE EXT SCH (07:46)
[2018-12-01] MEDS: FLUTICASONE INH SCH (07:46)
[2018-12-01] MEDS: ASPIRIN 81 MG ECTAB PO SCH (07:49)
[2018-12-01] MEDS: ALBUT/IPRATROP 3MG/0.5MG NEB 3 ML VIAL NEB SCH ×4 (07:57→15:44)
[2018-12-01] MEDS: VANCOMYCIN HCL 125 MG/2.5ML SOLN PO SCH (08:19)
[2018-12-01] MEDS: RASPBERRY SYRUP 5 ML UDP PO SCH (08:19)
--- NOTE | 2018-12-01 09:55 | Cardiology Progress Note ---
Date of Service December 01, 2018 Assessment & Plan (1) New onset a-fib: No recurrence of atrial fibrillation over the past 48 hours. She is currently on metoprolol succinate 50 mg daily without recurrent atrial fibrillation or significant tachycardia. Her outpatient dose is 75 mg daily, would likely resume this higher dose upon discharge to decrease the risk of atrial fibrillation long-term. Given age greater than 80 and creatinine near 1.5/weight near 60 kg/multiple comorbidities, including a longstanding history of easy bruising even on low- dose aspirin, feel that apixaban 2.5 mg b.i.d. is adequate dosing to balance her risk/benefit ratio in regards to bleeding/antithrombotic effect. Also, since her atrial fibrillation may have been a sequelae of her steroid injection (there is a known association), she may be at low risk for further recurrent atrial fibrillation long-term. This would shift the balance further away from anticoagulation at higher dose with the associated higher risk of bleeding. Present on Admission?: No Subjective No recurrence of atrial fibrillation over the past several days. She still notes dyspnea on exertion but denies any chest pain, subjective palpitations, or lightheadedness. No specific complaints at the time of my visit this morning. Physical Exam Physical Exam: No distress. Sitting comfortably Skin: No unusual lesions or ecchymosis. HEENT: Unremarkable. Neck: Jugular venous pulse at the clavicle at 90, no carotid bruits. Lungs: Improved flow with occasional bilateral wheezing, no crackles. No intercostal retraction, abdominal paradox, or nasal flaring. Cardiac: Irregular/tachycardia without obvious murmur or gallop. Abdomen: Benign. Extremities: Chronic stasis changes both lower extremities with only trace pretibial edema. Intact peripheral pulses. Neurologic: Normal affect, nonfocal Results & Data Vital Signs (Past 12 Hours) Vital Signs Temp Pulse Pulse Pulse Pulse Pulse Pulse 12/01/18 09:45 100 H 102 H 92 H 12/01/18 08:25 77 12/01/18 07:47 97.7 F 81 12/01/18 03:42 98.2 F 76 12/01/18 00:00 72 11/30/18 23:26 97.7 F 77 Resp Resp Resp Resp BP Pulse Ox Pulse Ox 12/01/18 09:45 22 20 18 91 12/01/18 08:25 18 97 12/01/18 07:47 18 173/74 H 95 07/02/19 03:42 146/79 H 94 12/01/18 00:00 11/30/18 23:26 20 150/74 H 94 Pulse Ox Pulse Ox 12/01/18 09:45 97 95 12/01/18 08:25 12/01/18 07:47 12/01/18 03:42 12/01/18 00:00 11/30/18 23:26 Laboratory Results 11/26/18 12/01/18 12/01/18 05:25 05:48 05:48 WBC 5.87 Hgb 10.9 L Plt Count 236 BUN 22 H 32 H Creatinine 1.28 H 1.14 TSH 12/01/18 05:48 WBC Hgb Plt Count BUN Creatinine TSH 4.500 Diagnostic Findings 11/30 CXR Results: IMPRESSION: 1. No significant change in left upper lobe airspace opacities consistent with pneumonia. Slight improvement in left lower lobe pneumonia. Trace left pleural effusion. 2. Pulmonary vascular congestion. ECG today showed NSR at 68 bpm, unremarkable.
[2018-12-01 10:15] VITALS: TEMP 97.5
[2018-12-01 11:51] VITALS: O2SAT 96
[2018-12-01 16:11] VITALS: BP 157/61; PULSE 76
[2018-12-01] MEDS ORDERED: AMOXICILLIN/CLAVULANATE 875 MG TAB PO SCH (17:00)
--- NOTE | 2018-12-02 06:20 | Discharge Summary ---
Date of Service date of admission - November 25, 2018 date of discharge - December 01, 2018 Admission HPI Per Admitting Provider 88 y/o F Hx PMR, HTN, chronic LE cellulitis, chronic UTIs, steroid-induced myopathy, h/o c.diff infection. Presents from an assisted living facility with R subcostal pain, cough and fever. The pt was hypoxic on arrival to the ER. A CTA demonstrated L multifocal pneumonia. Labs were notable for mild MONET. Of note, the pt has been complaining of indigestion/reflux and upper abdominal pain. This is being worked up by her primary MD and there were no acute findings on a CT abdomen. The nurse did mention that she was having a hard time swallowing her meds. A large hiatal hernia was an incidental finding on CT chest so that aspiration should be considered. Principal Diagnosis left-sided multifocal pneumonia Discharge Exam Constitutional no acute distress ENMT external ear and nose normal, oropharynx normal Respiratory no respiratory distress Auscultation: + diminished lung sounds (left base); no crackles and no wheezes Cardiovascular Rate/Rhythm: regular rate and regular rhythm Heart Sounds: normal S1 and normal S2; no murmur Vessels: posterior tibial pulses present and dorsalis pedis pulses present; no JVD Gastrointestinal (Abdomen) Inspection/Auscultation: abdomen normal to inspection and normal bowel sounds; abdomen not distended Percussion/Palpation: abdomen soft; abdomen nontender, no guarding and no hepatosplenomegaly Psychiatric A+Ox3, euthymic affect Discharge Data Allergies Allergy/AdvReac Type Severity Reaction Status Date / Time Bactrim Allergy Intermediate HIVES Verified 08/12/17 17:09 sulfamethoxazole Allergy Intermediate HIVES Verified 12/04/18 11:25 tetanus toxoid, adsorbed Allergy Intermediate RASH Verified 12/04/18 11:25 trimethoprim Allergy Intermediate HIVES Verified 12/04/18 11:25 latex Allergy Mild RASH Verified 12/04/18 11:25 codeine AdvReac Intermediate HEADACHES Verified 12/04/18 11:25 morphine AdvReac Mild SEVERE Verified 12/04/18 11:25 HEADACHES Consultations 1. cardiology - Lucas Rust MD 2. speech therapy 3. PT, OT Procedures Performed steroid injection of left hip trochanteric bursa - Babatunde Cha MD Ordered Studies 1. CT abd/pelvis - IMPRESSION: 1. No evidence of bowel structure. No evidence of free air 2. No evidence of acute appendicitis 3. Colonic and ileal diverticulosis. No evidence of acute diverticulitis 4. Cholelithiasis 5. Moderate hiatal hernia 6. Moderate fecal retention 7. 5 cm pleural-based opacity within the left lower lobe, consistent with pneumonia. A pulmonary infarct could appear similar. Clinical and radiographic follow-up is recommended. 2. CTA chest - IMPRESSION: 1. Streak and motion compromised examination. 2. There is no evidence of pulmonary embolus in the main, lobar, or segmental pulmonary arteries. 3. There is dense airspace consolidation throughout the left lung as detailed above with a trace left pleural effusion. This is new from the 06/17/2018 chest x-ray and typical in appearance for multifocal pneumonia. Clinical correlation will be required and radiographic follow-up to resolution is recommended. 4. The right lung appears clear. 5. Large hiatal hernia. 6. Mildly enlarged mediastinal and left hilar lymph nodes are likely on a reactive basis. 7. Cardiomegaly. Hospital Course (1) Multifocal pneumonia: left sided. radiographically improved based on repeat imaging later in her stay. was on prolonged course of IV antibiotics then transitioned to oral antibiotics. received 5-day course of zithromax for atypical coverage as well. at discharge she will complete several more days of oral augmentin. although she reported dyspnea on exertion up until day of discharge she PASSED formal 2-step oxygen testing prior to going home. (2) New onset a-fib: patient developed rapid a.fib during her stay prompting transfer to the telemetry unit. she was seen in consult by cardiology, Dr Rust. anticoagulation was advised for high CHADs score. eliquis 2.5mg BID was initiated. patient ultimately spontaneously converted back to NSR. echo 2018 with preserved EF. TSH wnl. electrolytes normal. she will remain on beta maria l therapy. (3) Respiratory failure with hypoxia: 2nd to extensive left-sided pneumonia. resolved. passed 2-step oxygen test day of discharge. (4) Sepsis: 2nd to UTI and pneumonia - resolved. (5) Acute UTI (urinary tract infection): due to enterococcus. received amoxicillin and later on augmentin. (6) Polymyalgia rheumatica: no longer on treatment for such and she reported no PMR symptoms while here. (7) C. difficile colitis: history of. takes daily vancomycin for prophylaxis. had soft stools but did not have kimberly diarrhea while hospitalized. (8) Abdominal pain: etiology? recent CT abd/pelvis without acute findings. Gallstones noted but no findings to suggest acute cholecystitis. obtained KUB x-ray later in stay - no fecal impaction or constipation. musculoskeletal from coughing? but patient states the pain started BEFORE her cough. patient consistently told me her pain was NOT brought on by eating. this makes gallstones / biliary tract disease less likely. has large hiatal hernia so this could be playing some role in her pain. will need GI follow-up post-discharge for this. (9) Essential hypertension: controlled during the stay. (10) Rectal prolapse: staff report she simply reduces it when it occurs. poor candidate for surgical correction. (11) Trochanteric bursitis of left hip: s/p corticosteroid injection by Dr Cha during the hospitalization. slowly improving s/p injection. has very abnormal gait due to foot deformity and odd foot placement with walking -- this likely led to bursitis. Total Time Total Time Spent Total Time Spent (In Minutes): 40 Total Time Includes: Examination of the Patient, Discharge Planning and Medication Reconciliation Discharge Plan Discharge Items Patient Disposition: Personal Shelter Reason For Visit: left-sided pneumonia; UTI. Discharge Diagnosis: 1. left-sided pneumonia- resolving. 2. UTI- resolved. 3. newly found a.fib- resolved, you are back in normal rhythm. Discharge Goals: Diagnostic testing and Therapeutic intervention Activity: As commented below Activity Comment: for the next 1-2 weeks light activities only due to your breathing Non-emergency contact: Primary Care Provider and Vice President Of Consulting Services Call non-emergency contact if: you have any medication questions and your temperature is above 100.5 Follow-up/Referrals: Lucas Rust MD [Physician] - (see Dr Rust in 2-3 weeks for a.fib) Rebeca Landon MD [Primary Care Provider] - 12/04/18 11:30 am (Please, follow up at [facility] on with Dr. Landon FridayDecember 04 at 11:30 am. *If you need to change this appointment, call the office at [phone].) Diet: Heart Healthy Add Provider Instructions: From Jensen Rojas, hospitalist - You were treated for left-sided pneumonia, urinary tract infection, newly-found a.fib, and bursitis of your left hip. All issues improved and/or resolved while here. You received antibiotics for your pneumonia/UTI, blood thinners and heart medication for the a.fib, and Dr Cha performed a steroid injection for your left hip bursitis. Your MRSA (staph) testing from the nose was NEGATIVE. For about 36-48 hours prior to discharge your telemetry showed normal rhythm. You were tested to see if you needed home oxygen and you do NOT need oxygen at this time. Lastly, you were seen by physical therapy and they felt you could return to [facility] as previous. Recommendations - 1. take 4 more days of antibiotic (amoxicillin-clavulanate). Start TOMORROW AM. Take 1 tablet twice a day with food. 2. take eliquis blood thinner 2.5mg twice a day every day to prevent stroke from the a.fib. 3. it is ok to use [id number] mucinex 600mg twice a day for cough/congestion, if desired. 4. take your ventolin (albuterol) inhaler 2 puffs every 6 hours scheduled for the next 5 days or so to help with your cough/congestion. 5. keep a journal of any gastrointestinal (GI) symptoms (pain, nausea, vomiting, stomach upset, etc) especially if those symptoms occur about the time of meals. Your recent CAT scan shows gallstones but did not show findings suggesting a sick gall bladder. If you develop any GI symptoms you can see a GI specialist or general surgeon. Follow-up - see separate section. Return to [facility] if - * you have fevers over 100.5 degrees * you have worsening cough,congestion,shortness of breath * you develop worsening, severe abdominal pain/nausea/vomiting * you have severe, frequent diarrhea * any other concerns Additional information regarding your Eliquis (blood thinner) -- * Eliquis is a medicine prescribed to prevent blood clots * Eliquis will thin your blood and help prevent new clots * Take your medications exactly as directed * Never skip a dose. Never take a double dose. If you miss a dose, take it as soon as you remember Risk of Adverse Drug Reactions and Interactions: * Eliquis increases your risk of bleeding * Ask your doctor about daily aspirin therapy - specifically you should ask if you should continue it or not Diet: * In general eliquis does NOT interact with the food you eat; dietary changes are not necessary with eliquis Call your Primary Care doctor if you experience any of the following: * Chest Pain * Sudden Shortness of Breath * Rapid or pounding heart beat * Fainting * Dizziness * Cough with blood or bloody sputum * Sweating more than normal * Bruises * Heavy or uncontrolled bleeding * Blood in your urine, stool or vomit * Black or tarry stools * severe nosebleeds Prescriptions: New Eliquis 2.5 mg Tablet 2.5 mg PO BID Qty: 60 RF: 5 Continued aspirin [Enteric Coated Aspirin] 81 mg tablet,delayed release (DR/EC) 81 mg PO DAILY Qty: 30 RF: 0 darifenacin 7.5 mg tablet extended release 24 hr 7.5 mg PO DAILY Qty: 30 RF: 0 hydrocortisone [Proctozone-HC] 2.5 % cream with perineal applicator 1 appln RI BID PRN (Reason: hemorrhoids) Qty: 30 RF: 0 loratadine [Claritin] 10 mg tablet 10 mg PO DAILY Qty: 30 RF: 0 multivitamin capsule 1 cap PO DAILY Qty: 30 RF: 0 sennosides [Senna Lax] 8.6 mg tablet 8.6 mg PO DAILY Qty: 30 RF: 0 biotin 1 mg capsule 1 mg PO DAILY Qty: 30 RF: 2 diclofenac sodium 1 % gel See Rx Instructions TOP QID Qty: 100 RF: 2 Preparation H 0.25-14-74.9 % ointment 1 appln RI BID Qty: 28 RF: 0 ranitidine HCl 75 mg tablet 75 mg PO Q12H Qty: 30 RF: 2 Spiriva Respimat 1.25 mcg/actuation mist 2 puffs INH DAILY Qty: 4 RF: 2 docusate sodium [Stool Softener] 100 mg capsule 100 mg PO BID PRN (Reason: constipation) Qty: 60 RF: 0 Vortex Holding Chamber spacer .ROUTE .MEDSUPPLY Qty: 1 RF: 0 ondansetron 4 mg tablet,disintegrating 4 mg PO Q4H RF: 0 metoprolol succinate 50 mg tablet extended release 24 hr 50 mg PO DAILY RF: 0 calcium carbonate-vitamin D3 [Caltrate with Vitamin D3] 600 mg(1,500mg) -800 unit tablet 1 tab PO DAILY RF: 0 acetaminophen 325 mg Capsule 650 mg PO Q4 PRN (Reason: FEVER/PAIN) RF: 0 amlodipine 5 mg tablet 5 mg PO QAM RF: 0 acetaminophen [Pain Relief Extra Strength] 500 mg tablet 1,000 mg PO BID PRN (Reason: PAIN/FEVER) RF: 0 triamterene-hydrochlorothiazid 37.5-25 mg capsule 1 cap PO Q2D RF: 0 triamcinolone acetonide [Triderm] 0.1 % cream 1 appln TOP BID RF: 0 vancomycin 125 mg capsule 125 mg PO DAILY RF: 0 ascorbic acid (vitamin C) [Vitamin C] 500 mg tablet 500 mg PO DAILY RF: 0 omeprazole 20 mg capsule,delayed release(DR/EC) 20 mg PO DAILYBB RF: 0 albuterol sulfate [Ventolin HFA] 90 mcg/actuation HFA aerosol inhaler 1 - 2 puff INH QID PRN (Reason: shortness of breath or wheezing) RF: 0 Reguloid powder 1 tbs PO DAILY PRN (Reason: constipation) RF: 0 Eucerin Intensive Repair Cream cream 1 applic TOP DAILY PRN (Reason: Dry Skin) RF: 0 Breo Ellipta 100-25 mcg/dose blister with device 1 inh INH DAILY RF: 0 Changed phenazopyridine [Pyridium] 200 mg tablet 200 mg PO TIDM PRN (Reason: urinary pain) Qty: 0 RF: 0 Discontinued metoprolol succinate 25 mg tablet extended release 24 hr 25 mg PO DAILY Qty: 30 RF: 0 Stand-Alone Forms: [facility] Discharge Orders: Discharge Order (Routine); Ordered 12/01/18 Ordered By: Jensen Rojas Admission Data Admit Date/Time: 11/25/18 16:44 Attending Provider: Jensen Rojas Admit Provider: Winston Garcia Primary Care Provider: Rebeca Landon Other Providers: Winston Garcia ; Lucas Rust Service: Telemetry Other Interventions: Discharge Summary Assessment (RN) Last Done: 12/01/18 16:08 Pending Studies at Discharge: No DC Date/Time DO NOT enter until pt leaves facility: 12/01/18 17:20
== END 2018-12-01 17:20 | disposition home or self-care (01) | DRG 871 ==
LOC: ED 10:22 → 4E 16:44 → SUATTDRO 16:44 → 4E 17:51 → 2S 11-29 10:16 → 2E 11-29 22:26
DX: I36.1 Nonrheumatic tricuspid (valve) insufficiency; A41.59 Other Gram-negative sepsis; K44.9 Diaphragmatic hernia without obstruction or gangrene; I10 Essential (primary) hypertension; M40.299 Other kyphosis, site unspecified; J18.9 Pneumonia, unspecified organism; I25.2 Old myocardial infarction; K62.3 Rectal prolapse; M21.962 Unspecified acquired deformity of left lower leg; I48.91 Unspecified atrial fibrillation; Z86.19 Personal history of other infectious and parasitic diseases; J96.91 Respiratory failure, unspecified with hypoxia; K21.9 Gastro-esophageal reflux disease without esophagitis; Z88.2 Allergy status to sulfonamides; N17.9 Acute kidney failure, unspecified; R65.20 Severe sepsis without septic shock; M35.3 Polymyalgia rheumatica; Z88.0 Allergy status to penicillin; F03.90 Unspecified dementia, unspecified severity, without behavioral disturbance, psychotic disturbance, mood disturbance, and anxiety; Z91.040 Latex allergy status; G72.0 Drug-induced myopathy; T38.0X5A Adverse effect of glucocorticoids and synthetic analogues, initial encounter; N39.0 Urinary tract infection, site not specified; J45.909 Unspecified asthma, uncomplicated; M70.62 Trochanteric bursitis, left hip; Y92.89 Other specified places as the place of occurrence of the external cause

== ENCOUNTER 2019-04-20 21:34 | Inpatient (IN) ==
[2019-04-20] MEDS ORDERED: ALBUT/IPRATROP 3MG/0.5MG NEB 3 ML VIAL NEB STA (22:11)
[2019-04-20 22:21] LABS: Basophils # (auto) 0.01 K/uL (0-0.2); Basophils % (auto) 0.1 %; Eosinophils # (auto) 0.05 K/uL (0-0.5); Eosinophils % (auto) 0.4 %; Hematocrit (blood only) 40.7 % (37-47); Hemoglobin 13.3 g/dL (12.0-16.0); Immature Granulocytes # (auto) 0.16 K/uL (0.00-0.02); Immature Granulocytes % (auto) 1.4 %; Lymphocytes # (auto) 1.29 K/uL (1.2-3.4); Lymphocytes % (auto) 11.3 %; Mean Corpuscular Hemoglobin 31.6 pg (25-34); Mean Corpuscular Hgb Conc 32.7 g/dL (32-36); Mean Corpuscular Volume 96.7 fL (80-100); Mean Platelet Volume 10.5 fL (7.4-10.4); Monocytes # (auto) 1.32 K/uL (0.11-0.59); Monocytes % (auto) 11.6 %; Neutrophils # (auto) 8.57 K/uL (1.4-6.5); Neutrophils % (auto) 75.2 %; Platelet Count 178 K/uL (130-400); RDW Coefficient of Variation 13.8 % (11.5-14.5); RDW Standard Deviation 48.8 fL (36.4-46.3); Red Blood Count 4.21 M/uL (4.2-5.4)
[2019-04-20 22:39] LABS: Albumin Globulin Ratio 0.9 (0.9-2); Albumin Level 4.5 gm/dl (3.4-5.0); Bilirubin,Total 0.5 mg/dl (0.2-1); Calcium 9.9 mg/dl (8.5-10.1); Creatinine Clr Calc Pharmacy 24.6 ml/min; Est GFR (African American) 34.8; Globulin 4.8 gm/dl (2.5-4.0); Total Protein 9.3 gm/dl (6.4-8.2)
--- NOTE | 2019-04-20 22:50 | XRay Report ---
XR chest 1V portable HISTORY: Sepsis COMPARISON: Chest 11/30/2018. FINDINGS: The lungs are clear. The heart remains mildly enlarged. No pleural effusions. No pneumothor ax. No evidence for pulmonary edema. Large hiatus hernia, unchanged. Degenerative changes within the bilateral shoulders are again noted. IMPRESSION: 1. No acute process within the chest. 2. No change in the large hiatus hernia and mild cardiomegaly. Electronically signed by: Madi Guy M.D. 04/20/2019 10:49 PM
[2019-04-20 22:52] LABS: Potassium 4.1 mmol/L (3.5-5.1)
[2019-04-20 22:57] LABS: Partial Thromboplastin Time 27.3 Seconds (21.0-31.0); Prothrombin Time 10.4 Seconds (9.0-12.0)
[2019-04-20] MEDS ORDERED: methylPREDNISolone 125 MG/2 ML VIAL IV STA (22:57)
[2019-04-20] MEDS ORDERED: SODIUM CHLORIDE 0.9% 1000ML 500 ML IV ONE (22:57)
[2019-04-20] MEDS ORDERED: CEFEPIME 2,000 MG/20 ML VIAL IV STA (22:58)
[2019-04-20] MEDS ORDERED: VANCOMYCIN CONSULT ACTIVE PRN (22:58)
[2019-04-20] MEDS ORDERED: VANCOMYCIN HCL 1,500 MG in SODIUM CHLORIDE 0.9% 500 ML IV ONE (22:58)
[2019-04-20] MEDS ORDERED: ACETAMINOPHEN 500 MG TAB PO STA (22:58)
[2019-04-20 23:03] LABS: Magnesium 2.2 mg/dl (1.8-2.4)
[2019-04-20 23:19] LABS: Troponin I 0.025 ng/ml (0-0.045)
[2019-04-20 23:43] LABS: Influenza A virus by PCR Neg for Influ A (Neg); Influenza B virus by PCR Neg for Influ B (Neg)
--- NOTE | 2019-04-21 00:15 | History & Physical Report ---
Date of Service April 21, 2019 Assessment & Plan (1) Bronchitis: Patient presenting with productive cough, congestion, chills and body aches. Elevated white blood cell count = 11.4 with neutrophils and bands. Elevated POC lactate to 2.19. Patient requiring supplemental O2 while in the ER. -Admit to medical floor telemetry Check procalcitonin, repeat chest x-ray in a.m. Ceftriaxone and azithromycin for possible community-acquired pneumonia Albuterol every 2 hours as needed -Incentive spirometry, encourage use every 2 hours while awake -Continue p.o. vancomycin while on antibiotics -Probiotic daily -Robitussin as needed for cough -Tylenol as needed for pain or fever Present on Admission?: Yes (2) Hypertension: Blood pressure mildly elevated. -Continue amlodipine -We will hold Maxide for now as patient appears to be clinically dry -Continue to monitor Present on Admission?: Yes (3) Asthma: Patient with history of asthma. No audible wheezing on exam. She was given 125 mg of Solu-Medrol IV in the ER as well as 1 albuterol neb -Continue albuterol every 2 hours as needed -Continue home Breo -We will hold off on additional steroids for now. Patient with history of steroid-induced myopathy. If shortness of breath/wheezing/hypoxia persist would consider brief p.o. prednisone burst Present on Admission?: Yes (4) Renal insufficiency: Mildly elevated BUN = 32 and creatinine = 1.54. Patient appears to be clinically dry on exam. Is given 500 mL of normal saline in the ER -We will give additional normal saline at 80 mL/h x 1 L -Hold Maxide for now -Repeat BMP in a.m. Present on Admission?: Yes (5) Polymyalgia rheumatica: Chronic. Stable. Patient is not currently taking any medications F/E/Nnormal saline at 80 mL/h x 1 L. Monitor electrolytes and replete as needed. Heart healthy diet as tolerated. Continue Colace and fiber supplements as needed for bowel management ProphylaxisHeparin Code - Full per discussion with patient Dispo - Admit to medical floor with telemetry History of Present Illness Chief Complaint: Shortness of breath, chest congestion Primary Care Provider: [facility] Laurie Perez is an 88-year-old female presented here with "congestion in lungs". She reports a dry cough over the last week, today it became productive for yellow, "stringy" sputum. Patient also with pain in right shoulder blade that occurs with coughing she reports some chills as well as shortness of breath, dyspnea on exertion and wheezing. She denies fever, sweats, rigors. She has mild abdominal pain but otherwise denies nausea, vomiting, diarrhea or constipation. She has some right-sided pleuritic chest pain otherwise denies chest discomfort, palpitations, diaphoresis. Patient was admitted for pneumonia in November 2018. States that she felt somewhat similar. + Sick contacts. Patient is a resident of [facility] and reports a lot of people are coughing and ill. Upon arrival to the ER patient found to be afebrile, heart rate of 93, respiratory rate of 27 and saturating 88% on room air. Saturation improved with placement of 3 L oxygen. Presently she is 91% on 2 L ER course: Acetaminophen, albuterol, cefepime, Solu-Medrol, normal saline, vancomycin Allergies Allergy/AdvReac Type Severity Reaction Status Date / Time Bactrim Allergy Intermediate HIVES Verified 08/12/17 17:09 sulfamethoxazole Allergy Intermediate HIVES Verified 02/10/19 09:29 tetanus toxoid, adsorbed Allergy Intermediate RASH Verified 04/20/19 22:39 trimethoprim Allergy Intermediate HIVES Verified 04/20/19 22:39 latex Allergy Mild RASH Verified 02/10/19 09:29 Penicillins Allergy Unknown Verified 04/20/19 22:39 codeine AdvReac Intermediate HEADACHES Verified 04/20/19 22:39 morphine AdvReac Mild SEVERE Verified 04/20/19 22:39 HEADACHES Home Medications Home Medications Medication Instructions Recorded Confirmed Type acetaminophen [Tylenol Extra 1,000 mg PO BID 04/20/19 04/20/19 History Strength] acetaminophen [Tylenol] 650 mg PO Q4 PRN 04/20/19 04/20/19 History albuterol sulfate [Ventolin HFA] 1 - 2 puff INHALATION QID PRN 04/20/19 04/20/19 History amlodipine [Norvasc] 5 mg PO DAILY 04/20/19 04/20/19 History ascorbic acid (vitamin C) [Vitamin 500 mg PO DAILY 04/20/19 04/20/19 History C] aspirin [Aspir-81] 81 mg PO DAILY 04/20/19 04/20/19 History biotin 5,000 mcg PO DAILY 04/20/19 04/20/19 History calcium carbonate-vitamin D3 1 tab PO DAILY 04/20/19 04/20/19 History [Calcium 600 + D(3)] darifenacin [Enablex] 7.5 mg PO DAILY 04/20/19 04/20/19 History diclofenac sodium [Voltaren] 2 g TOPICAL QID PRN 04/20/19 04/20/19 History docusate sodium [Colace] 100 mg PO BID PRN 04/20/19 04/20/19 History fluticasone furoate-vilanterol 1 inh INHALATION DAILY 04/20/19 04/20/19 History [Breo Ellipta] hydrocortisone [Procto-Med HC] 1 applic [place] BID PRN 04/20/19 04/20/19 History lanolin zlxxkml-xy-t.pet-ceres 1 applic TOPICAL DAILY 04/20/19 04/20/19 History [Eucerin] loratadine [Claritin Liqui-Gel] 10 mg PO DAILY 04/20/19 04/20/19 History tcplacawktwq-nxfxftfx-ygborp 1 tab PO DAILY 04/20/19 04/20/19 History [Cerovite Senior] omeprazole 20 mg PO DAILY 04/20/19 04/20/19 History ondansetron 4 mg PO Q4 PRN 04/20/19 04/20/19 History psyllium husk (with sugar) 1 tbsp PO DAILY PRN 04/20/19 04/20/19 History [Reguloid (psyllium husk-sucro)] ranitidine HCl 75 mg PO Q12 04/20/19 04/20/19 History sennosides-docusate sodium [Senna 1 tab-cap PO DAILY PRN 04/20/19 04/20/19 History with Docusate Sodium] triamterene-hydrochlorothiazid 1 tab PO Q OTHER DAY 04/20/19 04/20/19 History [Maxzide-25mg] vancomycin [Vancocin] 125 mg PO DAILY 04/20/19 04/20/19 History Past Med/Surg History Social History Preferred Language: Portuguese Communication Ability: Effective Visual Impairment: No Limitations Hearing Ability: Normal Instructor Nurse Required: No Beliefs That Will Affect Care: None Current Living Situation: Detention Current Living Situation Comment: [facility] Feels Safe at Home: Yes Smoking Status: Never smoker Review of Systems Review of Systems: Patient has some pelvic pain with urination Patient with cystocele and occasional rectal prolapse Physical Exam Physical Exam: General: Frail, elderly female resting comfortably, NAD, non- toxic in appearance, AA&O x 4 Skin: warm, dry, intact, no rashes or lesions HEENT: NC/AT, PERRL, EOMI, anicteric sclera, conjunctiva without injection, external ear normal to inspection and nontender, nares patent, dry mucus membranes, dentition intact, no oropharyngeal lesions, neck supple, trachea midline, no LAD, no thyromegaly, no JVD, + facial tenderness over maxillary sinuses Heart: +S1/S2, regular, no m/r/g Lungs: Patient with short/shallow breaths secondary to shoulder discomfort, equal air entry bilaterally, no rales/rhonchi/wheezes, diminished in bases Abd: +BS, soft, NT/ND, no masses/organomegaly/ascites Ext: warm, 2+ pulses in UE/LE bilaterally, no clubbing/cyanosis, trace edema Neuro: nonfocal, patient AA&O x 4, speech intact, no facial droop, moving all extremities on command with equal strength 5/5 Results & Data Vital Signs (Past 12 Hours) Vital Signs Temp Pulse Pulse Resp BP Pulse Ox 04/20/19 23:01 93 H 23 96 04/20/19 23:00 92 H 24 175/61 H 97 04/20/19 22:57 92 H 18 99 04/20/19 22:31 94 H 26 H 193/78 H 96 04/20/19 22:01 94 H 21 97 04/20/19 22:00 94 H 27 H 193/90 H 96 04/20/19 21:52 91 H 23 98 04/20/19 21:42 37.7 C H 94 H 34 H 196/99 H 97 Laboratory Results Lab Results 04/20/19 04/20/19 04/20/19 Range/Units 21:02 21:02 22:29 WBC 11.40 H (4.8-10.8) K/uL RBC 4.21 (4.2-5.4) M/uL Hgb 13.3 (12.0-16.0) g/dL Hct 40.7 (37-47) % MCV 96.7 (80-100) fL MCH 31.6 (25-34) pg MCHC 32.7 (32-36) g/dL RDW Std Deviation 48.8 H (36.4-46.3) fL RDW Coeff of Luis Eduardo 13.8 (11.5-14.5) % Plt Count 178 (130-400) K/uL MPV 10.5 H (7.4-10.4) fL Immature Gran % (Auto) 1.4 % Neut % (Auto) 75.2 % Lymph % (Auto) 11.3 % [place] % (Auto) 11.6 % Eos % (Auto) 0.4 % Baso % (Auto) 0.1 % Immature Gran # (Auto) 0.16 H (0.00-0.02) K/uL Neut # (Auto) 8.57 H (1.4-6.5) K/uL Lymph # (Auto) 1.29 (1.2-3.4) K/uL [place] # (Auto) 1.32 H (0.11-0.59) K/uL Eos # (Auto) 0.05 (0-0.5) K/uL Baso # (Auto) 0.01 (0-0.2) K/uL PT 10.4 (9.0-12.0) Seconds INR 1.0 (0.9-1.1) APTT 27.3 (21.0-31.0) Seconds PTT Ratio 1.0 Sodium 141 (136-145) mmol/L Potassium 4.1 (3.5-5.1) mmol/L Chloride 104 (98-107) mmol/L Carbon Dioxide 29 (21-32) mmol/L Anion Gap 8.0 (3-11) BUN 32 H (7-18) mg/dl Creatinine 1.54 H (0.6-1.2) mg/dl Est Cr Clr Drug Dosing 24.6 ml/min Est GFR ( Amer) 34.8 Est GFR (Non-Af Amer) 30.0 BUN/Creatinine Ratio 21.0 H (10-20) Glucose 112 H (70-99) mg/dl POC Lactic Acid Carter (0.90-1.70) mmol/L Calcium 9.9 (8.5-10.1) mg/dl Magnesium 2.2 (1.8-2.4) mg/dl Total Bilirubin 0.5 (0.2-1) mg/dl AST 26 (15-37) U/L ALT 23 (12-78) U/L Alkaline Phosphatase 103 (45-117) U/L POC Troponin I (0-0.045) ng/ml Troponin I 0.025 (0-0.045) ng/ml NT-Pro-B Natriuret Pep 222 (0-1800) pg/ml Total Protein 9.3 H (6.4-8.2) gm/dl Albumin 4.5 (3.4-5.0) gm/dl Globulin 4.8 H (2.5-4.0) gm/dl Albumin/Globulin Ratio 0.9 (0.9-2) Influenza Type A (PCR) (Neg) Influenza Type B (PCR) (Neg) 04/20/19 04/20/19 04/20/19 Range/Units 22:34 22:46 23:02 WBC (4.8-10.8) K/uL RBC (4.2-5.4) M/uL Hgb (12.0-16.0) g/dL Hct (37-47) % MCV (80-100) fL MCH (25-34) pg MCHC (32-36) g/dL RDW Std Deviation (36.4-46.3) fL RDW Coeff of Luis Eduardo (11.5-14.5) % Plt Count (130-400) K/uL MPV (7.4-10.4) fL Immature Gran % (Auto) % Neut % (Auto) % Lymph % (Auto) % [place] % (Auto) % Eos % (Auto) % Baso % (Auto) % Immature Gran # (Auto) (0.00-0.02) K/uL Neut # (Auto) (1.4-6.5) K/uL Lymph # (Auto) (1.2-3.4) K/uL [place] # (Auto) (0.11-0.59) K/uL Eos # (Auto) (0-0.5) K/uL Baso # (Auto) (0-0.2) K/uL PT (9.0-12.0) Seconds INR (0.9-1.1) APTT (21.0-31.0) Seconds PTT Ratio Sodium (136-145) mmol/L Potassium (3.5-5.1) mmol/L Chloride (98-107) mmol/L Carbon Dioxide (21-32) mmol/L Anion Gap (3-11) BUN (7-18) mg/dl Creatinine (0.6-1.2) mg/dl Est Cr Clr Drug Dosing ml/min Est GFR ( Amer) Est GFR (Non-Af Amer) BUN/Creatinine Ratio (10-20) Glucose (70-99) mg/dl POC Lactic Acid Carter 2.19 H (0.90-1.70) mmol/L Calcium (8.5-10.1) mg/dl Magnesium (1.8-2.4) mg/dl Total Bilirubin (0.2-1) mg/dl AST (15-37) U/L ALT (12-78) U/L Alkaline Phosphatase (45-117) U/L POC Troponin I < 0.03 (0-0.045) ng/ml Troponin I (0-0.045) ng/ml NT-Pro-B Natriuret Pep (0-1800) pg/ml Total Protein (6.4-8.2) gm/dl Albumin (3.4-5.0) gm/dl Globulin (2.5-4.0) gm/dl Albumin/Globulin Ratio (0.9-2) Influenza Type A (PCR) Neg for Influ A (Neg) Influenza Type B (PCR) Neg for Influ B (Neg) Diagnostic Findings XR chest 1V portable HISTORY: Sepsis COMPARISON: Chest 11/30/2018. FINDINGS: The lungs are clear. The heart remains mildly enlarged. No pleural effusions. No pneumothorax. No evidence for pulmonary edema. Large hiatus hernia, unchanged. Degenerative changes within the bilateral shoulders are again noted. IMPRESSION: 1. No acute process within the chest. 2. No change in the large hiatus hernia and mild cardiomegaly. Electronically signed by: Madi Guy M.D. 04/20/2019 10:49 PM Dictated: 04/20/192247 Transcribed: 04/20/192247 ECG Additional Comments: The study shows normal sinus rhythm at 94 bpm, normal axis, [place] = 176, QRS = 66, QTc = 422, no acute ischemic changes Code Status & VTE Plan Code Status Full code VTE Prophylaxis Plan VTE Prophylaxis will be ordered: Yes PG Care Time/CCT Total # of Minutes Spent Total Time Spent with Patient: Total time spent is greater than 50% in coordination of care (as documented) at patient's floor/unit and/or counseling patient: (1) Hypertension Hypertension type: essential hypertension Qualified Code(s): I10 - Essential (primary) hypertension (2) Asthma Asthma severity: mild Asthma persistence: intermittent Asthma complication type: unspecified Qualified Code(s): J45.20 - Mild intermittent asthma, uncomplicated
--- NOTE | 2019-04-21 00:36 | Emergency Department Note ---
History of Present Illness General Chief complaint: Shortness of Breath/Dyspnea Stated complaint: SOB History of Present Illness Maximum Pain Intensity: 6 This 88-year-old presents to the ER complaining of cough, congestion, subjective fever and chills and dyspnea Location: Generalized Quality: Congested Severity: Moderate Duration: Past 3 days Timing: Started 3 days ago Context: Patient's breathing got worse and was brought in Modifying factors: better with albuterol; worse with activity Patient states she has been feeling sick for the past 3 days. She had a productive cough with yellow sputum. Patient denies chest pain, abdominal pain, sore throat. She lives in independent living. People around her have been sick. She is currently on vancomycin for C. difficile. Home Medications Home Medications Medication Instructions Recorded Confirmed Type acetaminophen [Tylenol Extra 1,000 mg PO BID 04/20/19 04/20/19 History Strength] acetaminophen [Tylenol] 650 mg PO Q4 PRN 04/20/19 04/20/19 History albuterol sulfate [Ventolin HFA] 1 - 2 puff INHALATION QID PRN 04/20/19 04/20/19 History amlodipine [Norvasc] 5 mg PO DAILY 04/20/19 04/20/19 History ascorbic acid (vitamin C) [Vitamin 500 mg PO DAILY 04/20/19 04/20/19 History C] aspirin [Aspir-81] 81 mg PO DAILY 04/20/19 04/20/19 History biotin 5,000 mcg PO DAILY 04/20/19 04/20/19 History calcium carbonate-vitamin D3 1 tab PO DAILY 04/20/19 04/20/19 History [Calcium 600 + D(3)] darifenacin [Enablex] 7.5 mg PO DAILY 04/20/19 04/20/19 History diclofenac sodium [Voltaren] 2 g TOPICAL QID PRN 04/20/19 04/20/19 History docusate sodium [Colace] 100 mg PO BID PRN 04/20/19 04/20/19 History fluticasone furoate-vilanterol 1 inh INHALATION DAILY 04/20/19 04/20/19 History [Breo Ellipta] hydrocortisone [Procto-Med HC] 1 applic IN BID PRN 04/20/19 04/20/19 History lanolin xdqyljp-gt-i.pet-ceres 1 applic TOPICAL DAILY 04/20/19 04/20/19 History [Eucerin] loratadine [Claritin Liqui-Gel] 10 mg PO DAILY 04/20/19 04/20/19 History lfhqbbddngxi-qcgwlnsa-hotclp 1 tab PO DAILY 04/20/19 04/20/19 History [Cerovite Senior] omeprazole 20 mg PO DAILY 04/20/19 04/20/19 History ondansetron 4 mg PO Q4 PRN 04/20/19 04/20/19 History psyllium husk (with sugar) 1 tbsp PO DAILY PRN 04/20/19 04/20/19 History [Reguloid (psyllium husk-sucro)] ranitidine HCl 75 mg PO Q12 04/20/19 04/20/19 History sennosides-docusate sodium [Senna 1 tab-cap PO DAILY PRN 04/20/19 04/20/19 History with Docusate Sodium] triamterene-hydrochlorothiazid 1 tab PO Q OTHER DAY 04/20/19 04/20/19 History [Maxzide-25mg] vancomycin [Vancocin] 125 mg PO DAILY 04/20/19 04/20/19 History Allergies Allergy/AdvReac Type Severity Reaction Status Date / Time Bactrim Allergy Intermediate HIVES Verified 08/12/17 17:09 sulfamethoxazole Allergy Intermediate HIVES Verified 02/10/19 09:29 tetanus toxoid, adsorbed Allergy Intermediate RASH Verified 04/20/19 22:39 trimethoprim Allergy Intermediate HIVES Verified 04/20/19 22:39 latex Allergy Mild RASH Verified 02/10/19 09:29 Penicillins Allergy Unknown Verified 04/20/19 22:39 codeine AdvReac Intermediate HEADACHES Verified 04/20/19 22:39 morphine AdvReac Mild SEVERE Verified 04/20/19 22:39 HEADACHES Past Med/Surg History Medical History Abdominal pain Acute respiratory failure with hypoxia Acute right hip pain ARF (acute renal failure) Benign essential HTN (Chronic) Bilateral cellulitis of lower leg Cellulitis of lower leg (Resolved) Chronic venous insufficiency Confusion Contusion of left hip Degenerative joint disease of knee (Chronic) DVT prophylaxis Fall Fracture of left clavicle Head injury Hypertensive emergency Hypoxia (Chronic) Left knee DJD Left knee pain Major depressive disorder (Chronic) Major depressive disorder, recurrent, moderate NSTEMI (non-ST elevated myocardial infarction) Physical deconditioning PIC line (peripherally inserted central catheter) removal (Resolved) Polymyalgia rheumatica (Chronic) Renal insufficiency Right knee DJD Right thigh pain Steroid-induced myopathy (Unknown) Traumatic hematoma of right forearm Trochanteric bursitis of right hip Unspecified psychosis Venous stasis ulcer of right lower leg with edema of right lower leg Surgical History S/P arthroscopic knee surgery (Chronic) Status post arthroscopic knee surgery Status post tubal ligation Social History Preferred Language: Pashto Communication Ability: Effective Visual Impairment: No Limitations Hearing Ability: Normal Airline Lounge Receptionist Required: No Beliefs That Will Affect Care: None Current Living Situation: Longterm Current Living Situation Comment: [facility] Feels Safe at Home: Yes Smoking Status: Never smoker Review of Systems All systems reviewed & are unremarkable except as noted in HPI & below Physical Exam Vital Signs Vital Signs - 24 hr 04/20/19 21:42 04/20/19 21:52 04/20/19 22:00 Temperature 37.7 C H Temperature Source Oral Pulse Rate 94 H 91 H 94 H Pulse Rate [Right Finger] Pulse Rate from SpO2 Sensor 93 H 92 H 94 H Respiratory Rate 34 H 23 27 H Respiratory Effort / Characteristics Non-Labored Spontaneous Respiratory Depth Normal Respiratory Pattern Regular Blood Pressure 196/99 H 193/90 H Blood Pressure Mean 119 117 Pulse Oximetry 97 98 96 Oxygen Delivery Method Nasal Cannula Oxygen Flow Rate 4 Sepsis Recent Fever Within 48 Hours No Sepsis New/Unexplained Change in Mental Status No Sepsis Action Taken by Nursing No Action Required Oxygen Flow Rate - Titration 4 Pulse Oximetry Post Tiitration 97 04/20/19 22:01 04/20/19 22:31 04/20/19 22:57 Temperature Temperature Source Pulse Rate 94 H 94 H Pulse Rate [Right Finger] 92 H Pulse Rate from SpO2 Sensor 93 H 95 H Respiratory Rate 21 26 H 18 Respiratory Effort / Characteristics Non-Labored Spontaneous Respiratory Depth Respiratory Pattern Blood Pressure 193/78 H Blood Pressure Mean 101 Pulse Oximetry 97 96 99 Oxygen Delivery Method Nasal Cannula Oxygen Flow Rate 3 Sepsis Recent Fever Within 48 Hours Sepsis New/Unexplained Change in Mental Status Sepsis Action Taken by Nursing Oxygen Flow Rate - Titration Pulse Oximetry Post Tiitration 04/20/19 23:00 04/20/19 23:01 Temperature Temperature Source Pulse Rate 92 H 93 H Pulse Rate [Right Finger] Pulse Rate from SpO2 Sensor 92 H 93 H Respiratory Rate 24 23 Respiratory Effort / Characteristics Respiratory Depth Respiratory Pattern Blood Pressure 175/61 H Blood Pressure Mean 87 Pulse Oximetry 97 96 Oxygen Delivery Method Oxygen Flow Rate Sepsis Recent Fever Within 48 Hours Sepsis New/Unexplained Change in Mental Status Sepsis Action Taken by Nursing Oxygen Flow Rate - Titration Pulse Oximetry Post Tiitration VITALS: Vitals are noted on the nurse's note and reviewed by myself. Vital signs hypoxic on room air but O2 came up nicely with nasal cannula. GENERAL: Pleasant female working to breathe, in mild acute distress, nondiaphoretic, well-developed well-nourished. SKIN: The skin was without rashes, erythema, edema, or bruising. There is no tenting of the skin. Capillary reflex less than 2 seconds. HEAD: Normocephalic atraumatic. EARS: External auditory canals clear, tympanic membranes pearly pryor without erythema or effusion bilaterally. EYES: Pupils equal round and reactive to light and accommodation. Conjunctivae without injection, sclerae without icterus. Extraocular movements intact. NOSE: Patent, turbinates without inflammation or discharge. No sinus tenderness. MOUTH: Mucous membranes mildly dry. Pharynx without erythema or exudate. Uvula midline. Airway patent. Tongue does not deviate. NECK: Supple without nuchal rigidity. No lymphadenopathy. No thyromegaly. Cervical spine is nontender. No JVD. HEART: Regular rate and rhythm LUNGS: Mild diffuse inspiratory and end expiratory wheezes, bibasilar rales. + retractions ABDOMEN: Positive bowel sounds x 4. Normal tympanic percussion. Soft, nontender, without masses or organomegaly. Santos sign negative. No guarding or rebound tenderness. No CVA tenderness MUSCULOSKELETAL: No muscle atrophy, erythema, or edema noted. NEURO: Patient was alert and oriented to person place and time. Normal sensation to light and sharp touch. No focal neurological deficits. Course Administered Medications Sodium Chloride (Nss 1000ml) 1,000 mls @ 80 mls/hr IV .[id number] JENNIE Stop: 04/21/19 14:15 Last Admin: 04/21/19 03:53 Dose: 80 mls/hr Documented by: [id number] Miscellaneous (Order Awaiting Action) 1 ea N/A QS JENNIE Stop: 05/21/19 02:29 Last Admin: 04/21/19 03:52 Dose: Not Given Documented by: [id number] Miscellaneous (Order Awaiting Action) 1 ea N/A QS JENNIE Stop: 05/21/19 02:29 Last Admin: 04/21/19 03:52 Dose: Not Given Documented by: [id number] Discontinued Medications Acetaminophen (Tylenol) 1,000 mg PO NOW STA Stop: 04/20/19 22:59 Last Admin: 04/20/19 23:39 Dose: 1,000 mg Documented by: [id number] Albuterol (Duoneb) 3 ml NEB NOW STA Stop: 04/20/19 22:12 Last Admin: 04/20/19 22:56 Dose: 3 ml Documented by: [id number] Sodium Chloride (Nss 1000ml) 500 mls @ 999 mls/hr IV .Q31M ONE Stop: 04/20/19 23:27 Last Infusion: 04/21/19 00:26 Dose: 0 mls/hr Documented by: [id number] Admin: 04/20/19 23:15 Dose: 999 mls/hr Documented by: [id number] Cefepime HCl (Maxipime) 2,000 mg in 20 mls @ 5 mls/min IV NOW STA; Protocol Stop: 04/20/19 23:01 Last Admin: 04/20/19 23:39 Dose: 5 mls/min Documented by: [id number] Vancomycin HCl 1,500 mg/ (Sodium Chloride) 530 mls @ 200 mls/hr IV NOW ONE Stop: 04/21/19 01:36 Last Admin: 04/21/19 00:25 Dose: 200 mls/hr Documented by: [id number] Azithromycin 500 mg/ Dextrose 255 mls @ 125 mls/hr IV ONE ONE Stop: 04/21/19 04:02 Last Admin: 04/21/19 02:12 Dose: 125 mls/hr Documented by: [id number] Methylprednisolone (Solumedrol) 125 mg IV NOW STA Stop: 04/20/19 22:58 Last Admin: 04/20/19 23:39 Dose: 125 mg Documented by: [id number] Medical Decision Making Medical Records Attestation: I reviewed the patient's medical records. Home Medications Current Medication List: was personally reviewed by me Laboratory Data Attestation: I reviewed the patient's lab results. Result diagrams: 04/20/19 21:02 04/20/19 21:02 Lab Results 04/20/19 04/20/19 04/20/19 Range/Units 21:02 21:02 22:29 WBC 11.40 H (4.8-10.8) K/uL RBC 4.21 (4.2-5.4) M/uL Hgb 13.3 (12.0-16.0) g/dL Hct 40.7 (37-47) % MCV 96.7 (80-100) fL MCH 31.6 (25-34) pg MCHC 32.7 (32-36) g/dL RDW Std Deviation 48.8 H (36.4-46.3) fL RDW Coeff of Luis Eduardo 13.8 (11.5-14.5) % Plt Count 178 (130-400) K/uL MPV 10.5 H (7.4-10.4) fL Immature Gran % (Auto) 1.4 % Neut % (Auto) 75.2 % Lymph % (Auto) 11.3 % Cooke % (Auto) 11.6 % Eos % (Auto) 0.4 % Baso % (Auto) 0.1 % Immature Gran # (Auto) 0.16 H (0.00-0.02) K/uL Neut # (Auto) 8.57 H (1.4-6.5) K/uL Lymph # (Auto) 1.29 (1.2-3.4) K/uL Cooke # (Auto) 1.32 H (0.11-0.59) K/uL Eos # (Auto) 0.05 (0-0.5) K/uL Baso # (Auto) 0.01 (0-0.2) K/uL PT 10.4 (9.0-12.0) Seconds INR 1.0 (0.9-1.1) APTT 27.3 (21.0-31.0) Seconds PTT Ratio 1.0 Sodium 141 (136-145) mmol/L Potassium 4.1 (3.5-5.1) mmol/L Chloride 104 (98-107) mmol/L Carbon Dioxide 29 (21-32) mmol/L Anion Gap 8.0 (3-11) BUN 32 H (7-18) mg/dl Creatinine 1.54 H (0.6-1.2) mg/dl Est Cr Clr Drug Dosing 24.6 ml/min Est GFR ( Amer) 34.8 Est GFR (Non-Af Amer) 30.0 BUN/Creatinine Ratio 21.0 H (10-20) Glucose 112 H (70-99) mg/dl POC Lactic Acid Carter (0.90-1.70) mmol/L Calcium 9.9 (8.5-10.1) mg/dl Magnesium 2.2 (1.8-2.4) mg/dl Total Bilirubin 0.5 (0.2-1) mg/dl AST 26 (15-37) U/L ALT 23 (12-78) U/L Alkaline Phosphatase 103 (45-117) U/L POC Troponin I (0-0.045) ng/ml Troponin I 0.025 (0-0.045) ng/ml NT-Pro-B Natriuret Pep 222 (0-1800) pg/ml Total Protein 9.3 H (6.4-8.2) gm/dl Albumin 4.5 (3.4-5.0) gm/dl Globulin 4.8 H (2.5-4.0) gm/dl Albumin/Globulin Ratio 0.9 (0.9-2) Influenza Type A (PCR) (Neg) Influenza Type B (PCR) (Neg) 04/20/19 04/20/19 04/20/19 Range/Units 22:34 22:46 23:02 WBC (4.8-10.8) K/uL RBC (4.2-5.4) M/uL Hgb (12.0-16.0) g/dL Hct (37-47) % MCV (80-100) fL MCH (25-34) pg MCHC (32-36) g/dL RDW Std Deviation (36.4-46.3) fL RDW Coeff of Luis Eduardo (11.5-14.5) % Plt Count (130-400) K/uL MPV (7.4-10.4) fL Immature Gran % (Auto) % Neut % (Auto) % Lymph % (Auto) % Cooke % (Auto) % Eos % (Auto) % Baso % (Auto) % Immature Gran # (Auto) (0.00-0.02) K/uL Neut # (Auto) (1.4-6.5) K/uL Lymph # (Auto) (1.2-3.4) K/uL Cooke # (Auto) (0.11-0.59) K/uL Eos # (Auto) (0-0.5) K/uL Baso # (Auto) (0-0.2) K/uL PT (9.0-12.0) Seconds INR (0.9-1.1) APTT (21.0-31.0) Seconds PTT Ratio Sodium (136-145) mmol/L Potassium (3.5-5.1) mmol/L Chloride (98-107) mmol/L Carbon Dioxide (21-32) mmol/L Anion Gap (3-11) BUN (7-18) mg/dl Creatinine (0.6-1.2) mg/dl Est Cr Clr Drug Dosing ml/min Est GFR ( Amer) Est GFR (Non-Af Amer) BUN/Creatinine Ratio (10-20) Glucose (70-99) mg/dl POC Lactic Acid Carter 2.19 H (0.90-1.70) mmol/L Calcium (8.5-10.1) mg/dl Magnesium (1.8-2.4) mg/dl Total Bilirubin (0.2-1) mg/dl AST (15-37) U/L ALT (12-78) U/L Alkaline Phosphatase (45-117) U/L POC Troponin I < 0.03 (0-0.045) ng/ml Troponin I (0-0.045) ng/ml NT-Pro-B Natriuret Pep (0-1800) pg/ml Total Protein (6.4-8.2) gm/dl Albumin (3.4-5.0) gm/dl Globulin (2.5-4.0) gm/dl Albumin/Globulin Ratio (0.9-2) Influenza Type A (PCR) Neg for Influ A (Neg) Influenza Type B (PCR) Neg for Influ B (Neg) Imaging Data Attestation: I personally reviewed and interpreted this imaging study as follows: Blood Pressure Blood Pressure Findings: Elevated blood pressure Blood Pressure Disposition: Referred to patients primary care provider MDM Narrative Prior records/ancillary studies reviewed. Triage Nursing notes reviewed. Additional history obtained from the family. The patient's history was concerning for respiratory difficulties. Differential diagnosis: Etiologies such as infections, reactive airway disease, pneumonia, pneumothorax, COPD, CHF, cardiac ischemia, pulmonary embolism, musculoskeletal, gastrointestinal, as well as others were entertained. Physical examination: As above. ER treatment provided: Nebulizer, Solu-Medrol, IV fluids, vancomycin, cefepime On reassessment the patient felt better. Diagnostic interpretation by me: The electrocardiogram was negative for acute ischemic or pathologic change. Ordered for dyspnea EKG: Normal sinus, normal intervals, no acute ST-T wave changes. Impression normal sinus interpreted by myself I think arrhythmia is unlikely. EKG shows normal sinus rhythm with no interval abnormalities such as QT prolongation or WPW. There are no findings to suggest Brugada syndrome. Cardiac monitoring in the emergency department reveals no tachycardic or bradycardic dysrhythmia. Hypertrophic cardiomyopathy was considered but there are no clear historical elements pointing toward this. EKG is not suggestive. The QRS voltage is not extremely large and there are no suggestive Q waves. The labs revealed leukocytosis, elevated lactic acid. Blood cultures pending. Negative flu Imaging studies: XR chest 1V portable HISTORY: Sepsis COMPARISON: Chest 11/30/2018. FINDINGS: The lungs are clear. The heart remains mildly enlarged. No pleural effusions. No pneumothorax. No evidence for pulmonary edema. Large hiatus hernia, unchanged. Degenerative changes within the bilateral shoulders are again noted. IMPRESSION: 1. No acute process within the chest. 2. No change in the large hiatus hernia and mild cardiomegaly. Electronically signed by: Madi Guy M.D. 04/20/2019 10:49 PM Consultation: A consultation was placed with Dr. Johnston, hospitalist. The case was discussed and diagnostics were reviewed. The patient was evaluated in the ER for further treatment. This appears to be consistent with bronchitis versus developing pneumonia with hypoxemia. Medicine was consulted. Patient is agreeable treatment plan of admission. She was started on antibiotics. Blood cultures are pending. Lactic was elevated. Negative flu. By the evaluation outlined above emergent etiologies such as CHF, cardiac ischemia, pulmonary embolism, pneumothorax, musculoskeletal, as well as others were deemed relatively unlikely. The pt informed about the findings as listed above. All questions were answered and pleased with the treatment. Case reviewed with my attending The chart was completed utilizing [employer] Speech voice recognition software. Grammatical errors, random word insertions, pronoun errors, and incomplete sentences are an occassional consequence of this system due to software limitations, ambient noise, and hardware issues. Any formal questions or concerns about the content, text, or information contained within the body of this dictation should be directly addressed to the physician dietary assistant for clarification. Impression & Plan Hypoxemia, Bronchitis, Sepsis Discharge Plan Visit Data *Final* Discharge Date/Time: 04/21/19 00:44 Chief Complaint: Shortness of Breath/Dyspnea Stated Complaint: SOB ED Provider: Swathi Dawn ED Midlevel Provider: Liza Melendez Discharge Problem: Hypoxemia, Bronchitis, Sepsis Patient Disposition: Admitted As Inpatient Condition: Fair Discharge Instructions Interventions: ED Discharge Assessment Last Done: 04/21/19 00:44
--- NOTE | 2019-04-21 00:42 | Emergency Department Note ---
ED Visit Note I have personally seen and evaluated the patient with the PA. I agree with the diagnosis and management decisions and have been personally involved in the case. Patient's allergy list was reviewed and agree with cefepime and vancomycin. Upon my evaluation the patient was resting comfortably on nasal cannula oxygen. She had no further questions. Please see Laura Melendez PA-C's notes for further details of the history, physical and visit. .
[2019-04-21] MEDS ORDERED: DICLOFENAC SOD 1% GEL 100 GM TUBE EXT PRN (01:46)
[2019-04-21] MEDS ORDERED: ALBUTEROL 0.5% NEB SOLN 2.5 MG/0.5 ML VIAL NEB PRN (01:46)
[2019-04-21] MEDS ORDERED: DOCUSATE SODIUM 100 MG CAP PO PRN (01:46)
[2019-04-21] MEDS ORDERED: DOCUSATE SODIUM/SENNA 50/8.6MG TAB PO PRN (01:46)
[2019-04-21] MEDS ORDERED: SODIUM CHLORIDE 0.9% 1000ML 1,000 ML IV SCH (01:46)
[2019-04-21] MEDS ORDERED: AZITHROMYCIN 500 MG in DEXTROSE 5% 250 ML IV ONE (02:00)
[2019-04-21] MEDS ORDERED: ONDANSETRON 4 MG OD TAB PO PRN (02:16)
[2019-04-21] MEDS ORDERED: ACETAMINOPHEN 325 MG TAB PO PRN (02:16)
[2019-04-21] MEDS: cefTRIAXone SODIUM 1,000 MG in DEXTROSE 5% 50 ML IV SCH (04:18)
[2019-04-21] MEDS: HEPARIN SOD 5,000 UNIT/0.5 ML VIAL SQ SCH ×3 (06:05→21:30)
[2019-04-21 06:58] LABS: Appearance Urine Clear (Clear); Bacteria Urine Automated Negative (Negative); Bilirubin Urine Negative (Negative); Blood Urine Trace (Negative); Color Urine Yellow; Epithelial Cell Urine Auto 0-5 /lpf (0-5); Glucose Urine UA Negative (Negative); Ketones Urine Negative (Negative); Leukocyte Esterase Urine 2+ (Negative); Nitrite Urine Negative (Negative); Protein Urine Negative (Negative); RBC Urine Automated 0-4 /hpf (0-4); Specific Gravity Urine 1.013 (1.000-1.030); Urobilinogen Urine Negative (Negative); WBC Urine Automated >30 /hpf (0-5)
[2019-04-21 08:00] LABS: BUN Creatinine Ratio 22.8 (10-20); Creatinine Clr Calc Pharmacy 27.9 ml/min; Est GFR (African American) 41.6; Est GFR (Non-African American) 35.9; Potassium 3.9 mmol/L (3.5-5.1)
[2019-04-21 08:04] LABS: Troponin I 0.025 ng/ml (0-0.045)
--- NOTE | 2019-04-21 08:19 | XRay Report ---
XR chest 1V portable HISTORY: 88 years-old Female ?Pneumonia acute shortness of breath with possible pneumonia COMPARISON: Chest radiograph 04/20/2019 TECHNIQUE: Portable AP view of the chest FINDINGS: Cardiac silhouette is enlarged, unchanged. Mild retrocardiac linear opacities suggest atelectasis catrachito katie scarring. No pneumothorax, pleural effusion or overt pulmonary edema. Large hiatal hernia. Degene rative changes of the shoulders and spine. IMPRESSION: 1. Cardiomegaly without acute process. 2. Large hiatal hernia. The above report was generated using voice recognition software. It may contain grammatical, syntax o r spelling errors. Electronically signed by: Ruben Osuna M.D. 04/21/2019 8:17 AM
[2019-04-21] MEDS: SACCHAROMYCES BOULARDII 250 MG CAP PO SCH (08:44)
[2019-04-21] MEDS: LORATADINE 10 MG TAB PO SCH (08:44)
[2019-04-21] MEDS: ASPIRIN 81 MG ECTAB PO SCH (08:45)
[2019-04-21] MEDS: PANTOprazole 40 MG TAB PO SCH (08:45)
[2019-04-21] MEDS: AMLODIPINE BESYLATE 5 MG TAB PO SCH (08:46)
[2019-04-21] MEDS: EUCERIN CR 120 GM JAR EXT SCH (08:48)
[2019-04-21] MEDS: VANCOMYCIN HCL 125 MG/2.5ML SOLN PO SCH (08:58)
[2019-04-21] MEDS: RASPBERRY SYRUP 5 ML UDP PO SCH (08:58)
[2019-04-21] MEDS: SODIUM CHLORIDE 0.9% 1000ML 1,000 ML IV SCH (11:45)
[2019-04-21] MEDS ORDERED: ALBUT/IPRATROP 3MG/0.5MG NEB 3 ML VIAL NEB SCH (12:00)
--- NOTE | 2019-04-21 12:22 | History & Physical Bridge Note ---
Date of Service April 21, 2019 History & Physical Bridge Note I have examined the patient, reviewed the History & Physical and in the interval since the performance of the History & Physical I have noted the following changes of clinical significance: Subjective: Pt. was evaluated this morning; her son was present at bedside. She reported SOB with exertion and wheezing. Pleuritic pain resolved. Has productive cough with yellow sputum production. Physical Exam: Wheezing and rhonchi noted throughout all lung mcdowell on exam, remains on 2L via NC. Assessment & Plan: Lactate trended up to 3.5, will repeat level at 1 pm. Continue IV fluids at 80 cc/hr. H/o A. 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 Is not currently on therapeutic anticoagulation, does take ASA 81 daily (vs. QOD? per cardiology note) Start Prednisone 40 mg PO daily in setting of diffuse wheezing/rhonchi. Will also start scheduled Duonebs q6hrWA. Procalcitonin was negative; consider d/c'ing abx -- will continue meds at this point due to elevated lactic acid levels.
[2019-04-21] MEDS: ALBUT/IPRATROP 3MG/0.5MG NEB 3 ML VIAL NEB SCH ×2 (14:01→19:20)
[2019-04-21] MEDS: AZITHROMYCIN 250 MG TAB PO SCH (14:57)
[2019-04-21] MEDS: predniSONE 20 MG TAB PO SCH (16:08)
[2019-04-21] MEDS: TOLTERODINE TARTRATE 1 MG TAB PO SCH (20:19)
[2019-04-21] MEDS: BUDESONIDE/FORMOTEROL FUMARATE 80/4.5 60 PUFFS/INHALER INH SCH (20:20)
[2019-04-22] MEDS: SODIUM CHLORIDE 0.9% 1000ML 1,000 ML IV SCH (04:11)
[2019-04-22] MEDS: cefTRIAXone SODIUM 1,000 MG in DEXTROSE 5% 50 ML IV SCH (04:12)
[2019-04-22] MEDS: HEPARIN SOD 5,000 UNIT/0.5 ML VIAL SQ SCH ×3 (05:12→20:35)
[2019-04-22] MEDS: ALBUT/IPRATROP 3MG/0.5MG NEB 3 ML VIAL NEB SCH ×3 (07:06→19:10)
[2019-04-22 08:03] LABS: BUN Creatinine Ratio 28.9 (10-20); Calcium 8.8 mg/dl (8.5-10.1); Creatinine Clr Calc Pharmacy 34.1 ml/min; Est GFR (African American) 51.7; Est GFR (Non-African American) 44.6; Magnesium 2.3 mg/dl (1.8-2.4)
[2019-04-22 08:05] LABS: Basophils # (auto) 0.01 K/uL (0-0.2); Basophils % (auto) 0.1 %; Hematocrit (blood only) 31.2 % (37-47); Hemoglobin 10.3 g/dL (12.0-16.0); Immature Granulocytes # (auto) 0.13 K/uL (0.00-0.02); Immature Granulocytes % (auto) 1.2 %; Lymphocytes # (auto) 1.15 K/uL (1.2-3.4); Lymphocytes % (auto) 10.4 %; Mean Corpuscular Hemoglobin 31.7 pg (25-34); Mean Platelet Volume 9.7 fL (7.4-10.4); Monocytes # (auto) 0.95 K/uL (0.11-0.59); Monocytes % (auto) 8.6 %; Neutrophils # (auto) 8.82 K/uL (1.4-6.5); Neutrophils % (auto) 79.7 %; Platelet Count 122 K/uL (130-400); RDW Coefficient of Variation 14.1 % (11.5-14.5); RDW Standard Deviation 48.8 fL (36.4-46.3); Red Blood Count 3.25 M/uL (4.2-5.4); White Blood Count 11.06 K/uL (4.8-10.8)
[2019-04-22] MEDS: AMLODIPINE BESYLATE 5 MG TAB PO SCH (08:19)
[2019-04-22] MEDS: PANTOprazole 40 MG TAB PO SCH (08:20)
[2019-04-22] MEDS: predniSONE 20 MG TAB PO SCH (08:20)
[2019-04-22] MEDS: LORATADINE 10 MG TAB PO SCH (08:20)
[2019-04-22] MEDS: AZITHROMYCIN 250 MG TAB PO SCH (08:21)
[2019-04-22] MEDS: VANCOMYCIN HCL 125 MG/2.5ML SOLN PO SCH (08:21)
[2019-04-22] MEDS: RASPBERRY SYRUP 5 ML UDP PO SCH (08:21)
[2019-04-22] MEDS: SACCHAROMYCES BOULARDII 250 MG CAP PO SCH (08:21)
[2019-04-22] MEDS: TOLTERODINE TARTRATE 1 MG TAB PO SCH ×2 (08:22→20:33)
[2019-04-22] MEDS: BUDESONIDE/FORMOTEROL FUMARATE 80/4.5 60 PUFFS/INHALER INH SCH ×2 (08:22→20:34)
[2019-04-22] MEDS: ASPIRIN 81 MG ECTAB PO SCH (08:22)
[2019-04-22] MEDS: EUCERIN CR 120 GM JAR EXT SCH (08:23)
--- NOTE | 2019-04-22 11:29 | Hospitalist Progress Note ---
Date of Service April 22, 2019 Assessment & Plan (1) Bronchitis: Acute respiratory failure, treated and resolved. - Productive cough, congestion at admission in setting of leukocytosis and elevated lactic acid level (peaked at 4.0 then trended down). - CXR on 04/20 and 04/21 were both negative for opacity; is likely related to viral bronchitis. - Influenza by PCR negative. - Received Ceftriaxone and Azithromycin x 3 days -- will d/c abx. Continue PO Vancomycin daily & probiotics in setting of recent abx use. - Duonebs q6hrWA scheduled; Symbicort as inpt (home med non-formulary) with Albuterol prn. - Continue Prednisone 40 mg PO daily (Day #2). - Robitussin prn cough. (2) Elevated lactic acid level: - Lactic acid level peaked at 4.0 then trended down -- unclear etiology, infection vs. dehydration vs. other. - CK level was WNL. - Treatment for infection as noted above. - Received IV fluids at 100 cc/hr x 2 days, now discontinued. (3) Hypertension: - Continue Amlodipine as prescribed. - Holding home Maxide. (4) Asthma: - No acute exacerbation noted. - Symbicort and Duonebs with Albuterol prn. - Continue Prednisone - will decrease to 30 mg PO daily on 04/23. 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 (5) Polymyalgia rheumatica: - Not currently on home meds. (6) Acute renal failure: Acute kidney failure on chronic kidney disease stage III. - Creatinine was 1.5 on admission, baseline ~1.0. - Improved with IV fluid hydration, now discontinued. - Monitor renal function daily. - Holding home Maxide. (7) CKD (chronic kidney disease), stage III: - Renally dose all meds. (8) Paroxysmal atrial fibrillation: - Previously diagnosed and prescribed Eliquis 2.5 mg BID. - Anticoagulation was discontinued in Jan 2019 by cardiology after discussing risk vs. benefit. - In NSR on telemetry, will downgrade to med/surg this afternoon. (9) Acid reflux disease: - Continue home PPI and Zantac as prescribed. (10) Anemia: - Baseline hgb ~9-11 since July 2017. - Normocytic anemia -- no indication for iron studies, B12 and folate. - Continue to monitor -- is trending down in setting of IV fluids. (11) DVT prophylaxis: - Heparin q8hr. Dispo: Downgrade to med/surg; PT/OT evaluation pending, previously resided at [facility]. Will need 2 step if no improvement in oxygen requirements. Subjective Pt. remains on 2L via NC -- will wean as tolerated. She reports SOB is improving but still present with significant exertion. Has a cough with moderate amount of yellow sputum production. Denies chest pain. Is eating/drinking as tolerated. Review of Systems Review of Systems: All systems reviewed & are unremarkable except as noted in HPI & below Constitutional: no fever, no chills, no fatigue and no weakness Respiratory: + cough, + chest congestion, + dyspnea on exertion, + sputum production and + wheezing; no change in sputum and no dyspnea Cardiovascular: no chest pain, no palpitations and no edema Gastrointestinal: no abdominal pain, no nausea, no vomiting and no constipation Genitourinary: no difficulty urinating Musculoskeletal: no back pain and no joint pain Integumentary: no non-healing lesions Physical Exam Physical Exam: General: Resting comfortably HEENT: NC/AT; PERRLA with EOMI; [place] conjunctiva, MMM. No erythema of posterior pharynx Neck: Supple and nontender Cardiac: RRR Lungs: 2L via NC; mild wheezing in upper lung mcdowell, otherwise clear throughout. Abdomen: Bowel normoactive X 4; Nontender to palpation Extremities: Warm. No edema present Neuro: No focal weakness Skin: No rash Results & Data Vital Signs (Past 12 Hours) Vital Signs Temp Pulse Pulse Resp BP BP Pulse Ox 04/22/19 07:32 68 04/22/19 07:06 68 19 97 04/22/19 07:05 36.6 C 82 18 151/70 H 97 04/22/19 04:28 128/50 L 04/22/19 03:59 36.4 C L 90 17 94/56 L 97 Laboratory Results 04/22/19 04/22/19 04/22/19 Range/Units 07:33 07:33 07:33 WBC 11.06 H (4.8-10.8) K/uL RBC 3.25 L (4.2-5.4) M/uL Hgb 10.3 L D (12.0-16.0) g/dL Hct 31.2 L (37-47) % MCV 96.0 (80-100) fL MCH 31.7 (25-34) pg MCHC 33.0 (32-36) g/dL RDW Std Deviation 48.8 H (36.4-46.3) fL RDW Coeff of Luis Eduardo 14.1 (11.5-14.5) % Plt Count 122 L (130-400) K/uL MPV 9.7 (7.4-10.4) fL Immature Gran % (Auto) 1.2 % Neut % (Auto) 79.7 % Lymph % (Auto) 10.4 % Ford % (Auto) 8.6 % Eos % (Auto) 0.0 % Baso % (Auto) 0.1 % Immature Gran # (Auto) 0.13 H (0.00-0.02) K/uL Neut # (Auto) 8.82 H (1.4-6.5) K/uL Lymph # (Auto) 1.15 L (1.2-3.4) K/uL Ford # (Auto) 0.95 H (0.11-0.59) K/uL Eos # (Auto) 0.00 (0-0.5) K/uL Baso # (Auto) 0.01 (0-0.2) K/uL Sodium 144 (136-145) mmol/L Potassium 4.0 (3.5-5.1) mmol/L Chloride 113 H (98-107) mmol/L Carbon Dioxide 24 (21-32) mmol/L Anion Gap 7.0 (3-11) BUN 32 H (7-18) mg/dl Creatinine 1.11 (0.6-1.2) mg/dl Est Cr Clr Drug Dosing 34.1 ml/min Est GFR ( Amer) 51.7 Est GFR (Non-Af Amer) 44.6 BUN/Creatinine Ratio 28.9 H (10-20) Glucose 118 H (70-99) mg/dl Lactate 2.3 H* (0.4-2.0) mmol/L Calcium 8.8 (8.5-10.1) mg/dl Magnesium 2.3 (1.8-2.4) mg/dl Total Creatine Kinase (26-192) U/L 04/21/19 04/21/1919 Range/Units 18:13 18:13 12:52 WBC (4.8-10.8) K/uL RBC (4.2-5.4) M/uL Hgb (12.0-16.0) g/dL Hct (37-47) % MCV (80-100) fL MCH (25-34) pg MCHC (32-36) g/dL RDW Std Deviation (36.4-46.3) fL RDW Coeff of Luis Eduardo (11.5-14.5) % Plt Count (130-400) K/uL MPV (7.4-10.4) fL Immature Gran % (Auto) % Neut % (Auto) % Lymph % (Auto) % Ford % (Auto) % Eos % (Auto) % Baso % (Auto) % Immature Gran # (Auto) (0.00-0.02) K/uL Neut # (Auto) (1.4-6.5) K/uL Lymph # (Auto) (1.2-3.4) K/uL Ford # (Auto) (0.11-0.59) K/uL Eos # (Auto) (0-0.5) K/uL Baso # (Auto) (0-0.2) K/uL Sodium (136-145) mmol/L Potassium (3.5-5.1) mmol/L Chloride (98-107) mmol/L Carbon Dioxide (21-32) mmol/L Anion Gap (3-11) BUN (7-18) mg/dl Creatinine (0.6-1.2) mg/dl Est Cr Clr Drug Dosing ml/min Est GFR ( Amer) Est GFR (Non-Af Amer) BUN/Creatinine Ratio (10-20) Glucose (70-99) mg/dl Lactate 4.0 H* 3.4 H* (0.4-2.0) mmol/L Calcium (8.5-10.1) mg/dl Magnesium (1.8-2.4) mg/dl Total Creatine Kinase 101 (26-192) U/L PG Care Time/CCT Total # of Minutes Spent Total Time Spent with Patient: Total time spent is greater than 50% in coordination of care (as documented) at patient's floor/unit and/or counseling patient: (1) Hypertension Hypertension type: essential hypertension Qualified Code(s): I10 - Essential (primary) hypertension (2) Asthma Asthma complication type: unspecified Asthma persistence: intermittent Asthma severity: mild Qualified Code(s): J45.20 - Mild intermittent asthma, uncomplicated
[2019-04-23] MEDS: HEPARIN SOD 5,000 UNIT/0.5 ML VIAL SQ SCH ×3 (06:07→20:11)
[2019-04-23] MEDS: RASPBERRY SYRUP 5 ML UDP PO SCH (06:08)
[2019-04-23] MEDS: VANCOMYCIN HCL 125 MG/2.5ML SOLN PO SCH (06:08)
[2019-04-23] MEDS: ALBUT/IPRATROP 3MG/0.5MG NEB 3 ML VIAL NEB SCH ×3 (07:01→19:30)
[2019-04-23] MEDS: ASPIRIN 81 MG ECTAB PO SCH (07:42)
[2019-04-23] MEDS: AMLODIPINE BESYLATE 5 MG TAB PO SCH (07:42)
[2019-04-23] MEDS: PANTOprazole 40 MG TAB PO SCH (07:43)
[2019-04-23] MEDS: TOLTERODINE TARTRATE 1 MG TAB PO SCH ×2 (07:43→20:10)
[2019-04-23] MEDS: SACCHAROMYCES BOULARDII 250 MG CAP PO SCH (07:43)
[2019-04-23] MEDS: LORATADINE 10 MG TAB PO SCH (07:43)
[2019-04-23] MEDS: predniSONE 10 MG TABLET PO SCH (07:43)
[2019-04-23] MEDS: BUDESONIDE/FORMOTEROL FUMARATE 80/4.5 60 PUFFS/INHALER INH SCH ×2 (07:44→20:11)
[2019-04-23] MEDS: EUCERIN CR 120 GM JAR EXT SCH (07:45)
[2019-04-23] MEDS: guaiFENesin SUGAR FREE 100 MG/5 ML UDC PO PRN ×2 (07:48→14:31)
[2019-04-23 07:50] LABS: Hematocrit (blood only) 33.6 % (37-47); Hemoglobin 10.8 g/dL (12.0-16.0); Mean Corpuscular Hemoglobin 30.7 pg (25-34); Mean Corpuscular Hgb Conc 32.1 g/dL (32-36); Mean Corpuscular Volume 95.5 fL (80-100); Mean Platelet Volume 9.7 fL (7.4-10.4); Nucleated RBC # (auto) 0.02 K/uL (0-0); Nucleated RBC % (auto) 0.2 %; Platelet Count 136 K/uL (130-400); RDW Coefficient of Variation 14.4 % (11.5-14.5); RDW Standard Deviation 49.5 fL (36.4-46.3); Red Blood Count 3.52 M/uL (4.2-5.4); White Blood Count 10.68 K/uL (4.8-10.8)
[2019-04-23 08:18] LABS: BUN Creatinine Ratio 28.7 (10-20); Creatinine Clr Calc Pharmacy 37.7 ml/min; Potassium 3.8 mmol/L (3.5-5.1)
[2019-04-23] MEDS ORDERED: OPTIRAY 320 125ml IV PRN (11:20)
--- NOTE | 2019-04-23 11:42 | CT Scan Report ---
CHEST CTA for PULMONARY ARTERIES CT DOSE: 515.05 mGy.cm HISTORY: Shortness of breath. TECHNIQUE: Multiaxial CT images of the chest were performed following the intravenous administration of contrast to evaluate the pulmonary arteries. Maximal intensity projection images were also obtaine d. A dose lowering technique was utilized adhering to the principles of ALARA. COMPARISON STUDY: Chest CTA 11/28/2018. FINDINGS: Normal caliber thoracic aorta with no evidence for dissection. Trace bilateral pleural effu sions. The heart remains mildly enlarged. There is a large hiatus hernia, unchanged. No filling defec ts within the pulmonary arteries to suggest pulmonary embolus. The visualized liver, spleen, and adre nal glands are unremarkable. No mediastinal or hilar lymphadenopathy. No suspicious lytic or blastic osseous lesions. Small amount of mucoid material within the distal trachea. Small subpleural nodular densities within the lung apices likely represent scarring. This remains unchanged. No pneumothorax. The left upper lobe airspace opacity seen on the prior study has essentially resolved in the interval . Patchy nodular groundglass densities within the base of the right middle lobe which are new from th e prior study. This likely represents a pneumonia. A 3 mm nodule within the right upper lobe on image 198. This bowel surgery represent a small focus of inflammatory/infectious change. IMPRESSION: 1. No evidence for pulmonary embolus. 2. Patchy airspace opacities within the right middle lobe. This likely represents a pneumonia. 3. Trace bilateral pleural effusions. 4. Large hiatus hernia, unchanged. Electronically signed by: Madi Guy M.D. 04/23/2019 11:40 AM
[2019-04-23] MEDS: CEFDINIR 300 MG CAP PO SCH ×2 (14:26→20:10)
[2019-04-23] MEDS: AZITHROMYCIN 250 MG TAB PO SCH (14:27)
--- NOTE | 2019-04-23 15:36 | Hospitalist Progress Note ---
Date of Service April 23, 2019 Assessment & Plan (1) Bronchitis: Acute respiratory failure, treated and resolved. - Productive cough, congestion at admission in setting of leukocytosis and elevated lactic acid level (peaked at 4.0 then trended down). - CXR on 04/20 and 04/21 were both negative for opacity. - Developed hemoptysis this AM, also had pleuritic chest pain -- CT PE showed right middle lobe opacity concerning for PNA, neg for PE. - Influenza by PCR negative. - Ceftriaxone and Azithromycin x 3 days; convert to PO Azithro and Cefdinir. PO Vancomycin daily & probiotics in setting of abx use. - Duonebs q6hrWA scheduled; Symbicort as inpt (home med non-formulary) & Al buterol prn. - Continue Prednisone 30 mg PO daily, taper as tolerated. - Robitussin prn cough. (2) Elevated lactic acid level: - Lactic acid level peaked at 4.0 then trended down -- unclear etiology, infection vs. dehydration vs. other. - CK level was WNL. - Treatment for infection as noted above. - Received IV fluids x 2 days, now discontinued. (3) Hypertension: - Continue Amlodipine as prescribed. - Holding home Maxide. (4) Asthma: - No acute exacerbation noted. - Symbicort and Duonebs with Albuterol prn. - Continue Prednisone - decreased to 30 mg PO daily. 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 (5) Polymyalgia rheumatica: - Not currently on home meds. (6) Acute renal failure: Acute kidney failure on chronic kidney disease stage III. - Creatinine was 1.5 on admission, baseline ~1.0. - Improved with IV fluid hydration. - Monitor renal function daily. - Holding home Maxide. (7) CKD (chronic kidney disease), stage III: - Renally dose all meds. (8) Paroxysmal atrial fibrillation: - Previously diagnosed and prescribed Eliquis 2.5 mg BID. - Anticoagulation was discontinued in Jan 2019 by cardiology after discussing risk vs. benefit. - In NSR on exam. (9) Acid reflux disease: - Continue home PPI and Zantac as prescribed. (10) Anemia: - Baseline hgb ~9-11 since July 2017. - Normocytic anemia. - Continue to monitor frequently. (11) DVT prophylaxis: - Heparin subQ q8hr. Dispo: Discharge pending improvement in resp issues, likely over next 24-48 hours. Will need 2 step on day of discharge. Subjective Pt. had episodes of coughing up blood over last 24 hours. Has yellow sputum with very small streaks of blood. C/o significant SOB with exertion, mild improvement with treatment during this admission. CT PE neg for PE, did show right sided opacity. Weaned to room air but will require 2 step prior to discharge. Will monitor over next 24 hours. Review of Systems Review of Systems: All systems reviewed & are unremarkable except as noted in HPI & below Constitutional: no fever, no chills, no fatigue, no weakness and no anorexia Respiratory: + cough, + dyspnea, + dyspnea on exertion, + hemoptysis, + sputum production and + wheezing Cardiovascular: no chest pain, no palpitations and no edema Gastrointestinal: no abdominal pain, no nausea, no vomiting and no constipation Genitourinary: no difficulty urinating Musculoskeletal: no back pain and no joint pain Integumentary: no non-healing lesions Physical Exam Physical Exam: General: Resting comfortably, no acute distress. HEENT: NC/AT; PERRLA with EOMI; [place] conjunctiva, MMM. Neck: Supple and nontender Cardiac: RRR Lungs: 2L via NC; rhonchi and wheezing in all lung mcdowell. Abdomen: Bowel normoactive X 4; Nontender to palpation Extremities: Warm. No edema present Neuro: No focal weakness Skin: No rash Results & Data Vital Signs (Past 12 Hours) Vital Signs Temp Pulse Resp BP BP Pulse Ox 04/23/19 15:19 36.8 C 92 H 18 157/70 H 96 04/23/19 13:15 84 18 92 04/23/19 07:27 36.6 C 86 18 150/70 H 94 04/23/19 07:01 82 18 93 04/23/19 04:00 36.8 C 79 20 163/74 H 97 Laboratory Results 04/23/19 04/23/19 Range/Units 07:25 07:25 WBC 10.68 (4.8-10.8) K/uL RBC 3.52 L (4.2-5.4) M/uL Hgb 10.8 L (12.0-16.0) g/dL Hct 33.6 L (37-47) % MCV 95.5 (80-100) fL MCH 30.7 (25-34) pg MCHC 32.1 (32-36) g/dL RDW Std Deviation 49.5 H (36.4-46.3) fL RDW Coeff of Luis Eduardo 14.4 (11.5-14.5) % Plt Count 136 (130-400) K/uL MPV 9.7 (7.4-10.4) fL Absolute Nucleated RBC 0.02 H (0-0) K/uL Nucleated RBC % (auto) 0.2 % Sodium 144 (136-145) mmol/L Potassium 3.8 (3.5-5.1) mmol/L Chloride 113 H (98-107) mmol/L Carbon Dioxide 26 (21-32) mmol/L Anion Gap 5.0 (3-11) BUN 29 H (7-18) mg/dl Creatinine 1.01 (0.6-1.2) mg/dl Est Cr Clr Drug Dosing 37.7 ml/min Est GFR ( Amer) 58.0 Est GFR (Non-Af Amer) 50.0 BUN/Creatinine Ratio 28.7 H (10-20) Glucose 76 (70-99) mg/dl Calcium 9.0 (8.5-10.1) mg/dl PG Care Time/CCT Total # of Minutes Spent Total Time Spent with Patient: Total time spent is greater than 50% in coordination of care (as documented) at patient's floor/unit and/or counseling patient: (1) Hypertension Hypertension type: essential hypertension Qualified Code(s): I10 - Essential (primary) hypertension (2) Asthma Asthma complication type: unspecified Asthma persistence: intermittent Asthma severity: mild Qualified Code(s): J45.20 - Mild intermittent asthma, uncomplicated
[2019-04-24] MEDS: HEPARIN SOD 5,000 UNIT/0.5 ML VIAL SQ SCH ×3 (06:27→21:35)
[2019-04-24] MEDS: RASPBERRY SYRUP 5 ML UDP PO SCH (06:28)
[2019-04-24] MEDS: VANCOMYCIN HCL 125 MG/2.5ML SOLN PO SCH (06:28)
[2019-04-24] MEDS: ALBUT/IPRATROP 3MG/0.5MG NEB 3 ML VIAL NEB SCH ×3 (07:27→19:25)
[2019-04-24] MEDS: CEFDINIR 300 MG CAP PO SCH ×2 (08:45→21:35)
[2019-04-24] MEDS: SACCHAROMYCES BOULARDII 250 MG CAP PO SCH (08:46)
[2019-04-24] MEDS: AZITHROMYCIN 250 MG TAB PO SCH (08:46)
[2019-04-24] MEDS: LORATADINE 10 MG TAB PO SCH (08:46)
[2019-04-24] MEDS: AMLODIPINE BESYLATE 5 MG TAB PO SCH (08:46)
[2019-04-24] MEDS: PANTOprazole 40 MG TAB PO SCH (08:46)
[2019-04-24] MEDS: ASPIRIN 81 MG ECTAB PO SCH (08:46)
[2019-04-24] MEDS: predniSONE 10 MG TABLET PO SCH (08:46)
[2019-04-24] MEDS: BUDESONIDE/FORMOTEROL FUMARATE 80/4.5 60 PUFFS/INHALER INH SCH ×2 (08:47→21:36)
[2019-04-24] MEDS: EUCERIN CR 120 GM JAR EXT SCH (08:47)
[2019-04-24] MEDS: TOLTERODINE TARTRATE 1 MG TAB PO SCH ×2 (08:48→21:34)
--- NOTE | 2019-04-24 13:01 | Hospitalist Progress Note ---
Date of Service April 24, 2019 Assessment & Plan (1) Bronchitis: Acute respiratory failure, ongoing (see below) - Productive cough, congestion at admission in setting of leukocytosis and elevated lactic acid level (peaked at 4.0 then trended down). - CXR on 04/20 and 04/21 were both negative for opacity. - Developed mild hemoptysis 04/23 -- CT PE showed right middle lobe opacity concerning for PNA, neg for PE. - Influenza by PCR was negative. - Ceftriaxone and Azithromycin x 3 days; converted to PO Azithro (Day 5) and Cefdinir (Day 5 of 7). PO Vancomycin daily & probiotics in setting of abx use. - Duonebs q6hrWA scheduled; Symbicort (home med non-formulary) with Albuterol p rn. - Prednisone 30 mg PO daily, taper as tolerated (h/o steroid induced myopathy) - Will consult pulm as pt. has had minimal improvement in respiratory issues during this admission. (2) Elevated lactic acid level: - Lactic acid level peaked at 4.0 then trended down -- infection vs. dehydration vs. other. - Treatment for infection as noted above. - Received IV fluids x 2 days, now discontinued. (3) Hypertension: - Continue Amlodipine as prescribed. - Hold home Maxide due to ARF. - BP has been elevated d/t holding diuretic & possibly steroid induced. Will continue to monitor. (4) Asthma: - No acute exacerbation noted. - Symbicort and Duonebs with Albuterol prn. - Continue Prednisone - decreased to 30 mg PO daily. Quick burst of steroids due to h/o steroid induced myopathy. (5) Polymyalgia rheumatica: - Not currently on home meds. (6) Acute renal failure: Acute kidney failure on chronic kidney disease stage III. - Creatinine was 1.5 on admission, baseline ~1.0. - Improved with IV fluid hydration. - Monitor renal function frequently. - Hold home Maxide. (7) CKD (chronic kidney disease), stage III: - Renally dose all meds. (8) Paroxysmal atrial fibrillation: - Previously diagnosed and prescribed Eliquis 2.5 mg BID. - Anticoagulation was discontinued in Jan 2019 by cardiology after discussing risk vs. benefit. - In NSR. (9) Acid reflux disease: - Continue home PPI and Zantac as prescribed. (10) Anemia: - Baseline hgb ~9-11 since July 2017. - Normocytic anemia. - Continue to monitor intermittently. (11) DVT prophylaxis: - Heparin subQ q8hr. Dispo: Discharge pending improvement in resp issues, will consult pulm. Subjective Pt. has increased wheezing and shortness of breath this morning. Has been requiring 2L intermittently. Will consult pulm due to lack of improvement with conservative treatment. Review of Systems Review of Systems: All systems reviewed & are unremarkable except as noted in HPI & below Constitutional: no fever, no chills, no fatigue and no weakness Respiratory: + cough, + dyspnea, + dyspnea on exertion, + sputum production and + wheezing Cardiovascular: no chest pain, no palpitations and no edema Gastrointestinal: no abdominal pain, no nausea and no constipation Genitourinary: no difficulty urinating Musculoskeletal: no back pain and no joint pain Integumentary: no non-healing lesions Physical Exam Physical Exam: General: Resting comfortably. HEENT: NC/AT; PERRLA with EOMI; [place] conjunctiva, MMM. Neck: Supple and nontender Cardiac: RRR Lungs: room air; audible wheezing during conversation, also has scattered wheezing throughout. Abdomen: Bowel normoactive X 4; Nontender to palpation Extremities: Warm. No edema present Neuro: No focal weakness Skin: No rash Results & Data Vital Signs (Past 12 Hours) Vital Signs Temp Pulse Resp BP Pulse Ox 04/24/19 07:27 73 16 96 04/24/19 07:00 37 C 75 20 164/75 H 96 PG Care Time/CCT Total # of Minutes Spent Total Time Spent with Patient: Total time spent is greater than 50% in coordination of care (as documented) at patient's floor/unit and/or counseling patient: (1) Hypertension Hypertension type: essential hypertension Qualified Code(s): I10 - Essential (primary) hypertension (2) Asthma Asthma severity: mild Asthma persistence: intermittent Asthma complication type: unspecified Qualified Code(s): J45.20 - Mild intermittent asthma, uncomplicated
--- NOTE | 2019-04-24 18:47 | Pulmonary Consultation ---
Date of Consultation 88-year-old female presented here with "congestion in lungs". She reports a dry cough over the last week, today it became productive for yellow, "stringy" sputum. Patient also with pain in right shoulder blade that occurs with coughing she reports some chills as well as shortness of breath, dyspnea on exertion and wheezing. She denies fever, sweats, rigors. She has mild abdominal pain but otherwise denies nausea, vomiting, diarrhea or constipation. She has some right-sided pleuritic chest pain otherwise denies chest discomfort, palpitations, diaphoresis. Patient was admitted for pneumonia in November 2018. States that she felt somewhat similar. + Sick contacts. Patient is a resident of [facility] and reports a lot of p eople are coughing and ill. Upon arrival to the ER patient found to be afebrile, heart rate of 93, April 24, 2019 Patient continues with a productive cough and chest congestion and was admitted with a leukocytosis and elevated lactic acid level which is trending down. Mild hemoptysis noted on 04/23 with a CTA testing right middle lobe infiltrate and/or opacity without pulmonary emboli. Patient was started on ceftriaxone and azithromycin and was to be converted to p.o. azithromycin and Cefdinir on day 5 aerosolized bronchodilator has been administered and patient was started on p.o. prednisone. She has a history of steroid induced myopathy . Assessment & Plan (1) CKD (chronic kidney disease), stage III: (2) Anemia: (3) Hypoxemia: (4) Bronchitis: The patient appears stable and appears to be mildly responding to current therapy. 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 We will not raise the dose of her steroid but rather continue current therapy and reexamine patient in the morning. (5) Sepsis: (6) Paroxysmal atrial fibrillation: History of Present Illness Attending Physician: Sin Young Allergies Allergy/AdvReac Type Severity Reaction Status Date / Time Bactrim Allergy Intermediate HIVES Verified 08/12/17 17:09 sulfamethoxazole Allergy Intermediate HIVES Verified 02/10/19 09:29 tetanus toxoid, adsorbed Allergy Intermediate RASH Verified 04/20/19 22:39 trimethoprim Allergy Intermediate HIVES Verified 04/20/19 22:39 latex Allergy Mild RASH Verified 02/10/19 09:29 Penicillins Allergy Unknown Verified 04/20/19 22:39 codeine AdvReac Intermediate HEADACHES Verified 04/20/19 22:39 morphine AdvReac Mild SEVERE Verified 04/20/19 22:39 HEADACHES Home Medications Home Medications Medication Instructions Recorded Confirmed Type acetaminophen [Tylenol Extra 1,000 mg PO BID 04/20/19 04/20/19 History Strength] acetaminophen [Tylenol] 650 mg PO Q4 PRN 04/20/19 04/20/19 History albuterol sulfate [Ventolin HFA] 1 - 2 puff INHALATION QID PRN 04/20/19 04/20/19 History amlodipine [Norvasc] 5 mg PO DAILY 04/20/19 04/20/19 History ascorbic acid (vitamin C) [Vitamin 500 mg PO DAILY 04/20/19 04/20/19 History C] aspirin [Aspir-81] 81 mg PO DAILY 04/20/19 04/20/19 History biotin 5,000 mcg PO DAILY 04/20/19 04/20/19 History calcium carbonate-vitamin D3 1 tab PO DAILY 04/20/19 04/20/19 History [Calcium 600 + D(3)] darifenacin [Enablex] 7.5 mg PO DAILY 04/20/19 04/20/19 History diclofenac sodium [Voltaren] 2 g TOPICAL QID PRN 04/20/19 04/20/19 History docusate sodium [Colace] 100 mg PO BID PRN 04/20/19 04/20/19 History fluticasone furoate-vilanterol 1 inh INHALATION DAILY 04/20/19 04/20/19 History [Breo Ellipta] hydrocortisone [Procto-Med HC] 1 applic [place] BID PRN 04/20/19 04/20/19 History lanolin bnfnzby-cr-g.pet-ceres 1 applic TOPICAL DAILY 04/20/19 04/20/19 History [Eucerin] loratadine [Claritin Liqui-Gel] 10 mg PO DAILY 04/20/19 04/20/19 History aqdbilwmjlcl-fuplxnpo-rgtzlm 1 tab PO DAILY 04/20/19 04/20/19 History [Cerovite Senior] omeprazole 20 mg PO DAILY 04/20/19 04/20/19 History ondansetron 4 mg PO Q4 PRN 04/20/19 04/20/19 History psyllium husk (with sugar) 1 tbsp PO DAILY PRN 04/20/19 04/20/19 History [Reguloid (psyllium husk-sucro)] ranitidine HCl 75 mg PO Q12 04/20/19 04/20/19 History sennosides-docusate sodium [Senna 1 tab-cap PO DAILY PRN 04/20/19 04/20/19 History with Docusate Sodium] triamterene-hydrochlorothiazid 1 tab PO Q OTHER DAY 04/20/19 04/20/19 History [Maxzide-25mg] vancomycin [Vancocin] 125 mg PO DAILY 04/20/19 04/20/19 History Patient History Medical History Abdominal pain Acute respiratory failure with hypoxia Acute right hip pain ARF (acute renal failure) Benign essential HTN (Chronic) Bilateral cellulitis of lower leg Cellulitis of lower leg (Resolved) Chronic venous insufficiency Confusion Contusion of left hip Degenerative joint disease of knee (Chronic) DVT prophylaxis Fall Fracture of left clavicle Head injury Hypertensive emergency Hypoxia (Chronic) Left knee DJD Left knee pain Major depressive disorder (Chronic) Major depressive disorder, recurrent, moderate NSTEMI (non-ST elevated myocardial infarction) Physical deconditioning PIC line (peripherally inserted central catheter) removal (Resolved) Polymyalgia rheumatica (Chronic) Renal insufficiency Right knee DJD Right thigh pain Steroid-induced myopathy (Unknown) Traumatic hematoma of right forearm Trochanteric bursitis of right hip Unspecified psychosis Venous stasis ulcer of right lower leg with edema of right lower leg Surgical History S/P arthroscopic knee surgery (Chronic) Status post arthroscopic knee surgery Status post tubal ligation Social History Preferred Language: Thai Communication Ability: Effective Visual Impairment: No Limitations Hearing Ability: Normal Line Controller Required: No Beliefs That Will Affect Care: None marital status: / Current Living Situation: Personal Care Facility Current Living Situation Comment: [facility] Feels Safe at Home: Yes Smoking Status: Never smoker Hx Alcohol Use: Yes Alcohol type: wine Hx Substance Use: No Review of Systems Constitutional: no problem reported Eyes: no problem reported Ear, Nose, Mouth, Throat: no problem reported Respiratory: no problem reported Cardiovascular: no problem reported Gastrointestinal: no problem reported Genitourinary: no problem reported Musculoskeletal: no problem reported Integumentary: no problem reported Neurologic: no problem reported Psychiatric: no problem reported Endocrine: no problem reported Hematologic / Lymphatic: no problem reported Allergy / Immunological: no problem reported Physical Exam Constitutional: well developed and well nourished; no acute distress Eyes: PERRL, conjunctivae normal, anicteric sclerae ENMT: external ear and nose normal, oropharynx normal Neck: trachea midline, no thyromegaly Respiratory: normal respiratory effort Auscultation: + wheezes (Wheezes right base and midlung) Cardiovascular: RRR, no murmur, no edema Palpation: normal PMI; no thrill Gastrointestinal (Abdomen): normal bowel sounds, soft, nontender, no hepatosplenomegaly Musculoskeletal: no cyanosis or clubbing, extremities motor strength 5/5 Gait: normal gait Skin: no rashes, warm and dry Neurologic: PERRL, EOMI, accommodation nl, no face palsy, no dysarthria Psychiatric: A+Ox3, euthymic affect Lymphatic: no cervical or axillary lymphadenopathy Results & Data Vital Signs (Past 12 Hours) Vital Signs Temp Pulse Resp BP Pulse Ox 04/24/19 15:31 36.9 C 83 19 147/80 H 93 04/24/19 07:27 73 16 96 04/24/19 07:00 37 C 75 20 164/75 H 96 PG Care Time/CCT Total # of Minutes Spent Total Time Spent with Patient: Total time spent is greater than 50% in coordination of care (as documented) at patient's floor/unit and/or counseling patient:
[2019-04-25] MEDS: HEPARIN SOD 5,000 UNIT/0.5 ML VIAL SQ SCH ×3 (05:44→21:41)
[2019-04-25] MEDS: VANCOMYCIN HCL 125 MG/2.5ML SOLN PO SCH (05:44)
[2019-04-25] MEDS: RASPBERRY SYRUP 5 ML UDP PO SCH (05:44)
[2019-04-25 06:21] LABS: BUN Creatinine Ratio 28.1 (10-20); Creatinine Clr Calc Pharmacy 39.2 ml/min; Est GFR (African American) 60.9; Est GFR (Non-African American) 52.5; Potassium 3.8 mmol/L (3.5-5.1)
[2019-04-25] MEDS: ALBUT/IPRATROP 3MG/0.5MG NEB 3 ML VIAL NEB SCH ×3 (07:55→19:54)
[2019-04-25] MEDS ORDERED: predniSONE 20 MG TAB PO SCH (09:00)
[2019-04-25] MEDS: PANTOprazole 40 MG TAB PO SCH (09:28)
[2019-04-25] MEDS: ASPIRIN 81 MG ECTAB PO SCH (09:28)
[2019-04-25] MEDS: AMLODIPINE BESYLATE 5 MG TAB PO SCH (09:28)
[2019-04-25] MEDS: LORATADINE 10 MG TAB PO SCH (09:28)
[2019-04-25] MEDS: SACCHAROMYCES BOULARDII 250 MG CAP PO SCH (09:28)
[2019-04-25] MEDS: TOLTERODINE TARTRATE 1 MG TAB PO SCH ×2 (09:29→21:45)
[2019-04-25] MEDS: TRIAMTERENE/HCTZ 37.5/25MG CAP PO SCH (09:29)
[2019-04-25] MEDS: BUDESONIDE/FORMOTEROL FUMARATE 80/4.5 60 PUFFS/INHALER INH SCH (09:30)
[2019-04-25] MEDS: CEFDINIR 300 MG CAP PO SCH ×2 (09:53→21:44)
[2019-04-25] MEDS: EUCERIN CR 120 GM JAR EXT SCH (10:51)
--- NOTE | 2019-04-25 12:13 | Pulmonology Progress Note ---
Date of Service April 25, 2019 88-year-old female presented here with "congestion in lungs". She reports a dry cough over the last week, today it became productive for yellow, "stringy" sputum. Patient also with pain in right shoulder blade that occurs with coughing she reports some chills as well as shortness of breath, dyspnea on exertion and wheezing. She denies fever, sweats, rigors. She has mild abdominal pain but otherwise denies nausea, vomiting, diarrhea or constipation. She has some right-sided pleuritic chest pain otherwise denies chest discomfort, palpitations, diaphoresis. Patient was admitted for pneumonia in November 2018. States that she felt somewhat similar. + Sick contacts. Patient is a resident of [facility] and reports a lot of people are coughing and ill. Upon arrival to the ER patient found to be afebrile, heart rate of 93, April 24, 2019 Patient continues with a productive cough and chest congestion and was admitted with a leukocytosis and elevated lactic acid level which is trending down. Mild hemoptysis noted on 04/23 with a CTA testing right middle lobe infiltrate and/or opacity without pulmonary emboli. Patient was started on ceftriaxone and azithromycin and was to be converted to p.o. azithromycin and Cefdinir on day 5 aerosolized bronchodilator has been administered and patient was started on p.o. prednisone. She has a history of steroid induced myopathy . Patient today still has a intractable cough occasionally productive of phlegm with some blood streaking hemoptysis. She seems reasonably comfortable with her breathing but has not been ambulating extensively. I did speak with her provider Courtney Mayorga who has been somewhat frustrated at the lack of clear improvement. Her steroid dosing is been kept relatively low because of a past history of steroid induced myopathy. Brought this up to the patient who seemed to have no recollection or memory of this issue. She is a resident at [facility] points out that she is not sure of what medication she receives on a daily basis. Assessment & Plan (1) CKD (chronic kidney disease), stage III: (2) Paroxysmal atrial fibrillation: (3) Polymyalgia rheumatica: (4) Hypoxemia: (5) URI, acute: (6) Cough variant asthma: (7) Chronic reflux esophagitis: (8) Pneumonia: (9) Anemia: (10) Sepsis: (11) Bronchitis: (12) Multifocal pneumonia: Patient remains significantly bronchospastic CTA on admission suggesting airspace opacities within the right middle lobe. She is having some difficulty with airway clearance and the hospitalist service provider not feel she is making progress. Been some minimal hemoptysis noted. She may have a degree of mucoid impaction and will aggressively pursue both short and long-acting aerosolized bronchodilator, flutter valve percussion vest and 7% normal saline via nebulizer all in attempts to improve her pulmonary toilet. Bronchoscopy with BAL may be helpful if she fails to clear. Unfortunately will have to increase the dosing of her steroid therapy short-term in order to achieve greater benefit. (13) Respiratory failure with hypoxia: Chronicity: unspecified Qualified Code(s): J96.91 - Respiratory failure, unspecified with hypoxia Review of Systems Constitutional: no problem reported Eyes: no problem reported Ear, Nose, Mouth, Throat: no problem reported Respiratory: no problem reported Cardiovascular: no problem reported Gastrointestinal: no problem reported Genitourinary: no problem reported Musculoskeletal: no problem reported Integumentary: no problem reported Neurologic: no problem reported Psychiatric: no problem reported Endocrine: no problem reported Hematologic / Lymphatic: no problem reported Allergy / Immunological: no problem reported Physical Exam Constitutional: well developed and well nourished; no acute distress Eyes: PERRL, conjunctivae normal, anicteric sclerae ENMT: external ear and nose normal, oropharynx normal Neck: trachea midline, no thyromegaly Respiratory: normal respiratory effort Auscultation: + diminished lung sounds and + wheezes (Coarse wheezes right greater than left) Cardiovascular: RRR, no murmur, no edema Palpation: normal PMI; no thrill Gastrointestinal (Abdomen): normal bowel sounds, soft, nontender, no hepatosplenomegaly Musculoskeletal: no cyanosis or clubbing, extremities motor strength 5/5 Gait: normal gait Skin: no rashes, warm and dry Neurologic: PERRL, EOMI, accommodation nl, no face palsy, no dysarthria Psychiatric: A+Ox3, euthymic affect Lymphatic: no cervical or axillary lymphadenopathy Results & Data Vital Signs (Past 12 Hours) Vital Signs Temp Pulse Resp BP BP Pulse Ox 04/25/19 11:26 69 111/63 96 04/25/19 07:55 69 18 99 04/25/19 07:00 36.7 C 83 17 172/82 H 96 04/25/19 00:40 36.8 C 72 18 127/63 97 PG Care Time/CCT Total # of Minutes Spent Total Time Spent with Patient: Total time spent is greater than 50% in coordination of care (as documented) at patient's floor/unit and/or counseling patient:
--- NOTE | 2019-04-25 13:07 | Hospitalist Progress Note ---
Date of Service April 25, 2019 Assessment & Plan (1) Bronchitis: Acute respiratory failure, ongoing (see below) - Productive cough, chest congestion at admission in setting of leukocytosis and elevated lactic acid level (peaked at 4.0 then trended down). - CXR on 04/20 and 04/21 both negative for opacity. - Developed mild hemoptysis -- CT PE showed right middle lobe opacity concerning for PNA, was neg for PE. - Influenza by PCR was negative. - Continue Cefdinir, completed Azithro course; on PO Vancomycin daily & probiotics in setting of abx use. - Duonebs q6hrWA, Brovana and Sodium chloride nebs BID; pulm toilet treatment. - Started Solu-medrol 80 mg IV q12hr per pulm recs (caution d/t ?history of steroid induced myopathy) - Pulm following due to lack of improvement in resp symptoms throughout this admission. May require bronch with BAL next week. (2) Pneumonia: - CT showed right middle lobe opacity concerning PNA. Of note, lactic acid level elevated at admission but procal was negative (0.10) - Continue Cefdinir 300 mg BID; completed course of Azithromycin. - Duonebs q6hr while awake; Brovana neb BID and Sodium chloride BID scheduled. - Pulmonary toilet tx with flutter valve, percussion vest. - Pulm following, appreciate input. May require bronch with BAL next week if no improvement. (3) Elevated lactic acid level: - Lactic acid level peaked at 4.0 then trended down -- infection vs. dehydration. - Treatment for infection as noted above. - Received IV fluids x 2 days, now discontinued. (4) Hypertension: - Continue Amlodipine as prescribed. - BP has been elevated, will resume home Maxide as renal failure is now resolved. (5) Asthma: - No acute exacerbation noted. - Holding home Breo (non-formulary); nebs as noted above. - Continue IV steroids. (6) Polymyalgia rheumatica: - Not currently on home meds. (7) Acute renal failure: Acute kidney failure on chronic kidney disease stage III. - Creatinine was 1.5 on admission, baseline ~1.0. - Improved with IV fluid hydration. - Monitor renal function closely. (8) CKD (chronic kidney disease), stage III: - Renally dose all meds. (9) Paroxysmal atrial fibrillation: - Previously diagnosed and prescribed Eliquis 2.5 mg BID. - Anticoagulation was discontinued in Jan 2019 by cardiology after discussing risk vs. benefit. - In NSR. (10) Acid reflux disease: - Continue home PPI and Zantac. (11) Anemia: - Baseline hgb ~9-11 since July 2017. - Normocytic anemia. (12) DVT prophylaxis: - Heparin subQ q8hr. Dispo: Discharge pending improvement in resp issues, pulm following. Subjective Pt. has persistent SOB with exertion and productive cough. Mild hemoptysis noted with sputum production. Has been stable on room air at rest. Pulm following, appreciate input. Review of Systems Review of Systems: All systems reviewed & are unremarkable except as noted in HPI & below Constitutional: + fatigue and + weakness; no fever, no chills and no anorexia Respiratory: + cough, + dyspnea on exertion, + sputum production and + wheezing; no change in sputum and no dyspnea Cardiovascular: no chest pain, no palpitations and no edema Gastrointestinal: no abdominal pain, no nausea and no constipation Genitourinary: no difficulty urinating Musculoskeletal: no back pain and no joint pain Physical Exam Physical Exam: General: Resting comfortably. HEENT: NC/AT; PERRLA with EOMI; [place] conjunctiva, MMM. Neck: Supple and nontender Cardiac: RRR Lungs: room air; wheezing and rhonchi noted in all lung mcdowell. Abdomen: Bowel normoactive X 4; Nontender to palpation Extremities: Warm. No edema present Neuro: No focal weakness Skin: No rash Results & Data Vital Signs (Past 12 Hours) Vital Signs Temp Pulse Resp BP BP Pulse Ox 04/25/19 11:26 69 111/63 96 04/25/19 07:55 69 18 99 04/25/19 07:00 36.7 C 83 17 172/82 H 96 Laboratory Results 04/25/19 Range/Units 05:27 Sodium 143 (136-145) mmol/L Potassium 3.8 (3.5-5.1) mmol/L Chloride 109 H (98-107) mmol/L Carbon Dioxide 28 (21-32) mmol/L Anion Gap 6.0 (3-11) BUN 27 H (7-18) mg/dl Creatinine 0.97 (0.6-1.2) mg/dl Est Cr Clr Drug Dosing 39.2 ml/min Est GFR ( Amer) 60.9 Est GFR (Non-Af Amer) 52.5 BUN/Creatinine Ratio 28.1 H (10-20) Glucose 83 (70-99) mg/dl Calcium 9.0 (8.5-10.1) mg/dl PG Care Time/CCT Total # of Minutes Spent Total Time Spent with Patient: Total time spent is greater than 50% in coordination of care (as documented) at patient's floor/unit and/or counseling patient: (1) Hypertension Hypertension type: essential hypertension Qualified Code(s): I10 - Essential (primary) hypertension (2) Asthma Asthma complication type: unspecified Asthma persistence: intermittent Asthma severity: mild Qualified Code(s): J45.20 - Mild intermittent asthma, uncomplicated
[2019-04-25] MEDS: SODIUM CHLOR 7% 4 ML NEB NEB SCH (19:53)
[2019-04-25] MEDS: ARFORMOTEROL TART 15MCG/2ML VIAL INH SCH (19:53)
[2019-04-25] MEDS: methylPREDNISolone 80 MG in SYRINGE 0 ML IV SCH (21:44)
[2019-04-26] MEDS: RASPBERRY SYRUP 5 ML UDP PO SCH (06:02)
[2019-04-26] MEDS: HEPARIN SOD 5,000 UNIT/0.5 ML VIAL SQ SCH ×3 (06:03→20:33)
[2019-04-26] MEDS: VANCOMYCIN HCL 125 MG/2.5ML SOLN PO SCH (06:03)
[2019-04-26] MEDS: SODIUM CHLOR 7% 4 ML NEB NEB SCH ×2 (06:59→19:51)
[2019-04-26] MEDS: ARFORMOTEROL TART 15MCG/2ML VIAL INH SCH ×2 (07:00→19:51)
[2019-04-26] MEDS: ALBUT/IPRATROP 3MG/0.5MG NEB 3 ML VIAL NEB SCH ×3 (07:00→19:51)
[2019-04-26] MEDS: SACCHAROMYCES BOULARDII 250 MG CAP PO SCH (09:21)
[2019-04-26] MEDS: TOLTERODINE TARTRATE 1 MG TAB PO SCH ×2 (09:21→20:34)
[2019-04-26] MEDS: LORATADINE 10 MG TAB PO SCH (09:21)
[2019-04-26] MEDS: ASPIRIN 81 MG ECTAB PO SCH (09:22)
[2019-04-26] MEDS: PANTOprazole 40 MG TAB PO SCH (09:22)
[2019-04-26] MEDS: AMLODIPINE BESYLATE 5 MG TAB PO SCH (09:22)
[2019-04-26] MEDS: CEFDINIR 300 MG CAP PO SCH ×2 (09:22→20:34)
[2019-04-26] MEDS: EUCERIN CR 120 GM JAR EXT SCH (09:24)
[2019-04-26] MEDS: methylPREDNISolone 80 MG in SYRINGE 0 ML IV SCH (09:25)
--- NOTE | 2019-04-26 15:47 | Pulmonology Progress Note ---
Date of Service April 26, 2019 Assessment & Plan (1) Bronchitis: Impression: 88-year-old female lifelong non-smoker presenting with chest congestion. Her white count was elevated and lactate was borderline. She received Rocephin and azithromycin for probable community acquired pneumonia. Pulmonary consultation was obtained due to the failure to improve. She is better today compared to yesterday. 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 Recommendations: 1. Acute hypoxemic respiratory failure: Currently resolved. Patient's on room air. 2. Cough: Suspect bronchitis. White count was normal on the and is not been checked since. Procalcitonin was normal. This is suggestive of a potential viral etiology. She has completed an appropriate acrylics of antimicrobials. Would continue long-acting anticholinergics. No need for long- term prednisone. Outpatient PFTs may be considered. She does have a quite large hiatal hernia which may be contributing to her cough and pulmonary symptoms. Given her advanced age would not recommend surgical evaluation however GI evaluation in the outpatient setting may be appropriate. H2 maria l will be continued 3. The patient may be approaching discharge. She appears stable to consider discharge from a pulmonary perspective. (2) Hypoxemia: (3) Cough: Subjective Patient feels that she is breathing slightly better. She is coughing and the cough is now productive of yellow to greenish phlegm with occasional flecks of blood. No chest pain or palpitations. She is tolerating a regular diet. She is not enthusiastic about the possibility of bronchoscopy. Review of Systems Review of Systems: Unchanged from prior Physical Exam Constitutional: WD/WN, vitals as above Neck: trachea midline, no thyromegaly Respiratory: Few coarse breath sounds bilaterally. No wheezing Cardiovascular: RRR, no murmur, no edema Gastrointestinal (Abdomen): normal bowel sounds, soft, nontender, no hepatosplenomegaly Musculoskeletal: Extremities: extremities normal to inspection Skin: no rashes, warm and dry Neurologic: Nonfocal exam Lymphatic: no cervical lymphadenopathy Results & Data Vital Signs (Past 12 Hours) Vital Signs Temp Pulse Pulse Pulse Resp BP Pulse Ox 04/26/19 13:55 101 H 16 97 04/26/19 08:05 36.5 C 76 16 159/71 H 93 04/26/19 07:00 72 18 94 04/26/19 04:41 73 152/72 H Laboratory Results 04/23/19 07:25 04/25/19 05:[address] of the chest was independently reviewed. Minimal airspace opacity in the right middle lobe. PG Care Time/CCT Total # of Minutes Spent Total Time Spent with Patient: Total time spent is greater than 50% in coordination of care (as documented) at patient's floor/unit and/or counseling patient:
[2019-04-26] MEDS: TIOTROPIUM BROMIDE 5 PUFF/90 MCG INH INH SCH (17:44)
--- NOTE | 2019-04-26 20:04 | Hospitalist Progress Note ---
Date of Service April 26, 2019 Assessment & Plan (1) Bronchitis: - With acute respiratory failure - resolved at this time - Continues with productive cough/congestion - with leukocytosis and elevated lactic acid which is now trending down - Developed mild hemoptysis - CT witout PE but concerning for RML opacity concerning for PNA; influenza negative - Continue Cefdinir; Completed Azithromycin course; on po Vanc/probiotics for C. 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 Of note, lactic acid level elevated at admission but procal was negative (0.10) - Continue Cefdinir 300 mg BID to finish today; completed course of Azithromycin. - Treatment as above; possible viral etiology? (3) Elevated lactic acid level: - Lactic acid level peaked at 4.0 then trended down -- infection vs. dehydration. - Treatment for infection as noted above. - Received IV fluids x 2 days, now discontinued. (4) Hypertension: - Continue Amlodipine 5 mg daily and Maxide QOD (5) Asthma: - Treatment as above (6) Polymyalgia rheumatica: - Not currently on medications (7) Acute renal failure: - Acute kidney failure on chronic kidney disease stage III - Cr at baseline - monitor renal function with labs (8) CKD (chronic kidney disease), stage III: - Renally dose all meds (9) Paroxysmal atrial fibrillation: - Previously diagnosed and prescribed Eliquis 2.5 mg BID - Anticoagulation was discontinued in Jan 2019 by cardiology after discussing risk vs. benefit. - Examines in NSR (10) Acid reflux disease: - Continue home PPI and Zantac - Has large hiatal hernia likely contributing to some respiratory issues; may benefit from F/U with GI for further GERD management to help with respiratory symptoms (11) Anemia: - Baseline hgb ~9-11 since July 2017; Normocytic anemia. (12) DVT prophylaxis: - Heparin Disposition: Overall improving but remains with significant coughing but not requiring O2 and otherwise stable; pending reassessment possibly D/C tomorrow Subjective Reports feeling about the same today. Remains on RA. Continues to have a productive cough of thick yellow/green sputum and coughing spells. Looks fatigued and complains of poor sleep. Son at bedside states he thinks her cough started almost a month ago and she reports a resident at her personal correction she shares a bathroom with had a respiratory infection recently. She is tolerating a diet and verbalizes no new complaints Review of Systems Constitutional: + fatigue; no fever and no chills Eyes: no worsening vision Ear, Nose, Mouth, Throat: no sore throat and no dysphagia Respiratory: + cough, + dyspnea, + sputum production and + wheezing Cardiovascular: + edema (b/l legs - chronic); no chest pain and no palpitations Gastrointestinal: no abdominal pain, no nausea, no vomiting, no constipation and no diarrhea/loose stools Genitourinary: no dysuria Integumentary: no rash Physical Exam Constitutional: WD/WN, vitals as above Eyes: + anicteric sclerae Neck: trachea midline Respiratory: normal respiratory effort Auscultation: + rhonchi Cardiovascular: RRR, no murmur, no edema Gastrointestinal (Abdomen): Inspection/Auscultation: normal bowel sounds Percussion/Palpation: abdomen soft; abdomen nontender Musculoskeletal: no cyanosis or clubbing, extremities motor strength 5/5 Skin: no rashes, warm and dry Neurologic: moves all extremities Psychiatric: A+Ox3, euthymic affect Results & Data Vital Signs (Past 12 Hours) Vital Signs Temp Pulse Pulse Resp BP Pulse Ox 04/26/19 15:45 36.7 C 91 H 18 149/77 H 96 04/26/19 13:55 101 H 16 97 04/26/19 08:05 36.5 C 76 16 159/71 H 93 PG Care Time/CCT Total # of Minutes Spent Total Time Spent with Patient: Total time spent is greater than 50% in coordination of care (as documented) at patient's floor/unit and/or counseling patient: (1) Hypertension Hypertension type: essential hypertension Qualified Code(s): I10 - Essential (primary) hypertension (2) Asthma Asthma severity: mild Asthma persistence: intermittent Asthma complication type: unspecified Qualified Code(s): J45.20 - Mild intermittent asthma, uncomplicated
[2019-04-26] MEDS: guaiFENesin 600 MG TABCR PO SCH (20:35)
[2019-04-27] MEDS: VANCOMYCIN HCL 125 MG/2.5ML SOLN PO SCH (06:06)
[2019-04-27] MEDS: RASPBERRY SYRUP 5 ML UDP PO SCH (06:06)
[2019-04-27] MEDS: HEPARIN SOD 5,000 UNIT/0.5 ML VIAL SQ SCH ×3 (06:06→21:18)
[2019-04-27] MEDS: SODIUM CHLOR 7% 4 ML NEB NEB SCH ×2 (07:51→20:12)
[2019-04-27] MEDS: ARFORMOTEROL TART 15MCG/2ML VIAL INH SCH ×2 (07:51→20:11)
[2019-04-27] MEDS: ALBUT/IPRATROP 3MG/0.5MG NEB 3 ML VIAL NEB SCH ×3 (08:00→20:12)
[2019-04-27] MEDS: TOLTERODINE TARTRATE 1 MG TAB PO SCH ×2 (09:45→21:23)
[2019-04-27] MEDS: TRIAMTERENE/HCTZ 37.5/25MG CAP PO SCH (09:45)
[2019-04-27] MEDS: guaiFENesin 600 MG TABCR PO SCH ×2 (09:45→21:23)
[2019-04-27] MEDS: TIOTROPIUM BROMIDE 5 PUFF/90 MCG INH INH SCH (09:45)
[2019-04-27] MEDS: AMLODIPINE BESYLATE 5 MG TAB PO SCH (09:46)
[2019-04-27] MEDS: SACCHAROMYCES BOULARDII 250 MG CAP PO SCH (09:46)
[2019-04-27] MEDS: PANTOprazole 40 MG TAB PO SCH (09:46)
[2019-04-27] MEDS: LORATADINE 10 MG TAB PO SCH (09:46)
[2019-04-27] MEDS: ASPIRIN 81 MG ECTAB PO SCH (09:46)
[2019-04-27] MEDS: EUCERIN CR 120 GM JAR EXT SCH (09:47)
--- NOTE | 2019-04-27 11:06 | Pulmonology Progress Note ---
Date of Service April 27, 2019 Assessment & Plan (1) Bronchitis: Impression: 88-year-old female lifelong non-smoker presenting with chest congestion. Her white count was elevated and lactate was borderline. She received Rocephin and azithromycin for probable community acquired pneumonia. Pulmonary consultation was obtained due to the failure to improve. She continues to show slow and steady improvement. 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 Recommendations: 1. Acute hypoxemic respiratory failure: Currently resolved. Patient's on room air. 2. Cough: Suspect bronchitis. White count was normal on the and has not been checked since. Procalcitonin was normal. This is suggestive of a potential viral etiology. Can continue formoterol, Spiriva and will add nebulized budesonide. Off systemic steroids with clinical improvement. Continue aggressive pulmonary toilet with flutter valve, hypertonic saline, and chest physiotherapy. No need for long-term prednisone. Outpatient PFTs may be considered. She does have a quite large hiatal hernia which may be contributing to her cough and pulmonary symptoms. Given her advanced age would not recommend surgical evaluation however GI evaluation in the outpatient setting may be appropriate. H2 maria l will be continued. At discharge she can resume her Breo and Spiriva 3. The patient may be approaching discharge. She is stable to consider discharge from a pulmonary perspective. Outpatient follow-up with the allergy clinic recommended (2) Hypoxemia: (3) Cough: Subjective Patient states her respiratory status is better this morning. She feels the flutter valve and vest have been effective in improving her pulmonary toilet. She is coughing up phlegm. No additional hemoptysis. She does feel short of breath with extended ambulation but overall feels that she is improving. She is tolerating a diet. Review of Systems Review of Systems: Unchanged from prior Physical Exam Constitutional: WD/WN, vitals as above Neck: trachea midline, no thyromegaly Respiratory: Coarse rhonchi bilaterally Cardiovascular: RRR, no murmur, no edema Gastrointestinal (Abdomen): normal bowel sounds, soft, nontender, no hepatosplenomegaly Musculoskeletal: Extremities: extremities normal to inspection Skin: no rashes, warm and dry Lymphatic: no cervical lymphadenopathy Results & Data Vital Signs (Past 12 Hours) Vital Signs Temp Pulse Pulse Pulse Resp BP Pulse Ox 04/27/19 07:57 61 18 97 04/27/19 07:00 36.8 C 70 18 148/68 H 97 04/26/19 23:49 36.5 C 72 20 142/73 H 97 Laboratory Results 04/23/19 07:25 04/25/19 05:27 Diagnostic Findings No new films PG Care Time/CCT Total # of Minutes Spent Total Time Spent with Patient: Total time spent is greater than 50% in coordination of care (as documented) at patient's floor/unit and/or counseling patient:
[2019-04-27] MEDS: BUDESONIDE 0.5 MG/2 ML VIAL (PULMICORT) NEB SCH (20:12)
--- NOTE | 2019-04-27 20:32 | Hospitalist Progress Note ---
Date of Service April 27, 2019 Assessment & Plan (1) Bronchitis: - With acute respiratory failure - resolved at this time - Continues with productive cough/congestion - with leukocytosis and elevated lactic acid which is now trending down - Developed mild hemoptysis but since has resolved - CT witout PE but concerning for RML opacity concerning for PNA; influenza negative - Completed Cefdinir and Azithromycin course; on po Vanc/probiotics for C. 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 Of note, lactic acid level elevated at admission but procal was negative (0.10) - Treatment as above; possible viral etiology? (3) Elevated lactic acid level: - Lactic acid level peaked at 4.0 then trended down -- infection vs. dehydration. - Treatment for infection as noted above. - Received IV fluids initially but now discontinued. (4) Hypertension: - Continue Amlodipine 5 mg daily and Maxide QOD (5) Asthma: - Treatment as above (6) Polymyalgia rheumatica: - Not currently on medications (7) Acute renal failure: - Acute kidney failure on chronic kidney disease stage III - Cr at baseline - monitor renal function with labs (8) CKD (chronic kidney disease), stage III: - Renally dose all meds (9) Paroxysmal atrial fibrillation: - Previously diagnosed and prescribed Eliquis 2.5 mg BID - Anticoagulation was discontinued in Jan 2019 by cardiology after discussing risk vs. benefit. - Examines in NSR (10) Acid reflux disease: - Continue home PPI and Zantac - Has large hiatal hernia likely contributing to some respiratory issues; may benefit from F/U with GI for further GERD management to help with respiratory symptoms (11) Anemia: - Baseline hgb ~9-11 since July 2017; Normocytic anemia. (12) DVT prophylaxis: - Heparin Disposition: Overall improving but remains with significant coughing/wheezing but not requiring O2 and otherwise stable; planning for return to personal fpc tomorrow Subjective Reports feeling a little better today. Breathing seems to be improving. Continues to expectorate a lot of sputum and compliant with flutter valve/vibration vest. Still diffuse wheezing on examination today but remains on RA. She feels some fatigue but feels like she is almost back to her normal. Tolerating a diet without issue. Verbalizes no new complaints at this time Review of Systems Constitutional: + fatigue; no fever and no chills Respiratory: + cough, + dyspnea, + sputum production and + wheezing Cardiovascular: + edema (b/l legs - chronic); no chest pain and no palpitations Gastrointestinal: no abdominal pain, no nausea, no vomiting, no constipation and no diarrhea/loose stools Genitourinary: no dysuria Musculoskeletal: no body aches Integumentary: no rash Physical Exam Constitutional: WD/WN, vitals as above Eyes: + anicteric sclerae Neck: trachea midline Respiratory: normal respiratory effort Auscultation: + wheezes (diffuse) Cardiovascular: RRR, no murmur, no edema Gastrointestinal (Abdomen): Inspection/Auscultation: normal bowel sounds Percussion/Palpation: abdomen soft; abdomen nontender Musculoskeletal: no cyanosis or clubbing, extremities motor strength 5/5 Skin: no rashes, warm and dry Neurologic: moves all extremities Psychiatric: A+Ox3, euthymic affect Results & Data Vital Signs (Past 12 Hours) Vital Signs Temp Pulse Pulse Resp BP Pulse Ox 04/27/19 16:30 36.4 C L 86 20 137/68 95 04/27/19 13:45 86 18 95 PG Care Time/CCT Total # of Minutes Spent Total Time Spent with Patient: Total time spent is greater than 50% in coordination of care (as documented) at patient's floor/unit and/or counseling patient: (1) Hypertension Hypertension type: essential hypertension Qualified Code(s): I10 - Essential (primary) hypertension (2) Asthma Asthma severity: mild Asthma persistence: intermittent Asthma complication type: unspecified Qualified Code(s): J45.20 - Mild intermittent asthma, uncomplicated
[2019-04-28] MEDS: HEPARIN SOD 5,000 UNIT/0.5 ML VIAL SQ SCH ×3 (06:10→20:59)
[2019-04-28] MEDS: VANCOMYCIN HCL 125 MG/2.5ML SOLN PO SCH (06:10)
[2019-04-28] MEDS: RASPBERRY SYRUP 5 ML UDP PO SCH (06:10)
[2019-04-28] MEDS: PSYLLIUM 58.6% POWDER PACKET PO PRN (07:06)
[2019-04-28] MEDS: ALBUT/IPRATROP 3MG/0.5MG NEB 3 ML VIAL NEB SCH ×3 (07:49→19:28)
[2019-04-28] MEDS: SODIUM CHLOR 7% 4 ML NEB NEB SCH ×2 (07:49→19:28)
[2019-04-28] MEDS: ARFORMOTEROL TART 15MCG/2ML VIAL INH SCH ×2 (07:49→19:27)
[2019-04-28] MEDS: BUDESONIDE 0.5 MG/2 ML VIAL (PULMICORT) NEB SCH ×2 (07:49→19:28)
[2019-04-28] MEDS ORDERED: POLYETHYLENE (MIRALAX) 17 GM PACK PO PRN (08:36)
[2019-04-28 08:49] LABS: Hematocrit (blood only) 34.2 % (37-47); Hemoglobin 11.1 g/dL (12.0-16.0); Mean Corpuscular Hgb Conc 32.5 g/dL (32-36); Mean Corpuscular Volume 95.5 fL (80-100); Mean Platelet Volume 9.6 fL (7.4-10.4); Platelet Count 143 K/uL (130-400); RDW Coefficient of Variation 14.7 % (11.5-14.5); RDW Standard Deviation 49.8 fL (36.4-46.3); Red Blood Count 3.58 M/uL (4.2-5.4); White Blood Count 7.94 K/uL (4.8-10.8)
[2019-04-28] MEDS: LORATADINE 10 MG TAB PO SCH (09:05)
[2019-04-28] MEDS: AMLODIPINE BESYLATE 5 MG TAB PO SCH (09:05)
[2019-04-28] MEDS: PANTOprazole 40 MG TAB PO SCH (09:05)
[2019-04-28] MEDS: guaiFENesin 600 MG TABCR PO SCH ×2 (09:05→20:59)
[2019-04-28] MEDS: SACCHAROMYCES BOULARDII 250 MG CAP PO SCH (09:08)
[2019-04-28] MEDS: TOLTERODINE TARTRATE 1 MG TAB PO SCH ×2 (09:08→20:59)
[2019-04-28] MEDS: ASPIRIN 81 MG ECTAB PO SCH (09:08)
[2019-04-28] MEDS: EUCERIN CR 120 GM JAR EXT SCH (09:09)
[2019-04-28] MEDS: TIOTROPIUM BROMIDE 5 PUFF/90 MCG INH INH SCH (09:10)
[2019-04-28 09:14] LABS: BUN Creatinine Ratio 31.9 (10-20); Creatinine Clr Calc Pharmacy 23.8 ml/min; Est GFR (African American) 33.2; Est GFR (Non-African American) 28.7; Potassium 3.7 mmol/L (3.5-5.1)
[2019-04-28] MEDS: BISACODYL 5 MG TABEC PO PRN (13:12)
--- NOTE | 2019-04-28 21:07 | Hospitalist Progress Note ---
Date of Service April 28, 2019 Assessment & Plan (1) Bronchitis: - With acute respiratory failure - resolved at this time - Continues with productive cough/congestion but mobilizing sputum well with pulmonary toilet - Developed mild hemoptysis but since has resolved - CT without PE but co ncerning for RML opacity concerning for PNA; influenza negative - Completed Cefdinir and Azithromycin course; on po Vanc/probiotics - follows with ID - Continue Duonebs; Arformoterol BID; Sodium Chloride nebs BID; and pulmonary toilet - flutter/vest - Spiriva added per pulmonology - Holding further steroids - 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 Of note, lactic acid level elevated at admission but procal was negative (0.10) - Treatment as above; possible viral etiology? (3) Elevated lactic acid level: - Lactic acid level peaked at 4.0 then trended down -- infection vs. dehydration. - Treatment for infection as noted above. - Received IV fluids initially but now discontinued. (4) Hypertension: - Continue Amlodipine 5 mg daily and Maxide QOD (5) Asthma: - Treatment as above (6) Polymyalgia rheumatica: - Not currently on medications (7) Acute renal failure: - Acute kidney failure on chronic kidney disease stage III - Cr bump today but making adequate urine - will recheck in AM (8) CKD (chronic kidney disease), stage III: - Renally dose all meds (9) Paroxysmal atrial fibrillation: - Previously diagnosed and prescribed Eliquis 2.5 mg BID - Anticoagulation was discontinued in Jan 2019 by cardiology after discussing risk vs. benefit. - Examines in NSR (10) Acid reflux disease: - Continue home PPI and Zantac - Has large hiatal hernia likely contributing to some respiratory issues; may benefit from F/U with GI for further GERD management to help with respiratory symptoms (11) Anemia: - Baseline hgb ~9-11 since July 2017; Normocytic anemia. (12) DVT prophylaxis: - Heparin Disposition: D/C to [facility] tomorrow; did have some difficulty moving her bowels prompting stay - Did try to arrange an earlier Derm appointment but seems like they needed to keep her June appt - should F/U with them as she thinks her facial/ear lesions were cancerous - her chest lesion may be actinic keratosis? Subjective Breathing continues to improve today. Remains on RA and continues to cough sputum up. Having some constipation as its been close to a week without a bowel movement. Bowel regimen given. Also makes note of a lesion on her mid chest which she states has been there for a couple months. 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 Review of Systems Constitutional: + fatigue; no fever and no chills Respiratory: + cough and + sputum production; no dyspnea and no wheezing Cardiovascular: + edema (b/l legs - chronic); no chest pain and no palpitations Gastrointestinal: + constipation; no abdominal pain, no nausea, no vomiting and no diarrhea/loose stools Genitourinary: no dysuria Integumentary: + lesions (mid-chest x 2 months) Physical Exam Constitutional: WD/WN, vitals as above Eyes: + anicteric sclerae Neck: trachea midline Respiratory: normal respiratory effort Auscultation: + wheezes (diffuse) Cardiovascular: RRR, no murmur, no edema Gastrointestinal (Abdomen): Inspection/Auscultation: normal bowel sounds Percussion/Palpation: abdomen soft; abdomen nontender Musculoskeletal: no cyanosis or clubbing, extremities motor strength 5/5 Skin: no rashes, warm and dry has a circular pink slightly scaling lesion to mid-chest - nontender, nonbleeding, no drainage - possibly actinic keratosis? Neurologic: moves all extremities Psychiatric: A+Ox3, euthymic affect Results & Data Vital Signs (Past 12 Hours) Vital Signs Temp Pulse Pulse Resp BP Pulse Ox 04/28/19 19:28 71 16 95 04/28/19 15:38 36.5 C 83 20 138/73 92 PG Care Time/CCT Total # of Minutes Spent Total Time Spent with Patient: Total time spent is greater than 50% in coordination of care (as documented) at patient's floor/unit and/or counseling patient: (1) Hypertension Hypertension type: essential hypertension Qualified Code(s): I10 - Essential (primary) hypertension (2) Asthma Asthma severity: mild Asthma persistence: intermittent Asthma complication type: unspecified Qualified Code(s): J45.20 - Mild intermittent asthma, uncomplicated
[2019-04-29] MEDS: HEPARIN SOD 5,000 UNIT/0.5 ML VIAL SQ SCH ×3 (05:50→22:13)
[2019-04-29] MEDS: RASPBERRY SYRUP 5 ML UDP PO SCH (05:54)
[2019-04-29] MEDS: VANCOMYCIN HCL 125 MG/2.5ML SOLN PO SCH (05:54)
[2019-04-29 06:41] LABS: BUN Creatinine Ratio 30.2 (10-20); Calcium 9.2 mg/dl (8.5-10.1); Creatinine Clr Calc Pharmacy 26.4 ml/min; Est GFR (African American) 37.7; Est GFR (Non-African American) 32.6; Potassium 4.3 mmol/L (3.5-5.1)
[2019-04-29] MEDS: ALBUT/IPRATROP 3MG/0.5MG NEB 3 ML VIAL NEB SCH ×3 (07:11→19:12)
[2019-04-29] MEDS: BUDESONIDE 0.5 MG/2 ML VIAL (PULMICORT) NEB SCH ×2 (07:11→19:03)
[2019-04-29] MEDS: SODIUM CHLOR 7% 4 ML NEB NEB SCH ×2 (07:11→19:04)
[2019-04-29] MEDS: ARFORMOTEROL TART 15MCG/2ML VIAL INH SCH ×2 (07:11→19:03)
[2019-04-29] MEDS: TIOTROPIUM BROMIDE 5 PUFF/90 MCG INH INH SCH (09:07)
[2019-04-29] MEDS: ASPIRIN 81 MG ECTAB PO SCH (09:08)
[2019-04-29] MEDS: TRIAMTERENE/HCTZ 37.5/25MG CAP PO SCH (09:08)
[2019-04-29] MEDS: PANTOprazole 40 MG TAB PO SCH (09:09)
[2019-04-29] MEDS: SACCHAROMYCES BOULARDII 250 MG CAP PO SCH (09:09)
[2019-04-29] MEDS: guaiFENesin 600 MG TABCR PO SCH ×2 (09:09→22:15)
[2019-04-29] MEDS: LORATADINE 10 MG TAB PO SCH (09:09)
[2019-04-29] MEDS: AMLODIPINE BESYLATE 5 MG TAB PO SCH (09:09)
[2019-04-29] MEDS: TOLTERODINE TARTRATE 1 MG TAB PO SCH ×2 (09:09→22:15)
[2019-04-29] MEDS: EUCERIN CR 120 GM JAR EXT SCH (09:10)
[2019-04-29] MEDS: PSYLLIUM 58.6% POWDER PACKET PO PRN (10:23)
[2019-04-29] MEDS: BISACODYL 5 MG TABEC PO PRN (10:23)
--- NOTE | 2019-04-29 13:10 | Hospitalist Progress Note ---
Date of Service April 29, 2019 Assessment & Plan (1) Bronchitis: - With acute respiratory failure; now resolved. - Continues with productive cough/congestion but has adequate sputum production. - Developed mild hemoptysis but has resolved - CT without PE but concerning for RML opacity concerning for PNA; influenza was negative. - Completed Cefdinir and Azithromycin course; on po Vanc/probiotics (follows with ID) - Continue Duonebs; Arformoterol BID; Sodium Chloride nebs BID; and pulmonary toilet - flutter/vest - Spiriva added per pulmonology; resume Breo at discharge. 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 Bronch is not indicated at this time. (2) Pneumonia: - CT showed right middle lobe opacity concerning for PNA. Of note, lactic acid level elevated at admission but procal was negative (0.10) - Treatment as above; possible viral etiology? (3) Elevated lactic acid level: - Lactic acid level peaked at 4.0 then trended down -- infection vs. dehydration. - Treatment for infection as noted above. - Received IV fluids initially but now discontinued. (4) Hypertension: - Continue Amlodipine 5 mg daily and Maxide QOD (5) Asthma: - Treatment as above (6) Polymyalgia rheumatica: - Not currently on medications (7) Acute renal failure: - Acute kidney failure on chronic kidney disease stage III - Cr increased above baseline -- monitor closely. (8) CKD (chronic kidney disease), stage III: - Renally dose all meds (9) Paroxysmal atrial fibrillation: - Previously diagnosed and prescribed Eliquis 2.5 mg BID - Anticoagulation was discontinued in Jan 2019 by cardiology after discussing risk vs. benefit. - Examines in NSR. (10) Acid reflux disease: - Continue home PPI and Zantac - Has large hiatal hernia likely contributing to some respiratory issues; may benefit from F/U with GI for further GERD management to help with respiratory symptoms (11) Anemia: - Baseline hgb ~9-11 since July 2017; Normocytic anemia. (12) Chest skin lesion: - Has chest lesion, will need to follow up with dermatology. (13) DVT prophylaxis: - Heparin q8hr. Disposition: D/C to [facility] on 04/30. Subjective Pt. had a BM yesterday after Metamucil dose. She is stable on room air, walked in hallways and O2 sat remained stable >92%. C/o mild SOB with exertion and productive cough but overall has significantly improved. She has a lesion on her chest -- will need to be evaluated by the agency sales development associate. Discharge to [facility] on 04/30. Review of Systems Review of Systems: All systems reviewed & are unremarkable except as noted in HPI & below Constitutional: no fever, no chills, no fatigue and no weakness Respiratory: + cough, + dyspnea on exertion and + sputum production; no dyspnea and no wheezing Cardiovascular: no chest pain, no palpitations and no edema Gastrointestinal: no abdominal pain, no nausea and no constipation Genitourinary: no difficulty urinating Musculoskeletal: no back pain and no joint pain Integumentary: no non-healing lesions Physical Exam Physical Exam: General: Resting comfortably HEENT: NC/AT; PERRLA with EOMI; [place] conjunctiva, MMM. No erythema of posterior pharynx Neck: Supple and nontender Cardiac: RRR Lungs: on room air; CTA bilaterally Abdomen: Bowel normoactive X 4; Nontender to palpation Extremities: Warm. No edema present Neuro: No focal weakness Skin: No rash Results & Data Vital Signs (Past 12 Hours) Vital Signs Temp Pulse Pulse Pulse Resp BP BP 04/29/19 10:42 36.8 C 70 86 64 16 146/71 H 142/72 H 04/29/19 07:12 70 16 04/29/19 07:08 36.8 C 69 16 146/71 H Pulse Ox 04/29/19 10:42 94 04/29/19 07:12 94 04/29/19 07:08 98 Laboratory Results 04/29/19 Range/Units 05:24 Sodium 141 (136-145) mmol/L Potassium 4.3 D (3.5-5.1) mmol/L Chloride 109 H (98-107) mmol/L Carbon Dioxide 25 (21-32) mmol/L Anion Gap 8.0 (3-11) BUN 44 H (7-18) mg/dl Creatinine 1.44 H (0.6-1.2) mg/dl Est Cr Clr Drug Dosing 26.4 ml/min Est GFR ( Amer) 37.7 Est GFR (Non-Af Amer) 32.6 BUN/Creatinine Ratio 30.2 H (10-20) Glucose 80 (70-99) mg/dl Calcium 9.2 (8.5-10.1) mg/dl PG Care Time/CCT Total # of Minutes Spent Total Time Spent with Patient: Total time spent is greater than 50% in coordination of care (as documented) at patient's floor/unit and/or counseling patient: (1) Hypertension Hypertension type: essential hypertension Qualified Code(s): I10 - Essential (primary) hypertension (2) Asthma Asthma complication type: unspecified Asthma persistence: intermittent Asthma severity: mild Qualified Code(s): J45.20 - Mild intermittent asthma, un complicated
[2019-04-30] MEDS: RASPBERRY SYRUP 5 ML UDP PO SCH (06:08)
[2019-04-30] MEDS: VANCOMYCIN HCL 125 MG/2.5ML SOLN PO SCH (06:08)
[2019-04-30] MEDS: HEPARIN SOD 5,000 UNIT/0.5 ML VIAL SQ SCH ×2 (06:10→13:49)
[2019-04-30] MEDS: ALBUT/IPRATROP 3MG/0.5MG NEB 3 ML VIAL NEB SCH ×2 (07:12→13:28)
[2019-04-30] MEDS: SODIUM CHLOR 7% 4 ML NEB NEB SCH (07:14)
[2019-04-30] MEDS: BUDESONIDE 0.5 MG/2 ML VIAL (PULMICORT) NEB SCH (07:14)
[2019-04-30] MEDS: ARFORMOTEROL TART 15MCG/2ML VIAL INH SCH (07:14)
[2019-04-30 07:31] LABS: BUN Creatinine Ratio 24.9 (10-20); Calcium 9.5 mg/dl (8.5-10.1); Creatinine Clr Calc Pharmacy 23.5 ml/min; Est GFR (African American) 32.7; Est GFR (Non-African American) 28.2; Potassium 4.1 mmol/L (3.5-5.1)
[2019-04-30] MEDS: TOLTERODINE TARTRATE 1 MG TAB PO SCH (08:44)
[2019-04-30] MEDS: SACCHAROMYCES BOULARDII 250 MG CAP PO SCH (08:45)
[2019-04-30] MEDS: PANTOprazole 40 MG TAB PO SCH (08:45)
[2019-04-30] MEDS: guaiFENesin 600 MG TABCR PO SCH (08:46)
[2019-04-30] MEDS: AMLODIPINE BESYLATE 5 MG TAB PO SCH (08:46)
[2019-04-30] MEDS: LORATADINE 10 MG TAB PO SCH (08:46)
[2019-04-30] MEDS: ASPIRIN 81 MG ECTAB PO SCH (08:47)
[2019-04-30] MEDS: EUCERIN CR 120 GM JAR EXT SCH (08:48)
[2019-04-30] MEDS: TIOTROPIUM BROMIDE 5 PUFF/90 MCG INH INH SCH (09:14)
--- NOTE | 2019-04-30 12:30 | Discharge Summary ---
Date of Service April 30, 2019 Admission HPI Per Admitting Provider Laurie Perez is an 88-year-old female presented here with "congestion in lungs". She reports a dry cough over the last week, today it became productive for yellow, "stringy" sputum. Patient also with pain in right shoulder blade that occurs with coughing she reports some chills as well as shortness of breath, dyspnea on exertion and wheezing. She denies fever, sweats, rigors. She has mild abdominal pain but otherwise denies nausea, vomiting, diarrhea or constipation. She has some right-sided pleuritic chest pain otherwise denies chest discomfort, palpitations, diaphoresis. Patient was admitted for pneumonia in November 2018. States that she felt somewhat similar. + Sick contacts. Patient is a resident of [facility] and reports a lot of people are coughing and ill. Upon arrival to the ER patient found to be afebrile, heart rate of 93, respiratory rate of 27 and saturating 88% on room air. Saturation improved with placement of 3 L oxygen. Presently she is 91% on 2 L ER course: Acetaminophen, albuterol, cefepime, Solu-Medrol, normal saline, vancomycin Admission Exam Per Admitting Provider General: Frail, elderly female resting comfortably, NAD, non-toxic in appearance, AA&O x 4 Skin: warm, dry, intact, no rashes or lesions HEENT: NC/AT, PERRL, EOMI, anicteric sclera, conjunctiva without injection, external ear normal to inspection and nontender, nares patent, dry mucus membranes, dentition intact, no oropharyngeal lesions, neck supple, trachea midline, no LAD, no thyromegaly, no JVD, + facial tenderness over maxillary sinuses Heart: +S1/S2, regular, no m/r/g Lungs: Patient with short/shallow breaths secondary to shoulder discomfort, equal air entry bilaterally, no rales/rhonchi/wheezes, diminished in bases Abd: +BS, soft, NT/ND, no masses/organomegaly/ascites Ext: warm, 2+ pulses in UE/LE bilaterally, no clubbing/cyanosis, trace edema Neuro: nonfocal, patient AA&O x 4, speech intact, no facial droop, moving all extremities on command with equal strength 5/5 Principal Diagnosis Acute bronchitis, Pneumonia Discharge Exam General: Resting comfortably HEENT: NC/AT; PERRLA with EOMI; [place] conjunctiva, MMM. No erythema of posterior pharynx Neck: Supple and nontender Cardiac: RRR Lungs: Scattered wheezing throughout all lung mcdowell Abdomen: Bowel normoactive X 4; Nontender to palpation Extremities: Warm. No edema present Neuro: No focal weakness Skin: No rash Discharge Data Allergies Allergy/AdvReac Type Severity Reaction Status Date / Time Bactrim Allergy Intermediate HIVES Verified 08/12/17 17:09 sulfamethoxazole Allergy Intermediate HIVES Verified 02/10/19 09:29 tetanus toxoid, adsorbed Allergy Intermediate RASH Verified 04/20/19 22:39 trimethoprim Allergy Intermediate HIVES Verified 04/20/19 22:39 latex Allergy Mild RASH Verified 02/10/19 09:29 Penicillins Allergy Unknown Verified 04/20/19 22:39 codeine AdvReac Intermediate HEADACHES Verified 04/20/19 22:39 morphine AdvReac Mild SEVERE Verified 04/20/19 22:39 HEADACHES Consultations 04/20/19 23:07 ED Decision to Admit Stat 04/21/19 01:46 Consult Case Management - Discharge Planning Routine 04/24/19 10:03 Consult Pulmonology Routine Ordered Studies 04/23/19 10:12 CT angio chest PE protocol Urgent CXR 04/20 and 04/21 Hospital Course (1) Bronchitis: With acute respiratory failure; now resolved. Had persistent productive cough/congestion but has adequate sputum production. Developed mild hemoptysis but has resolved - CT without PE but concerning for RML opacity concerning for PNA; influenza was negative. Completed Cefdinir and Azithromycin course; on po Vanc/probiotics (follows with ID) Duonebs; Arformoterol BID; Sodium Chloride nebs BID; and pulmonary toilet - flutter/vest Spiriva added per pulmonology; resumed Breo at discharge. Received steroids -- now completed, has h/o steroid induced myopathy. Pulm following - appreciate input. Bronch was not indicated. (2) Pneumonia: CT showed right middle lobe opacity concerning for PNA. Of note, lactic acid level elevated at admission but procal was negative (0.10) Treatment as above; possible viral etiology? (3) Elevated lactic acid level: Lactic acid level peaked at 4.0 then trended down -- infection vs. dehydration. Treatment for infection as noted above. Received IV fluids. (4) Hypertension: Continued Amlodipine 5 mg daily. Recommend to hold home Maxide at discharge due to acute renal failure. (5) Asthma: Treatment as above (6) Polymyalgia rheumatica: Not currently on medications (7) Acute renal failure: Acute kidney failure on chronic kidney disease stage III Cr increased above baseline -- monitor closely. (8) CKD (chronic kidney disease), stage III: Renally dose all meds (9) Paroxysmal atrial fibrillation: Previously diagnosed and prescribed Eliquis 2.5 mg BID Anticoagulation was discontinued in Jan 2019 by cardiology after discussing risk vs. benefit. In NSR on exam. (10) Acid reflux disease: Home PPI and Zantac Has large hiatal hernia likely contributing to some respiratory issues; may benefit from F/U with GI for further GERD management to help with respiratory symptoms (11) Anemia: Baseline hgb ~9-11 since July 2017; Normocytic anemia. (12) Chest skin lesion: Has chest lesion, recommend to follow up with dermatology. (13) DVT prophylaxis: Heparin q8hr. Discharged to [facility] on 04/30/19. Total Time Total Time Spent Total Time Spent (In Minutes): >30 minutes Total Time Includes: Examination of the Patient, Discharge Planning, Medication Reconciliation, Communication With Other Providers and Other Discharge Plan Discharge Items Patient Disposition: [facility] Reason For Visit: SOB Discharge Diagnosis: Acute Bronchitis, Pneumonia, Acute hypoxic respiratory failure Condition on Discharge: Fair Goals: You have been hospitalized for an acute medical problem. During your stay at [facility], we have made an effort to correct the problem that brought you to the hospital while keeping you as comfortable as possible. Medications were used to bring your condition under control and your discharge instructions will include directions for any medications you should take after leaving the hospital. Please make sure you see your Primary Care Provider as part of your follow up plan. Activity: As commented below Non-emergency contact: Primary Care Provider Call non-emergency contact if: you have any medication questions, your symptoms worsen and you have a fever Follow-up/Referrals: Nisha Robin MD [Outside Practitioners] - 04/28/19 9:15 am (Please, follow up with Dr. Robin (operational assistant) on FridayJune 28 at 9:15 am. *If you need to change this appointment, call the office at [phone].) [facility] [Primary Care Provider] - Diet: Heart Healthy Diet Texture: Dental soft (bite-sized) Addtl Attending Provider Instructions: 1. Acute hypoxic respiratory failure/Pneumonia/Acute bronchitis * Please continue Duonebs every 6 hours while awake, Mucinex twice daily scheduled. * Encourage flutter valve use every 1-2 hours. * Resume home Breo-Ellipta as prescribed. * Pt. has completed a course of steroids and antibiotics. 2. Acute kidney injury * Creatinine is elevated above baseline. * Please monitor BMP on Friday to evaluate renal function. * Hold home Maxide -- consider resuming medication pending improvement in renal function. 3. You will be discharged to [facility]. Pending Studies at Discharge: No Stand-Alone Forms: My [facility] Skilled Items Patient informed of condition?: Yes DNR: No Discharge Level of Care: Skilled Communicable Disease: No Discharge Prognosis: Stable Lines: None Urinary Catheter: No Medications and DC Order Prescriptions: New guaifenesin [Mucinex] 1,200 mg tablet extended release 12hr 1,200 mg PO BID Qty: 14 RF: 0 ipratropium-albuterol 0.5 mg-3 mg(2.5 mg base)/3 mL solution for nebulization 3 ml INH Q6HWA Qty: 90 RF: 0 Continued sennosides-docusate sodium [Senna with Docusate Sodium] 8.6-50 mg Tablet 1 tab-cap PO DAILY PRN (Reason: Constipation) RF: 0 amlodipine [Norvasc] 5 mg tablet 5 mg PO DAILY RF: 0 aspirin [Aspir-81] 81 mg Tablet,Delayed Release (Dr/Ec) 81 mg PO DAILY RF: 0 vancomycin [Vancocin] 125 mg capsule 125 mg PO DAILY RF: 0 hydrocortisone [Procto-Med HC] 2.5 % Cream With Perineal Applicator 1 applic [place] BID PRN (Reason: Hemorrhoids) RF: 0 ranitidine HCl 75 mg Tablet 75 mg PO Q12 RF: 0 docusate sodium [Colace] 100 mg Capsule 100 mg PO BID PRN (Reason: Constipation) RF: 0 omeprazole 20 mg capsule,delayed release(DR/EC) 20 mg PO DAILY RF: 0 albuterol sulfate [Ventolin HFA] 90 mcg/actuation Hfa Aerosol Inhaler 1 - 2 puff INHALATION QID PRN (Reason: Shortness Of Breath Or Wheezing) RF: 0 ondansetron 4 mg Tablet,Disintegrating 4 mg PO Q4 PRN (Reason: Nausea) RF: 0 acetaminophen [Tylenol] 325 mg Capsule 650 mg PO Q4 PRN (Reason: Fever Or Pain) RF: 0 calcium carbonate-vitamin D3 [Calcium 600 + D(3)] 600 mg(1,500mg) -400 unit Tablet 1 tab PO DAILY RF: 0 diclofenac sodium [Voltaren] 1 % gel 2 g TOPICAL QID PRN (Reason: Pain) RF: 0 Eucerin Cream 1 applic TOPICAL DAILY RF: 0 Reguloid (psyllium husk-sucro) 3.4 gram/12 gram Powder 1 tbsp PO DAILY PRN (Reason: Constipation) RF: 0 loratadine [Claritin Liqui-Gel] 10 mg Capsule 10 mg PO DAILY RF: 0 Breo Ellipta 100-25 mcg/dose blister with device 1 inh INHALATION DAILY RF: 0 Discontinued acetaminophen [Tylenol Extra Strength] 500 mg Tablet 1,000 mg PO BID RF: 0 ascorbic acid (vitamin C) [Vitamin C] 500 mg Tablet 500 mg PO DAILY RF: 0 triamterene-hydrochlorothiazid [Maxzide-25mg] 37.5-25 mg tablet 1 tab PO Q OTHER DAY RF: 0 Cerovite Senior Tablet 1 tab PO DAILY RF: 0 darifenacin [Enablex] 7.5 mg tablet extended release 24 hr 7.5 mg PO DAILY RF: 0 biotin 5,000 mcg Tablet,Disintegrating 5,000 mcg PO DAILY RF: 0 Discharge Orders: Discharge Order (Routine); Ordered 04/30/19 Ordered By: Courtney Szymanski/Other Patient Handouts: Bronchitis Acute Dc, Pneumonia Prevent Admission Data Admit Date/Time: 04/21/19 00:07 Attending Provider: Santy Fine Admit Provider: Whitley Johnston Primary Care Provider: PAULY RODRIGUEZ Other Providers: Whitley Johnston ; Gilberto Coronado Other Interventions: Discharge Summary Assessment (RN) Last Done: 04/30/19 12:24 Supervising Physician Co-Signing Physician Notes Attending note: patient seen and examined with Courtney Baires PA-C. I agree with her discharge summary. I personally reviewed the labs and imaging findings. patient feeling much better, completed antibiotics lungs are clear, breathing better she is highly motivated to get back home, looking forward to doing well at rehab and hoping to be home in a week eating well, denies cough or dyspnea, denies chest pain, denies fever/chills - Bronchitis, acute and pneumonia completed course of antibiotics, WBC normal, no fever - Weakness: d/c to [facility] for short stay at rehab to get stronger, then return home
== END 2019-04-30 16:14 | DRG 189 ==
LOC: ED 21:34 → SUATTDRO 04-21 00:07 → 2W 04-21 00:07 → 3W 04-25 00:34
DX: J40 Bronchitis, not specified as acute or chronic; N18.3 Chronic kidney disease, stage 3 (moderate); J18.9 Pneumonia, unspecified organism; J45.909 Unspecified asthma, uncomplicated; K21.9 Gastro-esophageal reflux disease without esophagitis; N28.9 Disorder of kidney and ureter, unspecified; M35.3 Polymyalgia rheumatica; I12.9 Hypertensive chronic kidney disease with stage 1 through stage 4 chronic kidney disease, or unspecified chronic kidney disease; J96.00 Acute respiratory failure, unspecified whether with hypoxia or hypercapnia; N17.9 Acute kidney failure, unspecified

== ENCOUNTER 2019-11-29 13:49 | Inpatient (IN) ==
--- NOTE | 2019-11-29 16:39 | Emergency Department Note ---
History of Present Illness General Chief complaint: Fever Stated complaint: UTI - FEVER,RASH (FEELING DRUNK) Time Seen by Provider: 11/29/19 16:02 History of Present Illness Provider complaint: Fever dysuria cough Onset (ago): day(s) 2 89-year-old female presents emergency department with fever, cough, dysuria. She states her symptoms been going on for last 2 days. She reports she has had a fever for the last 2 days. T-max 102. She is a resident at [facility]. She reports her cough is productive and she has been having greenish-yellow sputum. She also reports burning with urination. No loss of taste or smell. No diarrhea. Home Medications Home Medications Medication Instructions Recorded Confirmed Type Eucerin 1 applic TOPICAL QA 04/20/19 11/29/19 History acetaminophen [Tylenol] 650 mg PO Q4H PRN MDD 3000 mg 04/20/19 11/29/19 History amlodipine [Norvasc] 5 mg PO QAM 04/20/19 11/29/19 History aspirin [Aspir-81] 81 mg PO QAM 04/20/19 11/29/19 History calcium carbonate-vitamin D3 1 tab PO QAM 04/20/19 11/29/19 History [Calcium 600 + D(3)] diclofenac sodium [Voltaren] 2 g TOPICAL QID PRN 04/20/19 11/29/19 History docusate sodium [Colace] 100 mg PO BID PRN 04/20/19 11/29/19 History loratadine [Claritin Liqui-Gel] 10 mg PO HS 04/20/19 11/29/19 History omeprazole 20 mg PO QAM 04/20/19 11/29/19 History ondansetron 4 mg PO Q4 PRN 04/20/19 11/29/19 History sennosides-docusate sodium [Senna 1 tab-cap PO DAILY PRN 04/20/19 11/29/19 History Plus] albuterol sulfate [Ventolin HFA] 1 - 2 puff INHALATION QID PRN 06/24/19 11/29/19 History triamterene-hydrochlorothiazid 1 tab PO UD 06/24/19 11/29/19 History oxybutynin chloride 5 mg tablet 5 mg PO BID #60 tab 07/02/19 11/29/19 Rx apixaban [Eliquis] 5 mg PO BID 07/05/19 11/29/19 History tiotropium bromide [Spiriva with 1 cap INHALATION QAM 07/05/19 11/29/19 History HandiHaler] hydrocortisone 2.5 % topical cream 1 applic AK BID PRN #28 gm 08/04/19 11/29/19 Rx with perineal applicator dextromethorphan-guaifenesin 5 10 ml PO Q6H PRN #118 ml 08/28/19 11/29/19 Rx mg-100 mg/5 mL oral liquid vancomycin 125 mg capsule 125 mg PO QAM #30 cap 09/13/19 11/29/19 Rx triamcinolone acetonide 0.1 % 1 appln TOPICAL BID 10 Days #60 ml 10/20/19 11/29/19 Rx lotion fluticasone furoate 100 1 inh INHALATION QAM #60 ea 11/10/19 11/29/19 Rx mcg-vilanterol 25 mcg/dose inhalation powder ciprofloxacin HCl 500 mg tablet 500 mg PO BID #14 tab 11/23/19 11/29/19 Rx psyllium husk [Reguloid (psyllium 1 tsp PO DAILY PRN 11/29/19 11/29/19 History husk)] Allergies Allergy/AdvReac Type Severity Reaction Status Date / Time tetanus toxoid, adsorbed Allergy Intermediate RASH Verified 11/29/19 16:23 latex Allergy Mild RASH Verified 11/29/19 16:23 Sulfa (Sulfonamide Allergy Hives Verified 11/29/19 16:23 Antibiotics) sulfamethoxazole Allergy Hives Verified 11/29/19 16:23 [From Bactrim] trimethoprim [From Bactrim] Allergy Hives Verified 11/29/19 16:23 codeine AdvReac Intermediate HEADACHES Verified 11/29/19 16:23 morphine AdvReac Mild SEVERE Verified 11/29/19 16:23 HEADACHES Past Med/Surg History Medical History Acute respiratory failure with hypoxia Acute right hip pain ARF (acute renal failure) (Resolved) Bilateral cellulitis of lower leg Bronchitis Cellulitis of lower leg (Resolved) Chronic venous insufficiency Confusion Contusion of left hip Degenerative joint disease of knee (Chronic) Fall (Resolved) Fracture of left clavicle (Resolved) Fracture, finger Head injury Hypertensive emergency (Resolved) Hypoxia (Chronic) NSTEMI (non-ST elevated myocardial infarction) Physical deconditioning PIC line (peripherally inserted central catheter) removal (Resolved) Right knee DJD Right thigh pain Sepsis Steroid-induced myopathy (Unknown) Traumatic hematoma of right forearm Trochanteric bursitis of right hip Unspecified psychosis Venous stasis ulcer of right lower leg with edema of right lower leg Surgical History History of dilatation and curettage History of gynecological procedure Insertion of Pessary History of tooth extraction Status post arthroscopic knee surgery (Resolved) Status post biopsy of skin Status post tubal ligation (Resolved) Family History Mother Heart disease Father Emphysema of lung Denies family history of Ovarian cancer Prostate cancer Diabetes Crohn's disease Breast cancer Colorectal cancer Ulcerative colitis Social History Preferred Language: [place] Communication Ability: Effective Visual Impairment: No Limitations Hearing Ability: Normal 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 Beliefs That Will Affect Care: None marital status: / Current Living Situation: Personal Care Facility Current Living Situation Comment: [facility] Feels Safe at Home: Yes Smoking Status: Never smoker Second Hand Exposure: No ; Hx Alcohol Use: No Hx Substance Use: No Review of Systems A total of 10 systems reviewed and were otherwise negative Physical Exam Vital Signs Vital Signs - 24 hr 11/29/19 14:06 11/29/19 16:12 11/29/19 16:16 Temperature 37.1 C Temperature Source Oral Pulse Rate 90 92 H 90 Pulse Rate from SpO2 Sensor Respiratory Rate 18 21 18 Blood Pressure 145/64 H 180/65 H Blood Pressure Mean 91 122 Pulse Oximetry 97 Oxygen Delivery Method Room Air Sepsis Recent Fever Within 48 Hours Yes Sepsis New/Unexplained Change in Mental Status No Sepsis Action Taken by Nursing No Action Required 11/29/19 16:30 11/29/19 17:03 11/29/19 17:10 Temperature Temperature Source Pulse Rate 83 86 87 Pulse Rate from SpO2 Sensor 86 86 Respiratory Rate 18 23 24 Blood Pressure 171/83 H Blood Pressure Mean 106 Pulse Oximetry 98 99 Oxygen Delivery Method Room Air Sepsis Recent Fever Within 48 Hours Sepsis New/Unexplained Change in Mental Status Sepsis Action Taken by Nursing Physical Exam GENERAL: She is oriented to person, place, and time. She appears well-developed and well-nourished. She does not appear distressed. HENT: Exam performed. -Head: Normocephalic and atraumatic. -Right Ear: External ear normal. No mastoid tenderness. -Left Ear: External ear normal. No mastoid tenderness. -Mouth/Throat: The oropharynx is clear and moist. No trismus in the jaw. No dental abscesses or uvula swelling. No oropharyngeal exudate or tonsillar abscesses. EYES: Conjunctivae and EOM are normal. Pupils are equal, round, and reactive to light. Right eye exhibits no discharge. Left eye exhibits no discharge. No scleral icterus. NECK: Normal range of motion. Neck supple. No JVD present. No spinous process tenderness present. No carotid bruit present. No rigidity. No tracheal deviation and normal range of motion present. No Brudzinski's sign and no Kernig's sign noted. CV: Normal rate, regular rhythm, normal heart sounds and intact distal pulses. There is no peripheral edema. Palpable radial pulses bue. PULM/CHEST: Effort normal rhonchi bilaterally. -Chest Wall: She exhibits no tenderness. ABD: The abdomen is soft. Bowel sounds are normal. She has no distension. No mass is present. There is tenderness to palpation of the suprapubic area. There is no rebound, no guarding, no Santos's sign and no tenderness at McBurney's point. Rovsig negative MUSC/SKEL: Normal range of motion. There is no peripheral edema, tenderness or deformity. LYMPH: No cervical adenopathy. NEURO: She is alert and oriented to person, place, and time. She has normal strength. No cranial nerve deficit or sensory deficit. Coordination and gait normal. GCS eye subscore is 4. GCS verbal subscore is 5. GCS motor subscore is 6. Cerebellar tests wnl. SKIN: Skin is warm and dry. She is not diaphoretic. PSYCH: She has a normal mood and affect. Behavior is normal. Judgment and thought content normal. Course Course 162: The patient was evaluated in room B4. A complete history and physical exam was performed. Given the patient's reported fever, cough and the fact that she [facility] a [facility], patient was placed on airborne precautions and will be tested for COVID-19. Full airborne precautions were taken by me as well as the staff. 1936: Vital signs stable. Patient has had to have multiple trips to the restroom for polyuria. She continues to have cough. Creatinine at baseline. Chest x-ray does not show acute infiltrate. Labs show mild leukopenia. Lactic acid is within normal limits. CT of the abdomen shows cystitis with cholelithiasis but no cholecystitis. This is consistent with the patient's physical exam showing pain on palpation of the suprapubic area. Given the patient's advanced age, her being in a penitentiary, her reported temperature at the penitentiary, and her symptoms, was thought that the patient should be admitted to the hospital for IV antibiotics. COVID-19 and bio fire respiratory panel are still pending. I did discuss the case with the [facility] hospitalist Dr. Farrell who agreed to evaluate the patient. We went through the patient's previous urine cultures which shows patient has a history of Klebsiella in her urine as well as Enterobacter. In August her Enterobacter uri ne culture was resistant ceftriaxone. Given this, Levaquin was ordered for the patient. I did discuss the patient's results and plan to admit her to the hospital with her via telephone which she is in agreement. Medical Decision Making Laboratory Data Result diagrams: 11/29/19 17:00 11/29/19 17:00 Lab Results 11/29/19 11/29/19 11/29/19 Range/Units 17:00 17:00 17:00 WBC 4.32 L (4.8-10.8) K/uL RBC 4.02 L (4.2-5.4) M/uL Hgb 11.0 L (12.0-16.0) g/dL Hct 34.6 L (37-47) % MCV 86.1 (80-100) fL MCH 27.4 (25-34) pg MCHC 31.8 L (32-36) g/dL RDW Std Deviation 48.6 H (36.4-46.3) fL RDW Coeff of Luis Eduardo 15.5 H (11.5-14.5) % Plt Count 173 (130-400) K/uL MPV 10.3 (7.4-10.4) fL Immature Gran % (Auto) 0.5 % Neut % (Auto) 49.2 % Lymph % (Auto) 26.2 % [place] % (Auto) 20.4 % Eos % (Auto) 3.5 % Baso % (Auto) 0.2 % Neut # (Auto) 2.13 (1.4-6.5) K/uL Lymph # (Auto) 1.13 L (1.2-3.4) K/uL [place] # (Auto) 0.88 H (0.11-0.59) K/uL Eos # (Auto) 0.15 (0-0.5) K/uL Baso # (Auto) 0.01 (0-0.2) K/uL Immature Gran # (Auto) 0.02 (0.00-0.02) K/uL PT 12.3 H (9.0-12.0) Seconds INR 1.2 H (0.9-1.1) APTT 37.9 H (21.0-31.0) Seconds PTT Ratio 1.4 Sodium 140 (136-145) mmol/L Potassium 3.8 (3.5-5.1) mmol/L Chloride 105 (98-107) mmol/L Carbon Dioxide 28 (21-32) mmol/L Anion Gap 7.0 (3-11) BUN 23 H (7-18) mg/dl Creatinine 1.66 H (0.6-1.2) mg/dl Est Cr Clr Drug Dosing Not Reportable Est GFR ( Amer) 31.6 Est GFR (Non-Af Amer) 27.2 BUN/Creatinine Ratio 13.7 (10-20) Glucose 93 (70-99) mg/dl Lactate (0.4-2.0) mmol/L Calcium 9.2 (8.5-10.1) mg/dl Magnesium 2.4 (1.8-2.4) mg/dl Total Bilirubin 0.4 (0.2-1) mg/dl AST 18 (15-37) U/L ALT 17 (12-78) U/L Alkaline Phosphatase 76 (45-117) U/L Troponin I 0.025 (0-0.045) ng/ml Total Protein 8.6 H (6.4-8.2) gm/dl Albumin 4.1 (3.4-5.0) gm/dl Globulin 4.5 H (2.5-4.0) gm/dl Albumin/Globulin Ratio 0.9 (0.9-2) Procalcitonin (0-0.5) ng/ml Urine Color Urine Appearance (Clear) Urine pH (4.5-7.5) Ur Specific [place] (1.000-1.030) Urine Protein (Negative) Urine Glucose (UA) (Negative) Urine Ketones (Negative) Urine Blood (Negative) Urine Nitrite (Negative) Urine Bilirubin (Negative) Urine Urobilinogen (Negative) Ur Leukocyte Esterase (Negative) Urine WBC (Auto) (0-5) /hpf Urine RBC (Auto) (0-4) /hpf U Hyaline Cast (Auto) (0-5) /lpf U Epithel Cells (Auto) (0-5) /lpf Urine Bacteria (Auto) (Negative) 11/29/19 11/29/19 11/29/19 Range/Units 17:00 17:10 18:04 WBC (4.8-10.8) K/uL RBC (4.2-5.4) M/uL Hgb (12.0-16.0) g/dL Hct (37-47) % MCV (80-100) fL MCH (25-34) pg MCHC (32-36) g/dL RDW Std Deviation (36.4-46.3) fL RDW Coeff of Luis Eduardo (11.5-14.5) % Plt Count (130-400) K/uL MPV (7.4-10.4) fL Immature Gran % (Auto) % Neut % (Auto) % Lymph % (Auto) % [place] % (Auto) % Eos % (Auto) % Baso % (Auto) % Neut # (Auto) (1.4-6.5) K/uL Lymph # (Auto) (1.2-3.4) K/uL [place] # (Auto) (0.11-0.59) K/uL Eos # (Auto) (0-0.5) K/uL Baso # (Auto) (0-0.2) K/uL Immature Gran # (Auto) (0.00-0.02) K/uL PT (9.0-12.0) Seconds INR (0.9-1.1) APTT (21.0-31.0) Seconds PTT Ratio Sodium (136-145) mmol/L Potassium (3.5-5.1) mmol/L Chloride (98-107) mmol/L Carbon Dioxide (21-32) mmol/L Anion Gap (3-11) BUN (7-18) mg/dl Creatinine (0.6-1.2) mg/dl Est Cr Clr Drug Dosing Est GFR ( Amer) Est GFR (Non-Af Amer) BUN/Creatinine Ratio (10-20) Glucose (70-99) mg/dl Lactate 1.1 (0.4-2.0) mmol/L Calcium (8.5-10.1) mg/dl Magnesium (1.8-2.4) mg/dl Total Bilirubin (0.2-1) mg/dl AST (15-37) U/L ALT (12-78) U/L Alkaline Phosphatase (45-117) U/L Troponin I (0-0.045) ng/ml Total Protein (6.4-8.2) gm/dl Albumin (3.4-5.0) gm/dl Globulin (2.5-4.0) gm/dl Albumin/Globulin Ratio (0.9-2) Procalcitonin < 0.05 (0-0.5) ng/ml Urine Color Yellow Urine Appearance Clear (Clear) Urine pH 7.5 (4.5-7.5) Ur Specific [place] 1.014 (1.000-1.030) Urine Protein 1+ H (Negative) Urine Glucose (UA) Negative (Negative) Urine Ketones Negative (Negative) Urine Blood 2+ H (Negative) Urine Nitrite Negative (Negative) Urine Bilirubin Negative (Negative) Urine Urobilinogen Negative (Negative) Ur Leukocyte Esterase 2+ H (Negative) Urine WBC (Auto) >30 H (0-5) /hpf Urine RBC (Auto) >30 H (0-4) /hpf U Hyaline Cast (Auto) 1-5 (0-5) /lpf U Epithel Cells (Auto) 10-20 H (0-5) /lpf Urine Bacteria (Auto) Negative (Negative) Imaging Data Radiologist's Impression: SINGLE VIEW CHEST CLINICAL HISTORY: Sepsis. FINDINGS: An AP, portable, upright chest radiograph is compared to study dated 06/24/2019. The examination is degraded by portable technique, apical lordotic positioning, and patient rotation. The heart is enlarged noting atherosclerotic calcification of the thoracic aorta. The pulmonary vasculature is noncongested. A large hiatal hernia is noted. Chronic interstitial thickening is similar to previous. There is bibasilar scarring/atelectasis. No airspace consolidation or large pleural effusion is identified. No pneumothorax is seen. The skeletal structures are osteopenic. The bony thorax is grossly intact. Degenerative change is noted in the shoulders and thoracic spine. IMPRESSION: 1. Cardiomegaly with no acute cardiopulmonary abnormality. 2. Large hiatal hernia. ACT 112: Negative or not required by law. Electronically signed by: Bishnu Chawla M.D. 11/29/2019 6:28 PM Dictated: 11/29/[id number] Transcribed: 11/29/191826 CT SCAN OF THE ABDOMEN AND PELVIS WITHOUT IV CONTRAST CLINICAL HISTORY: Dysuria. Generalized abdominal pain. Fever. COMPARISON STUDY: Abdominal CT dated 11/25/2018. TECHNIQUE: CT scan of the abdomen and pelvis is performed from the lung bases to the proximal femora. Images are reviewed in the axial, sagittal, and coronal planes. IV contrast was not administered for this examination. Note that the examination was performed in significantly suboptimal fashion without oral and IV contrast. A dose lowering technique was utilized adhering to the principles of ALARA. CT DOSE: 716.74 mGycm FINDINGS: Lung bases: The heart is normal in size and without pericardial effusion. There is bibasilar scarring/atelectasis. No airspace consolidation or pleural effusion is identified. There is a large hiatal hernia, with the majority of the stomach located in the thoracic cavity. Liver: The unenhanced liver is normal in size, contour, and attenuation. There is no intrahepatic biliary ductal dilatation. Gallbladder: There are numerous gallstones with mild gallbladder distention. There is no CT evidence of acute cholecystitis. Spleen: Normal in size and attenuation. Pancreas: The unenhanced pancreas is atrophic and grossly unremarkable. Adrenal glands: Unremarkable. Kidneys: The unenhanced kidneys demonstrate cortical atrophy and are without hydronephrosis. There are no renal calculi identified. There is no evidence of contour deforming renal mass lesion. Abdominal vasculature: The abdominal aorta is normal in course and caliber. Bowel: There is moderate colonic fecal retention. No bowel obstruction is seen. The appendix is well-visualized and normal. Peritoneum: There is no intraperitoneal free air or abdominal ascites. There is a small fat-containing umbilical hernia. Lymphadenopathy: There is bilateral inguinal adenopathy. The largest node is on the right measuring 2.0 x 1.3 cm is seen on image #[id number]. Pelvic viscera: The bladder is distended. The bladder wall is thickened and there is pericystic inflammation. The uterine fibroid is suggested on image #268. No adnexal lesion is seen. Skeletal structures: The skeletal structures are osteopenic. There is moderate to advanced lumbosacral spondylosis. No lytic or blastic lesions are seen. IMPRESSION: 1. Suboptimal examination without IV contrast. 2. Findings suggest cystitis. Correlation with clinical findings and urinalysis will be required. 3. Cholelithiasis with mild gallbladder wall distention. There is no CT evidence of acute cholecystitis. 4. Large hiatal hernia. 5. Bilateral inguinal lymphadenopathy is nonspecific and similar in appearance to the 11/25/2018 examination. Clinical correlation will be required. 6. Additional findings as above. ACT 112: Negative or not required by law. Electronically signed by: Bishnu Chawla M.D. 11/29/2019 5:54 PM Dictated: 11/29/[id number] Transcribed: 11/29/191745 ECG Data Indication: + other (Fever/sepsis) Rate (beats per minute): 88 Rhythm: + normal sinus ECG Intervals/blocks: + Normal QRS, + Normal AK and + Normal QT-c ECG ST segments: + Normal ST segments [facility] Narrative 1625: The patient was evaluated in room B4. A complete history and physical exam was performed. Given the patient's reported fever, cough and the fact that she lives in a penitentiary, patient was placed on airborne precautions and will be tested for COVID-19. Full airborne precautions were taken by me as well as the staff. 1936: Vital signs stable. Patient has had to have multiple trips to the restroom for polyuria. She continues to have cough. Creatinine at baseline. Chest x-ray does not show acute infiltrate. Labs show mild leukopenia. Lactic acid is within normal limits. CT of the abdomen shows cystitis with cholelithiasis but no cholecystitis. This is consistent with the patient's physical exam showing pain on palpation of the suprapubic area. Given the patient's advanced age, her being in a penitentiary, her reported temperature at the penitentiary, and her symptoms, was thought that the patient should be admitted to the hospital for IV antibiotics. COVID-19 and bio fire respiratory panel are still pending. I did discuss the case with the [facility] hospitalist Dr. Farrell who agreed to evaluate the patient. We went through the patient's previous urine cultures which shows patient has a history of Klebsiella in her urine as well as Enterobacter. In August her Enterobacter urine culture was resistant ceftriaxone. Given this, Levaquin was ordered for the patient. I did discuss the patient's results and plan to admit her to the [facility] with her via telephone which she is in agreement. Impression & Plan Acute UTI Discharge Plan Visit Data Chief Complaint: Fever Stated Complaint: UTI - FEVER,RASH (FEELING DRUNK) ED Provider: Isaiah Khan Discharge Problem: Acute UTI Patient Disposition: Being Evaluated by Hospitalist Discharge Instructions Stephon/Other Patient Handouts: 2019-nCoV Forms Stand Alone Forms: My [facility] Prescriptions Prescriptions: No Action hydrocortisone [Procto-Med HC] 2.5 % cream with perineal applicator 1 applic AK BID PRN (Reason: Hemorrhoids) Qty: 28 RF: 1 Robitussin Cough-Chest Mao DM 5-100 mg/5 mL liquid 10 ml PO Q6H PRN (Reason: cough) Qty: 118 RF: 0 vancomycin [Vancocin] 125 mg capsule 125 mg PO QAM Qty: 30 RF: 5 triamcinolone acetonide 0.1 % lotion 1 appln TOPICAL BID 10 Days Qty: 60 RF: 0 Breo Ellipta 100-25 mcg/dose blister with device 1 inh INHALATION QAM Qty: 60 RF: 1 ciprofloxacin HCl [Cipro] 500 mg tablet 500 mg PO BID Qty: 14 RF: 0 oxybutynin chloride 5 mg tablet 5 mg PO BID Qty: 60 RF: 2 Spiriva with HandiHaler 18 mcg Capsule, W/Inhalation Device 1 cap INHALATION QAM RF: 0 Eliquis 5 mg Tablet 5 mg PO BID RF: 0 sennosides-docusate sodium [Senna Plus] 8.6-50 mg Tablet 1 tab-cap PO DAILY PRN (Reason: Constipation) RF: 0 amlodipine [Norvasc] 5 mg tablet 5 mg PO QAM RF: 0 aspirin [Aspir-81] 81 mg Tablet,Delayed Release (Dr/Ec) 81 mg PO QAM RF: 0 docusate sodium [Colace] 100 mg Capsule 100 mg PO BID PRN (Reason: Constipation) RF: 0 omeprazole 20 mg capsule,delayed release(DR/EC) 20 mg PO QAM RF: 0 ondansetron 4 mg Tablet,Disintegrating 4 mg PO Q4 PRN (Reason: Nausea And Vomiting) RF: 0 acetaminophen [Tylenol] 325 mg Capsule 650 mg PO Q4H MDD 3000 mg PRN (Reason: Fever Or Pain) RF: 0 calcium carbonate-vitamin D3 [Calcium 600 + D(3)] 600 mg(1,500mg) -400 unit Tablet 1 tab PO QAM RF: 0 diclofenac sodium [Voltaren] 1 % gel 2 g TOPICAL QID PRN (Reason: Pain) RF: 0 Eucerin Cream 1 applic TOPICAL QAM RF: 0 loratadine [Claritin Liqui-Gel] 10 mg Capsule 10 mg PO HS RF: 0 albuterol sulfate [Ventolin HFA] 90 mcg/actuation Hfa Aerosol Inhaler 1 - 2 puff INHALATION QID PRN (Reason: Shortness Of Breath Or Wheezing) RF: 0 triamterene-hydrochlorothiazid 37.5-25 mg tablet 1 tab PO UD RF: 0 Reguloid (psyllium husk) 3 gram/5.4 gram Powder 1 tsp PO DAILY PRN (Reason: Constipation) RF: 0 Referrals Referrals: Lenore Cloud [Primary Care Provider] -
[2019-11-29 17:25] LABS: Basophils # (auto) 0.01 K/uL (0-0.2); Basophils % (auto) 0.2 %; Eosinophils # (auto) 0.15 K/uL (0-0.5); Eosinophils % (auto) 3.5 %; Hematocrit (blood only) 34.6 % (37-47); Immature Granulocytes # (auto) 0.02 K/uL (0.00-0.02); Immature Granulocytes % (auto) 0.5 %; Lymphocytes # (auto) 1.13 K/uL (1.2-3.4); Lymphocytes % (auto) 26.2 %; Mean Corpuscular Hemoglobin 27.4 pg (25-34); Mean Corpuscular Hgb Conc 31.8 g/dL (32-36); Mean Corpuscular Volume 86.1 fL (80-100); Mean Platelet Volume 10.3 fL (7.4-10.4); Monocytes # (auto) 0.88 K/uL (0.11-0.59); Monocytes % (auto) 20.4 %; Neutrophils # (auto) 2.13 K/uL (1.4-6.5); Neutrophils % (auto) 49.2 %; Platelet Count 173 K/uL (130-400); RDW Coefficient of Variation 15.5 % (11.5-14.5); RDW Standard Deviation 48.6 fL (36.4-46.3); Red Blood Count 4.02 M/uL (4.2-5.4); White Blood Count 4.32 K/uL (4.8-10.8)
[2019-11-29 17:41] LABS: INR 1.2 (0.9-1.1); Partial Thromboplastin Ratio 1.4; Partial Thromboplastin Time 37.9 Seconds (21.0-31.0); Prothrombin Time 12.3 Seconds (9.0-12.0)
[2019-11-29 17:42] LABS: Appearance Urine Clear (Clear); Bacteria Urine Automated Negative (Negative); Bilirubin Urine Negative (Negative); Blood Urine 2+ (Negative); Color Urine Yellow; Glucose Urine UA Negative (Negative); Ketones Urine Negative (Negative); Leukocyte Esterase Urine 2+ (Negative); Nitrite Urine Negative (Negative); RBC Urine Automated >30 /hpf (0-4); Specific Gravity Urine 1.014 (1.000-1.030); Urobilinogen Urine Negative (Negative); WBC Urine Automated >30 /hpf (0-5); pH Urine 7.5 (4.5-7.5)
[2019-11-29 17:50] LABS: Protein Urine 1+ (Negative); Sulfosalicylic Acid Urine Positive (Negative)
[2019-11-29 17:52] LABS: Alanine Aminotransferase 17 U/L (12-78); Albumin Level 4.1 gm/dl (3.4-5.0); Aspartate Aminotransferase 18 U/L (15-37); BUN Creatinine Ratio 13.7 (10-20); Blood Urea Nitrogen 23 mg/dl (7-18); Calcium 9.2 mg/dl (8.5-10.1); Carbon Dioxide 28 mmol/L (21-32); Chloride 105 mmol/L (98-107); Est GFR (African American) 31.6; Est GFR (Non-African American) 27.2; Glucose 93 mg/dl (70-99); Magnesium 2.4 mg/dl (1.8-2.4); Potassium 3.8 mmol/L (3.5-5.1); Sodium 140 mmol/L (136-145)
--- NOTE | 2019-11-29 17:55 | CT Scan Report ---
CT SCAN OF THE ABDOMEN AND PELVIS WITHOUT IV CONTRAST CLINICAL HISTORY: Dysuria. Generalized abdominal pain. Fever. COMPARISON STUDY: Abdominal CT dated 11/25/2018. TECHNIQUE: CT scan of the abdomen and pelvis is performed from the lung bases to the proximal femora. Images are reviewed in the axial, sagittal, and coronal planes. IV contrast was not administered for this examination. Note that the examination was performed in significantly suboptimal fashion withou t oral and IV contrast. A dose lowering technique was utilized adhering to the principles of ALARA. CT DOSE: 716.74 mGycm FINDINGS: Lung bases: The heart is normal in size and without pericardial effusion. There is bibasilar scarring /atelectasis. No airspace consolidation or pleural effusion is identified. There is a large hiatal he rnia, with the majority of the stomach located in the thoracic cavity. Liver: The unenhanced liver is normal in size, contour, and attenuation. There is no intrahepatic abel iary ductal dilatation. Gallbladder: There are numerous gallstones with mild gallbladder distention. There is no CT evidence of acute cholecystitis. Spleen: Normal in size and attenuation. Pancreas: The unenhanced pancreas is atrophic and grossly unremarkable. Adrenal glands: Unremarkable. Kidneys: The unenhanced kidneys demonstrate cortical atrophy and are without hydronephrosis. There ar e no renal calculi identified. There is no evidence of contour deforming renal mass lesion. Abdominal vasculature: The abdominal aorta is normal in course and caliber. Bowel: There is moderate colonic fecal retention. No bowel obstruction is seen. The appendix is well -visualized and normal. Peritoneum: There is no intraperitoneal free air or abdominal ascites. There is a small fat-containin g umbilical hernia. Lymphadenopathy: There is bilateral inguinal adenopathy. The largest node is on the right measuring 2 .0 x 1.3 cm is seen on image #[id number]. Pelvic viscera: The bladder is distended. The bladder wall is thickened and there is pericystic infla mmation. The uterine fibroid is suggested on image #[id number]. No adnexal lesion is seen. Skeletal structures: The skeletal structures are osteopenic. There is moderate to advanced lumbosacra l spondylosis. No lytic or blastic lesions are seen. IMPRESSION: 1. Suboptimal examination without IV contrast. 2. Findings suggest cystitis. Correlation with clinical findings and urinalysis will be required. 3. Cholelithiasis with mild gallbladder wall distention. There is no CT evidence of acute cholecystit is. 4. Large hiatal hernia. 5. Bilateral inguinal lymphadenopathy is nonspecific and similar in appearance to the 11/25/2018 exami nation. Clinical correlation will be required. 6. Additional findings as above. ACT 112: Negative or not required by law. Electronically signed by: Bishnu Chawla M.D. 11/29/2019 5:54 PM
[2019-11-29 17:56] LABS: Albumin Globulin Ratio 0.9 (0.9-2); Alkaline Phosphatase 76 U/L (45-117); Bilirubin,Total 0.4 mg/dl (0.2-1); Globulin 4.5 gm/dl (2.5-4.0); Total Protein 8.6 gm/dl (6.4-8.2); Troponin I 0.025 ng/ml (0-0.045)
--- NOTE | 2019-11-29 18:30 | XRay Report ---
SINGLE VIEW CHEST CLINICAL HISTORY: Sepsis. FINDINGS: An AP, portable, upright chest radiograph is compared to study dated 06/24/2019. The examina tion is degraded by portable technique, apical lordotic positioning, and patient rotation. The heart is enlarged noting atherosclerotic calcification of the thoracic aorta. The pulmonary vasculature is noncongested. A large hiatal hernia is noted. Chronic interstitial thickening is similar to previous. There is bibasilar scarring/atelectasis. No airspace consolidation or large pleural effusion is iden tified. No pneumothorax is seen. The skeletal structures are osteopenic. The bony thorax is grossly i ntact. Degenerative change is noted in the shoulders and thoracic spine. IMPRESSION: 1. Cardiomegaly with no acute cardiopulmonary abnormality. 2. Large hiatal hernia. ACT 112: Negative or not required by law. Electronically signed by: Bishnu Chawla M.D. 11/29/2019 6:28 PM
[2019-11-29] MEDS ORDERED: LEVOFLOXACIN/D5W 500 MG/100 ML BAG IV STA (19:30)
[2019-11-29 20:05] LABS: Adenovirus PCR Not Detected (NotDetected); Coronavirus 229E PCR Not Detected (NotDetected); Coronavirus HKU1 PCR Not Detected (NotDetected); Coronavirus NL63 PCR Not Detected (NotDetected); Coronavirus OC43PCR Not Detected (NotDetected); Human Metapneumovirus PCR Not Detected (NotDetected); Influenza A PCR Not Detected (NotDetected); Rhinovirus/Enterovirus PCR Not Detected (NotDetected)
[2019-11-29 20:06] LABS: Bordetella parapertussis PCR Not Detected (NotDetected); Bordetella pertussis PCR Not Detected (NotDetected); Chlamydia pneumoniae PCR Not Detected (NotDetected); Influenza B PCR Not Detected (NotDetected); Mycoplasma pneumoniae PCR Not Detected (NotDetected); Parainfluenza Virus 1 PCR Not Detected (NotDetected); Parainfluenza Virus 2 PCR Not Detected (NotDetected); Parainfluenza Virus 3 PCR Not Detected (NotDetected); Parainfluenza Virus 4 PCR Not Detected (NotDetected); Respiratory Syncytial VirusPCR Not Detected (NotDetected)
--- NOTE | 2019-11-29 20:37 | History & Physical Report ---
Date of Service November 29, 2019 Assessment & Plan (1) Cystitis: 89-year-old female with a past medical history of urinary incontinence, multiple resistant UTIs, hypertension, bronchopneumonia, CKD stage III, paroxysmal A. fib admitted for cystitis with recurrent resistant UTI. 1) Cystitis with hx recurrent UTIs - urinary frequency, incontinence and burning x 2 days. Multiple UTIs since june - previous cultures have grown pansensitive klebsiella, enterobacter sensitive to levaquin. - levaquin x 1 in ED, continued to the floor until specification and sensitivities resulted - urine culture and blood cultures pending - WBC 4.32, afebrile - consider discussion with senior test analyst re: utility of pessary vs. surgical options as prolapse is likely large component of recurrent infections - continued oxybutynin to aid incontinence sx 2) CKD stage 3 - Cr 1.66, roughly baseline between 1.4 and 1.6 - encourage PO fluid intake 3) Hx Cdiff - continue daily 125 mg vancomycin 4) HTN - amlodipine 5 mg 5) Afib, rate controlled - eliquis 5 mg BID 6) hx Bronchopneumonia/cough - spiriva and breo ellipta inhalers scheduled - albuterol inhaler PRN SOB - O2 sat >92 DVT ppx: on eliquis FEN/GI: regular diet, encourage PO fluids Code Status: Full COde Dispo: Med/surg (2) Acute UTI: (3) Urinary incontinence: (4) History of Clostridioides difficile colitis: (5) CKD (chronic kidney disease), stage III: (6) Prolapse of vaginal stinson: (7) Procidentia of uterus: History of Present Illness 89-year-old female with a past medical history of urinary incontinence, multiple resistant UTIs, hypertension, bronchopneumonia, CKD stage III, paroxysmal A. fib who has been experiencing symptoms of urinary frequency burning with urination and pelvic discomfort on and off for the past 2 months but acutely worsening in the past 2 days. She states that she has a uterine prolapse and has previously been fitted with pessaries however they always fell out and never actually worked. She states that when she sits on the edge of a bed or stands she feels increasing pelvic pain and pressure and will become incontinent. She also attest to a cough that has been present since early June during her last admission. She states that she has had some. She states that she is short of breath when she is up and moving around or if she is actively working on something however she is not short of breath when sitting and resting. She denies any chest tightness chest pressure pain with inspiration. She states the food at [facility] is not great and occasionally will make her nauseous and vomit but she does not have any baseline nausea. She denies any constipation or diarrhea, blurry vision, weakness or dizziness. Primary Care Provider: Esthela Grover Allergies Allergy/AdvReac Type Severity Reaction Status Date / Time tetanus toxoid, adsorbed Allergy Intermediate RASH Verified 11/29/19 16:23 latex Allergy Mild RASH Verified 11/29/19 16:23 Sulfa (Sulfonamide Allergy Hives Verified 11/29/19 16:23 Antibiotics) sulfamethoxazole Allergy Hives Verified 11/29/19 16:23 [From Bactrim] trimethoprim [From Bactrim] Allergy Hives Verified 11/29/19 16:23 codeine AdvReac Intermediate HEADACHES Verified 11/29/19 16:23 morphine AdvReac Mild SEVERE Verified 11/29/19 16:23 HEADACHES Home Medications Home Medications Medication Instructions Recorded Confirmed Type Eucerin 1 applic TOPICAL QAM 04/20/19 11/29/19 History acetaminophen [Tylenol] 650 mg PO Q4H PRN MDD 3000 mg 04/20/19 11/29/19 History amlodipine [Norvasc] 5 mg PO QAM 04/20/19 11/29/19 History aspirin [Aspir-81] 81 mg PO QAM 04/20/19 11/29/19 History calcium carbonate-vitamin D3 1 tab PO QAM 04/20/19 11/29/19 History [Calcium 600 + D(3)] diclofenac sodium [Voltaren] 2 g TOPICAL QID PRN 04/20/19 11/29/19 History docusate sodium [Colace] 100 mg PO BID PRN 04/20/19 11/29/19 History loratadine [Claritin Liqui-Gel] 10 mg PO HS 04/20/19 11/29/19 History omeprazole 20 mg PO QAM 04/20/19 11/29/19 History ondansetron 4 mg PO Q4 PRN 04/20/19 11/29/19 History sennosides-docusate sodium [Senna 1 tab-cap PO DAILY PRN 04/20/19 11/29/19 History Plus] albuterol sulfate [Ventolin HFA] 1 - 2 puff INHALATION QID PRN 06/24/19 11/29/19 History triamterene-hydrochlorothiazid 1 tab PO UD 06/24/19 11/29/19 History oxybutynin chloride 5 mg tablet 5 mg PO BID #60 tab 07/02/19 11/29/19 Rx apixaban [Eliquis] 5 mg PO BID 07/05/19 11/29/19 History tiotropium bromide [Spiriva with 1 cap INHALATION QAM 07/05/19 11/29/19 History HandiHaler] hydrocortisone 2.5 % topical cream 1 applic AK BID PRN #28 gm 08/04/19 11/29/19 Rx with perineal applicator dextromethorphan-guaifenesin 5 10 ml PO Q6H PRN #118 ml 08/28/19 11/29/19 Rx mg-100 mg/5 mL oral liquid vancomycin 125 mg capsule 125 mg PO QAM #30 cap 09/13/19 11/29/19 Rx triamcinolone acetonide 0.1 % 1 appln TOPICAL BID 10 Days #60 ml 10/20/19 11/29/19 Rx lotion fluticasone furoate 100 1 inh INHALATION QAM #60 ea 11/10/19 11/29/19 Rx mcg-vilanterol 25 mcg/dose inhalation powder ciprofloxacin HCl 500 mg tablet 500 mg PO BID #14 tab 11/23/19 11/29/19 Rx psyllium husk [Reguloid (psyllium 1 tsp PO DAILY PRN 11/29/19 11/29/19 History husk)] Past Med/Surg History Medical History Acute respiratory failure with hypoxia Acute right hip pain ARF (acute renal failure) (Resolved) Bilateral cellulitis of lower leg Bronchitis Cellulitis of lower leg (Resolved) Chronic venous insufficiency Confusion Contusion of left hip Degenerative joint disease of knee (Chronic) Fall (Resolved) Fracture of left clavicle (Resolved) Fracture, finger Head injury Hypertensive emergency (Resolved) Hypoxia (Chronic) NSTEMI (non-ST elevated myocardial infarction) Physical deconditioning PIC line (peripherally inserted central catheter) removal (Resolved) Right knee DJD Right thigh pain Sepsis Steroid-induced myopathy (Unknown) Traumatic hematoma of right forearm Trochanteric bursitis of right hip Unspecified psychosis Venous stasis ulcer of right lower leg with edema of right lower leg Surgical History History of dilatation and curettage History of gynecological procedure Insertion of Pessary History of tooth extraction Status post arthroscopic knee surgery (Resolved) Status post biopsy of skin Status post tubal ligation (Resolved) Family History Mother Heart disease Father Emphysema of lung Denies family history of Ovarian cancer Prostate cancer Diabetes Crohn's disease Breast cancer Colorectal cancer Ulcerative colitis Social History Preferred Language: Portuguese Communication Ability: Effective Visual Impairment: No Limitations Hearing Ability: Normal Education Managers Required: No Beliefs That Will Affect Care: None marital status: / Current Living Situation: Personal Care Facility and Rehab Current Living Situation Comment: Was at [facility] with discharge plan to home. Other Information That Helps Us Care for You: No Feels Safe at Home: Yes Safety Concerns: Feels Safe At This Time Smoking Status: Never smoker Second Hand Exposure: No ; Hx Alcohol Use: Yes Alcohol type: wine Hx Substance Use: No Review of Systems Constitutional: + fever; no chills, no body aches and no fatigue Respiratory: + cough; no dyspnea Cardiovascular: no chest pain, no dyspnea and no edema Gastrointestinal: no abdominal pain, no nausea, no vomiting, no constipation and no diarrhea/loose stools Genitourinary: + dysuria, + urinary frequency, + urinary incontinence and + prolapse symptoms Physical Exam Constitutional: + thin and cooperative; no acute distress and not ill appearing Neck: normal visual inspection Respiratory: normal respiratory effort and able to speak in complete sentences; no respiratory distress, no labored breathing, no retractions and no cough Auscultation: + wheezes (expiratory wheezes throughout); no crackles, no rales and no rhonchi Cardiovascular: Rate/Rhythm: regular rate and regular rhythm Heart Sounds: normal S1 and normal S2; no gallop, no murmur and no cardiac rub Vessels: posterior tibial pulses present Extremities: no pedal edema and no edema Gastrointestinal (Abdomen): Inspection/Auscultation: abdomen normal to inspection and normal bowel sounds; abdomen not distended Percussion/Palpation: + abdomen tender (suprapubic, RLQ tenderness) and abdomen soft; no guarding, abdomen not rigid and no abdominal mass Results & Data Results & Data ([facility]) Vital Signs (Past 12 Hours) Vital Signs Temp Pulse Resp BP Pulse Ox 11/29/19 17:10 87 24 171/83 H 99 11/29/19 17:03 86 23 11/29/19 16:30 83 18 98 11/29/19 16:16 90 18 11/29/19 16:12 92 H 21 180/65 H 11/29/19 14:06 37.1 C 90 18 145/64 H 97 Laboratory Results WBC 4.32 K/uL (4.8-10.8) L 11/29/19 17:00 RBC 4.02 M/uL (4.2-5.4) L 11/29/19 17:00 Hgb 11.0 g/dL (12.0-16.0) L 11/29/19 17:00 Hct 34.6 % (37-47) L 11/29/19 17:00 MCV 86.1 fL (80-100) 11/29/19 17:00 MCH 27.4 pg (25-34) 11/29/19 17:00 MCHC 31.8 g/dL (32-36) L 11/29/19 17:00 RDW Std Deviation 48.6 fL (36.4-46.3) H 11/29/19 17:00 RDW Coeff of Luis Eduardo 15.5 % (11.5-14.5) H 11/29/19 17:00 Plt Count 173 K/uL (130-400) 11/29/19 17:00 MPV 10.3 fL (7.4-10.4) 11/29/19 17:00 Immature Gran % (Auto) 0.5 % 11/29/19 17:00 Neut % (Auto) 49.2 % 11/29/19 17:00 Lymph % (Auto) 26.2 % 11/29/19 17:00 Cataño % (Auto) 20.4 % 11/29/19 17:00 Eos % (Auto) 3.5 % 11/29/19 17:00 Baso % (Auto) 0.2 % 11/29/19 17:00 Neut # (Auto) 2.13 K/uL (1.4-6.5) 11/29/19 17:00 Lymph # (Auto) 1.13 K/uL (1.2-3.4) L 11/29/19 17:00 Cataño # (Auto) 0.88 K/uL (0.11-0.59) H 11/29/19 17:00 Eos # (Auto) 0.15 K/uL (0-0.5) 11/29/19 17:00 Baso # (Auto) 0.01 K/uL (0-0.2) 11/29/19 17:00 Immature Gran # (Auto) 0.02 K/uL (0.00-0.02) 11/29/19 17:00 PT 12.3 Seconds (9.0-12.0) H 11/29/19 17:00 INR 1.2 (0.9-1.1) H 11/29/19 17:00 APTT 37.9 Seconds (21.0-31.0) H 11/29/19 17:00 PTT Ratio 1.4 11/29/19 17:00 Sodium 140 mmol/L (136-145) 11/29/19 17:00 Potassium 3.8 mmol/L (3.5-5.1) 11/29/19 17:00 Chloride 105 mmol/L (98-107) 11/29/19 17:00 Carbon Dioxide 28 mmol/L (21-32) 11/29/19 17:00 Anion Gap 7.0 (3-11) 11/29/19 17:00 BUN 23 mg/dl (7-18) H 11/29/19 17:00 Creatinine 1.66 mg/dl (0.6-1.2) H 11/29/19 17:00 Est Cr Clr Drug Dosing Not Reportable 11/29/19 17:00 Est GFR ( Amer) 31.6 11/29/19 17:00 Est GFR (Non-Af Amer) 27.2 11/29/19 17:00 BUN/Creatinine Ratio 13.7 (10-20) 11/29/19 17:00 Glucose 93 mg/dl (70-99) 11/29/19 17:00 Lactate 1.1 mmol/L (0.4-2.0) 11/29/19 18:04 Calcium 9.2 mg/dl (8.5-10.1) 11/29/19 17:00 Magnesium 2.4 mg/dl (1.8-2.4) 11/29/19 17:00 Total Bilirubin 0.4 mg/dl (0.2-1) 11/29/19 17:00 AST 18 U/L (15-37) 11/29/19 17:00 ALT 17 U/L (12-78) 11/29/19 17:00 Alkaline Phosphatase 76 U/L (45-117) 11/29/19 17:00 Troponin I 0.025 ng/ml (0-0.045) 11/29/19 17:00 Total Protein 8.6 gm/dl (6.4-8.2) H 11/29/19 17:00 Albumin 4.1 gm/dl (3.4-5.0) 11/29/19 17:00 Globulin 4.5 gm/dl (2.5-4.0) H 11/29/19 17:00 Albumin/Globulin Ratio 0.9 (0.9-2) 11/29/19 17:00 Procalcitonin < 0.05 ng/ml (0-0.5) 11/29/19 17:00 Urine Color Yellow 11/29/19 17:10 Urine Appearance Clear (Clear) 11/29/19 17:10 Urine pH 7.5 (4.5-7.5) 11/29/19 17:10 Ur Specific Pratt 1.014 (1.000-1.030) 11/29/19 17:10 Urine Protein 1+ (Negative) H 11/29/19 17:10 Urine Glucose (UA) Negative (Negative) 11/29/19 17:10 Urine Ketones Negative (Negative) 11/29/19 17:10 Urine Blood 2+ (Negative) H 11/29/19 17:10 Urine Nitrite Negative (Negative) 11/29/19 17:10 Urine Bilirubin Negative (Negative) 11/29/19 17:10 Urine Urobilinogen Negative (Negative) 11/29/19 17:10 Ur Leukocyte Esterase 2+ (Negative) H 11/29/19 17:10 Urine WBC (Auto) >30 /hpf (0-5) H 11/29/19 17:10 Urine RBC (Auto) >30 /hpf (0-4) H 11/29/19 17:10 U Hyaline Cast (Auto) 1-5 /lpf (0-5) 11/29/19 17:10 U Epithel Cells (Auto) 10-20 /lpf (0-5) H 11/29/19 17:10 Urine Bacteria (Auto) Negative (Negative) 11/29/19 17:10 Adenovirus (PCR) Not Detected (NotDetected) 11/29/19 17:56 B. pertussis DNA (PCR) Not Detected (NotDetected) 11/29/19 17:56 B.parapertussis DNA PCR Not Detected (NotDetected) 11/29/19 17:56 C. pneumoniae DNA (PCR) Not Detected (NotDetected) 11/29/19 17:56 Coronavirus OC43 (PCR) Not Detected (NotDetected) 11/29/19 17:56 Coronavirus HKU1 (PCR) Not Detected (NotDetected) 11/29/19 17:56 Coronavirus 229E (PCR) Not Detected (NotDetected) 11/29/19 17:56 COVID-19 PCR NEGATIVE (Negative) 11/29/19 17:56 Coronavirus NL63 (PCR) Not Detected (NotDetected) 11/29/19 17:56 Human Metapneumovir PCR Not Detected (NotDetected) 11/29/19 17:56 Influenza Type A (PCR) Not Detected (NotDetected) 11/29/19 17:56 Influenza Type B (PCR) Not Detected (NotDetected) 11/29/19 17:56 M. pneumoniae (PCR) Not Detected (NotDetected) 11/29/19 17:56 Parainfluenza 1 (PCR) Not Detected (NotDetected) 11/29/19 17:56 Parainfluenza 2 (PCR) Not Detected (NotDetected) 11/29/19 17:56 Parainfluenza 3 (PCR) Not Detected (NotDetected) 11/29/19 17:56 Parainfluenza 4 (PCR) Not Detected (NotDetected) 11/29/19 17:56 RSV (PCR) Not Detected (NotDetected) 06/29/20 17:56 Entero/Rhino (PCR) Not Detected (NotDetected) 11/29/19 17:56 Supervising Physician Co-Signing Physician Notes Attending addendum: I have physically seen this patient, have supervised the medical residents activities, and agree with the H&P unless as otherwise noted. Assessment and Plan: Cystitis/recurrent UTI- Most recent bacteria including Klebsiella multi-sensitive, and Enterobacter ceftriaxone resistant Follow urine culture and sensitivity Levofloxacin 500 mg IV daily CKD stage III- Creatinine 1.66 upon admission, which is slightly above baseline of 1.4-1.6 Follow with rehydration History of bronchopneumonia/chronic cough- History of Stenotrophomonas maltophilia Levaquin sensitive. Follow sputum culture sensitivity Continue Spiriva and Breo Ellipta Hypertension/atrial fibrillation- Continue amlodipine with hold parameters Continue Eliquis Remainder of orders and notations as noted Resident Activity Tracking Resident Involvement: Resident Care Provided Care Provided: Adult Hospital Medicine
[2019-11-30] MEDS ORDERED: DOCUSATE SODIUM/SENNA 50/8.6MG TAB PO PRN (01:50)
[2019-11-30] MEDS ORDERED: NON-FORMULARY MEDICATION (Acetaminophen [Tylenol] 650 MG) PO PRN (01:50)
[2019-11-30] MEDS ORDERED: ONDANSETRON INJ 2 MG/ML 2 ML VIAL IV PRN (01:50)
[2019-11-30] MEDS ORDERED: POLYETHYLENE (MIRALAX) 17 GM PACK PO PRN (01:50)
[2019-11-30] MEDS ORDERED: ALBUTEROL HFA 8 GM INHALER INH PRN (01:50)
[2019-11-30] MEDS ORDERED: HYDROCORTISONE HC 2.5% CRM 30GM TUBE EXT PRN (01:50)
[2019-11-30] MEDS ORDERED: DICLOFENAC SOD 1% GEL 100 GM TUBE EXT PRN (01:50)
[2019-11-30] MEDS ORDERED: DOCUSATE SODIUM 100 MG CAP PO PRN (01:50)
[2019-11-30] MEDS ORDERED: ONDANSETRON 4 MG OD TAB PO PRN (01:50)
[2019-11-30] MEDS ORDERED: ALUMINUM/MAGNESIUM SUSP 30 ML UDC PO PRN (01:50)
[2019-11-30] MEDS ORDERED: MAGNESIUM HYDROXIDE SUSP 30 ML UDC PO PRN (01:50)
[2019-11-30] MEDS ORDERED: ACETAMINOPHEN 325 MG TAB PO PRN (01:50)
[2019-11-30] MEDS ORDERED: TRIAMTERENE/HCTZ 37.5/25MG TAB PO SCH (01:50)
[2019-11-30] MEDS ORDERED: GUAIFENESIN/DEXTROM SYRUP 200MG/20MG 10ML UDC PO PRN (01:50)
[2019-11-30] MEDS: OXYBUTYNIN CHLORIDE 5 MG TAB PO SCH ×3 (02:54→21:20)
[2019-11-30] MEDS: APIXABAN 5 MG TABLET PO SCH ×2 (02:55→08:39)
[2019-11-30] MEDS ORDERED: PSYLLIUM 58.6% POWDER PACKET PO PRN (03:17)
[2019-11-30 05:41] LABS: Basophils # (auto) 0.01 K/uL (0-0.2); Basophils % (auto) 0.2 %; Eosinophils # (auto) 0.11 K/uL (0-0.5); Eosinophils % (auto) 2.6 %; Hematocrit (blood only) 30.3 % (37-47); Hemoglobin 9.2 g/dL (12.0-16.0); Immature Granulocytes # (auto) 0.02 K/uL (0.00-0.02); Immature Granulocytes % (auto) 0.5 %; Lymphocytes # (auto) 1.17 K/uL (1.2-3.4); Lymphocytes % (auto) 27.3 %; Mean Corpuscular Hemoglobin 26.4 pg (25-34); Mean Corpuscular Hgb Conc 30.4 g/dL (32-36); Mean Corpuscular Volume 87.1 fL (80-100); Mean Platelet Volume 10.2 fL (7.4-10.4); Monocytes # (auto) 1.11 K/uL (0.11-0.59); Monocytes % (auto) 25.9 %; Neutrophils # (auto) 1.86 K/uL (1.4-6.5); Neutrophils % (auto) 43.5 %; Platelet Count 155 K/uL (130-400); RDW Coefficient of Variation 15.4 % (11.5-14.5); RDW Standard Deviation 49.7 fL (36.4-46.3); Red Blood Count 3.48 M/uL (4.2-5.4); White Blood Count 4.28 K/uL (4.8-10.8)
[2019-11-30 06:20] LABS: BUN Creatinine Ratio 13.9 (10-20); Calcium 8.8 mg/dl (8.5-10.1); Creatinine Clr Calc Pharmacy 20.5 ml/min; Est GFR (African American) 33.8; Est GFR (Non-African American) 29.1
--- NOTE | 2019-11-30 08:01 | Electrocardiogram Report ---
Test Reason : Blood Pressure : / mmHG Vent. Rate : 088 BPM Atrial Rate : 088 BPM P-R Int : 176 ms QRS Dur : 064 ms QT Int : 358 ms P-R-T Axes : 063 007 010 degrees QTc Int : 433 ms Sinus rhythm with Premature atrial complexes Low voltage QRS Abnormal ECG When compared with ECG of 05-JUL-2019 13:11, Premature atrial complexes now present Confirmed by Lucas Rust ([id number]) on 11/30/2019 8:00:45 AM Referred By: Lenore Multani Confirmed By:Lucas Rust
[2019-11-30] MEDS: VANCOMYCIN HCL 125 MG/2.5ML SOLN PO SCH (08:38)
[2019-11-30] MEDS: PANTOprazole 40 MG TAB PO SCH (08:38)
[2019-11-30] MEDS: CALCIUM 600MG + VIT D 400 IU TAB PO SCH (08:38)
[2019-11-30] MEDS: RASPBERRY SYRUP 5 ML UDP PO SCH (08:38)
[2019-11-30] MEDS: FLUTICASONE/VILANTEROL 100/25MCG 14 PUFFS/INHALER INH SCH (08:39)
[2019-11-30] MEDS: ASPIRIN 81 MG ECTAB PO SCH (08:39)
[2019-11-30] MEDS: AMLODIPINE BESYLATE 5 MG TAB PO SCH (08:39)
[2019-11-30] MEDS: UMECLIDINIUM BROMIDE 62.5MCG/BLISTER 7 PUFFS/INHALER INH SCH (08:40)
[2019-11-30] MEDS: EUCERIN CR 120 GM JAR EXT SCH (08:40)
[2019-11-30] MEDS: TRIAMCINOLONE~ORDER AWAITING ACTION SCH ×3 (08:48→23:32)
[2019-11-30] MEDS: DICLOFENAC SOD 1% GEL 100 GM TUBE EXT SCH ×2 (16:44→21:20)
[2019-11-30] MEDS: SUCRALFATE 1 GM/10 ML UDC PO SCH ×2 (17:23→21:20)
--- NOTE | 2019-11-30 18:16 | XRay Report ---
RIGHT FOOT 3 VIEWS HISTORY: right mid-foot pain COMPARISON: None. FINDINGS: There is no fracture or dislocation. Mild diffuse soft tissue swelling within the ankle and foot. Plantar and posterior calcaneal spurs. The bones are diffusely osteopenic. The Lisfranc joint is intact. No radiopaque foreign bodies. Soft tissue and bony bunion. Hallux valgus and metatarsus pr ominence is deformities. Mild vascular calcifications. Flexion deformities within the second through fifth toes. Mild degenerative changes throughout the foot. IMPRESSION: 1. No fractures within the right foot. 2. Diffuse soft tissue swelling. 3. Diffuse osteopenia. 4. Degenerative changes. ACT 112: Negative or not required by law. Electronically signed by: Madi Guy M.D. 11/30/2019 6:15 PM
--- NOTE | 2019-11-30 19:54 | Billing Data ---
Date of Service November 30, 2019 Coding Level of Care Code 56340 Initial Inpt Care Lvl 3
--- NOTE | 2019-11-30 20:36 | Hospitalist Progress Note ---
Date of Service November 30, 2019 Assessment & Plan (1) Emesis: Had emesis several days ago at her personal group home, then again today after breakfast. She has mild abdominal discomfort/upset. Repeat urine culture negative thus UTI unlikely causing. Has gallstones and hiatal hernia on CT - both could cause her symptoms. Cont PPI and carafate for probable GERD/hiatal hernia. Check RUQ u/s - r/o early cholecystitis as cause of GI symptoms. Change diet to full liquids from regular. (2) Acute UTI: 11/21 culture with pansensitive klebsiella. repeat urine cx from 11/28 negative. can likely stop antibiotics after tomorrow's dose. (3) Gallstones: Check RUQ u/s, r/o early cholecystitis. Recheck LFTs and lipase in am. Uncertain if current GI symptoms are from this or her hiatal hernia. (4) CKD (chronic kidney disease), stage III: Cr at baseline today. Repeat BMP am. (5) History of Clostridioides difficile colitis: Noted. cont vanco prophylaxis. Stop levaquin after tomorrow's dose. (6) Hiatal hernia: Large on imaging. Cont PPI. Cont carafate. GI symptoms could be due to such. May need PPI twice daily. (7) Paroxysmal atrial fibrillation: Noted. Eliquis should be lower dose at 2.5mg BID. (8) Hypertension: Controlled. Cont current meds. (9) Right foot pain: mid-foot gout? (especially in light of thiazide diuretic usage). Check x-rays, r/o CPPD changes & fractures. Voltaren gel 2gm qid. check sed rate/uric acid level am. (10) DVT prophylaxis: eliquis BID updated son by phone 11/29 change observation to full admission --- I certify that the inpatient services were ordered in accordance with Medicare regulations governing the order. This includes certification that [facility] services are reasonable and necessary and in the case of services not specified as inpatient-only under 42 CFR 419.22(n), that they are appropriately provided as inpatient services in accordance to with the 2-midnight benchmark under 43 CFR 412.3(e) Admission and Anticipated Discharge Date Admission Date: November 30, 2019 Subjective had emesis at the conclusion of her breakfast this am. ate most of her meal then had the emesis - nonbilious. since breakfast she has had dyspepsia and mild abdominal discomfort. had episode of emesis following eating greasy meat last week at personal group home. denies chest pain although having some mild heartburn type symptoms. no dyspnea. also c/o right foot pain in middle of foot. started middle of the night and bothered her most of night. no pain in left foot or left leg. Review of Systems Constitutional: no fever and no chills Respiratory: no dyspnea Cardiovascular: no chest pain Gastrointestinal: + abdominal pain, + nausea and + vomiting; no diarrhea/loose stools Physical Exam Constitutional: no acute distress and no altered mental status ENMT: external ear and nose normal, oropharynx normal Respiratory: normal respiratory effort, lungs clear to auscultation Cardiovascular: Rate/Rhythm: regular rate and regular rhythm Heart Sounds: normal S1 and normal S2; no murmur Vessels: posterior tibial pulses present and dorsalis pedis pulses present; no JVD Extremities: no edema Gastrointestinal (Abdomen): Inspection/Auscultation: normal bowel sounds; abdomen not distended Percussion/Palpation: + abdomen tender (mild - RUQ and epigastric region ) and abdomen soft; no guarding and no hepatosplenomegaly Musculoskeletal: tender to palpation over right mid-foot but no localized swelling, redness or warmth Skin: venous stasis changes much worse left corona vs right corona; left corona is mildly warm to palpation but nontender Psychiatric: A+Ox3, euthymic affect Results & Data Results & Data ([facility]) Vital Signs (Past 12 Hours) Vital Signs Temp Pulse Resp BP Pulse Ox 11/30/19 15:07 36.7 C 86 18 122/55 L 94 Laboratory Results Laboratory Results - last 24 hr 11/30/19 11/30/19 05:21 05:21 WBC 4.28 L RBC 3.48 L Hgb 9.2 L Hct 30.3 L MCV 87.1 MCH 26.4 MCHC 30.4 L RDW Std Deviation 49.7 H RDW Coeff of Luis Eduardo 15.4 H Plt Count 155 MPV 10.2 Immature Gran % (Auto) 0.5 Neut % (Auto) 43.5 Lymph % (Auto) 27.3 [place] % (Auto) 25.9 Eos % (Auto) 2.6 Baso % (Auto) 0.2 Neut # (Auto) 1.86 Lymph # (Auto) 1.17 L [place] # (Auto) 1.11 H Eos # (Auto) 0.11 Baso # (Auto) 0.01 Immature Gran # (Auto) 0.02 Sodium 141 Potassium 4.0 Chloride 109 H Carbon Dioxide 28 Anion Gap 4.0 BUN 22 H Creatinine 1.57 H Est Cr Clr Drug Dosing 20.5 Est GFR ( Amer) 33.8 Est GFR (Non-Af Amer) 29.1 BUN/Creatinine Ratio 13.9 Glucose 87 Calcium 8.8 PG Care Time/CCT Total # of Minutes Spent Total Time Spent with Patient: Total time spent is greater than 50% in coordination of care (as documented) at patient's floor/unit and/or counseling patient: Coding Level of Care Code 50774 Subseq Hosp Care Lvl 3 Diagnoses Emesis R11.2 Vomiting type: unspecified Vomiting Intractability: non-intractable Nausea presence: with nausea Acute UTI N39.0 Gallstones K80.20 CKD (chronic kidney disease), stage III N18.3 History of Clostridioides difficile colitis Z86.19 Hiatal hernia K44.9 Paroxysmal atrial fibrillation I48.0 Hypertension I10 Hypertension type: essential hypertension Right foot pain M79.671 DVT prophylaxis Z29.9 (1) Emesis Vomiting type: unspecified Vomiting Intractability: non-intractable Nausea presence: with nausea Qualified Code(s): R11.2 - Nausea with vomiting, unspecified (2) Hypertension Hypertension type: essential hypertension Qualified Code(s): I10 - Essential (primary) hypertension
--- NOTE | 2019-11-30 20:43 | Ultrasound Report ---
ABDOMINAL ULTRASOUND, RIGHT UPPER QUADRANT HISTORY: gallstones, RUQ pain. COMPARISON: Abdomen and pelvis CT 11/29/2019. FINDINGS: Pancreas: The pancreatic tail is obscured by overlying bowel gas. The remaining portions of the pancr eas are within normal limits. Liver: Unremarkable. Gallbladder: A 1.4 cm stone within the gallbladder fundus. No gallbladder wall thickening. Negative s onographic Santos sign. CBD: 4 mm. Right kidney: No hydronephrosis. IMPRESSION: Cholelithiasis. No gallbladder wall thickening. ACT 112: Negative or not required by law. Electronically signed by: Madi Guy M.D. 11/30/2019 8:42 PM
[2019-11-30] MEDS: LORATADINE 10 MG TAB PO SCH (21:20)
[2019-11-30] MEDS: APIXABAN 2.5 MG TAB PO SCH (21:20)
[2019-12-01 06:11] LABS: Basophils # (auto) 0.01 K/uL (0-0.2); Basophils % (auto) 0.3 %; Eosinophils # (auto) 0.11 K/uL (0-0.5); Eosinophils % (auto) 3.5 %; Hemoglobin 9.5 g/dL (12.0-16.0); Immature Granulocytes # (auto) 0.03 K/uL (0.00-0.02); Lymphocytes # (auto) 1.11 K/uL (1.2-3.4); Lymphocytes % (auto) 35.8 %; Mean Corpuscular Hemoglobin 27.2 pg (25-34); Mean Corpuscular Hgb Conc 31.7 g/dL (32-36); Monocytes # (auto) 0.84 K/uL (0.11-0.59); Monocytes % (auto) 27.1 %; Neutrophils % (auto) 32.3 %; Platelet Count 149 K/uL (130-400); RDW Coefficient of Variation 15.7 % (11.5-14.5); RDW Standard Deviation 49.1 fL (36.4-46.3); Red Blood Count 3.49 M/uL (4.2-5.4)
[2019-12-01 06:39] LABS: Est GFR (African American) 31.8; Est GFR (Non-African American) 27.4; Potassium 3.8 mmol/L (3.5-5.1)
[2019-12-01 06:40] LABS: BUN Creatinine Ratio 13.3 (10-20); Calcium 8.6 mg/dl (8.5-10.1); Creatinine Clr Calc Pharmacy 19.5 ml/min; Uric Acid 7.9 mg/dl (2.6-7.2)
[2019-12-01 06:47] LABS: Albumin Globulin Ratio 0.7 (0.9-2); Bilirubin,Total 0.5 mg/dl (0.2-1); Globulin 4.1 gm/dl (2.5-4.0); Total Protein 7.1 gm/dl (6.4-8.2)
[2019-12-01] MEDS: SUCRALFATE 1 GM/10 ML UDC PO SCH ×4 (09:15→21:00)
[2019-12-01] MEDS: TRIAMCINOLONE~ORDER AWAITING ACTION SCH ×2 (09:16→15:44)
[2019-12-01] MEDS: DICLOFENAC SOD 1% GEL 100 GM TUBE EXT SCH ×4 (09:16→20:43)
[2019-12-01] MEDS: ASPIRIN 81 MG ECTAB PO SCH (09:17)
[2019-12-01] MEDS: AMLODIPINE BESYLATE 5 MG TAB PO SCH (09:18)
[2019-12-01] MEDS: CALCIUM 600MG + VIT D 400 IU TAB PO SCH (09:18)
[2019-12-01] MEDS: OXYBUTYNIN CHLORIDE 5 MG TAB PO SCH ×2 (09:19→21:00)
[2019-12-01] MEDS: RASPBERRY SYRUP 5 ML UDP PO SCH (09:19)
[2019-12-01] MEDS: FLUTICASONE/VILANTEROL 100/25MCG 14 PUFFS/INHALER INH SCH (09:19)
[2019-12-01] MEDS: APIXABAN 2.5 MG TAB PO SCH ×2 (09:19→21:00)
[2019-12-01] MEDS: UMECLIDINIUM BROMIDE 62.5MCG/BLISTER 7 PUFFS/INHALER INH SCH (09:19)
[2019-12-01] MEDS: PANTOprazole 40 MG TAB PO SCH ×2 (09:20→22:19)
[2019-12-01] MEDS: EUCERIN CR 120 GM JAR EXT SCH (09:21)
[2019-12-01] MEDS: VANCOMYCIN HCL 125 MG/2.5ML SOLN PO SCH (09:26)
[2019-12-01] MEDS ORDERED: BUDESONIDE/FORMOTEROL FUMARATE 160/4.5 60 PUFFS/INHALER INH SCH (13:45)
[2019-12-01] MEDS: ALBUTEROL HFA 8 GM INHALER INH SCH ×2 (15:34→19:48)
[2019-12-01] MEDS ORDERED: LEVOFLOXACIN/D5W 500 MG/100 ML BAG IV SCH (20:00)
[2019-12-01] MEDS ORDERED: LEVOFLOXACIN/D5W 750 MG/150 ML BAG IV SCH (20:00)
[2019-12-01] MEDS: LORATADINE 10 MG TAB PO SCH (21:00)
--- NOTE | 2019-12-01 23:25 | Hospitalist Progress Note ---
Date of Service December 01, 2019 Assessment & Plan (1) Emesis: RESOLVED. Had emesis several days ago at her personal snf, then again during this stay. She has mild abdominal discomfort/upset at times. Repeat urine culture negative thus UTI unlikely causing. Gallstones on CT -- RUQ u/s without findings concerning for acute cholecystitis. LARGE hiatal hernia on imaging - all of stomach is intra-thoracic. Suspect GI symptoms due to hiatal hernia and reflux disease. PPI increased to BID dosing. Carafate QID added. At discharge would send home on above regimen (perhaps carafate BID at home instead of QID but use latter whlie here). Cannot rule out chronic microaspiration from reflux/hiatal hernia causing chronic respiratory issues. advance diet to regular. (2) Acute UTI: 11/21 culture with pansensitive klebsiella. repeat urine cx from 11/28 negative. can stop levaquin after tonight's dose - completed 7+ days of Rx (3) Gallstones: RUQ u/s without cholecystitis. lipase/lfts wnl. (4) CKD (chronic kidney disease), stage III: Cr at baseline. Repeat BMP am. (5) History of Clostridioides difficile colitis: Noted. cont vanco prophylaxis. Stop levaquin after today's dose. no diarrhea at this time. (6) Hiatal hernia: Large on imaging. Cont PPI. Cont carafate. GI symptoms likely due to such. BID PPI and carafate BID at discharge. not a good candidate for surgical repair of this. (7) Paroxysmal atrial fibrillation: Noted. Eliquis should be lower dose at 2.5mg BID. at discharge send home on this dose. (8) Hypertension: Controlled. Cont current meds. (9) Right foot pain: mid-foot gout? uric acid 7.9 today. (especially in light of thiazide diuretic usage). Checked x-rays- no CPPD changes; no fractures. IMPROVED with Voltaren gel 2gm qid. (10) Chronic bronchitis: mild obstruction on most recent outpatient PFTs. follows with [facility] allergy, Dr Tran. dx with asthma by Dr Tran. see below re: sputum cx. (11) Abnormal sputum: at admission a sputum cx was sent. this has grown aspergillus. uncertain if colonizer vs pathogenic/invasive. cxr from admission wnl. does have chronic bronchitis/asthma/wheezing. patient conceivably could have "ABPA". I spoke with Dr Tran - plan - send beta 1,3-glucan in am. send asperigillus total IgE. send aspergillus IgG. he will see her in clinic in 1-2 weeks post-d/c. his office to arrange. await above labs - no Rx at this time. (12) DVT prophylaxis: madisyn LOMELI updated son by phone 11/29 and 11/30 can likely return to [facility] on 12/01 Admission and Anticipated Discharge Date Admission Date: November 30, 2019 Subjective patient VERY IRRITATED Today. having issues with family (sons) regarding her desire to return home to her house in [place]. she had been living at her home prior to going into [facility] 5 years ago. she and her sons are having discussions regarding finances, etc and this is creating stress for her. she does not like [facility], does not like food there, etc. she is tolerating full liquids diet without nausea, emesis, burping, reflux, or abd pain. has chronic wheezing - no change. has chronic cough - no change. ambulating. right foot pain improved w/ voltaren. Review of Systems Constitutional: no fever and no chills Respiratory: + cough, + dyspnea on exertion and + wheezing; no hemoptysis Cardiovascular: no chest pain Gastrointestinal: no abdominal pain, no bloating, no early satiety, no heartburn, no nausea, no vomiting and no dysphagia Physical Exam Constitutional: no acute distress and no altered mental status irritable ENMT: external ear and nose normal, oropharynx normal Respiratory: no respiratory distress Auscultation: + wheezes (B/l); no crackles Cardiovascular: Rate/Rhythm: regular rate and regular rhythm Heart Sounds: normal S1 and normal S2; no murmur Vessels: posterior tibial pulses present and dorsalis pedis pulses present; no JVD Extremities: no edema Gastrointestinal (Abdomen): Inspection/Auscultation: normal bowel sounds; abdomen not distended Percussion/Palpation: abdomen soft; abdomen nontender, no guarding and no hepatosplenomegaly Musculoskeletal: right mid-foot today without tenderness to palpation Skin: venous stasis changes b/l shins - worse on left Psychiatric: A+Ox3, euthymic affect Results & Data Results & Data ([facility]) Vital Signs (Past 12 Hours) Vital Signs Temp Pulse Resp BP Pulse Ox 12/01/19 21:03 36.6 C 77 153/66 H 12/01/19 19:48 74 18 96 12/01/19 15:37 36.4 C L 81 18 132/69 94 12/01/19 15:36 78 18 93 Laboratory Results Laboratory Results - last 24 hr 12/01/19 12/01/19 12/01/19 04:59 04:59 04:59 WBC 3.10 L RBC 3.49 L Hgb 9.5 L Hct 30.0 L MCV 86.0 MCH 27.2 MCHC 31.7 L RDW Std Deviation 49.1 H RDW Coeff of Luis Eduardo 15.7 H Plt Count 149 MPV 10.0 Immature Gran % (Auto) 1.0 Neut % (Auto) 32.3 Lymph % (Auto) 35.8 [place] % (Auto) 27.1 Eos % (Auto) 3.5 Baso % (Auto) 0.3 Neut # (Auto) 1.00 L Lymph # (Auto) 1.11 L [place] # (Auto) 0.84 H Eos # (Auto) 0.11 Baso # (Auto) 0.01 Immature Gran # (Auto) 0.03 H ESR 42 H Sodium 143 Potassium 3.8 Chloride 109 H Carbon Dioxide 29 Anion Gap 5.0 BUN 22 H Creatinine 1.65 H Est Cr Clr Drug Dosing 19.5 Est GFR ( Amer) 31.8 Est GFR (Non-Af Amer) 27.4 BUN/Creatinine Ratio 13.3 Glucose 87 Uric Acid 7.9 H Calcium 8.6 Total Bilirubin 0.5 AST 17 ALT 12 Alkaline Phosphatase 65 Total Protein 7.1 Albumin 3.0 L Globulin 4.1 H Albumin/Globulin Ratio 0.7 L Lipase 99 sputum cx - aspergillus PG Care Time/CCT Total # of Minutes Spent Total Time Spent with Patient: Total time spent is greater than 50% in coordination of care (as documented) at patient's floor/unit and/or counseling patient: Coding Level of Care Code 03180 Subseq Hosp Care Lvl 3 Diagnoses Emesis R11.2 Nausea presence: with nausea Vomiting Intractability: non-intractable Vomiting type: unspecified Acute UTI N39.0 Gallstones K80.20 CKD (chronic kidney disease), stage III N18.3 History of Clostridioides difficile colitis Z86.19 Hiatal hernia K44.9 Paroxysmal atrial fibrillation I48.0 Hypertension I10 Hypertension type: essential hypertension Right foot pain M79.671 Chronic bronchitis J42 Chronic bronchitis type: unspecified Abnormal sputum R09.3 DVT prophylaxis Z29.9 (1) Hypertension Hypertension type: essential hypertension Qualified Code(s): I10 - Essential (primary) hypertension (2) Emesis Nausea presence: with nausea Vomiting Intractability: non-intractable Vomiting type: unspecified Qualified Code(s): R11.2 - Nausea with vomiting, unspecified (3) Chronic bronchitis Chronic bronchitis type: unspecified Qualified Code(s): J42 - Unspecified chronic bronchitis
[2019-12-02] MEDS: TRIAMCINOLONE~ORDER AWAITING ACTION SCH ×2 (00:29→09:05)
[2019-12-02 05:38] LABS: Basophils # (auto) 0.01 K/uL (0-0.2); Basophils % (auto) 0.3 %; Eosinophils # (auto) 0.12 K/uL (0-0.5); Hematocrit (blood only) 27.6 % (37-47); Hemoglobin 8.8 g/dL (12.0-16.0); Immature Granulocytes # (auto) 0.03 K/uL (0.00-0.02); Immature Granulocytes % (auto) 0.8 %; Lymphocytes # (auto) 0.97 K/uL (1.2-3.4); Lymphocytes % (auto) 24.3 %; Mean Corpuscular Hemoglobin 27.2 pg (25-34); Mean Corpuscular Hgb Conc 31.9 g/dL (32-36); Mean Corpuscular Volume 85.4 fL (80-100); Mean Platelet Volume 9.8 fL (7.4-10.4); Monocytes % (auto) 20.1 %; Neutrophils # (auto) 2.06 K/uL (1.4-6.5); Neutrophils % (auto) 51.5 %; Platelet Count 144 K/uL (130-400); RDW Coefficient of Variation 15.6 % (11.5-14.5); RDW Standard Deviation 48.5 fL (36.4-46.3); Red Blood Count 3.23 M/uL (4.2-5.4); White Blood Count 3.99 K/uL (4.8-10.8)
[2019-12-02] MEDS: ALBUTEROL HFA 8 GM INHALER INH SCH ×3 (07:21→15:11)
[2019-12-02 07:43] LABS: Folate (Folic Acid) 9.09 ng/ml (>5.38)
[2019-12-02] MEDS: SUCRALFATE 1 GM/10 ML UDC PO SCH ×2 (08:56→11:42)
[2019-12-02] MEDS: DICLOFENAC SOD 1% GEL 100 GM TUBE EXT SCH ×2 (08:56→11:42)
[2019-12-02] MEDS: OXYBUTYNIN CHLORIDE 5 MG TAB PO SCH (08:57)
[2019-12-02] MEDS: APIXABAN 2.5 MG TAB PO SCH (08:57)
[2019-12-02] MEDS: AMLODIPINE BESYLATE 5 MG TAB PO SCH (08:57)
[2019-12-02] MEDS: ASPIRIN 81 MG ECTAB PO SCH (08:57)
[2019-12-02] MEDS: UMECLIDINIUM BROMIDE 62.5MCG/BLISTER 7 PUFFS/INHALER INH SCH (08:58)
[2019-12-02] MEDS: RASPBERRY SYRUP 5 ML UDP PO SCH (08:58)
[2019-12-02] MEDS: PANTOprazole 40 MG TAB PO SCH (08:58)
[2019-12-02] MEDS: CALCIUM 600MG + VIT D 400 IU TAB PO SCH (08:58)
[2019-12-02] MEDS: FLUTICASONE/VILANTEROL 100/25MCG 14 PUFFS/INHALER INH SCH (08:59)
[2019-12-02] MEDS: EUCERIN CR 120 GM JAR EXT SCH (08:59)
[2019-12-02] MEDS: VANCOMYCIN HCL 125 MG/2.5ML SOLN PO SCH (09:04)
--- NOTE | 2019-12-02 13:22 | Discharge Summary ---
Date of Service December 02, 2019 Principal Diagnosis Pt states she feels better. Some SOB with ambulation, but better. Ongoing foot pain that is not new. Tolerating PO but appetite is low. Nursing states that pt is ambulating to the bathroom. Pt denies fever, SOB, chest pain, abd pain, n/v/c/d, LE swelling. Discharge Exam Constitutional WD/WN, vitals as above Eyes normal visual mcdowell by confrontation and + anicteric sclerae Neck normal visual inspection and trachea midline Respiratory normal respiratory effort; no respiratory distress Auscultation: + crackles (scant) Cardiovascular Rate/Rhythm: regular rate and regular rhythm Gastrointestinal (Abdomen) Inspection/Auscultation: abdomen not distended Percussion/Palpation: abdomen soft; abdomen nontender Musculoskeletal Head/Neck/Chest: normocephalic and head atraumatic Skin no rashes, warm and dry Neurologic awake; not confused Speech / Cognition: normal speech Psychiatric A+Ox3, euthymic affect Discharge Data Allergies Allergy/AdvReac Type Severity Reaction Status Date / Time tetanus toxoid, adsorbed Allergy Intermediate RASH Verified 11/29/19 16:23 latex Allergy Mild RASH Verified 11/29/19 16:23 Sulfa (Sulfonamide Allergy Hives Verified 11/29/19 16:23 Antibiotics) sulfamethoxazole Allergy Hives Verified 11/29/19 16:23 [From Bactrim] trimethoprim [From Bactrim] Allergy Hives Verified 11/29/19 16:23 codeine AdvReac Intermediate HEADACHES Verified 11/29/19 16:23 morphine AdvReac Mild SEVERE Verified 11/29/19 16:23 HEADACHES Consultations 11/29/19 19:31 ED Decision to Admit Stat Ordered Studies 11/29/19 16:22 CT abd pelvis wo con Stat 11/30/19 13:31 US gallbladder Urgent Hospital Course (1) Emesis: RESOLVED. Had emesis several days ago at her personal shelter, then again during this stay. She has mild abdominal discomfort/upset at times. Repeat urine culture negative thus UTI unlikely causing. Gallstones on CT -- RUQ u/s without findings concerning for acute cholecystitis. LARGE hiatal hernia on imaging - all of stomach is intra-thoracic. Suspect GI symptoms due to hiatal hernia and reflux disease. PPI increased to BID dosing. Carafate QID added. At discharge would send home on above regimen, could c/s decreasing carafate BID to at home instead of QID if pt is doing better in 1-2 weeks Cannot rule out chronic microaspiration from reflux/hiatal hernia causing chronic respiratory issues. (2) Acute UTI: 11/21 culture with pansensitive klebsiella. repeat urine cx from 11/28 negative. completed 7+ days of levaquin (3) Gallstones: RUQ u/s without cholecystitis. lipase/lfts wnl. (4) CKD (chronic kidney disease), stage III: Cr at baseline. Repeat BMP am. (5) History of Clostridioides difficile colitis: Noted. cont vanco prophylaxis. Add probiotics no diarrhea at this time. (6) Hiatal hernia: Large on imaging. Cont PPI. Cont carafate. GI symptoms likely due to such. BID PPI and carafate BID at discharge. not a good candidate for surgical repair of this. (7) Paroxysmal atrial fibrillation: Noted. Eliquis should be lower dose at 2.5mg BID. (8) Hypertension: Controlled. Cont current meds. (9) Right foot pain: mid-foot gout? uric acid 7.9 today. (especially in light of thiazide diuretic usage). Checked x-rays- no CPPD changes; no fractures. IMPROVED with Voltaren gel 2gm qid. (10) Chronic bronchitis: mild obstruction on most recent outpatient PFTs. [facility] allergy, Dr Tran. dx with asthma by Dr Tran. see below re: sputum cx. (11) Abnormal sputum: at admission a sputum cx was sent. this has grown aspergillus. uncertain if colonizer vs pathogenic/invasive. cxr from admission wnl. does have chronic bronchitis/asthma/wheezing. patient conceivably could have "ABPA". Prior physician spoke with Dr Tran - plan - send beta 1,3-glucan in am. send asperigillus total IgE. send aspergillus IgG. he will see her in clinic in 1-2 weeks post-d/c. his office to arrange. await above labs - no Rx at this time. (12) DVT prophylaxis: eliquis BID Total Time Total Time Spent Total Time Spent (In Minutes): >30 Total Time Includes: Examination of the Patient, Discharge Planning, Medication Reconciliation and Other Discharge Plan Discharge Items Patient Disposition: Personal [facility] Reason For Visit: CYSTITIS, COUGH Discharge Diagnosis: cystitis Activity: Resume your previous activity Non-emergency contact: Primary Care Provider Call non-emergency contact if: you have any medication questions and your symptoms worsen Follow-up/Referrals: Lenore Cloud [Primary Care Provider] - Diet: Heart Healthy Addtl Attending Provider Instructions: You should follow up with Dr. Tran in 1-2 weeks You should see your PCP next week Pending Studies at Discharge: Yes Studies:: Aspergillosis testing Stand-Alone Forms: My Sport/Life, Smoking Cessation Skilled Items Patient informed of condition?: Yes DNR: No Discharge Level of Care: Other Communicable Disease: No Discharge Prognosis: Improving Lines: None Urinary Catheter: No Medications and DC Order Prescriptions: New sucralfate 100 mg/mL Suspension 1 gm PO 0800,1200,1600,2000 Qty: 420 RF: 0 pantoprazole 40 mg Tablet,Delayed Release (Dr/Ec) 40 mg PO BID Qty: 60 RF: 0 Eliquis 2.5 mg Tablet 2.5 mg PO BID@0830,2100 Qty: 60 RF: 0 raspberry Syrup 5 ea PO DAILY Qty: 480 RF: 0 Continued hydrocortisone [Procto-Med HC] 2.5 % cream with perineal applicator 1 applic AL BID PRN (Reason: Hemorrhoids) Qty: 28 RF: 1 Robitussin Cough-Chest Mao DM 5-100 mg/5 mL liquid 10 ml PO Q6H PRN (Reason: cough) Qty: 118 RF: 0 vancomycin [Vancocin] 125 mg capsule 125 mg PO QAM Qty: 30 RF: 5 triamcinolone acetonide 0.1 % lotion 1 appln TOPICAL BID 10 Days Qty: 60 RF: 0 Breo Ellipta 100-25 mcg/dose blister with device 1 inh INHALATION QAM Qty: 60 RF: 1 oxybutynin chloride 5 mg tablet 5 mg PO BID Qty: 60 RF: 2 Spiriva with HandiHaler 18 mcg Capsule, W/Inhalation Device 1 cap INHALATION QAM RF: 0 sennosides-docusate sodium [Senna Plus] 8.6-50 mg Tablet 1 tab-cap PO DAILY PRN (Reason: Constipation) RF: 0 amlodipine [Norvasc] 5 mg tablet 5 mg PO QAM RF: 0 aspirin [Aspir-81] 81 mg Tablet,Delayed Release (Dr/Ec) 81 mg PO QAM RF: 0 docusate sodium [Colace] 100 mg Capsule 100 mg PO BID PRN (Reason: Constipation) RF: 0 ondansetron 4 mg Tablet,Disintegrating 4 mg PO Q4 PRN (Reason: Nausea And Vomiting) RF: 0 acetaminophen [Tylenol] 325 mg Capsule 650 mg PO Q4H MDD 3000 mg PRN (Reason: Fever Or Pain) RF: 0 calcium carbonate-vitamin D3 [Calcium 600 + D(3)] 600 mg(1,500mg) -400 unit Tablet 1 tab PO QAM RF: 0 diclofenac sodium [Voltaren] 1 % gel 2 g TOPICAL QID PRN (Reason: Pain) RF: 0 Eucerin Cream 1 applic TOPICAL QAM RF: 0 loratadine [Claritin Liqui-Gel] 10 mg Capsule 10 mg PO HS RF: 0 albuterol sulfate [Ventolin HFA] 90 mcg/actuation Hfa Aerosol Inhaler 1 - 2 puff INHALATION QID PRN (Reason: Shortness Of Breath Or Wheezing) RF: 0 triamterene-hydrochlorothiazid 37.5-25 mg tablet 1 tab PO UD RF: 0 Reguloid (psyllium husk) 3 gram/5.4 gram Powder 1 tsp PO DAILY PRN (Reason: Constipation) RF: 0 Discontinued ciprofloxacin HCl [Cipro] 500 mg tablet 500 mg PO BID Qty: 14 RF: 0 Eliquis 5 mg Tablet 5 mg PO BID RF: 0 omeprazole 20 mg capsule,delayed release(DR/EC) 20 mg PO QAM RF: 0 Discharge Orders: Discharge Order (Routine); Ordered 12/02/19 Ordered By: Mary Layne Admission Data Admit Date/Time: 11/30/19 14:23 Attending Provider: Mary Layne Admit Provider: Gissel Grace Primary Care Provider: Lenore Cloud Other Providers: Yariel Mccarty Other Interventions: Discharge Summary Assessment (RN) Last Done: 12/02/19 13:55 DC Date/Time DO NOT enter until pt leaves facility: 12/02/19 16:35 Coding Level of Care Code D/C Day Management >30 mins Diagnoses Emesis R11.2 Nausea presence: with nausea Vomiting Intractability: non-intractable Vomiting type: unspecified Acute UTI N39.0 Gallstones K80.20 CKD (chronic kidney disease), stage III N18.3 History of Clostridioides difficile colitis Z86.19 Hiatal hernia K44.9 Paroxysmal atrial fibrillation I48.0 Hypertension I10 Hypertension type: essential hypertension Right foot pain M79.671 Chronic bronchitis J42 Chronic bronchitis type: unspecified Abnormal sputum R09.3 DVT prophylaxis Z29.9
[2019-12-09 07:59] LABS: Asperg Fumig Class 0; Asperg Fumig IgE <0.10 kU/L; Fungitell (1-3)-B-D-Glucan <31; Rast Aspergillus fumigatus IgG 51.2 mcg/mL (<2.0)
--- NOTE | 2019-12-09 11:27 | Coding Query ---
CODING QUERY To promote full compliance with coding requirements relating to patient care, provider participation is requested in all cases of manager federal uncertainty. Please assist us with the question(s) below: Coding Question(s): Acute UTI is documented throughout the record and the later Progress Notes and Discharge Summary document, "Acute UTI: 11/21 culture with pansensitive klebsiella. repeat urine cx from 11/28 negative. completed 7+ days of levaquin". Please clarify below, in your clinical opinion, regarding Acute UTI. ( x ) Possible Acute UTI was treated ( ) UTI was Ruled-Out ( ) Other: Please Specify Physician's Response(s): Thank you Stephani Elliott Principal Diagnosis: "that condition established after study, to be chiefly responsible for occasioning the admission of the patient to the hospital for care." Co-Existing Principal Diagnosis: "when two or more diagnoses equally meet the criteria for principal diagnosis as determined by the circumstances of admission, diagnostic work up, and/or therapy provided, and the Alphabetic Index, Tabular List, or another coding guideline does not provide sequencing direction, any one of the diagnoses may be sequenced first." "When the physician has documented what appears to be a current diagnosis in the body of the record, but has not included the diagnosis in the final diagnostic statement, the physician should be asked whether the diagnosis should be added." (Source Coding Clinic 2 QTR90. p3-4) ROMY
== END 2019-12-02 16:35 | disposition home or self-care (01) | DRG 690 ==
LOC: ED 13:49 → 3E 13:49 → SUATTDRO 21:43 → 3E 11-30 01:11 → SUATTDRO 11-30 14:23

== ENCOUNTER 2019-12-08 12:43 | Inpatient (IN) ==
[2019-12-08] MEDS ORDERED: CEFEPIME 1,000 MG in SYRINGE 0 ML IV STA (15:12)
[2019-12-08] MEDS ORDERED: VANCOMYCIN HCL 1,500 MG in SODIUM CHLORIDE 0.9% 500 ML IV STA (15:12)
[2019-12-08] MEDS ORDERED: VANCOMYCIN CONSULT ACTIVE PRN (15:12)
--- NOTE | 2019-12-08 15:22 | Emergency Department Note ---
Impression & Plan Cystitis, Cellulitis, Fever, Wounds, multiple open, lower extremity ED Provider Note NAME: MARIA EUGENIA CATES AGE: 89 SEX: F : 1930 ARRIVES VIA: Walk-In INFORMANT: Patient, ED PROVIDER(S): Gilbert Mendoza MD Chief Complaint: Fever HPI: Patient does present with from [facility]. The patient states that she had a fever approximate 102 this morning. The patient did take some Tylenol prior to arrival. Patient does complain of some cough with productive sputum and associated dysuria as well as the skin wounds. The patient states that she used to see wound care but no longer does. The patient does not have any pain. The patient denies chest pains or shortness of breath. The patient is a non-smoker. The patient is not currently on antibiotics. The patient states that other than her symptoms and her fever nothing else is changed recently. No recent sick contacts. The patient did have a negative cover test on 11/28. ROS: See HPI for pertinent positives and negatives. A total of 10 systems were reviewed and otherwise negative. Past medical history: See below Surgical history: See below Social history: See below Physical Exam: GENERAL: Well appearing, well nourished, NAD, non-toxic. Wearing a mask. EYE EXAM: Normal conjunctiva. PERRL, no anisocoria and EOM's grossly intact w/o pain. NECK: Supple, no nuchal rigidity, no adenopathy, non-tender. No signs of meningismus. LUNGS: Clear to auscultation. Normal chest wall mechanics. HEART: NSR, no MRG. ABDOMEN: Abdomen soft, non-tender, normo-active bowel sounds, no masses, no rebound or guarding. BACK: No CVA TTP. SKIN: Redness and associated shallow wounds to the bilateral lower extremities, weeping noted that appears serous. No crepitus noted. UPPER EXTREMITIES: Upper extremities are grossly normal. LOWER EXTREMITIES: Grossly normal, no edema. NEURO EXAM: A&O x3, cranial nerves II-XII grossly intact, normal speech, moves all 4 extremities on command w/o issue. Differential diagnoses: Viral syndrome, otitis, pharyngitis, pneumonia, influenza, meningitis, urinary tract infection, sepsis, bacteremia, as well as other pathologies. Course: Patient was seen and evaluated the bedside. Full history physical exam was performed. EKG: Indication: Fever Sinus rhythm with PACs, rate of 95, borderline QTC, normal axis, T wave inversion in lead III and aVF, no ST changes. No significant change from November 29, 2019. Imaging Studies: Radiology results as stated below per my review in the radiologist's interpretation: Cardiac monitoring: An order was placed for continuous cardiac monitoring. The monitor shows a rate of 89 with sinus rhythm. MDM: Patient was seen for fever. Blood work was obtained along with culture. The patient was ordered empiric antibiotics chest x-ray and urinalysis. Small amount of fluid was ordered given the patient's prior history. Patient does have a normal white counts with a hemoglobin of 10. Platelet count is unremarkable. The patient's kidney function is slightly worse compared to prior with creatinine of 2.2. Patient was ordered some IV fluids. Urinalysis does show whites and leuks and given her associated dysuria fever as well as the lower extremity wounds and possible cellulitis I believe the patient would benefit from admission at this time. I did speak with Dr. Cardozo of the [facility] physician group hospitalist service. The patient was admitted. Past Med/Surg History Medical History Acute respiratory failure with hypoxia Acute right hip pain ARF (acute renal failure) (Resolved) Bilateral cellulitis of lower leg Bronchitis Cellulitis of lower leg (Resolved) Chronic venous insufficiency Confusion Contusion of left hip Degenerative joint disease of knee (Chronic) Fall (Resolved) Fracture of left clavicle (Resolved) Fracture, finger Head injury Hypertensive emergency (Resolved) Hypoxia (Chronic) NSTEMI (non-ST elevated myocardial infarction) Physical deconditioning PIC line (peripherally inserted central catheter) removal (Resolved) Right knee DJD Right thigh pain Sepsis Steroid-induced myopathy (Unknown) Traumatic hematoma of right forearm Trochanteric bursitis of right hip Unspecified psychosis Venous stasis ulcer of right lower leg with edema of right lower leg Surgical History History of dilatation and curettage History of gynecological procedure Insertion of Pessary History of tooth extraction Status post arthroscopic knee surgery (Resolved) Status post biopsy of skin Status post tubal ligation (Resolved) Family History Mother Heart disease Father Emphysema of lung Denies family history of Ovarian cancer Prostate cancer Diabetes Crohn's disease Breast cancer Colorectal cancer Ulcerative colitis Social History Preferred Language: Arabic Communication Ability: Effective Visual Impairment: No Limitations Hearing Ability: Normal Osteopathic Neurologist Required: No Beliefs That Will Affect Care: None marital status: / Current Living Situation: Personal Care Facility and Rehab Current Living Situation Comment: Was at [facility] with discharge plan to home. Feels Safe at Home: Yes Smoking Status: Never smoker Second Hand Exposure: No ; Hx Alcohol Use: Yes Alcohol type: wine Hx Substance Use: No Allergies Allergies Allergy/AdvReac Type Severity Reaction Status Date / Time tetanus toxoid, adsorbed Allergy Intermediate RASH Verified 11/29/19 16:23 latex Allergy Mild RASH Verified 11/29/19 16:23 Sulfa (Sulfonamide Allergy Hives Verified 11/29/19 16:23 Antibiotics) sulfamethoxazole Allergy Hives Verified 11/29/19 16:23 [From Bactrim] trimethoprim [From Bactrim] Allergy Hives Verified 11/29/19 16:23 codeine AdvReac Intermediate HEADACHES Verified 11/29/19 16:23 morphine AdvReac Mild SEVERE Verified 11/29/19 16:23 HEADACHES Home Meds Home Medications Medication Instructions Recorded Confirmed Eucerin 1 applic TOPICAL QAM 04/20/19 12/08/19 acetaminophen [Tylenol] 650 mg PO Q4H PRN MDD 3000 mg 04/20/19 11/29/19 amlodipine [Norvasc] 5 mg PO QAM 04/20/19 12/08/19 aspirin [Aspir-81] 81 mg PO QAM 04/20/19 12/08/19 calcium carbonate-vitamin D3 1 tab PO QAM 04/20/19 12/08/19 [Calcium 600 + D(3)] diclofenac sodium [Voltaren] 2 g TOPICAL QID PRN 04/20/19 11/29/19 docusate sodium [Colace] 100 mg PO BID PRN 04/20/19 11/29/19 loratadine [Claritin Liqui-Gel] 10 mg PO HS 04/20/19 12/08/19 ondansetron 4 mg PO Q4 PRN 04/20/19 11/29/19 sennosides-docusate sodium [Senna 1 tab-cap PO DAILY PRN 04/20/19 11/29/19 Plus] albuterol sulfate [Ventolin HFA] 1 - 2 puff INHALATION QID PRN 06/24/19 11/29/19 triamterene-hydrochlorothiazid 1 tab PO UD 06/24/19 11/29/19 Spiriva with HandiHaler 1 cap INHALATION QAM 07/05/19 11/29/19 Reguloid (psyllium husk) 1 tsp PO DAILY PRN 11/29/19 11/29/19 Previous Rx's Medication Instructions Recorded oxybutynin chloride 5 mg tablet 5 mg PO BID #60 tab 07/02/19 hydrocortisone 2.5 % topical cream 1 applic [place] BID PRN #28 gm 08/04/19 with perineal applicator dextromethorphan-guaifenesin 5 10 ml PO Q6H PRN #118 ml 08/28/19 mg-100 mg/5 mL oral liquid vancomycin 125 mg capsule 125 mg PO QAM #30 cap 09/13/19 triamcinolone acetonide 0.1 % 1 appln TOPICAL BID 10 Days #60 ml 10/20/19 lotion fluticasone furoate 100 1 inh INHALATION QAM #60 ea 11/10/19 mcg-vilanterol 25 mcg/dose inhalation powder apixaban [Eliquis] 2.5 mg PO BID@0830,2100 #60 tab 12/02/19 pantoprazole 40 mg PO BID #60 tab 12/02/19 raspberry 5 ea PO DAILY #480 ml 12/02/19 sucralfate 1 gm PO 0800,1200,1600,2000 #420 ml 12/02/19 Results & Data (ED) Vital Signs Vital Signs - 24 hr 12/08/19 13:21 12/08/19 15:32 12/08/19 16:00 Temperature 37.1 C Temperature Source Oral Pulse Rate 89 77 78 Pulse Rate from SpO2 Sensor Respiratory Rate 18 22 20 Blood Pressure 121/57 L 128/66 123/46 L Blood Pressure Mean 78 97 74 Pulse Oximetry 94 98 Oxygen Delivery Method Sepsis Recent Fever Within 48 Hours Yes Sepsis New/Unexplained Change in Mental Status No Sepsis Action Taken by Nursing No Action Required 12/08/19 16:10 12/08/19 16:30 07/08/20 17:00 Temperature Temperature Source Pulse Rate 76 74 Pulse Rate from SpO2 Sensor 77 75 Respiratory Rate 18 19 Blood Pressure 115/53 L 129/77 Blood Pressure Mean 88 92 Pulse Oximetry 100 96 97 Oxygen Delivery Method Room Air Sepsis Recent Fever Within 48 Hours Sepsis New/Unexplained Change in Mental Status Sepsis Action Taken by Prison Medications Current Medication List: was personally reviewed by me Laboratory Data Attestation: I reviewed the patient's lab results. Result diagrams: 12/08/19 15:28 12/08/19 15:28 Lab Results 12/08/19 12/08/19 12/08/19 Range/Units 15:28 15:28 15:28 WBC 8.30 (4.8-10.8) K/uL RBC 3.77 L (4.2-5.4) M/uL Hgb 10.2 L (12.0-16.0) g/dL Hct 33.1 L (37-47) % MCV 87.8 (80-100) fL MCH 27.1 (25-34) pg MCHC 30.8 L (32-36) g/dL RDW Std Deviation 51.8 H (36.4-46.3) fL RDW Coeff of Luis Eduardo 16.1 H (11.5-14.5) % Plt Count 253 (130-400) K/uL MPV 9.7 (7.4-10.4) fL Immature Gran % (Auto) 0.5 % Neut % (Auto) 48.6 % Lymph % (Auto) 26.9 % [place] % (Auto) 22.0 % Eos % (Auto) 1.8 % Baso % (Auto) 0.2 % Neut # (Auto) 4.03 (1.4-6.5) K/uL Lymph # (Auto) 2.23 (1.2-3.4) K/uL [place] # (Auto) 1.83 H (0.11-0.59) K/uL Eos # (Auto) 0.15 (0-0.5) K/uL Baso # (Auto) 0.02 (0-0.2) K/uL Immature Gran # (Auto) 0.04 H (0.00-0.02) K/uL PT 12.5 H (9.0-12.0) Seconds INR 1.2 H (0.9-1.1) APTT 42.4 H (21.0-31.0) Seconds PTT Ratio 1.5 Sodium (136-145) mmol/L Potassium (3.5-5.1) mmol/L Chloride (98-107) mmol/L Carbon Dioxide (21-32) mmol/L Anion Gap (3-11) BUN (7-18) mg/dl Creatinine (0.6-1.2) mg/dl Est Cr Clr Drug Dosing ml/min Est GFR ( Amer) Est GFR (Non-Af Amer) BUN/Creatinine Ratio (10-20) Glucose (70-99) mg/dl Lactate (0.4-2.0) mmol/L Calcium (8.5-10.1) mg/dl Magnesium (1.8-2.4) mg/dl Total Bilirubin (0.2-1) mg/dl AST (15-37) U/L ALT (12-78) U/L Alkaline Phosphatase (45-117) U/L Troponin I (0-0.045) ng/ml Total Protein (6.4-8.2) gm/dl Albumin (3.4-5.0) gm/dl Globulin (2.5-4.0) gm/dl Albumin/Globulin Ratio (0.9-2) Procalcitonin 0.20 (0-0.5) ng/ml Urine Color Urine Appearance (Clear) Urine pH (4.5-7.5) Ur Specific [place] (1.000-1.030) Urine Protein (Negative) Urine Glucose (UA) (Negative) Urine Ketones (Negative) Urine Blood (Negative) Urine Nitrite (Negative) Urine Bilirubin (Negative) Urine Urobilinogen (Negative) Ur Leukocyte Esterase (Negative) Urine WBC (Auto) (0-5) /hpf Urine RBC (Auto) (0-4) /hpf U Hyaline Cast (Auto) (0-5) /lpf U Epithel Cells (Auto) (0-5) /lpf Urine Bacteria (Auto) (Negative) Urine Yeast 12/08/19 12/08/19 12/08/19 Range/Units 15:28 15:30 Unknown WBC (4.8-10.8) K/uL RBC (4.2-5.4) M/uL Hgb (12.0-16.0) g/dL Hct (37-47) % MCV (80-100) fL MCH (25-34) pg MCHC (32-36) g/dL RDW Std Deviation (36.4-46.3) fL RDW Coeff of Luis Eduardo (11.5-14.5) % Plt Count (130-400) K/uL MPV (7.4-10.4) fL Immature Gran % (Auto) % Neut % (Auto) % Lymph % (Auto) % [place] % (Auto) % Eos % (Auto) % Baso % (Auto) % Neut # (Auto) (1.4-6.5) K/uL Lymph # (Auto) (1.2-3.4) K/uL [place] # (Auto) (0.11-0.59) K/uL Eos # (Auto) (0-0.5) K/uL Baso # (Auto) (0-0.2) K/uL Immature Gran # (Auto) (0.00-0.02) K/uL PT (9.0-12.0) Seconds INR (0.9-1.1) APTT (21.0-31.0) Seconds PTT Ratio Sodium 141 (136-145) mmol/L Potassium 3.8 (3.5-5.1) mmol/L Chloride 107 (98-107) mmol/L Carbon Dioxide 28 (21-32) mmol/L Anion Gap 6.0 (3-11) BUN 28 H (7-18) mg/dl Creatinine 2.22 H (0.6-1.2) mg/dl Est Cr Clr Drug Dosing 15.7 ml/min Est GFR ( Amer) 22.2 Est GFR (Non-Af Amer) 19.2 BUN/Creatinine Ratio 12.7 (10-20) Glucose 94 (70-99) mg/dl Lactate 1.5 (0.4-2.0) mmol/L Calcium 9.2 (8.5-10.1) mg/dl Magnesium 2.2 (1.8-2.4) mg/dl Total Bilirubin 0.7 (0.2-1) mg/dl AST 16 (15-37) U/L ALT 15 (12-78) U/L Alkaline Phosphatase 74 (45-117) U/L Troponin I 0.023 (0-0.045) ng/ml Total Protein 9.2 H (6.4-8.2) gm/dl Albumin 3.6 (3.4-5.0) gm/dl Globulin 5.6 H (2.5-4.0) gm/dl Albumin/Globulin Ratio 0.6 L (0.9-2) Procalcitonin (0-0.5) ng/ml Urine Color Dark Yellow Urine Appearance Turbid A (Clear) Urine pH 6.5 (4.5-7.5) Ur Specific [place] 1.017 (1.000-1.030) Urine Protein 3+ H (Negative) Urine Glucose (UA) Negative (Negative) Urine Ketones Trace H (Negative) Urine Blood 3+ H (Negative) Urine Nitrite Negative (Negative) Urine Bilirubin Negative (Negative) Urine Urobilinogen Negative (Negative) Ur Leukocyte Esterase 2+ H (Negative) Urine WBC (Auto) >30 H (0-5) /hpf Urine RBC (Auto) 10-30 H (0-4) /hpf U Hyaline Cast (Auto) 0 (0-5) /lpf U Epithel Cells (Auto) >30 H (0-5) /lpf Urine Bacteria (Auto) Negative (Negative) Urine Yeast Not Reportable Administered Medications Vancomycin HCl 1,500 mg/ (Sodium Chloride) 530 mls @ 200 mls/hr IV NOW STA Stop: 12/08/19 17:50 Last Admin: 12/08/19 16:03 Dose: 200 mls/hr Documented by: [id number] Discontinued Medications Cefepime HCl 1,000 mg/ Syringe 11.3 mls @ 5.5 mls/min IV NOW STA Stop: 12/08/19 15:14 Last Admin: 12/08/19 16:12 Dose: 5.5 mls/min Documented by: [id number] Discharge Plan Visit Data Chief Complaint: Fever Stated Complaint: INFECTION Other Complaint: Infection ED Provider: Gilbert Mendoza Discharge Problem: Cystitis, Cellulitis, Fever, Wounds, multiple open, lower extremity Forms Stand Alone Forms: [facility] Prescriptions Prescriptions: No Action hydrocortisone [Procto-Med HC] 2.5 % cream with perineal applicator 1 applic TX BID PRN (Reason: Hemorrhoids) Qty: 28 RF: 1 Robitussin Cough-Chest Mao DM 5-100 mg/5 mL liquid 10 ml PO Q6H PRN (Reason: cough) Qty: 118 RF: 0 vancomycin [Vancocin] 125 mg capsule 125 mg PO QAM Qty: 30 RF: 5 triamcinolone acetonide 0.1 % lotion 1 appln TOPICAL BID 10 Days Qty: 60 RF: 0 Breo Ellipta 100-25 mcg/dose blister with device 1 inh INHALATION QAM Qty: 60 RF: 1 oxybutynin chloride 5 mg tablet 5 mg PO BID Qty: 60 RF: 2 Spiriva with HandiHaler 18 mcg Capsule, W/Inhalation Device 1 cap INHALATION QAM RF: 0 sennosides-docusate sodium [Senna Plus] 8.6-50 mg Tablet 1 tab-cap PO DAILY PRN (Reason: Constipation) RF: 0 amlodipine [Norvasc] 5 mg tablet 5 mg PO QAM RF: 0 aspirin [Aspir-81] 81 mg Tablet,Delayed Release (Dr/Ec) 81 mg PO QAM RF: 0 docusate sodium [Colace] 100 mg Capsule 100 mg PO BID PRN (Reason: Constipation) RF: 0 ondansetron 4 mg Tablet,Disintegrating 4 mg PO Q4 PRN (Reason: Nausea And Vomiting) RF: 0 acetaminophen [Tylenol] 325 mg Capsule 650 mg PO Q4H MDD 3000 mg PRN (Reason: Fever Or Pain) RF: 0 calcium carbonate-vitamin D3 [Calcium 600 + D(3)] 600 mg(1,500mg) -400 unit Tablet 1 tab PO QAM RF: 0 diclofenac sodium [Voltaren] 1 % gel 2 g TOPICAL QID PRN (Reason: Pain) RF: 0 Eucerin Cream 1 applic TOPICAL QAM RF: 0 loratadine [Claritin Liqui-Gel] 10 mg Capsule 10 mg PO HS RF: 0 albuterol sulfate [Ventolin HFA] 90 mcg/actuation Hfa Aerosol Inhaler 1 - 2 puff INHALATION QID PRN (Reason: Shortness Of Breath Or Wheezing) RF: 0 triamterene-hydrochlorothiazid 37.5-25 mg tablet 1 tab PO UD RF: 0 Reguloid (psyllium husk) 3 gram/5.4 gram Powder 1 tsp PO DAILY PRN (Reason: Constipation) RF: 0 sucralfate 100 mg/mL Suspension 1 gm PO 0800,1200,1600,2000 Qty: 420 RF: 0 pantoprazole 40 mg Tablet,Delayed Release (Dr/Ec) 40 mg PO BID Qty: 60 RF: 0 Eliquis 2.5 mg Tablet 2.5 mg PO BID@0830,2100 Qty: 60 RF: 0 raspberry Syrup 5 ea PO DAILY Qty: 480 RF: 0 Discharge Problem: Cellulitis Qualifiers: Site of cellulitis: extremity Site of cellulitis of extremity: lower extremity Laterality: unspecified laterality Qualified Code(s): L03.119 - Cellulitis of unspecified part of limb Fever Qualifiers: Fever type: unspecified Qualified Code(s): R50.9 - Fever, unspecified Wounds, multiple open, lower extremity Qualifiers: Encounter type: initial encounter Laterality: unspecified laterality Qualified Code(s): S81.809A - Unspecified open wound, unspecified lower leg, initial encounter
--- NOTE | 2019-12-08 15:47 | XRay Report ---
XR chest 1V portable CLINICAL HISTORY: SEPSIS dyspnea COMPARISON STUDY: 11/29/2019 FINDINGS: Small parenchymal infiltrate medial aspect right base. Lungs otherwise appear clear. Mild s table cardiomegaly. IMPRESSION: Small parenchymal infiltrate medial aspect right base. ACT 112: Negative or not required by law. The above report was generated using voice recognition software. It may contain grammatical, syntax or spelling errors. Electronically signed by: Harvinder Barron M.D. 12/08/2019 3:46 PM
[2019-12-08 15:54] LABS: Appearance Urine Turbid (Clear); Bacteria Urine Automated Negative (Negative); Bilirubin Urine Negative (Negative); Blood Urine 3+ (Negative); Color Urine Dark Yellow; Epithelial Cell Urine Auto >30 /lpf (0-5); Glucose Urine UA Negative (Negative); Ketones Urine Trace (Negative); Leukocyte Esterase Urine 2+ (Negative); Nitrite Urine Negative (Negative); Protein Urine 3+ (Negative); Specific Gravity Urine 1.017 (1.000-1.030); Urobilinogen Urine Negative (Negative); WBC Urine Automated >30 /hpf (0-5); pH Urine 6.5 (4.5-7.5)
[2019-12-08 15:56] LABS: Basophils # (auto) 0.02 K/uL (0-0.2); Basophils % (auto) 0.2 %; Eosinophils # (auto) 0.15 K/uL (0-0.5); Eosinophils % (auto) 1.8 %; Hematocrit (blood only) 33.1 % (37-47); Hemoglobin 10.2 g/dL (12.0-16.0); Immature Granulocytes # (auto) 0.04 K/uL (0.00-0.02); Immature Granulocytes % (auto) 0.5 %; Lymphocytes # (auto) 2.23 K/uL (1.2-3.4); Lymphocytes % (auto) 26.9 %; Mean Corpuscular Hemoglobin 27.1 pg (25-34); Mean Corpuscular Hgb Conc 30.8 g/dL (32-36); Mean Corpuscular Volume 87.8 fL (80-100); Mean Platelet Volume 9.7 fL (7.4-10.4); Monocytes # (auto) 1.83 K/uL (0.11-0.59); Neutrophils # (auto) 4.03 K/uL (1.4-6.5); Neutrophils % (auto) 48.6 %; Platelet Count 253 K/uL (130-400); RDW Coefficient of Variation 16.1 % (11.5-14.5); RDW Standard Deviation 51.8 fL (36.4-46.3); Red Blood Count 3.77 M/uL (4.2-5.4)
[2019-12-08 16:05] LABS: INR 1.2 (0.9-1.1); Partial Thromboplastin Ratio 1.5; Partial Thromboplastin Time 42.4 Seconds (21.0-31.0); Prothrombin Time 12.5 Seconds (9.0-12.0)
[2019-12-08 16:06] LABS: Cast Urine Automated 0 /lpf (0-5)
[2019-12-08 16:12] LABS: Albumin Level 3.6 gm/dl (3.4-5.0); BUN Creatinine Ratio 12.7 (10-20); Calcium 9.2 mg/dl (8.5-10.1); Creatinine Clr Calc Pharmacy 15.7 ml/min; Est GFR (African American) 22.2; Est GFR (Non-African American) 19.2; Magnesium 2.2 mg/dl (1.8-2.4); Potassium 3.8 mmol/L (3.5-5.1)
[2019-12-08 16:18] LABS: Albumin Globulin Ratio 0.6 (0.9-2); Bilirubin,Total 0.7 mg/dl (0.2-1); Globulin 5.6 gm/dl (2.5-4.0); Total Protein 9.2 gm/dl (6.4-8.2); Troponin I 0.023 ng/ml (0-0.045)
--- NOTE | 2019-12-08 17:26 | History & Physical Report ---
Date of Service December 08, 2019 Assessment & Plan (1) Cystitis: Questionable given that she always has dysuria - but unclear source of fever and she is also having suprapubic tenderness with bladder thickening on US. Bladder scan post void residual as patient on oxybutynin ?retaining Continue cefepime awaiting urine culture. (2) Cellulitis: vanco - wound culture taken, again questionable as very difficult to tell given chronic changes but given are of open skin for potential infection certainly this seem the most likely source of her fever (3) Fever: Most likely cellulitis as above. Changes on CXR noted. Procalcitonin. (4) Elevated serum creatinine: Cr increased from baseline. Suspect pre-renal and will start slow fluids to try and avoid increased leg swelling Repeat BMP in AM (5) Wounds, multiple open, lower extremity: Wound care consult / local care (6) Paroxysmal atrial fibrillation: rate controlled, anticoagulated (7) History of Clostridioides difficile colitis: Continue daily dose of vancomycin PO while on antibiotics (8) Anemia: Normocytic anemia. At baseline. Actually improved from last admission (9) Cough variant asthma: ?COPD, continue her usual Spiriva or formulary equivalent, consider trial of LABA at night for nocturnal cough (10) Urinary incontinence: Bladder scan as above Continue oxybutynin (11) DVT prophylaxis: anticoagulation as above History of Present Illness Chief Complaint: Fever Primary Care Provider: Rebeca Landon MD Laurie Perez is an 89 year old female from [facility] who presents to the ER with a fever that started today. She was recently hospitalized from 11/28 to 12/01 due to vomiting and acute UTI. Her urine culture grew pansensitive E. Coli for which she completed a 7 day course of Levaquin. She reports having dysuria but this is a chronic problem and is no worse than usual and antibiotics given during the last admission did not change this. She has known gallstones but reports no RUQ abdominal pain. Her main new symptoms has been her right leg which has been weeping much more than usual and more painful. She reports when it was recently wrapped due to edema it was too tight and caused her current ulceration. No pus noted from the wound. Fever was noted this morning at her [facility] of 102 however the patient felt relatively well with this. She has a history of c. diff colitis but reports no change in bowels, abdominal pain, nausea or vomiting. She is taking vancomycin PO daily for prophylaxis. She has an ongoing cough since May which is occasionally productive and worse at night but this is no worse than usual. She is not short of breath. No COVID-19 exposure.She was tested for COVID-19 during her last admission due to her subacute cough and was negative. Allergies Allergy/AdvReac Type Severity Reaction Status Date / Time tetanus toxoid, adsorbed Allergy Intermediate RASH Verified 12/08/19 17:34 latex Allergy Mild RASH Verified 12/08/19 17:34 codeine AdvReac Intermediate HEADACHES Verified 12/08/19 17:35 morphine AdvReac Mild SEVERE Verified 12/08/19 17:35 HEADACHES Home Medications Home Medications Medication Instructions Recorded Confirmed Type Eucerin 1 applic TOPICAL QAM 04/20/19 12/08/19 History acetaminophen [Tylenol] 650 mg PO Q4H PRN MDD 3000 mg 04/20/19 12/08/19 History amlodipine [Norvasc] 5 mg PO QAM 04/20/19 12/08/19 History aspirin [Aspir-81] 81 mg PO QAM 04/20/19 12/08/19 History calcium carbonate-vitamin D3 1 tab PO QAM 04/20/19 12/08/19 History [Calcium 600 + D(3)] diclofenac sodium [Voltaren] 2 g TOPICAL QID PRN 04/20/19 12/08/19 History docusate sodium [Colace] 100 mg PO BID PRN 04/20/19 12/08/19 History loratadine [Claritin Liqui-Gel] 10 mg PO HS 04/20/19 12/08/19 History ondansetron 4 mg PO Q4 PRN 04/20/19 12/08/19 History sennosides-docusate sodium [Senna 1 tab-cap PO DAILY PRN 04/20/19 12/08/19 History Plus] albuterol sulfate [Ventolin HFA] 1 - 2 puff INHALATION QID PRN 06/24/19 12/08/19 History triamterene-hydrochlorothiazid 1 tab PO Q2D 06/24/19 12/08/19 History oxybutynin chloride 5 mg tablet 5 mg PO BID #60 tab 07/02/19 12/08/19 Rx Spiriva with HandiHaler 1 cap INHALATION QAM 07/05/19 12/08/19 History hydrocortisone 2.5 % topical cream 1 applic TX BID PRN #28 gm 08/04/19 12/08/19 Rx with perineal applicator dextromethorphan-guaifenesin 5 10 ml PO Q6H PRN #118 ml 08/28/19 12/08/19 Rx mg-100 mg/5 mL oral liquid vancomycin 125 mg capsule 125 mg PO QAM #30 cap 09/13/19 12/08/19 Rx triamcinolone acetonide 0.1 % 1 appln TOPICAL BID 10 Days #60 ml 10/20/19 12/08/19 Rx lotion fluticasone furoate 100 1 inh INHALATION QAM #60 ea 11/10/19 12/08/19 Rx mcg-vilanterol 25 mcg/dose inhalation powder Reguloid (psyllium husk) 1 tsp PO DAILY PRN 11/29/19 12/08/19 History apixaban [Eliquis] 2.5 mg PO BID@0830,2100 #60 tab 12/02/19 12/08/19 Rx pantoprazole 40 mg PO BID #60 tab 12/02/19 12/08/19 Rx sucralfate 1 gm PO 0800,1200,1600,2000 #420 ml 12/02/19 12/08/19 Rx Past Med/Surg History Medical History Acute respiratory failure with hypoxia Acute right hip pain ARF (acute renal failure) (Resolved) Bilateral cellulitis of lower leg Bronchitis Cellulitis of lower leg (Resolved) Chronic venous insufficiency Confusion Contusion of left hip Degenerative joint disease of knee (Chronic) Fall (Resolved) Fracture of left clavicle (Resolved) Fracture, finger Head injury Hypertensive emergency (Resolved) Hypoxia (Chronic) NSTEMI (non-ST elevated myocardial infarction) Physical deconditioning PIC line (peripherally inserted central catheter) removal (Resolved) Right knee DJD Right thigh pain Sepsis Steroid-induced myopathy (Unknown) Traumatic hematoma of right forearm Trochanteric bursitis of right hip Unspecified psychosis Venous stasis ulcer of right lower leg with edema of right lower leg Surgical History History of dilatation and curettage History of gynecological procedure Insertion of Pessary History of tooth extraction Status post arthroscopic knee surgery (Resolved) Status post biopsy of skin Status post tubal ligation (Resolved) Family History Mother Heart disease Father Emphysema of lung Denies family history of Ovarian cancer Prostate cancer Diabetes Crohn's disease Breast cancer Colorectal cancer Ulcerative colitis Social History Preferred Language: Romanian Communication Ability: Effective Visual Impairment: No Limitations Hearing Ability: Normal Director Of Pharmacy Required: No Beliefs That Will Affect Care: None marital status: / Current Living Situation: Personal Care Facility Current Living Situation Comment: [facility] Feels Safe at Home: Yes Smoking Status: Never smoker Second Hand Exposure: No ; Hx Alcohol Use: Yes Alcohol type: wine Hx Substance Use: No Review of Systems Review of Systems: All systems reviewed & are unremarkable except as noted in HPI & below Physical Exam 2 Constitutional: well developed and + frail appearing; no acute distress Eyes: PERRL, conjunctivae normal, anicteric sclerae ENMT: external ear and nose normal, oropharynx normal Neck: trachea midline, no thyromegaly Respiratory: normal respiratory effort, lungs clear to auscultation Cardiovascular: Rate/Rhythm: regular rate and regular rhythm Heart Sounds: no murmur Vessels: no JVD Extremities: normal capillary refill, + calf tenderness (very tender legs b/l with ulcers) and + pedal edema (1+ b/l R > L) Gastrointestinal (Abdomen): Inspection/Auscultation: normal bowel sounds; abdomen not distended Percussion/Palpation: + abdomen tender (suprapubic, mild) and abdomen soft; no guarding, abdomen not rigid and no hepatosplenomegaly Musculoskeletal: no cyanosis or clubbing, extremities motor strength 5/5 Skin: + erythema (dark erythema (venous dermatitis changes on both legs)) Large superficial ulcer with serous drainage on right leg covering 20% of right lower extremity with slight increase in erythema and warmth surrounding the area. No pus of fluid collection noted. Neurologic: moves all extremities and awake; not confused Psychiatric: A+Ox3, euthymic affect Genitourinary: no CVA tenderness Lymphatic: no cervical or axillary lymphadenopathy Results & Data Results & Data ([facility]) Vital Signs (Past 12 Hours) Vital Signs Temp Pulse Resp BP Pulse Ox 12/08/19 17:00 74 19 129/77 97 12/08/19 16:30 76 18 115/53 L 96 12/08/19 16:10 100 12/08/19 16:00 78 20 123/46 L 98 12/08/19 15:32 77 22 128/66 12/08/19 13:21 37.1 C 89 18 121/57 L 94 Diagnostic Findings XR chest 1V portable IMPRESSION: Small parenchymal infiltrate medial aspect right base. US renal/blad retro comp IMPRESSION: 1. Partial distention of the urinary bladder with thickened and trabecular stinson. Correlate with urinalysis. 2. Normal sonographic appearance of the bilateral kidneys. 3. Echogenic debris versus echogenic lesion involves the floor of the urinary bladder. Correlation with cystoscopy recommended to further characterize. ECG Indication: other Rate (beats per minute): 95 Rhythm: normal sinus Findings: + PAC Comparison ECG Date: from (December 08, 2019) Change: no significant change Code Status & VTE Plan Code Status Full VTE Prophylaxis Plan VTE Prophylaxis will be ordered: Yes PG Care Time/CCT Total # of Minutes Spent Total Time Spent with Patient: Total time spent is greater than 50% in coordination of care (as documented) at patient's floor/unit and/or counseling patient: Coding Level of Care Code 12199 OBS Care - Level 3 Diagnoses Cystitis N30.90 Cellulitis L03.119 Laterality: unspecified laterality Site of cellulitis: extremity Site of cellulitis of extremity: lower extremity Fever R50.9 Fever type: unspecified Elevated serum creatinine R79.89 Wounds, multiple open, lower extremity S81.809A Encounter type: initial encounter Laterality: unspecified laterality Paroxysmal atrial fibrillation I48.0 History of Clostridioides difficile colitis Z86.19 Anemia D64.9 Cough variant asthma J45.991 Urinary incontinence R32 DVT prophylaxis Z29.9 (1) Fever Fever type: unspecified Qualified Code(s): R50.9 - Fever, unspecified (2) Cellulitis Laterality: unspecified laterality Site of cellulitis: extremity Site of cellulitis of extremity: lower extremity Qualified Code(s): L03.119 - Cell ulitis of unspecified part of limb (3) Wounds, multiple open, lower extremity Encounter type: initial encounter Laterality: unspecified laterality Qualified Code(s): S81.809A - Unspecified open wound, unspecified lower leg, initial encounter
--- NOTE | 2019-12-08 19:18 | Ultrasound Report ---
US renal/blad retro comp HISTORY: 89 years-old Female MONET acute kidney injury COMPARISON: CT abdomen and pelvis 11/29/2019 TECHNIQUE: Multiple real-time sonographic images of the kidneys and urinary bladder were obtained ass essing grayscale appearance and color flow FINDINGS: The right kidney measures 9.0 cm in length and demonstrates no renal calculi or hydronephrosis. Left kidney measures 9.3 cm in length and demonstrates no renal calculi or hydronephrosis. Partially decompressed urinary bladder demonstrates trabecular thickened stinson. 5.9 x 5.1 x 1.6 cm mu ral-based echogenic lesion versus debris is noted within the dependent urinary bladder with areas of apparent internal blood flow. Alternatively this may be pseudoflow from mobile debris. IMPRESSION: 1. Partial distention of the urinary bladder with thickened and trabecular stinson. Correlate with urin alysis. 2. Normal sonographic appearance of the bilateral kidneys. 3. Echogenic debris versus echogenic lesion involves the floor of the urinary bladder. Correlation wi cystoscopy recommended to further characterize. ACT 112: Negative or not required by law. The above report was generated using voice recognition software. It may contain grammatical, syntax o r spelling errors. Electronically signed by: Ruben Osuna M.D. 12/08/2019 7:17 PM
[2019-12-08] MEDS ORDERED: ALBUTEROL HFA 8 GM INHALER INH PRN (20:44)
[2019-12-08] MEDS ORDERED: DICLOFENAC SOD 1% GEL 100 GM TUBE EXT PRN (20:44)
[2019-12-08] MEDS ORDERED: ACETAMINOPHEN 325 MG TAB PO PRN (21:06)
[2019-12-08] MEDS: OXYBUTYNIN CHLORIDE 5 MG TAB PO SCH (22:01)
[2019-12-08] MEDS: SUCRALFATE 1 GM/10 ML UDC PO SCH (22:01)
[2019-12-08] MEDS: PANTOprazole 40 MG TAB PO SCH (22:02)
[2019-12-08] MEDS: APIXABAN 2.5 MG TAB PO SCH (22:02)
[2019-12-08] MEDS: LORATADINE 10 MG TAB PO SCH (22:03)
[2019-12-09] MEDS: CEFEPIME 2,000 MG in SYRINGE 7.5 ML IV SCH (02:01)
[2019-12-09] MEDS: LACTATED RINGER'S 1,000 ML IV SCH ×2 (04:18→14:31)
--- NOTE | 2019-12-09 06:26 | Electrocardiogram Report ---
Test Reason : Blood Pressure : / mmHG Vent. Rate : 095 BPM Atrial Rate : 095 BPM P-R Int : 178 ms QRS Dur : 070 ms QT Int : 380 ms P-R-T Axes : 034 017 016 degrees QTc Int : 477 ms Sinus rhythm with Premature atrial complexes Septal infarct (cited on or before 08-DEC-2019) Abnormal ECG When compared with ECG of 29-NOV-2019 16:52, No significant change was found Confirmed by Sg Valente ([id number]) on 12/09/2019 6:25:47 AM Referred By: Lenore Multani Confirmed By:Sg Valente
[2019-12-09 07:38] LABS: Hematocrit (blood only) 26.8 % (37-47); Hemoglobin 8.5 g/dL (12.0-16.0); Mean Corpuscular Hemoglobin 27.5 pg (25-34); Mean Corpuscular Hgb Conc 31.7 g/dL (32-36); Mean Corpuscular Volume 86.7 fL (80-100); Mean Platelet Volume 9.4 fL (7.4-10.4); Platelet Count 193 K/uL (130-400); RDW Coefficient of Variation 15.6 % (11.5-14.5); RDW Standard Deviation 50.3 fL (36.4-46.3); Red Blood Count 3.09 M/uL (4.2-5.4); White Blood Count 4.47 K/uL (4.8-10.8)
[2019-12-09] MEDS: APIXABAN 2.5 MG TAB PO SCH ×2 (07:57→20:24)
[2019-12-09] MEDS: SUCRALFATE 1 GM/10 ML UDC PO SCH ×4 (07:57→20:24)
[2019-12-09] MEDS: VANCOMYCIN HCL 125 MG/2.5ML SOLN PO SCH (07:58)
[2019-12-09] MEDS: CALCIUM 600MG + VIT D 400 IU TAB PO SCH (07:58)
[2019-12-09] MEDS: UMECLIDINIUM BROMIDE 62.5MCG/BLISTER 7 PUFFS/INHALER INH SCH (07:58)
[2019-12-09] MEDS: FLUTICASONE/VILANTEROL 100/25MCG 14 PUFFS/INHALER INH SCH (07:58)
[2019-12-09] MEDS: ASPIRIN 81 MG ECTAB PO SCH (07:58)
[2019-12-09] MEDS: PANTOprazole 40 MG TAB PO SCH ×2 (07:58→20:25)
[2019-12-09] MEDS: RASPBERRY SYRUP 5 ML UDP PO SCH (07:58)
[2019-12-09] MEDS: AMLODIPINE BESYLATE 5 MG TAB PO SCH (07:58)
[2019-12-09] MEDS: OXYBUTYNIN CHLORIDE 5 MG TAB PO SCH ×2 (07:58→20:25)
[2019-12-09] MEDS: TRIAMTERENE/HCTZ 37.5/25MG TAB PO SCH (07:58)
[2019-12-09 08:07] LABS: BUN Creatinine Ratio 14.1 (10-20); C Reactive Protein 12.6 mg/dl (0-0.29); Calcium 8.2 mg/dl (8.5-10.1); Creatinine Clr Calc Pharmacy 19.1 ml/min; Est GFR (African American) 27.9; Potassium 3.7 mmol/L (3.5-5.1)
--- NOTE | 2019-12-09 09:11 | Pharmacy Report ---
Pharmacy Abx Initial Consult - Date of Service December 09, 2019 - Pharmacy Dosing Scope Date of Consult: 12/07 Consultation requested by: Dr. Cardozo Pharmacy is consulted to initiate vancomycin IV dosing therapy, order appropriate labs and adjust drug dose/frequency. - Subjective The patient is a 89 year old F admitted on 12/08/19 18:28. - Objective Height: 5 ft 3 in Weight: 64.2 kg Vital Signs (Past 12hrs): Vital Signs Temp Pulse Pulse Resp BP Pulse Ox 12/09/19 07:00 37.2 C 86 18 122/70 95 12/09/19 03:57 37.4 C 80 20 91/49 L 93 12/09/19 01:12 101 H Lab Results (24hrs): Laboratory Tests (24 Hours) 12/09/19 12/09/19 12/09/19 07:37 07:14 07:07 WBC Neut # (Auto) ESR 49 H Creatinine 1.84 H D Est Cr Clr Drug Dosing 19.1 C-Reactive Protein 12.60 H Procalcitonin Random Vancomycin 16.3 12/09/19 12/08/19 12/08/19 07:07 15:28 15:28 WBC 4.47 L 8.30 Neut # (Auto) 4.03 ESR Creatinine 2.22 H Est Cr Clr Drug Dosing 15.7 C-Reactive Protein Procalcitonin Random Vancomycin 12/08/19 15:28 WBC Neut # (Auto) ESR Creatinine Est Cr Clr Drug Dosing C-Reactive Protein Procalcitonin 0.20 Random Vancomycin Micro Results: 12/08/19 15:10 Gram Stain - Final Leg 12/08/19 Unknown Urine Culture - Pending Urine,Clean Catch 12/08/19 15:30 Aerobic Blood Culture - Pending Blood Anaerobic Blood Culture - Pending 12/08/19 15:25 Aerobic Blood Culture - Pending Blood Anaerobic Blood Culture - Pending - Risk Factors for Resistance * Resident in a assisted or extended-care facility * Hospitalization for 48 hours or more within the past 90 days * 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 Previously admitted 11/29 for cystitis in which course of levaquin completed. Blood cultures and urine culture pending. Leg cx prelim with staph aureus Plan Vancomycin IV * Received loading dose of vancomycin 1500 mg x 1 (~23 mg/kg) last evening * Random level this am at 16.3 mcg/ml - plan to redose with 1000 mg x 1 (~15 mg/kg) to maintain estimated peak of ~30 mcg/ml * Will plan to dose by levels due to unstable renal function - plan to order random level tomorrow AM to assist with further dosing * Estimated t1/2>24 hrs - therefore estimated level tomorrow still >15 mcg/ml Pharmacy will continue to follow and will adjust dose/frequency as necessary. Thank you.
[2019-12-09] MEDS ORDERED: TRAMADOL HCL 50 MG TABLET PO PRN (09:15)
[2019-12-09] MEDS ORDERED: VANCOMYCIN HCL 1,000 MG in SODIUM CHLORIDE 0.9% 250 ML IV ONE (10:00)
[2019-12-09] MEDS ORDERED: MoRPHine SULFATE 4 MG/ML 1 ML CARP\\VIAL IV STA (12:54)
[2019-12-09] MEDS ORDERED: MoRPHine SULFATE 4 MG/ML 1 ML CARP\\VIAL IV PRN (16:22)
[2019-12-09] MEDS: ACETAMINOPHEN 325 MG TAB PO SCH ×2 (16:50→20:26)
--- NOTE | 2019-12-09 18:50 | Hospitalist Progress Note ---
Date of Service December 09, 2019 Assessment & Plan (1) Cystitis: qustionable given that she always has sx - but with fever, sx, UA - cant r/o. await culture (2) Cellulitis: vanco - wound growing staph, await sensitivities - hopefully can downgrade. 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 will schedule tylenol, 25mg tramadol did not help at all - > 50mg moderate pain, 4mg IV morphine severe/breakthrough (6) Paroxysmal atrial fibrillation: rate controlled, anticoagulated (7) DVT prophylaxis: anticoagulation as above (8) Discharge planning issues: anticipate return to [facility] once legs improving Admission and Anticipated Discharge Date Admission Date: December 08, 2019 Subjective when i enter the room she is cryng in pain. leg pain b/l - notes that it started after discharge last week never there before, really bad really intense. chronic urinary sx. no other new issues. pain meds have not helped Review of Systems Review of Systems: All systems reviewed & are unremarkable except as noted in HPI & below Physical Exam Physical Exam: laying in bed appearing in distress due to pain, weeping at first hard enough that it takes several iterations of saying her name to get her attention. heent nc at mmm breathing unlabored no accessory muscles good effort. b/l LE dressed, VERY tender with dull erythema nothing that tracks above the knee Results & Data Results & Data ([facility]) Vital Signs (Past 12 Hours) Vital Signs Temp Pulse Pulse Resp BP Pulse Ox 12/09/19 16:00 78 12/09/19 14:38 97.7 F 71 18 107/62 100 12/09/19 11:00 98.8 F 85 16 116/61 93 12/09/19 09:19 74 12/09/19 07:00 99.0 F 86 18 122/70 95 PG Care Time/CCT Total # of Minutes Spent Total Time Spent with Patient: Total time spent is greater than 50% in coordination of care (as documented) at patient's floor/unit and/or counseling patient: Coding Level of Care Code 20936 Subseq Hosp Care Lvl 3 Diagnoses Cystitis N30.90 Cellulitis L03.119 Laterality: unspecified laterality Site of cellulitis: extremity Site of cellulitis of extremity: lower extremity Fever R50.9 Fever type: unspecified Wounds, multiple open, lower extremity S81.809A Encounter type: initial encounter Laterality: unspecified laterality Pain R52 Paroxysmal atrial fibrillation I48.0 DVT prophylaxis Z29.9 Discharge planning issues Z02.9 (1) Cellulitis Laterality: unspecified laterality Site of cellulitis: extremity Site of cellulitis of extremity: lower extremity Qualified Code(s): L03.119 - Cellulitis of unspecified part of limb (2) Fever Fever type: unspecified Qualified Code(s): R50.9 - Fever, unspecified (3) Wounds, multiple open, lower extremity Encounter type: initial encounter Laterality: unspecified laterality Qualified Code(s): S81.809A - Unspecified open wound, unspecified lower leg, initial encounter
[2019-12-09] MEDS: LORATADINE 10 MG TAB PO SCH (20:24)
[2019-12-10] MEDS: CEFEPIME 2,000 MG in SYRINGE 7.5 ML IV SCH (01:18)
[2019-12-10] MEDS: TRAMADOL HCL 50 MG TABLET PO PRN (02:44)
[2019-12-10 07:34] LABS: Creatinine Clr Calc Pharmacy 23.5 ml/min; Est GFR (African American) 34.8; Est GFR (Non-African American) 30.1
[2019-12-10] MEDS: APIXABAN 2.5 MG TAB PO SCH ×2 (08:14→20:26)
[2019-12-10] MEDS: CALCIUM 600MG + VIT D 400 IU TAB PO SCH (08:14)
[2019-12-10] MEDS: PANTOprazole 40 MG TAB PO SCH ×2 (08:15→20:24)
[2019-12-10] MEDS: AMLODIPINE BESYLATE 5 MG TAB PO SCH (08:15)
[2019-12-10] MEDS: ASPIRIN 81 MG ECTAB PO SCH (08:15)
[2019-12-10] MEDS: OXYBUTYNIN CHLORIDE 5 MG TAB PO SCH ×2 (08:15→20:29)
[2019-12-10] MEDS: UMECLIDINIUM BROMIDE 62.5MCG/BLISTER 7 PUFFS/INHALER INH SCH (08:16)
[2019-12-10] MEDS: FLUTICASONE/VILANTEROL 100/25MCG 14 PUFFS/INHALER INH SCH (08:16)
[2019-12-10] MEDS: SUCRALFATE 1 GM/10 ML UDC PO SCH ×4 (08:16→20:25)
[2019-12-10] MEDS: RASPBERRY SYRUP 5 ML UDP PO SCH (08:16)
[2019-12-10] MEDS: ACETAMINOPHEN 325 MG TAB PO SCH ×3 (08:17→20:24)
[2019-12-10] MEDS: VANCOMYCIN HCL 125 MG/2.5ML SOLN PO SCH (08:24)
[2019-12-10] MEDS ORDERED: DAPTOMYCIN CONSULT ACTIVE PRN (08:29)
[2019-12-10] MEDS ORDERED: DAPTOmycin 225 MG in SYRINGE 0 ML IV SCH (10:00)
--- NOTE | 2019-12-10 14:57 | Hospitalist Progress Note ---
Date of Service December 10, 2019 Assessment & Plan (1) Cystitis: Questionable given that she always has dysuria - cefepime stopped. follow (2) Cellulitis: growing MRSA. appears to be venous stasis complicated by bacterial contamination. changed to dapto for similar coverage/less renal issues/easier dosing. follow on this (3) Fever: Most likely cellulitis as above. improved (4) Elevated serum creatinine: Cr increased from baseline. Suspect pre-renal - is improving nicely - continue to follow (5) Wounds, multiple open, lower extremity: continue wound care (6) Paroxysmal atrial fibrillation: rate controlled, anticoagulated (7) History of Clostridioides difficile colitis: Continue daily dose of vancomycin PO while on antibiotics (8) Anemia: Normocytic anemia. At baseline. Actually improved from last admission. follow periodically (9) Cough variant asthma: ?COPD, continue her usual Spiriva or formulary equivalent, consider trial of LABA at night for nocturnal cough (10) Urinary incontinence: Bladder scan as above Continue oxybutynin (11) DVT prophylaxis: anticoagulation as above Admission and Anticipated Discharge Date Admission Date: December 08, 2019 Subjective legs feeling better - pain meds helping - does still need them to affect pain relief but meds do help no other new complaints. continues to express dismay on compression stockings at discharge last time "someone should have to pay for this!" Review of Systems Review of Systems: All systems reviewed & are unremarkable except as noted in HPI & below Physical Exam Physical Exam: gen aao pleasant nad heent nc at mmm breathing unlabored no accessory muscles good effort skin b/l LE dressed erythema has lessened less tender no new edema. no focal neuro deficits Results & Data Results & Data ([facility]) Vital Signs (Past 12 Hours) Vital Signs Temp Pulse Pulse Resp BP Pulse Ox 12/10/19 11:19 98.8 F 72 110/63 19 L 12/10/19 07:30 69 12/10/19 07:03 98.6 F 72 19 125/70 95 PG Care Time/CCT Total # of Minutes Spent Total Time Spent with Patient: Total time spent is greater than 50% in coordination of care (as documented) at patient's floor/unit and/or counseling patient: Coding Level of Care Code 94678 Subseq Hosp Care Lvl 3 Diagnoses Cystitis N30.90 Cellulitis L03.119 Laterality: unspecified laterality Site of cellulitis: extremity Site of cellulitis of extremity: lower extremity Fever R50.9 Fever type: unspecified Elevated serum creatinine R79.89 Wounds, multiple open, lower extremity S81.809A Encounter type: initial encounter Laterality: unspecified laterality Paroxysmal atrial fibrillation I48.0 History of Clostridioides difficile colitis Z86.19 Anemia D64.9 Cough variant asthma J45.991 Urinary incontinence R32 DVT prophylaxis Z29.9 (1) Cellulitis Laterality: unspecified laterality Site of cellulitis: extremity Site of cellulitis of extremity: lower extremity Qualified Code(s): L03.119 - Cellulitis of unspecified part of limb (2) Fever Fever type: unspecified Qualified Code(s): R50.9 - Fever, unspecified (3) Wounds, multiple open, lower extremity Encounter type: initial encounter Laterality: unspecified laterality Qualified Code(s): S81.809A - Unspecified open wound, unspecified lower leg, i nitial encounter
[2019-12-10] MEDS: LORATADINE 10 MG TAB PO SCH (20:25)
[2019-12-11] MEDS: TRAMADOL HCL 50 MG TABLET PO PRN (05:56)
[2019-12-11] MEDS: AMLODIPINE BESYLATE 5 MG TAB PO SCH (08:21)
[2019-12-11] MEDS: CALCIUM 600MG + VIT D 400 IU TAB PO SCH (08:21)
[2019-12-11] MEDS: ACETAMINOPHEN 325 MG TAB PO SCH ×3 (08:21→22:08)
[2019-12-11] MEDS: TRIAMTERENE/HCTZ 37.5/25MG TAB PO SCH (08:21)
[2019-12-11] MEDS: ASPIRIN 81 MG ECTAB PO SCH (08:21)
[2019-12-11] MEDS: SUCRALFATE 1 GM/10 ML UDC PO SCH ×4 (08:22→22:12)
[2019-12-11] MEDS: PANTOprazole 40 MG TAB PO SCH ×2 (08:23→22:13)
[2019-12-11] MEDS: OXYBUTYNIN CHLORIDE 5 MG TAB PO SCH ×2 (08:23→22:12)
[2019-12-11] MEDS: APIXABAN 2.5 MG TAB PO SCH ×2 (08:24→22:15)
[2019-12-11] MEDS: RASPBERRY SYRUP 5 ML UDP PO SCH (08:24)
[2019-12-11] MEDS: UMECLIDINIUM BROMIDE 62.5MCG/BLISTER 7 PUFFS/INHALER INH SCH (08:26)
[2019-12-11] MEDS: FLUTICASONE/VILANTEROL 100/25MCG 14 PUFFS/INHALER INH SCH (08:27)
[2019-12-11] MEDS: VANCOMYCIN HCL 125 MG/2.5ML SOLN PO SCH (09:09)
[2019-12-11 10:22] LABS: Basophils # (auto) 0.02 K/uL (0-0.2); Basophils % (auto) 0.5 %; Eosinophils # (auto) 0.14 K/uL (0-0.5); Eosinophils % (auto) 3.2 %; Hematocrit (blood only) 29.3 % (37-47); Hemoglobin 9.3 g/dL (12.0-16.0); Immature Granulocytes # (auto) 0.03 K/uL (0.00-0.02); Immature Granulocytes % (auto) 0.7 %; Lymphocytes # (auto) 1.17 K/uL (1.2-3.4); Lymphocytes % (auto) 26.9 %; Mean Corpuscular Hgb Conc 31.7 g/dL (32-36); Mean Corpuscular Volume 85.2 fL (80-100); Monocytes # (auto) 0.77 K/uL (0.11-0.59); Monocytes % (auto) 17.7 %; Neutrophils # (auto) 2.22 K/uL (1.4-6.5); Platelet Count 215 K/uL (130-400); RDW Coefficient of Variation 15.5 % (11.5-14.5); RDW Standard Deviation 48.1 fL (36.4-46.3); Red Blood Count 3.44 M/uL (4.2-5.4); White Blood Count 4.35 K/uL (4.8-10.8)
[2019-12-11 10:56] LABS: BUN Creatinine Ratio 10.8 (10-20); Calcium 8.6 mg/dl (8.5-10.1); Creatinine Clr Calc Pharmacy 22.6 ml/min; Est GFR (African American) 33.8; Est GFR (Non-African American) 29.1; Potassium 3.5 mmol/L (3.5-5.1)
--- NOTE | 2019-12-11 18:07 | Hospitalist Progress Note ---
Date of Service December 11, 2019 Assessment & Plan (1) Cystitis: Questionable given that she always has dysuria - cefepime stopped. no new worsening no recurrence (2) Cellulitis: growing MRSA. appears to be venous stasis complicated by bacterial cont amination. continue dapto but suspect can likely transition to bactrim in enext day or so for completing treatment (3) Fever: Most likely cellulitis as above. improved/hasn't resolved (4) Elevated serum creatinine: Cr increased from baseline. Suspect pre-renal - is improving nicely - continue to follow (5) Wounds, multiple open, lower extremity: continue wound care (6) Paroxysmal atrial fibrillation: continue rate control and anticoagulation (7) History of Clostridioides difficile colitis: Continue daily dose of vancomycin PO while on antibiotics (8) Anemia: Normocytic anemia. At baseline. Actually improved from last admission. follow periodically (9) Cough variant asthma: ?COPD, continue her usual Spiriva or formulary equivalent, consider trial of LABA at night for nocturnal cough (10) Urinary incontinence: Bladder scan as above Continue oxybutynin (11) DVT prophylaxis: anticoagulation as above Admission and Anticipated Discharge Date Admission Date: December 08, 2019 Subjective seems to be having less pain. a little hard to get hx because she's still wanting vengeance for compression stockings, and also asking for a newspaper. eating breakfast reasonably well. no fevers. simultaneously wants to return to [facility] and doesn't. talks about going home again too but ntoes that she's been living in personal care for 5 years. Review of Systems Review of Systems: All systems reviewed & are unremarkable except as noted in HPI & below Physical Exam Physical Exam: gen awake nad. heent nc at mmm breathing unlabored no accessory muscles good effort skin b/l LE now basically just brawny edema, dressings in place, no tracking erythema. still reasonably tender mostly posteriorly far better than before. Results & Data Results & Data ([facility]) Vital Signs (Past 12 Hours) Vital Signs Temp Pulse Pulse Resp BP Pulse Ox 12/11/19 15:38 98.6 F 81 18 111/67 91 12/11/19 15:05 105 H 12/11/19 07:30 98.4 F 81 17 150/64 H 95 12/11/19 07:19 82 PG Care Time/CCT Total # of Minutes Spent Total Time Spent with Patient: Total time spent is greater than 50% in coordination of care (as documented) at patient's floor/unit and/or counseling patient: Coding Level of Care Code 07745 Subseq Hosp Care Lvl 3 Diagnoses Cystitis N30.90 Cellulitis L03.119 Laterality: unspecified laterality Site of cellulitis: extremity Site of cellulitis of extremity: lower extremity Fever R50.9 Fever type: unspecified Elevated serum creatinine R79.89 Wounds, multiple open, lower extremity S81.809A Encounter type: initial encounter Laterality: unspecified laterality Paroxysmal atrial fibrillation I48.0 History of Clostridioides difficile colitis Z86.19 Anemia D64.9 Cough variant asthma J45.991 Urinary incontinence R32 DVT prophylaxis Z29.9 (1) Cellulitis Laterality: unspecified laterality Site of cellulitis: extremity Site of cellulitis of extremity: lower extremity Qualified Code(s): L03.119 - Cellulitis of unspecified part of limb (2) Fever Fever type: unspecified Qualified Code(s): R50.9 - Fever, unspecified (3) Wounds, multiple open, lower extremity Encounter type: initial encounter Laterality: unspecified laterality Qualified Code(s): S81.809A - Unspecified open wound, unspecified lower leg, initial encounter
[2019-12-11] MEDS: LORATADINE 10 MG TAB PO SCH (22:15)
[2019-12-12 07:11] LABS: Basophils # (auto) 0.01 K/uL (0-0.2); Basophils % (auto) 0.3 %; Eosinophils # (auto) 0.13 K/uL (0-0.5); Eosinophils % (auto) 3.5 %; Hematocrit (blood only) 27.8 % (37-47); Hemoglobin 8.8 g/dL (12.0-16.0); Immature Granulocytes # (auto) 0.02 K/uL (0.00-0.02); Immature Granulocytes % (auto) 0.5 %; Lymphocytes % (auto) 32.3 %; Mean Corpuscular Hemoglobin 26.7 pg (25-34); Mean Corpuscular Hgb Conc 31.7 g/dL (32-36); Mean Corpuscular Volume 84.5 fL (80-100); Mean Platelet Volume 8.9 fL (7.4-10.4); Monocytes # (auto) 0.67 K/uL (0.11-0.59); Monocytes % (auto) 18.1 %; Neutrophils # (auto) 1.68 K/uL (1.4-6.5); Neutrophils % (auto) 45.3 %; Platelet Count 205 K/uL (130-400); RDW Coefficient of Variation 15.5 % (11.5-14.5); Red Blood Count 3.29 M/uL (4.2-5.4); White Blood Count 3.71 K/uL (4.8-10.8)
[2019-12-12 07:42] LABS: BUN Creatinine Ratio 11.4 (10-20); Calcium 8.9 mg/dl (8.5-10.1); Creatinine Clr Calc Pharmacy 22.8 ml/min; Est GFR (African American) 34.3; Est GFR (Non-African American) 29.6; Potassium 3.8 mmol/L (3.5-5.1)
[2019-12-12] MEDS: TRAMADOL HCL 50 MG TABLET PO PRN (07:49)
[2019-12-12] MEDS: ASPIRIN 81 MG ECTAB PO SCH (07:51)
[2019-12-12] MEDS: OXYBUTYNIN CHLORIDE 5 MG TAB PO SCH ×2 (07:51→22:06)
[2019-12-12] MEDS: PANTOprazole 40 MG TAB PO SCH ×2 (07:51→22:07)
[2019-12-12] MEDS: APIXABAN 2.5 MG TAB PO SCH ×2 (07:51→22:05)
[2019-12-12] MEDS: CALCIUM 600MG + VIT D 400 IU TAB PO SCH (07:51)
[2019-12-12] MEDS: ACETAMINOPHEN 325 MG TAB PO SCH ×3 (07:52→22:07)
[2019-12-12] MEDS: SUCRALFATE 1 GM/10 ML UDC PO SCH ×4 (07:52→21:00)
[2019-12-12] MEDS: FLUTICASONE/VILANTEROL 100/25MCG 14 PUFFS/INHALER INH SCH (07:52)
[2019-12-12] MEDS: UMECLIDINIUM BROMIDE 62.5MCG/BLISTER 7 PUFFS/INHALER INH SCH (07:53)
[2019-12-12] MEDS: AMLODIPINE BESYLATE 5 MG TAB PO SCH (07:53)
[2019-12-12] MEDS: RASPBERRY SYRUP 5 ML UDP PO SCH (09:53)
[2019-12-12] MEDS: VANCOMYCIN HCL 125 MG/2.5ML SOLN PO SCH (09:53)
[2019-12-12] MEDS ORDERED: DAPTOmycin 225 MG in SYRINGE 0 ML IV SCH (10:00)
--- NOTE | 2019-12-12 19:50 | Hospitalist Progress Note ---
Date of Service December 12, 2019 Assessment & Plan (1) Cystitis: Questionable given that she always has dysuria - cefepime stopped. no new worsening no recurrence (2) Cellulitis: growing MRSA. appears to be venous stasis complicated by bacterial cont amination. was on dapto - changing to bactrim to allow for outpt course of treatment - asking pharmacy to assist in renal dosing (3) Fever: Most likely cellulitis as above. improved/hasn't resolved (4) Elevated serum creatinine: was high on admission likely prerenal, now back to baseline which appears to be ~stage 4 CKD. will want to follow BMP as outpt on bactrim even with renal dosing, but feel this is a better option for her than ongoing hosptial stay / ongoing IV dapto, given how quickly the cellulitis improved. (5) Wounds, multiple open, lower extremity: continue wound care as outpt (6) Paroxysmal atrial fibrillation: rate conrolled, anticoagulated (7) History of Clostridioides difficile colitis: Continue daily dose of vancomycin PO while on antibiotics (8) Anemia: Normocytic anemia. At baseline. Actually improved from last admission. follow periodically (9) Cough variant asthma: ?COPD, continue her usual Spiriva or formulary equivalent, consider trial of LABA at night for nocturnal cough (10) Urinary incontinence: Bladder scan as above Continue oxybutynin (11) DVT prophylaxis: anticoagulation as above Admission and Anticipated Discharge Date Admission Date: December 11, 2019 Subjective legs doing better no f/c/s. notes she had an appt w dr noyola that she missed because she was admitted, thinks it was for something with a rash. Review of Systems Review of Systems: All systems reviewed & are unremarkable except as noted in HPI & below Physical Exam Physical Exam: gen aao nad. heent nc at mmm breathing unlabored no accessory msucles good effort skin w b/l LE brawny edema type changes no erythema, dressings c/d, under dressings no erythema noted Results & Data Results & Data ([facility]) Vital Signs (Past 12 Hours) Vital Signs Temp Pulse Resp BP Pulse Ox 12/12/19 15:13 99.5 F 73 18 114/65 93 PG Care Time/CCT Total # of Minutes Spent Total Time Spent with Patient: Total time spent is greater than 50% in coordination of care (as documented) at patient's floor/unit and/or counseling patient: Coding Level of Care Code 00594 Subseq Hosp Care Lvl 3 Diagnoses Cystitis N30.90 Cellulitis L03.119 Laterality: unspecified laterality Site of cellulitis: extremity Site of cellulitis of extremity: lower extremity Fever R50.9 Fever type: unspecified Elevated serum creatinine R79.89 Wounds, multiple open, lower extremity S81.809A Encounter type: initial encounter Laterality: unspecified laterality Paroxysmal atrial fibrillation I48.0 History of Clostridioides difficile colitis Z86.19 Anemia D64.9 Cough variant asthma J45.991 Urinary incontinence R32 DVT prophylaxis Z29.9 (1) Cellulitis Laterality: unspecified laterality Site of cellulitis: extremity Site of cellulitis of extremity: lower extremity Qualified Code(s): L03.119 - Cellulitis of unspecified part of limb (2) Fever Fever type: unspecified Qualified Code(s): R50.9 - Fever, unspecified (3) Wounds, multiple open, lower extremity Encounter type: initial encounter Laterality: unspecified laterality Qualified Code(s): S81.809A - Unspecified open wound, unspecified lower leg, initial encounter
[2019-12-12] MEDS: LORATADINE 10 MG TAB PO SCH (22:06)
[2019-12-13 05:21] LABS: Basophils # (auto) 0.01 K/uL (0-0.2); Basophils % (auto) 0.3 %; Eosinophils # (auto) 0.14 K/uL (0-0.5); Eosinophils % (auto) 3.6 %; Hematocrit (blood only) 27.9 % (37-47); Hemoglobin 8.6 g/dL (12.0-16.0); Immature Granulocytes # (auto) 0.05 K/uL (0.00-0.02); Immature Granulocytes % (auto) 1.3 %; Lymphocytes # (auto) 1.34 K/uL (1.2-3.4); Lymphocytes % (auto) 34.1 %; Mean Corpuscular Hgb Conc 30.8 g/dL (32-36); Mean Corpuscular Volume 87.5 fL (80-100); Mean Platelet Volume 9.2 fL (7.4-10.4); Monocytes # (auto) 0.77 K/uL (0.11-0.59); Monocytes % (auto) 19.6 %; Neutrophils # (auto) 1.62 K/uL (1.4-6.5); Neutrophils % (auto) 41.1 %; Platelet Count 214 K/uL (130-400); RDW Coefficient of Variation 15.9 % (11.5-14.5); RDW Standard Deviation 51.1 fL (36.4-46.3); Red Blood Count 3.19 M/uL (4.2-5.4); White Blood Count 3.93 K/uL (4.8-10.8)
[2019-12-13] MEDS: TRAMADOL HCL 50 MG TABLET PO PRN ×3 (05:37→23:29)
[2019-12-13 05:45] LABS: BUN Creatinine Ratio 10.3 (10-20); Calcium 8.4 mg/dl (8.5-10.1); Creatinine Clr Calc Pharmacy 24.8 ml/min; Est GFR (African American) 37.8; Est GFR (Non-African American) 32.6; Potassium 3.7 mmol/L (3.5-5.1)
[2019-12-13] MEDS: SUCRALFATE 1 GM/10 ML UDC PO SCH ×4 (08:43→19:42)
[2019-12-13] MEDS: APIXABAN 2.5 MG TAB PO SCH ×2 (08:43→20:41)
[2019-12-13] MEDS: FLUTICASONE/VILANTEROL 100/25MCG 14 PUFFS/INHALER INH SCH (08:43)
[2019-12-13] MEDS: UMECLIDINIUM BROMIDE 62.5MCG/BLISTER 7 PUFFS/INHALER INH SCH (08:44)
[2019-12-13] MEDS: OXYBUTYNIN CHLORIDE 5 MG TAB PO SCH ×2 (08:44→20:41)
[2019-12-13] MEDS: ASPIRIN 81 MG ECTAB PO SCH (08:44)
[2019-12-13] MEDS: CALCIUM 600MG + VIT D 400 IU TAB PO SCH (08:44)
[2019-12-13] MEDS: TRIAMTERENE/HCTZ 37.5/25MG TAB PO SCH (08:45)
[2019-12-13] MEDS: AMLODIPINE BESYLATE 5 MG TAB PO SCH (08:45)
[2019-12-13] MEDS: ACETAMINOPHEN 325 MG TAB PO SCH ×3 (08:45→20:40)
[2019-12-13] MEDS: PANTOprazole 40 MG TAB PO SCH ×2 (08:45→20:41)
[2019-12-13] MEDS: VANCOMYCIN HCL 125 MG/2.5ML SOLN PO SCH (08:51)
[2019-12-13] MEDS: RASPBERRY SYRUP 5 ML UDP PO SCH (08:52)
--- NOTE | 2019-12-13 15:30 | Hospitalist Progress Note ---
Date of Service December 13, 2019 Assessment & Plan (1) Cellulitis: Of the right lower extremity with wound culture growing MRSA. Appears to be venous stasis complicated by bacterial contamination. Was on dapto and was changed to p.o. Bactrim on 12/11 which she can continue as an outpatient Continues to have significant pain in the leg and feels she is not ready for discharge yet -Continue tramadol as needed for pain especially with dressing changes -Continue wound care (2) Fever: Most likely secondary to cellulitis and leg wound as above. No documented fever this admission (3) Cystitis: Questionable given that she always has dysuria - cefepime stopped. no new worsening no recurrence Continue to monitor (4) Wounds, multiple open, lower extremity: venous ulcers bilateral LE continue wound care with dressing changes as per wound care nurse (5) Paroxysmal atrial fibrillation: In a sinus rhythm here -Continue Eliquis with renal dosing (6) History of Clostridioides difficile colitis: Continue daily dose of vancomycin PO while on antibiotics (7) Anemia: Normocytic anemia. At baseline. Actually improved from last admission. follow periodically Hemoglobin here stable at 8.6 We will check iron studies, Hemoccult stool, B12, folate in the morning (8) Cough variant asthma: ?COPD, continue her usual Spiriva or formulary equivalent, consider trial of LABA at night for nocturnal cough Follows with allergy/speech pathology supervisor, has grown out Aspergillus but is not suspected to have invasive infection (9) Urinary incontinence: Continue oxybutynin (10) Acute renal failure: Creatinine elevated upon admission likely prerenal Improved and now creatinine is down to 1.43 Avoid nephrotoxins -Renally dose medications when appropriate -Follow BMP (11) CKD (chronic kidney disease), stage III: Creatinine around baseline now at 1.43 As above (12) HTN (hypertension), benign: Blood pressures are controlled -Continue Maxide, amlodipine (13) GERD (gastroesophageal reflux disease): Continue PPI, Carafate (14) DVT prophylaxis: Eliquis Disposition-continued stay for pain control of the leg, eventually back to [facility] Admission and Anticipated Discharge Date Admission Date: December 11, 2019 Results & Data Results & Data ([facility]) Vital Signs (Past 12 Hours) Vital Signs Temp Pulse Resp BP Pulse Ox 12/13/19 07:41 37.2 C 79 18 121/70 96 PG Care Time/CCT Total # of Minutes Spent Total Time Spent with Patient: Total time spent is greater than 50% in coordination of care (as documented) at patient's floor/unit and/or counseling patient: Coding Level of Care Code 84771 Subseq Hosp Care Lvl 2 Diagnoses Cellulitis L03.119 Laterality: unspecified laterality Site of cellulitis: extremity Site of cellulitis of extremity: lower extremity Fever R50.9 Fever type: unspecified Cystitis N30.90 Wounds, multiple open, lower extremity S81.809A Encounter type: initial encounter Laterality: unspecified laterality Paroxysmal atrial fibrillation I48.0 History of Clostridioides difficile colitis Z86.19 Anemia D64.9 Cough variant asthma J45.991 Urinary incontinence R32 Acute renal failure N17.9 CKD (chronic kidney disease), stage III N18.3 HTN (hypertension), benign I10 GERD (gastroesophageal reflux disease) K21.9 DVT prophylaxis Z29.9 (1) Fever Fever type: unspecified Qualified Code(s): R50.9 - Fever, unspecified (2) Cellulitis Laterality: unspecified laterality Site of cellulitis: extremity Site of cellulitis of extremity: lower extremity Qualified Code(s): L03.119 - Cellulitis of unspecified part of limb (3) Wounds, multiple open, lower extremity Encounter type: initial encounter Laterality: unspecified laterality Qualified Code(s): S81.809A - Unspecified open wound, unspecified lower leg, initial encounter
[2019-12-13] MEDS: LORATADINE 10 MG TAB PO SCH (20:40)
[2019-12-14 06:01] LABS: Basophils # (auto) 0.01 K/uL (0-0.2); Basophils % (auto) 0.3 %; Eosinophils # (auto) 0.14 K/uL (0-0.5); Eosinophils % (auto) 3.7 %; Hematocrit (blood only) 29.3 % (37-47); Hemoglobin 9.4 g/dL (12.0-16.0); Immature Granulocytes # (auto) 0.05 K/uL (0.00-0.02); Immature Granulocytes % (auto) 1.3 %; Lymphocytes # (auto) 1.26 K/uL (1.2-3.4); Lymphocytes % (auto) 33.2 %; Mean Corpuscular Hemoglobin 27.7 pg (25-34); Mean Corpuscular Hgb Conc 32.1 g/dL (32-36); Mean Corpuscular Volume 86.4 fL (80-100); Mean Platelet Volume 8.9 fL (7.4-10.4); Monocytes # (auto) 0.69 K/uL (0.11-0.59); Monocytes % (auto) 18.2 %; Neutrophils # (auto) 1.65 K/uL (1.4-6.5); Neutrophils % (auto) 43.3 %; Platelet Count 220 K/uL (130-400); RDW Coefficient of Variation 15.8 % (11.5-14.5); RDW Standard Deviation 50.5 fL (36.4-46.3); Red Blood Count 3.39 M/uL (4.2-5.4)
[2019-12-14 06:40] LABS: BUN Creatinine Ratio 9.5 (10-20); Calcium 8.7 mg/dl (8.5-10.1); Creatinine Clr Calc Pharmacy 26.4 ml/min; Est GFR (African American) 40.9; Est GFR (Non-African American) 35.3; Potassium 3.7 mmol/L (3.5-5.1)
[2019-12-14] MEDS ORDERED: FERROUS SULFATE 325 MG TAB PO SCH (08:00)
[2019-12-14] MEDS: ASPIRIN 81 MG ECTAB PO SCH (08:32)
[2019-12-14] MEDS: OXYBUTYNIN CHLORIDE 5 MG TAB PO SCH (08:32)
[2019-12-14] MEDS: CALCIUM 600MG + VIT D 400 IU TAB PO SCH (08:32)
[2019-12-14] MEDS: FLUTICASONE/VILANTEROL 100/25MCG 14 PUFFS/INHALER INH SCH (08:32)
[2019-12-14] MEDS: TRAMADOL HCL 50 MG TABLET PO PRN (08:32)
[2019-12-14] MEDS: APIXABAN 2.5 MG TAB PO SCH (08:32)
[2019-12-14] MEDS: UMECLIDINIUM BROMIDE 62.5MCG/BLISTER 7 PUFFS/INHALER INH SCH (08:32)
[2019-12-14] MEDS: SUCRALFATE 1 GM/10 ML UDC PO SCH ×2 (08:32→11:58)
[2019-12-14] MEDS: AMLODIPINE BESYLATE 5 MG TAB PO SCH (08:32)
[2019-12-14] MEDS: ACETAMINOPHEN 325 MG TAB PO SCH ×2 (08:33→14:11)
[2019-12-14] MEDS: PANTOprazole 40 MG TAB PO SCH (08:33)
[2019-12-14] MEDS: RASPBERRY SYRUP 5 ML UDP PO SCH (08:33)
[2019-12-14] MEDS: VANCOMYCIN HCL 125 MG/2.5ML SOLN PO SCH (08:33)
[2019-12-14 08:43] LABS: Folate (Folic Acid) 11.37 ng/ml (>5.38); Vitamin B12 > 2000 pg/ml (211-911)
[2019-12-14] MEDS ORDERED: SULFAMETHOXAZOLE/TRIMETHOPRIM DS 800/160MG TAB PO ONE (09:00)
--- NOTE | 2019-12-14 13:46 | Discharge Summary ---
Date of Service December 14, 2019 Admission HPI Per Admitting Provider Laurie Perez is an 89 year old female from [facility] who presents to the ER with a fever that started today. She was recently hospitalized from 11/28 to 12/01 due to vomiting and acute UTI. Her urine culture grew pansensitive E. Coli for which she completed a 7 day course of Levaquin. She reports having dysuria but this is a chronic problem and is no worse than usual and antibiotics given during the last admission did not change this. She has known gallstones but reports no RUQ abdominal pain. Her main new symptoms has been her right leg which has been weeping much more than usual and more painful. She reports when it was recently wrapped due to edema it was too tight and caused her current ulceration. No pus noted from the wound. Fever was noted this morning at her [facility] however the patient felt relatively well with this. She has a history of c. diff colitis but reports no change in bowels, abdominal pain, nausea or vomiting. She is taking vancomycin PO daily for prophylaxis. She has an ongoing cough since May which is occasionally productive and worse at night but this is no worse than usual. She is not short of breath. No COVID-19 exposure.She was tested for COVID-19 during her last admission due to her subacute cough and was negative. Principal Diagnosis Fever, leg cellulitis Discharge Exam Constitutional WD/WN, vitals as above Eyes + anicteric sclerae Neck trachea midline, no thyromegaly Respiratory normal respiratory effort, lungs clear to auscultation Cardiovascular RRR, no murmur, no edema Chest (Breasts) Chest: normal inspection of chest Gastrointestinal (Abdomen) normal bowel sounds, soft, nontender, no hepatosplenomegaly Musculoskeletal Extremities: no cyanosis and no clubbing Skin Right leg and left leg with dressings in place today and not removed, extremely dry skin Neurologic moves all extremities and awake; no focal motor deficits Psychiatric A+Ox3, euthymic affect Lymphatic no lymphedema Discharge Data Allergies Allergy/AdvReac Type Severity Reaction Status Date / Time tetanus toxoid, adsorbed Allergy Intermediate RASH Verified 12/08/19 17:34 latex Allergy Mild RASH Verified 12/08/19 17:34 codeine AdvReac Intermediate HEADACHES Verified 12/08/19 17:35 morphine AdvReac Mild SEVERE Verified 12/08/19 17:35 HEADACHES Consultations 12/08/19 17:18 ED Decision to Admit Stat 12/12/19 19:45 Consult [facility] time study engineer Routine Ordered Studies 12/08/19 17:24 US renal/blad retro comp Stat Chest x-ray Hospital Course (1) Cellulitis: Of the right lower extremity with wound culture growing MRSA. Appears to be venous stasis complicated by bacterial contamination. Was on dapto and was changed to p.o. Bactrim on 12/11 which she can continue as an outpatient Continues to have significant pain in the leg but is controlled with p.o. tramadol -Continue tramadol as needed for pain especially with dressing changes -Continue wound care as per liberal arts teacher instructions (2) Fever: Most likely secondary to cellulitis and leg wound as above. No documented fever this admission (3) Cystitis: Questionable given that she always has dysuria - cefepime stopped. no new worsening no recurrence Continue to monitor (4) Wounds, multiple open, lower extremity: venous ulcers bilateral LE continue wound care with dressing changes as per wound care nurse (5) Paroxysmal atrial fibrillation: In a sinus rhythm here -Continue Eliquis with renal dosing (6) History of Clostridioides difficile colitis: Continue daily dose of vancomycin PO while on antibiotics (7) Anemia: Normocytic anemia. At baseline. Actually improved from last admission. follow periodically Hemoglobin here stable at 8.6 Iron studies consistent with anemia of chronic disease and some mild iron deficiency B12 and folate were normal Hemoccult stool not collected this admission -Start ferrous sulfate 325 mg p.o. twice daily -Follow as an outpatient (8) Cough variant asthma: ?COPD, continue her usual Spiriva or formulary equivalent, consider trial of LABA at night for nocturnal cough Follows with allergy/camp advisor, has grown out Aspergillus but is not suspected to have invasive infection (9) Urinary incontinence: Continue oxybutynin (10) Acute renal failure: Creatinine elevated upon admission likely prerenal Improved and now creatinine is down to 1.34 Avoid nephrotoxins -Renally dose medications when appropriate -Follow BMP with PCP as an outpatient (11) CKD (chronic kidney disease), stage III: Creatinine around baseline now at 1.34 As above (12) HTN (hypertension), benign: Blood pressures are controlled -Continue Maxide, amlodipine (13) GERD (gastroesophageal reflux disease): Continue PPI, Carafate (14) DVT prophylaxis: Eliquis Disposition-stable for discharge to home at [facility] jail with home health services Total Time Total Time Spent Total Time Spent (In Minutes): Greater than 30 minutes Total Time Includes: Examination of the Patient, Discharge Planning and Medication Reconciliation Discharge Plan Discharge Items Patient Disposition: Personal Retirement Reason For Visit: FEVER UTI CELLULITIS Discharge Diagnosis: Fever, cellulitis Condition on Discharge: Fair Activity: As commented below Bathing: No limitations Exercise/Sports: As tolerated Non-emergency contact: Primary Care Provider Call non-emergency contact if: you have any medication questions, your symptoms worsen, your pain is not controlled, your pain is worsening, your pain is unusual for you, your pain is concerning for you, you have a fever, your temperature is above 101, your wound has increased redness, your wound has increased drainage and your wound pain has increased Follow-up/Referrals: Rebeca Landon MD [Primary Care Provider] - (Please follow-up within 1 to 2 weeks after discharge.) Teetee Hankins MD [Physician] - 12/31/19 1:45 pm (Please, follow up with Dr. Hankins on FridayDecember 30 at 1:45 pm. *If you need to change this appointment, call the office at [phone].) Diet: Heart Healthy Addtl Attending Provider Instructions: Please finish out the course of Bactrim for 1 more week for the infection of the leg. Please change the dressings on the legs as per liberal arts teacher instructions. Pending Studies at Discharge: No Stand-Alone Forms: My [facility] Skilled Items Patient informed of condition?: Yes DNR: No Discharge Level of Care: Other Communicable Disease: No Discharge Prognosis: Improving Lines: None Urinary Catheter: No Medications and DC Order Prescriptions: New sulfamethoxazole-trimethoprim [Bactrim] 400-80 mg Tablet 1 tab PO Q12 Qty: 14 RF: 0 tramadol 50 mg Tablet 50 mg PO Q4H PRN (Reason: pain) Qty: 30 RF: 0 ferrous sulfate 325 mg (65 mg iron) Tablet,Delayed Release (Dr/Ec) 325 mg PO BIDM Qty: 60 RF: 0 Continued hydrocortisone [Procto-Med HC] 2.5 % cream with perineal applicator 1 applic CO BID PRN (Reason: Hemorrhoids) Qty: 28 RF: 1 Robitussin Cough-Chest Mao DM 5-100 mg/5 mL liquid 10 ml PO Q6H PRN (Reason: cough) Qty: 118 RF: 0 vancomycin [Vancocin] 125 mg capsule 125 mg PO QAM Qty: 30 RF: 5 triamcinolone acetonide 0.1 % lotion 1 appln TOPICAL BID 10 Days Qty: 60 RF: 0 Breo Ellipta 100-25 mcg/dose blister with device 1 inh INHALATION QAM Qty: 60 RF: 1 oxybutynin chloride 5 mg tablet 5 mg PO BID Qty: 60 RF: 2 Spiriva with HandiHaler 18 mcg Capsule, W/Inhalation Device 1 cap INHALATION QAM RF: 0 sennosides-docusate sodium [Senna Plus] 8.6-50 mg Tablet 1 tab-cap PO DAILY PRN (Reason: Constipation) RF: 0 amlodipine [Norvasc] 5 mg tablet 5 mg PO QAM RF: 0 aspirin [Aspir-81] 81 mg Tablet,Delayed Release (Dr/Ec) 81 mg PO QAM RF: 0 docusate sodium [Colace] 100 mg Capsule 100 mg PO BID PRN (Reason: Constipation) RF: 0 ondansetron 4 mg Tablet,Disintegrating 4 mg PO Q4 PRN (Reason: Nausea And Vomiting) RF: 0 acetaminophen [Tylenol] 325 mg Capsule 650 mg PO Q4H MDD 3000 mg PRN (Reason: Fever Or Pain) RF: 0 calcium carbonate-vitamin D3 [Calcium 600 + D(3)] 600 mg(1,500mg) -400 unit Tablet 1 tab PO QAM RF: 0 diclofenac sodium [Voltaren] 1 % gel 2 g TOPICAL QID PRN (Reason: Pain) RF: 0 Eucerin Cream 1 applic TOPICAL QAM RF: 0 loratadine [Claritin Liqui-Gel] 10 mg Capsule 10 mg PO HS RF: 0 albuterol sulfate [Ventolin HFA] 90 mcg/actuation Hfa Aerosol Inhaler 1 - 2 puff INHALATION QID PRN (Reason: Shortness Of Breath Or Wheezing) RF: 0 triamterene-hydrochlorothiazid 37.5-25 mg tablet 1 tab PO Q2D RF: 0 Reguloid (psyllium husk) 3 gram/5.4 gram Powder 1 tsp PO DAILY PRN (Reason: Constipation) RF: 0 sucralfate 100 mg/mL Suspension 1 gm PO 0800,1200,1600,2000 Qty: 420 RF: 0 pantoprazole 40 mg Tablet,Delayed Release (Dr/Ec) 40 mg PO BID Qty: 60 RF: 0 Eliquis 2.5 mg Tablet 2.5 mg PO BID@0830,2100 Qty: 60 RF: 0 Discharge Orders: Discharge Order (Routine); Ordered 12/14/19 Ordered By: Harini Monae Admission Data Admit Date/Time: 12/11/19 18:28 Attending Provider: Harini Monae Admit Provider: Jensen Cardozo Primary Care Provider: Rebeca Landon Other Providers: Jensen Cardozo Coding Level of Care Code D/C Day Management >30 mins Diagnoses Cellulitis L03.119 Laterality: unspecified laterality Site of cellulitis: extremity Site of cellulitis of extremity: lower extremity Fever R50.9 Fever type: unspecified Cystitis N30.90 Wounds, multiple open, lower extremity S81.809A Encounter type: initial encounter Laterality: unspecified laterality Paroxysmal atrial fibrillation I48.0 History of Clostridioides difficile colitis Z86.19 Anemia D64.9 Cough variant asthma J45.991 Urinary incontinence R32 Acute renal failure N17.9 CKD (chronic kidney disease), stage III N18.3 HTN (hypertension), benign I10 GERD (gastroesophageal reflux disease) K21.9 DVT prophylaxis Z29.9
[2019-12-14] MEDS ORDERED: SULFA/TRIMETH 400/80MG TAB PO SCH (21:00)
== END 2019-12-14 15:52 | disposition home or self-care (01) | DRG 603 ==
LOC: ED 12:43 → 2N 12:43 → SUATTDRO 18:28 → 2N 20:24 → SUATTDRO 12-11 18:28 → 3W 12-12 04:04